=== PATIENT | female | born 1955 | race Caucasian/White ===

== ENCOUNTER 2016-09-15 21:54 | Inpatient (IN) | payer MEDICAID, OTHER ==
[~2016-09-15] VITALS: Ht 152.4 cm; Wt 61.1 kg
[~2016-09-15 21:54] MED LIST: CALTTAB2 PO; IODIXANOL 320 MG/ML 50 ML VIAL (for RAD SPEC) I-ARTERIAL ONE; OXYC30TA3 PO; PROPOFOL 200 MG/20 ML AMP IV ONE; SOMA350T PO; XANA2TAB2 PO; [UNRECOGNIZED DRUG - CODE] PO
[2016-09-15] MEDS ORDERED: VERAPAMIL HCL 5 MG/2 ML VIAL ONE ×2 (22:18→23:03)
[2016-09-15] MEDS ORDERED: MIDAZOLAM HCL 2 MG/2 ML VIAL ONE (22:19)
[2016-09-16] VITALS (10 sets, daily range): BP systolic 120–144; BP diastolic 61–72; PULSE 58–74; RESP 13–24; TEMP 98–99.2; O2SAT 94–100
--- NOTE | 2016-09-16 00:20 | PD.RAD ---
Post Procedure Progress Note Pre Procedure Diagnosis: (1) Acute embolic stroke Post Procedure Diagnosis: (1) Acute embolic stroke Procedure Date: Sep 16, 2016 Supervising Radiologist: Td Munson JR Proceduralist/Assist: Nohemy Richter, RT(R)(), Jinny Gonzalez RT(R)() Anesthesia: General Plan of Activity Patient to Unit: Critical Care Patient Condition: Fair See PACS Report for procedural detail/treatment Vascular-Arterial Procedure Procedure 1 Procedure Site: Cerebral Procedure(s): Angiogram, Embolectomy Access Access Site(s): Right Femoral Artery Closure Site(s): Right vascular closure device Findings: Completer occlusion of M1 segment of right MCA. Last seen normal approx 5.5 hrs ago. Cerebral angio and attempted embolectomy performed. Removed some thrombus but complete occlusion remained despite multiple attempts. Angioseal closure device utilized at groin. TICI score: 0 Plan To ICU Jr. Arpit,Td Castillo MD Sep 16, 2016 00:19
--- NOTE | 2016-09-16 00:38 | HHI.HP ---
HPI Service Critical Care Medicine Primary Care Physician Sarah Hong M.D. Admission Diagnosis Diagnosis: (1) Acute ischemic stroke Diagnosis: Principal (2) COPD (chronic obstructive pulmonary disease) Diagnosis: Secondary (3) Thoracic outlet syndrome Diagnosis: Secondary (4) Osteoporosis Diagnosis: Secondary (5) Anxiety Diagnosis: Secondary (6) Tobacco abuse Diagnosis: Secondary (7) GERD (gastroesophageal reflux disease) Diagnosis: Secondary (8) Cataract Diagnosis: Secondary (9) Endometriosis Diagnosis: Secondary (10) Dyslipidemia Diagnosis: Secondary (11) Chronic back pain Diagnosis: Secondary (12) Trigeminal neuralgia of left side of face Diagnosis: Secondary (13) Tissue plasminogen activator (t-PA) administered at other facility within 24 hours prior to current admission Diagnosis: Principal Travel History International Travel<30 Days: No Contact w/Intl Traveler <30 Da: No Traveled to Known Affected Are: No History of Present Illness 61-year-old [id number] female with past medical history of COPD, tobacco abuse, chronic back pain, osteoporosis, endometriosis, hyperlipidemia (not on therapy) who states she has a prior history of TIA 2 years ago who was transferred to [facility] from [facility] as a stroke alert. She was triaged at outside hospital at 18:40 on 09/15 where she presented with left upper extremity weakness and left facial droop with reported time of onset of 16:30, last seen normal 16:00. She complained of 3 day history of headache. She reportedly had a prior history of TIA about 2 years ago but was not on antiplatelet or anticoagulant therapy. CT brain at outside hospital reportedly shows hyperdensity of right MCA with no loss of traore white matter differentiation to suggest acute infarct. No acute hemorrhage. Patient was evaluated by tele-neurologist and patient was administered TPA at outside hospital and then transferred for IR and thrombectomy. Patient was unable to transfer to [facility] due to weather. Transferred by ground transport to [facility] after acceptance by Dr. Durán with neurology. Patient went directly to IR per Dr. Td Munson. Angiography showed complete occlusion of M1 segment of right MCA. Embolectomy was attempted and there was removal of some thrombus but complete occlusion remained despite multiple attempts. Transfer center contacted critical care medicine while patient was in IR, requesting admission to [facility]. TPA completed at 21:00 on 09/15 per discussion with IR. BP outside hospital was 117/79, hemoglobin 14.7, platelets 398, coags normal, LFTs normal, creatinine 0.83. Past Family Social History Allergies: Coded Allergies: Nubain (Verified Allergy, Severe, HIVES,HIVES, 04/29/11) Nonsteroidal Anti-Inflammatory Agts (Unverified Adverse Reaction, Severe, N/V, 04/29/11) Past Medical History COPD Chronic back pain Osteoporosis GERD Trigeminal neuralgia Anxiety Thoracic outlet syndrome Hyperlipidemia Endometriosis TIA 2 years ago Past Surgical History Hysterectomy due to endometriosis Appendectomy Bilateral breast mass resection (benign cyst) Coccyx resection 2006 Left eye cataract surgery 08/20/09 Left corneal transplant Dental extraction about 3 months ago Tobacco abuse Reported Medications Obtained medication list from outside hospital. Patient was unable to verify dosage with me. Hydrocodone 5/325 Oxycodone 10/325 Amoxicillin 500 mg (patient states she was on this for 3-4 months following a dental extraction) Suboxone 8/2 mg Carbamazepine 200 mg by mouth twice a day (patient states she is on it for trigeminal neuralgia, no history of seizures) Klonopin 0.5 mg Gabapentin 800 mg by mouth 3 times a day Omeprazole 40 mg daily Prednisone 20 mg daily tizanidine 4 mg by mouth every 8 hours Albuterol 2 puffs inhaled every 4 hours Prednisolone ophthalmic 1 drop left eye twice a day Acetaminophen codeine Klonopin 1 mg by mouth twice a day Diclofenac 50 g by mouth twice a day Family History Her mother had a stroke in her 50s. She of "Alzheimer's" Father at age 70 from lung cancer Social History She smokes a half a pack of cigarettes per day for 30 years Denies use of alcohol or illicit drugs She was incarcerated for 2 years and was released in 1999 She is not . She has a boyfriend/fianc who is in the waiting room. She has adult children who she states have not been informed of her stroke but that it is okay for hospital staff to update them if they call asking about her. Physical Exam Physical Exam GENERAL: Well-nourished, well-developed patient who is laying flat in ISC bed. SKIN: Warm and dry. Feet are cool to touch bilaterally. She has well-healed linear scars on volar aspect of left forearm that appear consistent with self cutting. HEAD: Atraumatic. Normocephalic. EYES: s/p L corneal transplant. Bilateral pupils are 4-5 mm, round and reactive to 2 mm bilaterally. No scleral icterus. No injection or drainage. ENT: No nasal bleeding or discharge. Mucous membranes pink and moist. NECK: Trachea midline. No JVD. No carotid bruit. CARDIOVASCULAR: Regular rate and rhythm, sinus rhythm on monitor with rate in the 60s. No murmurs rubs or gallops. RESPIRATORY: No accessory muscle use. Clear to auscultation. Breath sounds equal bilaterally. GASTROINTESTINAL: Abdomen soft, non-tender, nondistended. Bowel sounds present. MUSCULOSKELETAL/VASC: Extremities without clubbing, cyanosis, or edema. No obvious deformities. Feet are cool to touch bilaterally. There is a dressing in place R groin that is clean and dry. Right femoral and bilateral popliteal pulses are palpable. She complains of right groin tenderness but there is no significant hematoma appreciated. Right DP pulse is dopplerable. No dopplerable pulse noted left DP or posterior tibial artery which was reportedly consistent with preprocedure exam per RN report. NEUROLOGICAL: Awake and alert, oriented x4. Pupils reactive. There is some left ptosis which patient states is chronic. Extraocular movements appear full however it does appear there is a right exophoria. No obvious cranial nerve deficits. Normal facial sensation. Normal tongue protrusion. Speech is slurred. Normal naming. Strength is 5 out of 5 on right side. She reports equal and symmetrical sensation to soft touch Left upper extremity is flaccid. Left hip flexor is 4 out of 5, 4-/5 L hamstring, 4/5 L ankle plantar flexion, 4/5 L ankle dorsiflexion. Babinski upgoing bilaterally. Patellar 2+ bilaterally. Assessment and Plan Assessment and Plan NEURO: Acute ischemic stroke, right M1 occlusion History of trigeminal neuralgia Anxiety Chronic back pain Status post left corneal implant History of TIA s/p TPA completed 09/15 21:00 (discussed with Eugenio EDMONDS in invasive radiology) s/p thrombectomy per Dr. Td Munson with persistent occlusion of R M1 Admit to [facility] for monitoring Hold anticoagulation and antiplatelets for 24 hours following TPA Obtain carotid ultrasound, 2-D echo, lipid panel Follow-up CT brain at 24 hours. Labetalol/nicardipine if needed to maintain systolic blood pressure less than 185/diastolic less than 110 following TPA. Telemetry monitoring Ofirmev if needed for temp greater than 100.4 Fentanyl 25-50 g IV as needed for pain Resume carbamazepine 200 by mouth twice a day, gabapentin 800 by mouth 3 times a day, Klonopin 1 mg by mouth twice a day if able to tolerate by mouth (for h/o anxiety and Trigeminal neuralgia, no h/o sz. If does not pass swallow eval, NGT for meds 24 hours post tpa. Neurology consult RESP: COPD Tobacco abuse Nasal cannula wean as tolerated. Incentive spirometry every hour. DuoNeb every 6 hours. Albuterol every 2 hours as needed. CV: Hyperlipidemia Patient reports a history of hyperlipidemia but has not recently been on medication. Fasting lipid profile is pending. Patient is in sinus rhythm. Continue to monitor on telemetry. Obtain 2-D echo GI: GERD Protonix 40 mg IV daily FEN/RENAL: Patient is voiding. No Moon ID: Leukocytosis, likely reactive (high blood cell count 11.4 at outside hospital) Monitor for signs and symptoms of infection. HEME: No acute hematologic issues. Status post TPA. ENDO: Euglycemic outside hospital. Initiate low-dose insulin sliding scale if needed. Follow-up hemoglobin A1c. MSK: Osteoporosis Fosamax on hold. Unclear if she was actively taking it recently. PROPH: SCDs for DVT prophylaxis. Hold pharmacologic DVT prophylaxis for 24 hours status post TPA. Protonix 40 mg IV daily for stress ulcer prophylaxis and history of GERD ACCESS: Peripheral IV providing adequate access at this time. Angioseal device R groin. Patient appears capacitated for medical decision-making. She indicates that she is full code for pulseless arrest and she would be agreeable to intubation if needed for airway compromise following stroke. FULL CODE Level III H&P Problem Qualifiers (1) Chronic back pain: Bronwyn Camejo MD Sep 16, 2016 00:38
[2016-09-16] MEDS ORDERED: MISCELLANEOUS NURSING INFORMATION XX SCH (01:15)
[2016-09-16] MEDS ORDERED: RESP: ALBUTEROL 2.5 MG/3 ML NEB (PRN) INH (01:15)
[2016-09-16] MEDS ORDERED: CHLORHEXIDINE GLUCONATE 2 % 1 PACK (2 CLOTHS) TOP PRN (01:15)
[2016-09-16] MEDS ORDERED: MAGNESIUM HYDROXIDE SUSP 30 ML CUP PO PRN (01:15)
[2016-09-16] MEDS ORDERED: LABETALOL HCL 100 MG/20 ML VIAL IV PUSH PRN (01:15)
[2016-09-16] MEDS ORDERED: SENNOSIDES 8.6 MG TAB PO PRN (01:15)
[2016-09-16] MEDS ORDERED: SODIUM CHLORIDE 0.9% FLUSH 10 ML FLUSH IV FLUSH PRN (01:15)
[2016-09-16] MEDS ORDERED: BISACODYL 10 MG SUPP RECTAL PRN (01:15)
[2016-09-16] MEDS: CHLORHEXIDINE GLUCONATE 2 % 1 PACK (2 CLOTHS) TOP SCH (01:23)
[2016-09-16] MEDS ORDERED: ACETAMINOPHEN 1000 MG/100 ML VIAL IV PRN ×2 (01:30→14:00)
[2016-09-16] MEDS ORDERED: niCARdipine INJ 25 MG in SODIUM CHLOR 0.9% 250 ML INJ 250 ML IV SCH (01:30)
[2016-09-16] MEDS: SODIUM CHLOR 0.9% 1000 ML INJ 1,000 ML IV SCH ×2 (01:30→11:43)
[2016-09-16] MEDS ORDERED: RESP: ALBUTEROL 2.5 MG/IPRATROPIUM 0.5 MG NEB (SCH) INH (04:00)
--- NOTE | 2016-09-16 06:01 | HHI.CCPN ---
Subjective Remarks/Hospital Course 61-year-old kmicu-llwg-[id number] female with past medical history of COPD, tobacco abuse, chronic back pain, osteoporosis, endometriosis, hyperlipidemia (not on therapy) who states she has a prior history of TIA 2 years ago who was transferred to [facility] from [facility] as a stroke alert. She was triaged at outside hospital at 18:40 on 09/15 where she presented with left upper extremity weakness and left facial droop with reported time of onset of 16:30, last seen normal 16:00. She complained of 3 day history of headache. She reportedly had a prior history of TIA about 2 years ago but was not on antiplatelet or anticoagulant therapy. CT brain at outside hospital reportedly shows hyperdensity of right MCA with no loss of traore white matter differentiation to suggest acute infarct. No acute hemorrhage. Patient was evaluated by tele-neurologist and patient was administered TPA at outside hospital and then transferred for IR and thrombectomy. Patient was unable to transfer to [facility] facility due to weather. Transferred by ground transport to [facility] after acceptance by Dr. Durán with neurology. Patient went directly to IR per Dr. Td Munson. Angiography showed complete occlusion of M1 segment of right MCA. Embolectomy was attempted and there was removal of some thrombus but complete occlusion remained despite multiple attempts. Transfer center contacted critical care medicine while patient was in IR, requesting admission to [facility]. TPA completed at 21:00 on 09/15 per discussion with IR. BP outside hospital was 117/79, hemoglobin 14.7, platelets 398, coags normal, LFTs normal, creatinine 0.83. Subjective 09/16: Seen and examined. Patient now with movement involving her left upper extremity. Noted cool left lower extremity with non-dopplerable dorsalis pedis pulse. ABIs will be ordered later this afternoon after TPA half-life has past. Vascular checks in the interim. Mentating fine. Protecting airway. Objective Vital Signs Date Time Temp Pulse Resp B/P Pulse Ox O2 Delivery O2 Flow Rate FiO2 09/16/16 04:00 98.4 63 13 126/71 100 09/16/16 03:22 Nasal Cannula 2.00 Objective Remarks GENERAL: 89-year-old female, resting in bed in no acute distress SKIN: Warm and dry. Feet are cool to touch bilaterally. She has well-healed linear scars on volar aspect of left forearm that appear consistent with self cutting. HEAD: Atraumatic. Normocephalic. EYES: s/p L corneal transplant. Bilateral pupils are 4 mm, round and reactive to 2 mm bilaterally in dark room. No scleral icterus. No injection or drainage. ENT: No nasal bleeding or discharge. Mucous membranes pink and moist. Oropharynx without erythema or exudates NECK: Trachea midline. No JVD. No carotid bruit. CARDIOVASCULAR: RRR. S1, S2. No S4. Without murmur, clicks, gallops or rubs RESPIRATORY: Clear to auscultation bilaterally without wheezes rales or rhonchi GASTROINTESTINAL: Abdomen soft, non-tender, nondistended. Hypoactive bowel sounds appreciated MUSCULOSKELETAL: Left upper extremity is everted and no significant peripheral edema. Noted non-dopplerable left dorsalis pedis. No cyanosis noted. Cool to touch NEUROLOGICAL: Awake and alert, oriented to person place and time. Pupils reactive as above. No obvious cranial nerve deficits specifically no facial droop. Normal tongue protrusion. Speech is normalizing. Strength is 5 out of 5 on right upper extremity and lower extremity. Left upper extremity strength is 3 out of 5. Normal sensation bilateral upper and lower extremity. Babinski upgoing bilaterally. No clonus. Urinary Catheter: Yes Assessment to: Remove Moon insert reason: Prolonged Immobilization Vascular Central Line Catheter: No Assessment to: Continue A/P Assessment and Plan NEURO/PSYCH: Acute ischemic stroke, right M1 occlusion History of trigeminal neuralgia Anxiety Chronic back pain Status post left corneal implant History of TIA with left-sided symptomatology History of drug-seeking behavior - prior Suboxone use History of TOS Neurology consult pending s/p TPA completed 09/15 21:00 initial bolus 5.8 mg followed by 52.4 mg at [facility] s/p attempted thrombectomy with interventional radiology with persistent occlusion of R M1 Follow-up CT brain at 2100 09/16. MRI brain to be ordered today Home medications Tegretol 200 by mouth twice a day, Neurontin 800 by mouth 3 times a day, Klonopin 1 mg by mouth twice a day can be resumed for anxiety and trigeminal neurologist Holding diclofenac 50 mg by mouth twice a day/home medication On Ofirmev 1 g every 8 hours when necessary fever Patient states she is not currently on Suboxone Resume prednisolone acetate 0.5% left eye 1 drop twice a day left corneal transplant PT/OT/ST evaluate RESP: COPD Tobacco abuse Nasal cannula to maintain oxygen saturations greater than equal to 92% Incentive spirometry every hour while awake Continue home medications albuterol nebulizers every 4 hours nebs/home medication with Albuterol every 2 hours as needed. Nicotine patch will be provided during this hospitalization with education pamphlet CV: Hyperlipidemia Goal systolic blood pressure less than 185/diastolic less than 110 following administration of TPA for 24 hours. Patient reports a history of hyperlipidemia but has not recently been on medication. Previously on atorvastatin 40 mg by mouth at bedtime Fasting lipid profile is pending. 2-D echo ordered per CVA protocol GI: GERD History of esophageal dilatation Hepatitis C Hiatal hernia IBD Protonix 40 mg IV daily while nothing by mouth On Prilosec 40 mg daily at home. Bowel regimen to be initiated with Ita-Colace twice a day/Senokot lactulose when necessary Follow-up on liver function tests /RENAL: Moon was placed. Now will keep in place 24 hours post tPA infusion will be discontinued at 2100 Monitor urine output Accurate I's and O's ID: Monitor for signs and symptoms of infection. HEME: Leukocytosis Likely leukemoid type reaction. Follow-up CBC to be done this hospitalization differential Status post TPA. 58.2 mg at outside facility ENDO: Euglycemic outside hospital. Initiate low-dose insulin sliding scale if needed. Follow-up hemoglobin A1c. MSK: Osteoporosis/osteoarthritis Fosamax on hold. Unclear if she was actively taking it recently. FEN: Replace electrolytes as clinically indicated. Currently normal saline at 84 cc an hour Nutrition pending swallow evaluation Access - Single peripheral IV Prophylaxis GI- Protonix DVT- SCD/holding pharmacologic prophylaxis 24 hours post alteplase infusion . 30 minutes additional care time area and will sign off to hospitalist in a.m. 09/[address] head negative Enoc Chaparro MD Sep 16, 2016 06:01
[2016-09-16] MEDS ORDERED: hydrALAZINE HCL 20 MG/ML VIAL IV PUSH PRN (07:30)
[2016-09-16] MEDS: RESP: ALBUTEROL 2.5 MG/3 ML NEB (SCH) NEB ×5 (08:14→23:47)
--- NOTE | 2016-09-16 08:27 | PD.CONS ---
History of Present Illness Service Neurology Consult Requested By [facility], [facility] Reason for Consult stroke Primary Care Physician Unknown History of Present Illness 61-year-old f transferred from [facility] for possible neurointerventional tx for acute stroke. pt had onset of stroke symptoms at approx 1600 with left sided weakness, went to recieved iv tpa but had persistent weakness. She had a cta brain that showed a rt mca occlusion. She was tx'd to [facility] for further care. Upon arrival she was immediately taken to interventional suite. Rt mca embolectomy attempted but occlusion persisted. At baseline she suffers from chronic pain and is on disability for osteoporosis , and "fractures". she does not take any blood thinners. Smokes 1/2 ppd x decades. hx of "tia" in the past but could not elaborate. she c/o of generalized pain. no hx of dvt/clot/afib. Past Family Social History Allergies: Coded Allergies: Nubain (Verified Allergy, Severe, HIVES,HIVES, 04/29/11) Nonsteroidal Anti-Inflammatory Agts (Unverified Adverse Reaction, Severe, N/V, 04/29/11) Past Medical History COPD Chronic back pain Osteoporosis GERD Trigeminal neuralgia Anxiety Thoracic outlet syndrome Hyperlipidemia Endometriosis TIA 2 years ago Past Surgical History Hysterectomy due to endometriosis Appendectomy Left eye cataract surgery 08/20/09 Left corneal transplant Reported Medications Obtained medication list from outside hospital. Patient was unable to verify dosage with me. Hydrocodone 5/325 Oxycodone 10/325 Amoxicillin 500 mg (patient states she was on this for 3-4 months following a dental extraction) Suboxone 8/2 mg Carbamazepine 200 mg by mouth twice a day (patient states she is on it for trigeminal neuralgia, no history of seizures) Klonopin 0.5 mg Gabapentin 800 mg by mouth 3 times a day Omeprazole 40 mg daily Prednisone 20 mg daily tizanidine 4 mg by mouth every 8 hours Albuterol 2 puffs inhaled every 4 hours Prednisolone ophthalmic 1 drop left eye twice a day Acetaminophen codeine Klonopin 1 mg by mouth twice a day Diclofenac 50 g by mouth twice a day Family History Her mother had a stroke in her 50s. hx of Alzheimers Father at age 70 from lung cancer Social History She smokes a half a pack of cigarettes per day for 30 years Denies use of alcohol or illicit drugs Review of Systems All other ROS: ROS reviewed as documented in chart Past Family Social History Allergies: Coded Allergies: Nubain (Verified Allergy, Severe, HIVES,HIVES, 04/29/11) Nonsteroidal Anti-Inflammatory Agts (Unverified Adverse Reaction, Severe, N/V, 04/29/11) Active Ordered Medications Current Medications Medications (Trade) Dose Ordered Sig/Cassia Route Start Time Stop Time Status Last Admin (NS 1000 ml Inj) 1,000 ml @ 84 mls/hr [id number] IV 09/16/16 01:07 09/16/16 01:30 (NS Flush) 2 ml UNSCH PRN IV FLUSH 09/16/16 01:15 (NS Flush) 2 ml BID IV FLUSH 09/16/16 09:00 (Protonix Inj) 40 mg DAILY IV 09/16/16 09:00 (Zofran Inj) 4 mg Q6H PRN IV 09/16/16 01:15 Miscellaneous Information 1 [id number] XX 09/16/16 01:15 09/16/16 01:15 (Chlorhexidine 2% Cloth) 3 pack Taper DAILY@04 TOP 09/16/16 04:00 09/12/17 03:59 09/16/16 01:23 (Chlorhexidine 2% Cloth) 3 pack UNSCH PRN TOP 09/16/16 01:15 (Ita-Colace) 1 tab BID PO 09/16/16 09:00 (Milk Of Magnesia Liq) 30 ml Q12H PRN PO 09/16/16 01:15 (Senokot) 17.2 mg Q12H PRN PO 09/16/16 01:15 (Dulcolax Supp) 10 mg DAILY PRN RECTAL 09/16/16 01:15 (Lactulose Liq) 30 ml DAILY PRN PO 09/16/16 01:15 Labetalol HCl 10 mg 10 mg Q4H PRN IV PUSH 09/16/16 01:15 (Cardene Inj/NS 250 ml Inj) 260 ml @ 0 mls/hr TITRATE IV 09/16/16 01:30 (fentaNYL INJ) 25 mcg Q1H PRN IV PUSH 09/16/16 01:30 (fentaNYL INJ) 50 mcg Q1H PRN IV PUSH 09/16/16 01:30 09/16/16 06:03 (KlonoPIN) 1 mg Q12HR PO 09/17/16 09:00 (TEGretol) 200 mg Q12HR PO 09/17/16 09:00 (Neurontin) 800 mg TID PO 09/17/16 09:00 (Pred Forte 1% Opth Susp) 1 drop DAILY LEFT EYE 09/16/16 09:00 (Habitrol 14 Mg Patch.24 Hr) 1 patch DAILY@2100 T-DERMAL 09/16/16 21:00 Miscellaneous Information 1 DAILY@2100 T-DERMAL 09/16/16 21:00 (Apresoline Inj) 10 mg Q1H PRN IV PUSH 09/16/16 07:30 (Ofirmev Inj) 1,000 mg Q8H PRN IV 09/16/16 14:00 Exam I&O / VS 09/15/16 09/15/16 09/16/16 15:00 23:00 07:00 Intake Total 325 ml Output Total 225 ml Balance 100 ml Intake IV Total 325 ml Output Urine Total 225 ml # Bowel Movements 0 Vital Signs Date Time Temp Pulse Resp B/P Pulse Ox O2 Delivery O2 Flow Rate FiO2 09/16/16 07:00 96 Nasal Cannula 2.00 09/16/16 04:00 98.4 63 13 126/71 100 09/16/16 03:22 99 Nasal Cannula 2.00 09/16/16 00:00 98.1 64 16 131/72 100 General: Alert and Oriented, No acute distress Respiratory: Non-labored respirations Exam Comments awake, left gaze preference, no significant neglect, ou 3-2mm, left lower facial droop, left arm 1/5, left leg 2-3/5 with left sided dystaxia and mild left hemisensory Review/Management Diagnosis/Plan: (1) Acute ischemic right MCA stroke Plan: +tob use hx rt mca occlusion r/o rt carotid dz/embolic process recs tele bp <180/100 post-tpa mri/mra brain echo, carotid lipids scd's start aspirin tomorrow if no ich on repeat ct brain later today (2) Tissue plasminogen activator (t-PA) administered at other facility within 24 hours prior to current admission Plan: given 09/15/2016 at 1945 (3) Trigeminal neuralgia of left side of face Plan: on cbz (4) Chronic back pain (5) Tobacco abuse Plan: cessation d/w pt Problem Qualifiers (1) Chronic back pain: Won Durán MD Sep 16, 2016 08:27
[2016-09-16] MEDS: PANTOPRAZOLE SODIUM 40 MG VIAL IV SCH (08:50)
[2016-09-16] MEDS: DOCUSATE SODIUM 50 MG/SENNA 8.6 MG TAB PO SCH ×3 (08:50→22:21)
[2016-09-16] MEDS: SODIUM CHLORIDE 0.9% FLUSH 10 ML FLUSH IV FLUSH SCH ×2 (08:50→21:00)
[2016-09-16] MEDS: prednisoLONE ACETATE 1% OPHT SUSP 5 ML BTL LEFT EYE SCH (09:00)
--- NOTE | 2016-09-16 09:50 | RADRPT ---
EXAM DATE/TIME: 09/16/2016 08:18 [place] COMPARISON: No previous studies available for comparison. INDICATIONS : Cerebrovascular accident. MEDICAL HISTORY : Hypercholesterolemia. Chronic obstructive pulmonary disease. Gastroesophageal reflux disease. Cerebro vascular accident. Thoracic outlet syndrome. Hiatal hernia. Kidney stones. Hepatitis C. SURGICAL HISTORY : Appendectomy. Hysterectomy. Left cornea transplant. Coccyx removed. Bilateral tumor removal of bila teral breast. ENCOUNTER: Initial ACUITY: 1 day PAIN SCORE: 10/10 LOCATION: Bilateral neck PEAK SYSTOLIC VELOCITIES (cm/sec): ICA/CCA RATIO: Right: 0.9 Left: 1.0 ICA: Right: 75 Left: 109 CCA: Right: 84 Left: 105 ECA: Right: 84 Left: 61 VERTEBRAL: Right: 34 antegrade Left: 57 antegrade Elevated flow velocities and ICA/CCA ratios have been found to correlate with increased degrees of vessel stenosis, calculated as percentage of diameter relative to a normal segment of distal ICA/CCA FINDINGS: RIGHT CAROTID: There is no evidence for a hemodynamically significant carotid stenosis. Minimal int imal hyperplasia is present with scattered calcific plaque. LEFT CAROTID: There is no evidence for a hemodynamically significant carotid stenosis. Minimal inti mal hyperplasia is present with scattered calcific plaque. VERTEBRAL ARTERIES: Flow is antegrade in both vertebral arteries. MISCELLANEOUS: There are no ancillary masses or adenopathy. CONCLUSION: Negative examination for a hemodynamically significant carotid stenosis. Benoit Smith MD FACR on September 16, 2016 at 9:48 Board Certified Radiologist. This report was verified electronically.
[2016-09-16] MEDS: clonazePAM 1 MG TAB PO SCH ×2 (10:38→22:20)
[2016-09-16] MEDS: ACETAMINOPHEN/HYDROcodone 325 MG/5 MG TAB PO PRN ×3 (10:38→22:21)
--- NOTE | 2016-09-16 12:13 | RADRPT ---
EXAM DATE/TIME: 09/15/2016 23:08 [facility] COMPARISON: No previous studies available for comparison. INDICATIONS : Acute right MCA occlusion with left hemiparesis. Patient last seen normal approximately 5.5 hours ago . Patient received t-PA at [facility]. Patient transferred here for intervention. Patient is i n need of a cerebral angiogram with thrombectomy due to CVA. MEDICAL HISTORY : History of hepatitis C, COPD, TIA, arterial thoracic outlet syndrome, IVDU, hiatal hernia, inflammato ry bowel disease, osteoarthritis, osteoporosis. SURGICAL HISTORY : History of colonoscopy, appendectomy, dilation of esophagus, hysterectomy. ENCOUNTER: Initial ACUITY: 1 day PAIN SCORE: 0/10 FLUORO TIME: 25.5 minutes IMAGE SERIES: 16 ACCESS SITE: Right Femoral artery CONTRAST: 63 cc Visipaque (iodixanol) MEDICATION(S): 1.) 5 mg Verapamil IART 2.) 1 g cefazolin (Ancef) IV Vancomycin within 2 hours of procedure, Ancef (or alternative) within 1 hour of procedure. DEVICE(S): 1.) Right middle cerebral artery mechanical thrombectomy Deepak 68 2.) Right midddle cerebral artery mechanical thrombectomy Solitaire 6-30 3.) Right common femoral artery 6Fr Angio-Seal TIMELINE: Interventional team called: 9:06 pm Interventional team arrived: 9:24 pm Interventional team ready: 9:30 pm Patient arrival: 10:01 pm Groin puncture: 10:30 Recanalization: 0 Anesthesia and pain control was provided by the Anesthesia department. PROCEDURE : 1. Ultrasound-guided puncture of the right common femoral artery access site. 2. Angiography of the access site prior to closure device. 3. Anesthesia and monitoring supplied by the anesthesiology department. 4. Percutaneous closure of the access site. 5. Angiography of the right internal carotid artery 6. Angiography of the right middle cerebral artery 7. mechanical thrombectomy of the right middle cerebral artery 8. Intra-arterial spasmolytic therapy I reviewed a CTA that accompanied the patient from [facility]. The risks, benefits and alternat willard to the procedure were explained and consent was obtained. No family available for consent. The s ite was prepped in sterile fashion. Full sterile technique was used, including cap, mask, sterile gl oves and gown and a large sterile sheet. Hand hygiene and 2% chlorhexidine and/or betadine/alcohol p rep was utilized per protocol for cutaneous antisepsis. The skin and subcutaneous tissues were infil trated with local anesthetic solution. With ultrasound and fluoroscopic guidance the right common femoral artery was punctured and a vascula r sheath was placed. Angiography of the common femoral artery was performed for evaluation prior to percutaneous closure device placement. A [employer] catheter was utilized to select the right internal carotid artery and selective angiogra phy performed. These images reveal acute occlusion of the M1 segment. The anterior cerebral artery is patent. There is some collateralization with opacification in the late arterial phase of the distal right middle through artery territory. Mechanical thrombectomy felt most prudent in this case. An 8 F rench neuron sheath was positioned in the cephalad portion of the right ICA. An 068 Penumbra aspirati on catheter, [employer] microcatheter, and agility microwire were utilized to gain access across the oc cluded segment. Injection of contrast peripheral to this shows traversal of the entire thrombus load. The Penumbra aspiration catheter was positioned in the proximal end of the clot. Aspiration of the c atheter was performed for 2 minutes and it was gently retracted with aspiration. Small piece of throm bus were noted but followup angiogram shows persistent occlusion. Significant vasospasm involving the ICA at the level of the skull base was noted. Intra-arterial verapamil was instilled. A total 5 mg u tilized. Followup angiogram shows resolution of much of the vasospasm. A second attempt was performed with similar results. The solitaire device was deployed within the thrombus through the penumbra cat heter. This was allowed to expand for 5 minutes. Suction was applied the catheter and the entire unit removed. Some chronic-appearing clot was noted within the solitaire device. Followup angiogram shows persistent occlusion. This device was utilized two more times with similar results. At this point th e procedure was terminated. Angio-Seal closure device was utilized at the groin access site. Conscious sedation was performed with the prescribed dosages and duration as above in the presence of an independent trained radiology nurse to assist in the monitoring of the patient. EKG and oximetry remained stable throughout the procedure. CONCLUSION: 1. Complete occlusion of the right M1 segment with attempted mechanical thrombectomy. Multiple attemp ts were made which cleared some chronic appearing thrombus but was unable to regain patency. This is TICI score of zero. Td Munson Jr., MD on September 16, 2016 at 11:50 Board Certified Radiologist. This report was verified electronically.
--- NOTE | 2016-09-16 13:30 | RADRPT ---
EXAM DATE/TIME: 09/16/2016 13:01 [facility] COMPARISON: No previous studies available for comparison. INDICATIONS : Left sided weakness. Post TPA. MEDICAL HISTORY : None. SURGICAL HISTORY : Appendectomy. benign breast cysts removed. ENCOUNTER: Subsequent ACUITY: 1 day PAIN SCORE: 0/10 LOCATION: cranial Please note a normal MRA of the brain does not entirely exclude the possibility of a small aneurysm, nor the possibility of distal intracranial vessel disease. TECHNIQUE: 3D time of flight MRA was performed. Source images, multiplanar STS MIP, and 3D volume MIP reconstru ctions were reviewed. FINDINGS: Both distal internal carotid arteries are widely patent. The left vertebral is patent. The basilar is patent. The right vertebral spot identified. Examination of the intracranial circulation demonstrates abrupt truncation of the right middle cerebr al at the M1 segment. There is some degree of limited distal reconstitution. The middle cerebral circ ulation on the left is widely patent. The anterior circulation is patent. The posterior circulation i s patent. CONCLUSION: 1. Abrupt occlusion of the right middle cerebral circulation at the level of the distal right M1. Kirt Smith MD on September 16, 2016 at 13:27 Board Certified Radiologist. This report was verified electronically.
--- NOTE | 2016-09-16 13:39 | RADRPT ---
EXAM DATE/TIME: 09/16/2016 13:01 [facility] COMPARISON: No previous studies available for comparison. INDICATIONS : Left sided weakness. Post TPA. MEDICAL HISTORY : None. SURGICAL HISTORY : Appendectomy. benign breast cysts removed. ENCOUNTER: Subsequent ACUITY: 1 day PAIN SCORE: 0/10 LOCATION: cranial TECHNIQUE: Multiplanar, multisequence MRI of the brain was performed without contrast. FINDINGS: There is an area involving the right MCA territory of high flair signal with associated restricted di ffusion. This involves the periventricular white matter as well as the cortex and immediate subcortic al white matter of the right parietal lobe. A few small foci of restricted diffusion seen involving t he cortex of the right frontal lobe and right parietal lobe more cephalad in nature. The remaining br ain shows normal signal. Ventricles are normal in size. No hemorrhage seen. CONCLUSION: Acute nonhemorrhagic infarction involving the right MCA territory as detailed above. Td Munson Jr., MD on September 16, 2016 at 13:28 Board Certified Radiologist. This report was verified electronically.
--- NOTE | 2016-09-16 15:45 | RADRPT ---
EXAM DATE/TIME: 09/16/2016 00:00 [facility] COMPARISON: No previous studies available for comparison. INDICATIONS : STROKE TECHNIQUE: Four-cuff ankle and brachial pressures were obtained. Pulse cuff waveform tracings of the ankles were recorded, and ankle-brachial indices were calculated. PRESSURES (mmHg): Brachial (arm): Right IV SITE Left 139 Ankle: Right 165 Left 91 ANNETTE: Right 1.19 Left 0.65 TBI: Right 0.00 Left 0.00 CONCLUSION: ANNETTE on the right is 1.19. ANNETTE on the left is 0.6. Findings would be consistent with left aortoiliac disease. Benoit Smith MD FACR on September 16, 2016 at 15:40 Board Certified Radiologist. This report was verified electronically.
--- NOTE | 2016-09-16 15:51 | EKG ---
Date Performed: 09/16/2016 Time Performed: 07:47:56 PTAGE: 61 years EKG: Sinus rhythm NORMAL ECG PREVIOUS TRACING : 06/13/2009 19.29 Compared to prior tracing no significant change DOCTOR: Billy Meehan Interpretating Date/Time 09/16/2016 15:50:06
--- NOTE | 2016-09-16 16:58 | ECHRPT ---
Indication: CVA/TIA CONCLUSIONS The left ventricular systolic function is normal with an estimated ejection fraction in the range of 60-65%. Wall thickness is normal. No regional wall motion abnormalities are present. The right ventricular size is normal. The right ventricular systoilc function is normal. The right ventricular wall thickness is normal. There is trace tricuspid valve regurgitation. BP: 126 / 71 HR: 63 Rhythm: Sinus MEASUREMENTS (Male / Female) Normal Values Technical Quality:Good 2D ECHO LVOT Diameter 2.0 cm LV Ejection Fraction MOD 4C 68.9 % LV Cardiac Index MOD 4C 2123.2 cm/minm LV Ejection Fraction 4C AL 69.9 % LV Cardiac Index 4C AL 2220.6 cm/minm M-MODE LV Diastolic Diameter MM 5.6 cm 4.2 - 5.9 / 3.9 - 5.3 cm LV Systolic Diameter MM 3.6 cm LV Ejection Fraction MM Teich 64.7 % LV Cardiac Index MM Teich 4071.6 cm/minm IVS Diastolic Thickness MM 0.9 cm 0.6 - 1.0 / 0.6 - 0.9 cm LVPW Diastolic Thickness MM 0.9 cm 0.6 - 1.0 / 0.6 - 0.9 cm LV Relative Wall Thickness MM 0.3 0.24 - 0.42 / 0.22 - 0.42 LV Mass Index MM 124.5 g/m 49 - 115 / 43 - 95 g/m Aortic Root Diameter MM 3.0 cm AV Cusp Separation MM 2.0 cm DOPPLER AV Peak Velocity 149.0 cm/s AV Peak Gradient 8.9 mmHg LVOT Peak Velocity 114.0 cm/s LVOT Peak Gradient 5.2 mmHg AV Area Cont Eq pk 2.4 cm MV Area PHT 3.2 cm Mitral E Point Velocity 86.4 cm/s Mitral A Point Velocity 104.0 cm/s Mitral E to A Ratio 0.8 LV E' Lateral Velocity 7.9 cm/s Mitral E to LV E' Lateral Ratio 10.9 LV E' Septal Velocity 8.2 cm/s Mitral E to LV E' Septal Ratio 10.5 TV Peak Velocity 235.0 cm/s PV Peak Velocity 96.4 cm/s PV Peak Gradient 3.7 mmHg FINDINGS Left Ventricle The left ventricular systolic function is normal with an estimated ejection fraction in the range of 60-65%. Wall thickness is normal. No regional wall motion abnormalities are present. Right Ventricle The right ventricular size is normal. The right ventricular systoilc function is normal. The right ventricular wall thickness is normal. Left Atrium The left atrial size is normal. Right Atrium The right atrial size is normal. Atrial Septum Normal atrial septal thickness without atrial level shunting by limited color doppler interrogation. Aorta The aortic root and proximal ascending aorta are normal in size on limited imaging. Mitral Valve Structurally normal mitral valve. No mitral valve stenosis or regurgitation. Aortic Valve Trileaflet aortic valve. No aortic valve stenosis or regurgitation. Tricuspid Valve There is trace tricuspid valve regurgitation. Vessels The inferior vena cava is normal in size. Pericardium No pericardial effusion. Jed Becerra MD, FACC Edited by: [employer] Specialist (Electronically Signed) Final Date:16 September 2016 16:57 Amended: 17 September 2016 13:25 MTDD
[2016-09-16] MEDS: REMOVE OLD PATCH T-DERMAL SCH (21:00)
--- NOTE | 2016-09-16 21:50 | RADRPT ---
EXAM DATE/TIME: 09/16/2016 21:18 [facility] COMPARISON: MRI BRAIN W/O CONTRAST, September 16, 2016, 13:01. INDICATIONS : Patient with acute nonhemorrhagic infarct in the right middle cerebral artery territory with left janay ed weakness. Evaluate post TPA. RADIATION DOSE: 56.35 CTDIvol (mGy) MEDICAL HISTORY : None SURGICAL HISTORY : Appendectomy. ENCOUNTER: Initial ACUITY: 2 days PAIN SCALE: 0/10 LOCATION: cranial TECHNIQUE: Multiple contiguous axial images were obtained of the head. Using automated exposure control and adj ustment of the mA and/or kV according to patient size, radiation dose was kept as low as reasonably a chievable to obtain optimal diagnostic quality images. FINDINGS: There are areas of decreased attenuation involving the right basal ganglia and right parietal co rtex corresponding to the areas of infarction seen on the MRI study. There is no evidence of acute he morrhage. There is mild mass effect on the right lateral ventricle which is slightly flattened. There is no midline shift. No extra-axial fluid collections are identified. The posterior fossa and brains tem remain unremarkable. CONCLUSION: 1. No acute hemorrhage. 2. Low attenuation areas corresponding to the areas of acute infarction seen on the MRI. Emmanuel Gracia MD on September 16, 2016 at 21:45 Board Certified Radiologist. This report was verified electronically.
[2016-09-16] MEDS: NICOTINE 14 MG/24 HR PATCH T-DERMAL SCH (22:22)
[2016-09-17] VITALS (12 sets, daily range): BP systolic 95–146; BP diastolic 52–78; PULSE 73–88; RESP 15–24; TEMP 97.6–98.8; O2SAT 93–97
[2016-09-17] MEDS: SODIUM CHLOR 0.9% 1000 ML INJ 1,000 ML IV SCH ×2 (00:57→12:52)
[2016-09-17] MEDS: RESP: ALBUTEROL 2.5 MG/3 ML NEB (SCH) NEB ×5 (03:31→20:00)
[2016-09-17] MEDS: CHLORHEXIDINE GLUCONATE 2 % 1 PACK (2 CLOTHS) TOP SCH (03:52)
[2016-09-17] MEDS: ACETAMINOPHEN/HYDROcodone 325 MG/5 MG TAB PO PRN ×2 (03:53→11:35)
[2016-09-17] MEDS: MORPHINE SULFATE 4 MG/ML INJ IV PRN ×3 (03:53→20:00)
[2016-09-17 04:13] LABS: HEMATOCRIT 34.6 % (35.0-46.0); MEAN CELL VOLUME 84.9 FL (80.0-100.0); MEAN CORPUSCULAR HEMOGLOBIN 28.8 PG (27.0-34.0); MEAN CORPUSCULAR HGB CONC 33.9 % (32.0-36.0); PLATELET COUNT 262 TH/MM3 (150-450); RED BLOOD COUNT 4.08 MIL/MM3 (4.00-5.30); RED CELL DISTRIBUTION WIDTH 15.6 % (11.6-17.2); REVIEW FLAG FINAL; WHITE BLOOD COUNT 7.3 TH/MM3 (4.0-11.0)
[2016-09-17 04:51] LABS: ANION GAP 11 MEQ/L (5-15); AST (GOT) 21 U/L (15-37); BLOOD UREA NITROGEN 10 MG/DL (7-18); CHLORIDE 106 MEQ/L (98-107); GLOMERULAR FILTRATION RATE 126 ML/MIN (>89); MAGNESIUM 1.8 MG/DL (1.5-2.5); POTASSIUM 3.1 MEQ/L (3.5-5.1); SODIUM (NA) 140 MEQ/L (136-145)
[2016-09-17 04:54] LABS: ALKALINE PHOSPHATASE 85 U/L (45-117); ALT (GPT) 19 U/L (10-53); HDL CHOLESTEROL 29.9 MG/DL (40.0-60.0); LDL CHOLESTEROL 81 MG/DL (0-99); TOTAL BILIRUBIN ADULT 0.2 MG/DL (0.2-1.0)
[2016-09-17 05:01] LABS: CREATINE KINASE 67 U/L (26-192)
[2016-09-17] MEDS: SODIUM CHLORIDE 0.9% FLUSH 10 ML FLUSH IV FLUSH SCH ×2 (09:00→20:00)
[2016-09-17] MEDS ORDERED: clonazePAM 1 MG TAB PO SCH (09:00)
[2016-09-17] MEDS: prednisoLONE ACETATE 1% OPHT SUSP 5 ML BTL LEFT EYE SCH (09:00)
[2016-09-17] MEDS: PANTOPRAZOLE SODIUM 40 MG VIAL IV SCH (09:02)
[2016-09-17] MEDS: carBAMazepine 200 MG TAB PO SCH ×2 (09:02→20:00)
[2016-09-17] MEDS: GABAPENTIN 400 MG CAP PO SCH ×3 (09:03→18:00)
[2016-09-17] MEDS: DOCUSATE SODIUM 50 MG/SENNA 8.6 MG TAB PO SCH ×2 (09:03→19:59)
[2016-09-17] MEDS: clonazePAM 1 MG TAB PO SCH ×2 (09:03→20:00)
--- NOTE | 2016-09-17 09:06 | HHI.PR ---
Review/Management Diagnosis/Plan: (1) Acute ischemic right MCA stroke Plan: +tob use hx rt mca occlusion carotid u/s- nml recs start aspirin, hep sub q cardio eval for shamar/afib r/o lipids scd's ok for 5th floor with tele rehab planning (2) Tissue plasminogen activator (t-PA) administered at other facility within 24 hours prior to current admission Plan: given 09/15/2016 at 1945 (3) Trigeminal neuralgia of left side of face Plan: on cbz (4) Chronic back pain (5) Tobacco abuse Plan: cessation d/w pt Subjective Subjective Comments No acute events reported No headache No chest pain No dyspnea Active Medications Current Medications Medications (Trade) Dose Ordered Sig/Cassia Route Start Time Stop Time Status Last Admin (NS 1000 ml Inj) 1,000 ml @ 84 mls/hr [id number] IV 09/16/16 01:07 09/17/16 00:57 (NS Flush) 2 ml UNSCH PRN IV FLUSH 09/16/16 01:15 (NS Flush) 2 ml BID IV FLUSH 09/16/16 09:00 09/17/16 09:00 (Protonix Inj) 40 mg DAILY IV 09/16/16 09:00 09/17/16 09:02 (Zofran Inj) 4 mg Q6H PRN IV 09/16/16 01:15 Miscellaneous Information 1 [id number] XX 09/16/16 01:15 09/16/16 01:15 (Chlorhexidine 2% Cloth) 3 pack Taper DAILY@04 TOP 09/16/16 04:00 09/12/17 03:59 09/16/16 01:23 (Chlorhexidine 2% Cloth) 3 pack UNSCH PRN TOP 09/16/16 01:15 (Ita-Colace) 1 tab BID PO 09/16/16 09:00 09/17/16 09:03 (Milk Of Magnesia Liq) 30 ml Q12H PRN PO 09/16/16 01:15 (Senokot) 17.2 mg Q12H PRN PO 09/16/16 01:15 (Dulcolax Supp) 10 mg DAILY PRN RECTAL 09/16/16 01:15 (Lactulose Liq) 30 ml DAILY PRN PO 09/16/16 01:15 Labetalol HCl 10 mg 10 mg Q4H PRN IV PUSH 09/16/16 01:15 (Cardene Inj/NS 250 ml Inj) 260 ml @ 0 mls/hr TITRATE IV 09/16/16 01:30 (TEGretol) 200 mg Q12HR PO 09/17/16 09:00 09/17/16 09:02 (Neurontin) 800 mg TID PO 09/17/16 09:00 09/17/16 09:03 (Pred Forte 1% Opth Susp) 1 drop DAILY LEFT EYE 09/16/16 09:00 09/17/16 09:00 (Habitrol 14 Mg Patch.24 Hr) 1 patch DAILY@2100 T-DERMAL 09/16/16 21:00 09/16/16 22:22 Miscellaneous Information 1 DAILY@2100 T-DERMAL 09/16/16 21:00 (Apresoline Inj) 10 mg Q1H PRN IV PUSH 09/16/16 07:30 (Ofirmev Inj) 1,000 mg Q8H PRN IV 09/16/16 14:00 (KlonoPIN) 1 mg Q12HR PO 09/16/16 09:30 09/17/16 09:03 ([place] 5-325 Mg) 1 tab Q4H PRN PO 09/16/16 09:30 09/17/16 03:53 (Morphine Inj) 2 mg Q2H PRN IV 09/16/16 09:30 09/17/16 03:53 Allergies Allergies Coded Allergies Nubain (Verified Allergy, Severe, HIVES,HIVES, 04/29/11) Nonsteroidal Anti-Inflammatory Agts (Unverified Adverse Reaction, Severe, N/V , 04/29/11) Review of Systems All other ROS: ROS reviewed as documented in chart Exam I&O / VS 09/16/16 09/16/16 09/17/16 15:00 23:00 07:00 Intake Total 900 ml 1208 ml 733 ml Output Total 400 ml 200 ml 275 ml Balance 500 ml 1008 ml 458 ml Intake Oral 100 ml 450 ml 200 ml IV Total 800 ml 758 ml 533 ml Output Urine Total 400 ml 200 ml 275 ml # Bowel Movements 0 Vital Signs Date Time Temp Pulse Resp B/P Pulse Ox O2 Delivery O2 Flow Rate FiO2 09/17/16 07:30 96 21 09/17/16 04:00 98.4 78 24 137/78 96 09/17/16 02:00 73 09/17/16 00:00 98.8 80 21 113/58 93 09/17/16 00:00 80 09/16/16 20:00 98.1 74 24 120/67 95 09/16/16 20:00 72 09/16/16 19:31 94 21 09/16/16 19:00 93 Nasal Cannula 2.00 09/16/16 16:00 98.0 74 20 144/67 09/16/16 12:00 99.2 58 20 120/61 98 09/16/16 09:20 95 21 General: Alert and Oriented, No acute distress Respiratory: Non-labored respirations Exam Comments awake, left gaze preference, no significant neglect, ou 3-2mm, left lower facial droop, left arm 1-2/5, left leg 2-3/5 with left sided dystaxia and mild left hemisensory Objective Micro and Labs Laboratory Tests Test 09/17/16 03:38 White Blood Count 7.3 Red Blood Count 4.08 Hemoglobin 11.7 Hematocrit 34.6 Mean Corpuscular Volume 84.9 Mean Corpuscular Hemoglobin 28.8 Mean Corpuscular Hemoglobin 33.9 Concent Red Cell Distribution Width 15.6 Platelet Count 262 Mean Platelet Volume 8.9 Sodium Level 140 Potassium Level 3.1 Chloride Level 106 Carbon Dioxide Level 23.0 Anion Gap 11 Blood Urea Nitrogen 10 Creatinine 0.50 Estimat Glomerular Filtration 126 Rate Random Glucose 84 Calcium Level 7.8 Phosphorus Level 3.6 Magnesium Level 1.8 Total Bilirubin 0.2 Aspartate Amino Transf 21 (AST/SGOT) Alanine Aminotransferase 19 (ALT/SGPT) Alkaline Phosphatase 85 Total Creatine Kinase 67 Troponin I 0.52 Total Protein 6.1 Albumin 2.9 Triglycerides Level 189 Cholesterol Level 149 LDL Cholesterol 81 HDL Cholesterol 29.9 Cholesterol/HDL Ratio 4.98 Problem Qualifiers (1) Chronic back pain: Won Durán MD Sep 17, 2016 09:06
[2016-09-17] MEDS: HEPARIN SODIUM - SQ 10,000 UNITS/ML VIAL SQ SCH ×2 (09:15→20:00)
[2016-09-17] MEDS: ASPIRIN 325 MG TAB PO SCH (09:15)
[2016-09-17 10:39] LABS: HEMOGLOBIN A1a 1.4 %; HEMOGLOBIN A1b 1.8 %; HEMOGLOBIN Ao 84.5 %
--- NOTE | 2016-09-17 11:12 | PD.PN.STU ---
Subjective Remarks Patient is a 61 year old white female smoker with a PMH of TIA 2 years ago, COPD and hyperlipidemia, presented with acute nonhemorrhagic infarct of the R MCA with left sided weakness. She was given IV tPa 09/15 at 21:00 and sent to IR for embolectomy which was unsuccessful after multiple attempts. She has residual left sided weakness and slurred speech. Today she is complaining of right groin pain where IR achieved access. She also has a severe headache and would like pain medicine. She says her weakness is improving. She is now able to move her left leg and lift it without any help. Her left arm is still immobile. She also reports left sided facial numbness and weakness. Objective Vitals Vital Signs Date Time Temp Pulse Resp B/P Pulse Ox O2 Delivery O2 Flow Rate FiO2 09/17/16 07:30 96 21 09/17/16 07:00 81 09/17/16 04:00 98.4 78 24 137/78 96 09/17/16 02:00 73 09/17/16 00:00 98.8 80 21 113/58 93 09/17/16 00:00 80 09/16/16 20:00 98.1 74 24 120/67 95 09/16/16 20:00 72 09/16/16 19:31 94 21 09/16/16 19:00 93 Nasal Cannula 2.00 09/16/16 16:00 98.0 74 20 144/67 09/16/16 12:00 99.2 58 20 120/61 98 I/O 09/16/16 09/16/16 09/16/16 09/17/16 09/17/16 09/17/16 07:00 15:00 23:00 07:00 15:00 23:00 Intake Total 325 ml 900 ml 1208 ml 733 ml Output Total 225 ml 400 ml 200 ml 275 ml Balance 100 ml 500 ml 1008 ml 458 ml Intake Oral 100 ml 450 ml 200 ml IV Total 325 ml 800 ml 758 ml 533 ml Output Urine Total 225 ml 400 ml 200 ml 275 ml # Bowel Movements 0 0 Result Diagram: 09/17/1633709/17/16337 Objective Remarks GENERAL: Well-nourished, well-developed patient who is laying flat in ISC bed. SKIN: Warm and dry. Feet are cool to touch bilaterally. She has well-healed linear scars on volar aspect of left forearm that appear consistent with self cutting. HEAD: Atraumatic. Normocephalic. EYES: s/p L corneal transplant. Bilateral pupils are 4-5 mm, round and reactive to 2 mm bilaterally. No scleral icterus. No injection or drainage. CARDIOVASCULAR: Regular rate and rhythm, sinus rhythm on monitor with rate in the 60s. No murmurs rubs or gallops. RESPIRATORY: No accessory muscle use. Clear to auscultation. Breath sounds equal bilaterally. GASTROINTESTINAL: Abdomen soft, non-tender, nondistended. Bowel sounds present. MUSCULOSKELETAL/VASC: Extremities without clubbing, cyanosis, or edema. No obvious deformities. Left lower limb is cool to touch compared to the right lower limb. There is a dressing in place R groin that is clean and dry. Right femoral and bilateral popliteal pulses are palpable. NEUROLOGICAL: Awake and alert, oriented x4. Pupils reactive. There is some left ptosis which patient states is chronic. Left lower facial weakness. Extraocular movements appear full. No obvious cranial nerve deficits. Normal facial sensation. Normal tongue protrusion. Speech is slurred. Strength is 5 out of 5 on right side. Sensation to light touch is intact bilaterally. Left upper extremity is immobile. Left hip flexor is 4 out of 5, 4-/5 L hamstring, 4/ 5 L ankle plantar flexion, 4/5 L ankle dorsiflexion. A/P Assessment and Plan 1. Acute Ischemic stroke: - s/p tpa 09/15 21:00, embolectomy attempt - Continue Aspirin 325mg therapy - OT/PT evaluation recommends discharge to rehab facility when appropriate. - Brain MRI confirmed ischemic stroke. Carotid US was negative 2. COPD, tobacco use - Continue Duoneb q 6 hrs - Albuterol as needed 3. Hypertriglyceridemia: - lab results show triglycerides:189 NelsonDanna M3 Sep 17, 2016 11:11
--- NOTE | 2016-09-17 14:10 | MB ---
cc: KIYAANUJ COLLIERSUSAN DATE OF CONSULTATION: 09/17/2016 HISTORY OF PRESENT ILLNESS Ms. Munson is a 61-year-old white female who presented with acute stroke with left-sided weakness. She was found to have right MCA occlusion. An embolectomy was attempted but was unsuccessful. The patient was given TPA prior to the intervention. She denies angina or heart failure symptoms. She is a smoker. PAST MEDICAL HISTORY 1. COPD. 2. Chronic back pain. 3. Osteoporosis. 4. Gastroesophageal reflux disease. 5. Trigeminal neuralgia. 6. Anxiety. 7. Thoracic outlet syndrome. 8. Dyslipidemia. 9. Endometriosis. 10.TIA two years ago. PAST SURGICAL HISTORY 1. Hysterectomy. 2. Appendectomy. 3. Cataract surgery. 4. Corneal transplant. MEDICATIONS 1. Diclofenac. 2. Klonopin. 3. Acetaminophen. 4. Codeine. 5. Prednisone. 6. Ophthalmic drops. 7. Albuterol. 8. Tizanidine. 9. Prednisone. 10.Omeprazole. 11.Gabapentin. 12.Carbamazepine. 13.Suboxone. 14.Amoxicillin. 15.Oxycodone. 16.Hydrocodone. ALLERGIES 1. NUBAIN. 2. NONSTEROIDAL ANTI-INFLAMMATORY DRUGS. SOCIAL HISTORY The patient is a smoker. She does not drink alcohol. FAMILY HISTORY Positive for heart disease. REVIEW OF SYSTEMS Otherwise negative. PHYSICAL EXAMINATION VITAL SIGNS: Blood pressure 137/78, pulse 81 and regular. HEENT: Negative. 2+ carotid upstrokes. No bruits. LUNGS: Clear. HEART: Regular with no murmur or gallop. ABDOMEN: Soft. No bruit. EXTREMITIES: Without edema. 2+ distal pulses. NEUROLOGIC: Left-sided weakness. EKG EKG was reviewed and showed normal sinus rhythm with normal axis intervals. LABORATORY Hemoglobin 11.7. Potassium 3.1. Creatinine 0.5. AST and ALT normal. LDL 81, HDL 30. DIAGNOSIS 1. Acute CVA. 2. Trigeminal neuralgia. 3. Anxiety. 4. Chronic back pain. 5. Smoking. 6. Dyslipidemia. 7. COPD. DISPOSITION Ms. Munson will continue her current medical program post stroke. We will proceed with transesophageal echocardiogram to evaluate for cardiac source of emboli. We will also place a loop monitor to evaluate for atrial fibrillation as a reason for her stroke. The patient understands the risks and benefits and wishes to proceed. Both these procedures will be scheduled tomorrow. MD KARISHMA Benoit /1:47 PM /1:57 PM [facility]
--- NOTE | 2016-09-17 18:54 | HHI.PR ---
Subjective Remarks Patient feel today while trying to get up to the restroom patient denies hitting her head patient c/o severe headache vital signs stable RN relates to me at the time I got to the floor (7 pm) that the patient has had a left cold extremity without pulse ( by palpation and by doppler US) Patient denies pain in left lower extremity and states is able to move it Objective Vitals Vital Signs Date Time Temp Pulse Resp B/P Pulse Ox O2 Delivery O2 Flow Rate FiO2 09/17/16 16:00 98.4 81 18 95/52 93 09/17/16 15:00 83 09/17/16 14:40 16 09/17/16 13:03 18 09/17/16 12:00 98.1 76 15 127/69 96 09/17/16 08:00 98.4 80 16 146/70 96 09/17/16 07:30 96 21 09/17/16 07:00 81 09/17/16 04:00 98.4 78 24 137/78 96 09/17/16 02:00 73 09/17/16 00:00 98.8 80 21 113/58 93 09/17/16 00:00 80 09/16/16 20:00 98.1 74 24 120/67 95 09/16/16 20:00 72 09/16/16 19:31 94 21 09/16/16 19:00 93 Nasal Cannula 2.00 I/O 09/16/16 09/16/16 09/16/16 09/17/16 09/17/16 09/17/16 07:00 15:00 23:00 07:00 15:00 23:00 Intake Total 325 ml 900 ml 1208 ml 733 ml 1249 ml Output Total 225 ml 400 ml 200 ml 275 ml Balance 100 ml 500 ml 1008 ml 458 ml 1249 ml Intake Oral 100 ml 450 ml 200 ml 480 ml IV Total 325 ml 800 ml 758 ml 533 ml 769 ml Output Urine Total 225 ml 400 ml 200 ml 275 ml # Voids 2 # Bowel Movements 0 0 Result Diagram: 09/17/16 0338 09/17/16 0338 Imaging Last Impressions Head CT 09/16/16 2100 Signed Impressions: Service Date/Time: Friday, September 16, 2016 21:18 - CONCLUSION: 1. No acute hemorrhage. 2. Low attenuation areas corresponding to the areas of acute infarction seen on the MRI. Emmanuel Gracia MD Head Magnetic Resonance Angiography 09/16/16 Signed Impressions: Service Date/Time: Friday, September 16, 2016 13:01 - CONCLUSION: 1. Abrupt occlusion of the right middle cerebral circulation at the level of the distal right M1. Kirt Smith MD Carotid Artery Ultrasound 09/16/16 Signed Impressions: Service Date/Time: Friday, September 16, 2016 08:18 - CONCLUSION: Negative examination for a hemodynamically significant carotid stenosis. Benoit Smith MD Brain MRI 09/16/16 Signed Impressions: Service Date/Time: Friday, September 16, 2016 13:01 - CONCLUSION: Acute nonhemorrhagic infarction involving the right MCA territory as detailed above. Td Munson Jr., MD Cerebral Arteriogram 09/15/16 Signed Impressions: Service Date/Time: Thursday, September 15, 2016 23:08 - CONCLUSION: 1. Complete occlusion of the right M1 segment with attempted mechanical thrombectomy. Multiple attempts were made which cleared some chronic appearing thrombus but was unable to regain patency. This is TICI score of zero. Td Munson Jr., MD Objective Remarks GENERAL: NAD SKIN: Warm and dry. HEAD: Atraumatic. Normocephalic. EYES: Pupils equal and round. No scleral icterus. No injection or drainage. ENT: No nasal bleeding or discharge. Mucous membranes pink and moist. NECK: Trachea midline. No JVD. CARDIOVASCULAR: Regular rate and rhythm. RESPIRATORY: No accessory muscle use. Clear to auscultation. Breath sounds equal bilaterally. GASTROINTESTINAL: Abdomen soft, non-tender, nondistended. Hepatic and splenic margins not palpable. MUSCULOSKELETAL: Extremities without clubbing, cyanosis, or edema. No obvious deformities. Left lower extremity is cold to touch and dorsalis pedis and posterior tibial pulses are absent by palpation and Doppler. Patient is able to move the toes on the left lower extremity. NEUROLOGICAL: Awake and alert. No facial droop with left hemiparesthesia. Motor strength is 0/5 in left upper extremity and 4/5 in left lower extremity. Five out of 5 muscle strength in the arms and legs. Normal speech. PSYCHIATRIC: Appropriate mood and affect; insight and judgment normal. Medications and IVs Last Impressions Head CT 6/7/17 2100 Signed Impressions: Service Date/Time: Friday, September 16, 2016 21:18 - CONCLUSION: 1. No acute hemorrhage. 2. Low attenuation areas corresponding to the areas of acute infarction seen on the MRI. Emmanuel Gracia MD Head Magnetic Resonance Angiography 09/16/16 0000 Signed Impressions: Service Date/Time: Friday, September 16, 2016 13:01 - CONCLUSION: 1. Abrupt occlusion of the right middle cerebral circulation at the level of the distal right M1. Kirt Smith MD Carotid Artery Ultrasound 09/16/16 0000 Signed Impressions: Service Date/Time: Friday, September 16, 2016 08:18 - CONCLUSION: Negative examination for a hemodynamically significant carotid stenosis. Benoit Smith MD Brain MRI 09/16/16 0000 Signed Impressions: Service Date/Time: Friday, September 16, 2016 13:01 - CONCLUSION: Acute nonhemorrhagic infarction involving the right MCA territory as detailed above. Td Munson Jr., MD Cerebral Arteriogram 09/15/16 0000 Signed Impressions: Service Date/Time: Thursday, September 15, 2016 23:08 - CONCLUSION: 1. Complete occlusion of the right M1 segment with attempted mechanical thrombectomy. Multiple attempts were made which cleared some chronic appearing thrombus but was unable to regain patency. This is TICI score of zero. Td Munson Jr., MD A/P Problem List: (1) Acute ischemic stroke ICD Code: I63.9 Status: Acute Plan: Neurology was consulted. The patient is status post PDA completed on 09/15 at [facility]. Status post attempted thrombectomy with interventional radiology with persistent occlusion of R M1. Brain MRI showed right MCA ischemic stroke Follow-up CT of the brain showed no acute hemorrhage. Follow-up dimension areas corresponding to the areas of acute infarction seen on the MRI. Patient has residual left hemiparesis with left facial droop. Patient was placed on aspirin 325 mg for secondary prevention of ischemic stroke. (2) Anxiety ICD Code: F41.9 Status: Chronic Plan: Continue Klonopin 1 mg by mouth every 12 hours which the patient has been taking at home as well. (3) COPD (chronic obstructive pulmonary disease) ICD Code: J44.9 Status: Chronic Plan: Seems to be stable. Continue supplemental oxygen to keep oxygen saturation is greater than or equal to 92%. Continues incentive spirometry every hour while awake. Continue Advair nebulizers every 4 hours with albuterol every 2 hours as needed. Patient placed on nicotine patchcontinue. (4) Tobacco abuse ICD Code: Z72.0 Status: Acute Plan: Continue nicotine patch. (5) GERD (gastroesophageal reflux disease) ICD Code: K21.9 Status: Chronic Plan: Continue PPI. Patient denies any symptoms consistent with active reflux. (6) Dyslipidemia ICD Code: E78.5 Status: Chronic Plan: Patient reports history of hyperlipidemia but has not recently been on medication. Previously on atorvastatin 40 mg by mouth at bedtime. Possible lipid profile shows triglycerides of 189 with total cholesterol 149, LDL cholesterol 81, HDL cholesterol of 29.9. (7) Chronic back pain ICD Code: M54.9 Status: Acute Plan: She denies back pain. Continue pain control with oral Percocet. (8) Trigeminal neuralgia of left side of face ICD Code: G50.0 Status: Chronic Plan: Seems to be stable. Patient on carbamazepine 200 mg by mouth every 12 hours. Continue. (9) Tissue plasminogen activator (t-PA) administered at other facility within 24 hours prior to current admission ICD Code: Z92.82 Status: Acute Plan: As above. (10) Anxiety ICD Code: F41.9 Status: Acute Plan: Continue clonazepam. The patient is requesting to have the clonazepam even more frequently, however this could interfere with future neurological assessment if the patient becomes too lethargic. (11) Headache ICD Code: R51 Status: Acute Plan: Patient is complaining of severe headache I will place the patient IV morphine and oral Percocet for pain control. (12) Cold left foot ICD Code: R20.9 Status: Acute Plan: I was not notified of this event until I walked in to see the patient around 6:30 to 6:45 PM. The nurse indicated that the patient has had cold left lower extremity in which she could not find a pulse urine with the help of a Doppler device. I called and discussed the case with Dr. Yin from vascular surgery. Since the patient is able to move the left lower extremity he recommended ordering a CTA with runoff of the lower extremities and he will see the patient. (13) Fall ICD Code: W19.XXXA Status: Acute Plan: Patient sustained a fall earlier today after she tried to get up to the bathroom. As per RN and family were at bedside she did not hit her head or lost consciousness. Instructed the patient to remain in bed. Problem Qualifiers (1) COPD (chronic obstructive pulmonary disease): Qualified Code: J44.9 - Chronic obstructive pulmonary disease, unspecified COPD type (2) Chronic back pain: Song Wright MD Sep 17, 2016 18:54 On Prilosec 40 mg daily at home. Bowel regimen to be initiated with Ita-Colace twice a day/Senokot lactulose when necessary Follow-up on liver function tests /RENAL: Moon was placed. Now will keep in place 24 hours post tPA infusion will be discontinued at 2100 Monitor urine output Accurate I's and O's ID: Monitor for signs and symptoms of infection. HEME: Leukocytosis Likely leukemoid type reaction. Follow-up CBC to be done this hospitalization differential Status post TPA. 58.2 mg at outside facility ENDO: Euglycemic outside hospital. Initiate low-dose insulin sliding scale if needed. Follow-up hemoglobin A1c. MSK: Osteoporosis/osteoarthritis Fosamax on hold. Unclear if she was actively taking it recently. FEN: Replace electrolytes as clinically indicated. Currently normal saline at 84 cc an hour Nutrition pending swallow evaluation Vascular Pulseless Cold Left lower extremity - Called Dr. Yin from vascular surgery. Discussed the case. The patient is able to move the left lower extremity. Recommended ordering a CTA with runoff of the lower extremities and he will see the patient. Access - Single peripheral IV Prophylaxis GI- Protonix DVT- SCD/holding pharmacologic prophylaxis 24 hours post alteplase infusion . Problem Qualifiers (1) Chronic back pain: Song Wright MD Sep 17, 2016 18:54
[2016-09-17] MEDS: REMOVE OLD PATCH T-DERMAL SCH (20:00)
[2016-09-17] MEDS: NICOTINE 14 MG/24 HR PATCH T-DERMAL SCH (20:01)
[2016-09-17] MEDS ORDERED: MORPHINE SULFATE 4 MG/ML INJ IV PUSH ONE (21:00)
--- NOTE | 2016-09-17 21:25 | PD.VS.CON ---
History of Present Illness Chief Complaint: Cold LEFT leg Consult Requested by: Dr. Song Harden History of Present Illness 61 yo female admitted for R parietal and basal ganglia stroke s/p TPA and attempted neuro-endo intervention. She was noticed this evening to have a cool LEFT leg but motor intact. The patient has obvious facial droop and speech impairment but appears to have preserved cognition so history reliably obtained from her. She notes that she had her neuro-IR interventions via [employer] access. Before this acute CVA, no antecedent claudication. Does have atherosclerotic risk factors of hypercholesterolemia, family history and smoking. Past/Family/Social History Past Medical History COPD back pain Osteoporosis GERD XOL CVOD Past Surgical History DEANGELO appy eye surgery benign breast surgery Social History smokes Home Medications Reported Medications Carisoprodol (Soma)350 Mg Qwo001 Mg PO TID 12/09/09 Alprazolam (Xanax 2 mg)2 Mg Tab2 Mg PO TIDPRN 12/09/09 Alendronate Sodium (Fosamax) Sol70 Po Weekly 12/09/09 Oxycodone (Roxicodone)30 Mg Tab30 Mg PO TIDPRN 12/09/09 Calcium Carbonate-Cholecalcife (Caltrate 600/Vitamin D 400)1 Tab Tab1 Tab PO DAILY #180 Ref 3 12/09/09 Coded Allergies: Nubain (Verified Allergy, Severe, HIVES,HIVES, 04/29/11) Nonsteroidal Anti-Inflammatory Agts (Unverified Adverse Reaction, Severe, N/V, 04/29/11) Review of Systems Constitutional: DENIES: Fever, Chills, Change in appetite Eyes: DENIES: Blurred vision, Eye pain Neurologic: COMPLAINS OF: Abnormal gait, Speech Problems, Poor Balance Physical Exam Vitals/I&O Date Time Temp Pulse Resp B/P Pulse Ox O2 Delivery O2 Flow Rate FiO2 09/17/16 20:01 97 21 09/17/16 16:00 98.4 81 18 95/52 93 09/17/16 15:00 83 09/17/16 14:40 16 09/17/16 13:03 18 09/17/16 12:00 98.1 76 15 127/69 96 09/17/16 08:00 98.4 80 16 146/70 96 09/17/16 07:30 96 21 09/17/16 07:00 81 09/17/16 04:00 98.4 78 24 137/78 96 09/17/16 02:00 73 09/17/16 00:00 98.8 80 21 113/58 93 09/17/16 00:00 80 09/17/16 09/17/16 09/17/16 07:00 15:00 23:00 Intake Total 733 ml 1249 ml Output Total 275 ml Balance 458 ml 1249 ml Neuro: conversant with slurred speech, facial asymmetry Moves all extremities, including LEFT LEG HEENT: NC Neck: no JVD Heart: reg rate Lungs: nonlabored breathing Abdomen: nontender Vascular: palpable femoral and LEFT popliteal pulse Strong PT Doppler signal LEFT Extremities: motor intact and foot cool but viable and no wounds Laboratory Tests Test 09/17/16 03:38 White Blood Count 7.3 Red Blood Count 4.08 Hemoglobin 11.7 Hematocrit 34.6 Mean Corpuscular Volume 84.9 Mean Corpuscular Hemoglobin 28.8 Mean Corpuscular Hemoglobin 33.9 Concent Red Cell Distribution Width 15.6 Platelet Count 262 Mean Platelet Volume 8.9 Sodium Level 140 Potassium Level 3.1 Chloride Level 106 Carbon Dioxide Level 23.0 Anion Gap 11 Blood Urea Nitrogen 10 Creatinine 0.50 Estimat Glomerular Filtration 126 Rate Random Glucose 84 Hemoglobin A1c 5.7 Calcium Level 7.8 Phosphorus Level 3.6 Magnesium Level 1.8 Total Bilirubin 0.2 Aspartate Amino Transf 21 (AST/SGOT) Alanine Aminotransferase 19 (ALT/SGPT) Alkaline Phosphatase 85 Total Creatine Kinase 67 Troponin I 0.52 Total Protein 6.1 Albumin 2.9 Triglycerides Level 189 Cholesterol Level 149 LDL Cholesterol 81 HDL Cholesterol 29.9 Cholesterol/HDL Ratio 4.98 Last [address] 09/16/16 2100 Signed Impressions: Service Date/Time: Friday, September 16, 2016 21:18 - CONCLUSION: 1. No acute hemorrhage. 2. Low attenuation areas corresponding to the areas of acute infarction seen on the MRI. Emmanuel Gracia MD Head Magnetic Resonance Angiography 09/16/16 0000 Signed Impressions: Service Date/Time: Friday, September 16, 2016 13:01 - CONCLUSION: 1. Abrupt occlusion of the right middle cerebral circulation at the level of the distal right M1. Kirt Smith MD Carotid Artery Ultrasound 09/16/16 0000 Signed Impressions: Service Date/Time: Friday, September 16, 2016 08:18 - CONCLUSION: Negative examination for a hemodynamically significant carotid stenosis. Benoit Smith MD Brain MRI 09/16/16 0000 Signed Impressions: Service Date/Time: Friday, September 16, 2016 13:01 - CONCLUSION: Acute nonhemorrhagic infarction involving the right MCA territory as detailed above. Td Munson Jr., MD Assessment and Plan Plan Infrapopliteal occlusive disease vs embolic. She had ABIs yesterday that showed ANNETTE RIGHT 1.2 and LEFT 0.6 with bilateral diminished toe pressures. Because of retained motor function, she is not in immediate limb threat. I think the best course of action is a CTA runoff and only when ok from neuro standpoint, systemic heparinization as well as obvious cardiovascular risk factor modification (ASA, statin, beta kaylen, smoking cessation) Continue pulse checks. If motor exam changes, will need urgent intervention. Discussed with patient who understands. Will follow closely. Tod Yin MD FACS [facility] home [facility] - Heart and Vascular Surgery at [facility] [phone] Tod Yin MD Sep 17, 2016 21:25
--- NOTE | 2016-09-17 22:15 | HHI.PR ---
Blank section for building Received call from RN that the nurses have tried multiple times and are unable to place IV for CTA runoff Patient LLE remains pulseless with motor intact. I then spoke with the breaker machine tender Dr. Camejo who will place a line in order for patient to have CTA runoff Discussed with RN, Dr. Camejo and Johana Verma Sep 17, 2016 22:15
[2016-09-17] MEDS: oxyCODONE/ACETAMINOPHEN 5 MG/325 MG TAB PO PRN (22:55)
[2016-09-18] VITALS: BP 114/76; PULSE 95; RESP 23; TEMP 98.3; O2SAT 96
[2016-09-18] MEDS ORDERED: POTASSIUM CHLORIDE 10 MEQ CONTROLLED RELEASE TAB PO ONE (01:15)
[2016-09-18] MEDS: MORPHINE SULFATE 4 MG/ML INJ IV PUSH PRN ×4 (01:16→14:47)
--- NOTE | 2016-09-18 02:12 | PD.PROCEDR ---
Procedure Note Procedure DATE: 09/18/16 PERIPHERAL IV PLACEMENT: Multiple attempts by nursing staff for PIV placement required for CT angiography. Tourniquet applied. Skin prepped with alcohol swab. Ultrasound R basilic vein and 20 gauge angiocath advanced on first attempt with good venous return. Flushed easily. Dressing applied. Patient tolerated procedure well without apparent competition. Bronwyn Camejo MD Sep 18, 2016 02:12
[2016-09-18] MEDS: clonazePAM 1 MG TAB PO SCH ×2 (03:02→10:04)
[2016-09-18] MEDS: oxyCODONE/ACETAMINOPHEN 5 MG/325 MG TAB PO PRN ×2 (03:02→17:35)
--- NOTE | 2016-09-18 03:41 | PD.PROCEDR ---
Procedure Note Procedure DATE: 09/18/16 CENTRAL LINE PLACEMENT: Right internal jugular vein. INDICATION: Central venous access CONSENT Informed consent for procedure was obtained from patient after discussion of risks, benefits, alternatives. DESCRIPTION OF THE PROCEDURE The patient was placed in supine position, Trendelenburg. The skin was cleansed with Chloraprep. Additional barrier precautions included large sterile drape, sterile gloves, sterile gown, face mask, and hat. 1 % lidocaine was used for local anesthesia. Under direct ultrasound guidance and on single attempt, the vein was accessed with an introducer needle. The guide wire was advanced and the tract was dilated. Using Seldinger technique a 7 Sinhala 20 cm antimicrobial coated triple-lumen catheter was advanced to a depth of 18 centimeters. The guide wire was removed. All ports had good return of dark venous blood and flushed easily with saline. The central line was secured with 2.0 silk. A sterile dressing with antibiotic disc was applied. ESTIMATED BLOOD LOSS: Minimal COMPLICATIONS: No apparent complications. STAT chest x-ray is pending Bronwyn Camejo MD Sep 18, 2016 03:41
[2016-09-18 04:00] VITALS: BP 105/66; PULSE 68; RESP 14; TEMP 97.7; O2SAT 94
[2016-09-18] MEDS: CHLORHEXIDINE GLUCONATE 2 % 1 PACK (2 CLOTHS) TOP SCH ×2 (04:00→19:45)
[2016-09-18] MEDS: RESP: ALBUTEROL 2.5 MG/3 ML NEB (SCH) NEB ×6 (04:00→20:00)
--- NOTE | 2016-09-18 04:46 | RADRPT ---
EXAM DATE/TIME: 09/18/2016 03:41 [facility] COMPARISON: No previous studies available for comparison. INDICATIONS : Evaluate Central Line MEDICAL HISTORY : None. SURGICAL HISTORY : Appendectomy. ENCOUNTER: Subsequent ACUITY: 2 days PAIN SCORE: Non-responsive. LOCATION: Bilateral chest FINDINGS: A single view of the chest demonstrates the lungs to be symmetrically aerated without evidence of mas s, infiltrate or effusion. The cardiomediastinal contours are unremarkable. Osseous structures are intact. There is a right IJ central venous catheter with tip in the right atrium. CONCLUSION: Right internal jugular central venous catheter has its tip in the right atrium. No pneumothorax or ot her acute cardiopulmonary disease. Sina Silverman MD on September 18, 2016 at 4:44 Board Certified Radiologist. This report was verified electronically.
--- NOTE | 2016-09-18 07:01 | PD.VS.PN ---
Subjective Subjective/Hospital Course Pt resting this morning. No c/o leg pain Moving B LE Objective Vitals/I&O Date Time Temp Pulse Resp B/P Pulse Ox O2 Delivery O2 Flow Rate FiO2 09/18/16 04:00 97.7 68 14 105/66 94 09/18/16 00:00 98.3 95 23 114/76 96 09/17/16 23:00 86 09/17/16 20:01 97 21 09/17/16 20:00 97.6 88 17 108/64 96 09/17/16 19:00 98 Room Air 09/17/16 16:00 98.4 81 18 95/52 93 09/17/16 15:00 83 09/17/16 14:40 16 09/17/16 13:03 18 09/17/16 12:00 98.1 76 15 127/69 96 09/17/16 08:00 98.4 80 16 146/70 96 09/17/16 07:30 96 21 09/18/16 09/18/16 09/18/16 07:00 15:00 23:00 Intake Total 84 ml Balance 84 ml Physical Exam L foot perfused + PT signal Motor intact Imaging Last 48 hours Impressions Chest X-Ray 09/18/16 0000 Signed Impressions: Service Date/Time: Sunday, September 18, 2016 03:41 - CONCLUSION: Right internal jugular central venous catheter has its tip in the right atrium. No pneumothorax or other acute cardiopulmonary disease. Sina Silverman MD Head CT 09/16/16 2100 Signed Impressions: Service Date/Time: Friday, September 16, 2016 21:18 - CONCLUSION: 1. No acute hemorrhage. 2. Low attenuation areas corresponding to the areas of acute infarction seen on the MRI. Emmanuel Gracia MD Assessment and Plan Plan Infrapopliteal occlusive disease vs embolic with ANNETTE 09/16 0.6 on LEFT Recommend CTA runoff Recommend anticoagulation when safe from neuro standpoint Will follow Tod Yin MD FACS volumetric weigher [facility] - Heart and Vascular Surgery at [facility] [phone] Tod Yin MD Sep 18, 2016 07:01
[2016-09-18] MEDS: SODIUM CHLOR 0.9% 1000 ML INJ 1,000 ML IV SCH ×2 (07:04→09:57)
--- NOTE | 2016-09-18 07:28 | HHI.PR ---
Review/Management Diagnosis/Plan: (1) Acute ischemic right MCA stroke Plan: +tob use hx rt mca occlusion carotid u/s- nml recs high risk for ICH transformation if placed on hep gtt. risks vs benefits can increase hep subq to tid +pulse fletcher distal le per rn this am appreciate ccm appreciate cardio ok for 5th floor with tele d/c planning to rehab from neuro pending above (2) Tissue plasminogen activator (t-PA) administered at other facility within 24 hours prior to current admission Plan: given 09/15/2016 at 1945 (3) Trigeminal neuralgia of left side of face Plan: on cbz (4) Chronic back pain (5) Tobacco abuse Plan: cessation d/w pt Subjective Subjective Comments No acute events reported No headache No chest pain No dyspnea Active Medications Current Medications Medications (Trade) Dose Ordered Sig/Cassia Route Start Time Stop Time Status Last Admin (NS 1000 ml Inj) 1,000 ml @ 84 mls/hr [id number] IV 09/16/16 01:07 09/18/16 07:04 (NS Flush) 2 ml UNSCH PRN IV FLUSH 09/16/16 01:15 (NS Flush) 2 ml BID IV FLUSH 09/16/16 09:00 09/17/16 20:00 (Zofran Inj) 4 mg Q6H PRN IV 09/16/16 01:15 Miscellaneous Information 1 [id number] XX 09/16/16 01:15 09/16/16 01:15 (Chlorhexidine 2% Cloth) 3 pack Taper DAILY@04 TOP 09/16/16 04:00 09/12/17 03:59 09/18/16 04:00 (Chlorhexidine 2% Cloth) 3 pack UNSCH PRN TOP 09/16/16 01:15 (Ita-Colace) 1 tab BID PO 09/16/16 09:00 09/17/16 19:59 (Milk Of Magnesia Liq) 30 ml Q12H PRN PO 09/16/16 01:15 (Senokot) 17.2 mg Q12H PRN PO 09/16/16 01:15 (Dulcolax Supp) 10 mg DAILY PRN RECTAL 09/16/16 01:15 (Lactulose Liq) 30 ml DAILY PRN PO 09/16/16 01:15 Labetalol HCl 10 mg 10 mg Q4H PRN IV PUSH 09/16/16 01:15 (Cardene Inj/NS 250 ml Inj) 260 ml @ 0 mls/hr TITRATE IV 09/16/16 01:30 (TEGretol) 200 mg Q12HR PO 09/17/16 09:00 09/17/16 20:00 (Neurontin) 800 mg TID PO 09/17/16 09:00 09/17/16 18:00 (Pred Forte 1% Opth Susp) 1 drop DAILY LEFT EYE 09/16/16 09:00 09/17/16 09:00 (Habitrol 14 Mg Patch.24 Hr) 1 patch DAILY@2100 T-DERMAL 09/16/16 21:00 09/17/16 20:01 Miscellaneous Information 1 DAILY@2100 T-DERMAL 09/16/16 21:00 09/17/16 20:00 (Apresoline Inj) 10 mg Q1H PRN IV PUSH 09/16/16 07:30 (KlonoPIN) 1 mg Q12HR PO 09/16/16 09:30 09/18/16 03:02 (Aspirin) 325 mg DAILY PO 09/17/16 09:15 09/17/16 09:15 (Heparin Inj) 5,000 units BID SQ 09/17/16 09:15 09/17/16 20:00 (Protonix) 40 mg DAILY PO 09/18/16 09:00 (Percocet 5-325 Mg) 1 tab Q4H PRN PO 09/17/16 21:00 (Percocet 5-325 Mg) 2 tab Q4H PRN PO 09/17/16 21:00 09/18/16 03:02 (Morphine Inj) 2 mg Q3H PRN IV PUSH 09/17/16 21:00 09/18/16 07:12 Allergies Allergies Coded Allergies Nubain (Verified Allergy, Severe, HIVES,HIVES, 04/29/11) Nonsteroidal Anti-Inflammatory Agts (Unverified Adverse Reaction, Severe, N/V , 04/29/11) Review of Systems All other ROS: ROS reviewed as documented in chart Exam I&O / VS 09/17/16 09/17/16 09/18/16 15:00 23:00 07:00 Intake Total 1249 ml 1007 ml 84 ml Balance 1249 ml 1007 ml 84 ml Intake Oral 480 ml 575 ml IV Total 769 ml 432 ml 84 ml # Voids 2 2 1 # Bowel Movements 0 Vital Signs Date Time Temp Pulse Resp B/P Pulse Ox O2 Delivery O2 Flow Rate FiO2 09/18/16 04:00 97.7 68 14 105/66 94 09/18/16 00:00 98.3 95 23 114/76 96 09/17/16 23:00 86 09/17/16 20:01 97 21 09/17/16 20:00 97.6 88 17 108/64 96 09/17/16 19:00 98 Room Air 09/17/16 16:00 98.4 81 18 95/52 93 09/17/16 15:00 83 09/17/16 14:40 16 09/17/16 13:03 18 09/17/16 12:00 98.1 76 15 127/69 96 09/17/16 08:00 98.4 80 16 146/70 96 09/17/16 07:30 96 21 General: Alert and Oriented, No acute distress Respiratory: Non-labored respirations Exam Comments awake, ox 2-3, rt gaze preference, no significant neglect, ou 3-2mm, left lower facial droop, left arm 0-1/5, left leg 3-/5 with left sided dystaxia and mild left hemisensory Problem Qualifiers (1) Chronic back pain: Won Durán MD Sep 18, 2016 07:28
[2016-09-18] MEDS ORDERED: IOHEXOL 350 MG/ML 10 ML VIAL (for RAD DIAG) IV ONE (07:45)
[2016-09-18 08:00] VITALS: BP 121/59; PULSE 81; RESP 18; TEMP 97.5; O2SAT 97; O2SAT 99
[2016-09-18] MEDS ORDERED: PROPOFOL 200 MG/20 ML AMP IV ONE (08:40)
--- NOTE | 2016-09-18 09:44 | RADRPT ---
EXAM DATE/TIME: 09/18/2016 07:31 Caution: Report not yet finalized and possibly incomplete! [facility] COMPARISON: THROMBECTOMY INTRACRANIAL, RIGHT, September 15, 2016, 23:08. INDICATIONS : <<Left lower extremity cold and without pulse. Evaluate for occlusion.>> IV CONTRAST: <<100>> cc Omnipaque 350 (iohexol) IV RADIATION DOSE: <<9.73>> CTDIvol (mGy) MEDICAL HISTORY : Cerebrovascular disease. Renal calculi. Hepatitis C. Thoracic outlet syndrome. SURGICAL HISTORY : Hysterectomy. Appendectomy. ENCOUNTER: Initial ACUITY: 1 day PAIN SCALE: 0/10 LOCATION: Left lower extremity. TECHNIQUE: Volumetric scanning was performed using a multi-row detector CT scanner. The data was post processed with a variety of visualization algorithms including full volume maximum intensity projection, multi -planar sliding thin slab reformation, curved planar reformation, and surface rendering techniques. Using automated exposure control and adjustment of the mA and/or kV according to patient size, radiat ion dose was kept as low as reasonably achievable to obtain optimal diagnostic quality images. FINDINGS: ABDOMINAL AORTA: Scattered atherosclerotic calcification but the abdominal aorta is normal in caliber throughout its l ength. There are single bilateral renal arteries which are patent. There is 50% ostial stenosis of the celiac but the SMA and the FLOR both appear to be patent. PELVIS: Atherosclerotic calcification of the iliac's but the iliac's are patent bilaterally. RIGHT LOWER EXTREMITY: There is some stranding and a small hematoma in the right groin area characteristic of the recent act s of. No pseudo aneurysm. Profunda and SFA are patent with some minimal irregularity of the SFA brian r its origin. Popliteal is patent down to the trifurcation with three vessel runoff. LEFT LOWER EXTREMITY: Profunda and SFA are patent with some calcification and soft plaque near the origin of the SFA which does not appear to be flow limiting. The above knee popliteal is patent however, there is an abrupt occlusion of the popliteal at the knee joint characteristic of an embolic event. There is collateral reconstitution of the proximal trifurcation vessel. Dominant runoff is near the anterior tibial and posterior tibial with occlusion of the peroneal above the ankle. MISCELLANEOUS: Also noted is a 1 cm nodule associated with the left adrenal gland, likely an adenoma. There is a be nign cyst in the posterior mid pole cortex in the left kidney. Diverticular disease involves the javier cending colon without diverticulitis. There is a benign-appearing 2.7 cm lipoma in one of the adduct or muscles of the right thigh. CONCLUSION: 1.... Patient's symptoms appear to be due to an emboli occlusion of the left popliteal at the knee j oint. There is collateral reconstitution of the proximal trifurcation vessels with a dominant runoff via the anterior tibial and posterior tibial. 2. In the right lower extremity, there is some mild irregularity at the origin of the SFA. Otherwis e, the in-flow and out-flow are patent with three vessel runoff. 3. Stranding and a small hematoma in the right groin likely associated with the recent abscess. The re is no pseudo aneurysm. 4. Mild diverticular disease of the descending colon without diverticulitis. 5. Benign-appearing 2.7 cm intramuscular lipoma in one of the adductor muscle bellies in the right t high. Rolando Romero MD on September 18, 2016 at 8:55
[2016-09-18] MEDS: SODIUM CHLORIDE 0.9% FLUSH 10 ML FLUSH IV FLUSH SCH ×2 (09:57→21:21)
[2016-09-18] MEDS: prednisoLONE ACETATE 1% OPHT SUSP 5 ML BTL LEFT EYE SCH (09:58)
[2016-09-18] MEDS: PANTOPRAZOLE SOD 40 MG DELAYED RELEASE TAB PO SCH (10:04)
[2016-09-18] MEDS: DOCUSATE SODIUM 50 MG/SENNA 8.6 MG TAB PO SCH ×2 (10:04→21:20)
[2016-09-18] MEDS: GABAPENTIN 400 MG CAP PO SCH ×3 (10:04→17:34)
[2016-09-18] MEDS: ASPIRIN 325 MG TAB PO SCH (10:04)
[2016-09-18] MEDS: carBAMazepine 200 MG TAB PO SCH ×2 (10:04→21:20)
[2016-09-18] MEDS ORDERED: ceFAZolin INJ 1,000 MG VIAL ONE (11:36)
[2016-09-18 12:00] VITALS: BP 115/65; PULSE 72; RESP 20; TEMP 98.2; O2SAT 97
--- NOTE | 2016-09-18 13:28 | PD.CARD.PN ---
Subjective Subjective Remarks No CP or SOB Objective Medications Current Medications Medications (Trade) Dose Ordered Sig/Cassia Route Start Time Stop Time Status Last Admin (NS 1000 ml Inj) 1,000 ml @ 84 mls/hr [id number] IV 09/16/16 01:07 09/18/16 09:57 (NS Flush) 2 ml UNSCH PRN IV FLUSH 09/16/16 01:15 (NS Flush) 2 ml BID IV FLUSH 09/16/16 09:00 09/18/16 09:57 (Zofran Inj) 4 mg Q6H PRN IV 09/16/16 01:15 Miscellaneous Information 1 Q361D XX 09/16/16 01:15 09/16/16 01:15 (Chlorhexidine 2% Cloth) 3 pack Taper DAILY@04 TOP 09/16/16 04:00 09/12/17 03:59 09/18/16 04:00 (Chlorhexidine 2% Cloth) 3 pack UNSCH PRN TOP 09/16/16 01:15 (Ita-Colace) 1 tab BID PO 09/16/16 09:00 09/18/16 10:04 (Milk Of Magnesia Liq) 30 ml Q12H PRN PO 09/16/16 01:15 (Senokot) 17.2 mg Q12H PRN PO 09/16/16 01:15 (Dulcolax Supp) 10 mg DAILY PRN RECTAL 09/16/16 01:15 (Lactulose Liq) 30 ml DAILY PRN PO 09/16/16 01:15 Labetalol HCl 10 mg 10 mg Q4H PRN IV PUSH 09/16/16 01:15 (Cardene Inj/NS 250 ml Inj) 260 ml @ 0 mls/hr TITRATE IV 09/16/16 01:30 (TEGretol) 200 mg Q12HR PO 09/17/16 09:00 09/18/16 10:04 (Neurontin) 800 mg TID PO 09/17/16 09:00 09/18/16 10:04 (Pred Forte 1% Opth Susp) 1 drop DAILY LEFT EYE 09/16/16 09:00 09/18/16 09:58 (Habitrol 14 Mg Patch.24 Hr) 1 patch DAILY@2100 T-DERMAL 09/16/16 21:00 09/17/16 20:01 Miscellaneous Information 1 DAILY@2100 T-DERMAL 09/16/16 21:00 09/17/16 20:00 (Apresoline Inj) 10 mg Q1H PRN IV PUSH 09/16/16 07:30 (KlonoPIN) 1 mg Q12HR PO 09/16/16 09:30 09/18/16 10:04 (Aspirin) 325 mg DAILY PO 09/17/16 09:15 09/18/16 10:04 (Protonix) 40 mg DAILY PO 09/18/16 09:00 09/18/16 10:04 (Percocet 5-325 Mg) 1 tab Q4H PRN PO 09/17/16 21:00 (Percocet 5-325 Mg) 2 tab Q4H PRN PO 09/17/16 21:00 09/18/16 03:02 (Morphine Inj) 2 mg Q3H PRN IV PUSH 09/17/16 21:00 09/18/16 11:31 (Heparin Inj) 5,000 units Q8HR SQ 09/18/16 14:00 Vital Signs / I&O Vital Signs Date Time Temp Pulse Resp B/P Pulse Ox O2 Delivery O2 Flow Rate FiO2 09/18/16 12:00 98.2 72 20 115/65 97 09/18/16 08:00 97 09/18/16 08:00 81 09/18/16 08:00 97.5 81 18 121/59 99 09/18/16 08:00 Room Air 09/18/16 08:00 16 09/18/16 04:00 97.7 68 14 105/66 94 09/18/16 00:00 98.3 95 23 114/76 96 09/17/16 23:00 86 09/17/16 20:01 97 21 09/17/16 20:00 97.6 88 17 108/64 96 09/17/16 19:00 98 Room Air 09/17/16 16:00 98.4 81 18 95/52 93 09/17/16 15:00 83 09/17/16 14:40 16 I/O 09/17/16 09/17/16 09/17/16 09/18/16 09/18/16 09/18/16 07:00 15:00 23:00 07:00 15:00 23:00 Intake Total 733 ml 1249 ml 1007 ml 84 ml Output Total 275 ml Balance 458 ml 1249 ml 1007 ml 84 ml Intake Oral 200 ml 480 ml 575 ml IV Total 533 ml 769 ml 432 ml 84 ml Output Urine Total 275 ml # Voids 2 2 1 # Bowel Movements 0 0 Physical Exam GENERAL: In NAD SKIN: Warm and dry. HEAD: Normocephalic. EYES: No scleral icterus. No injection or drainage. NECK: Supple, trachea midline. No JVD or lymphadenopathy. CARDIOVASCULAR: Regular rate and rhythm without murmurs, gallops, or rubs. RESPIRATORY: Breath sounds equal bilaterally. No accessory muscle use. GASTROINTESTINAL: Abdomen soft, non-tender, nondistended. MUSCULOSKELETAL: No cyanosis, or edema. Laboratory Laboratory Tests Test 09/16/16 09/17/16 01:10 03:38 Nasal Screen MRSA (PCR) MRSA NOT DETECTED White Blood Count 7.3 TH/MM3 Red Blood Count 4.08 MIL/MM3 Hemoglobin 11.7 GM/DL Hematocrit 34.6 % Mean Corpuscular Volume 84.9 FL Mean Corpuscular Hemoglobin 28.8 PG Mean Corpuscular Hemoglobin 33.9 % Concent Red Cell Distribution Width 15.6 % Platelet Count 262 TH/MM3 Mean Platelet Volume 8.9 FL Sodium Level 140 MEQ/L Potassium Level 3.1 MEQ/L Chloride Level 106 MEQ/L Carbon Dioxide Level 23.0 MEQ/L Anion Gap 11 MEQ/L Blood Urea Nitrogen 10 MG/DL Creatinine 0.50 MG/DL Estimat Glomerular Filtration 126 ML/MIN Rate Random Glucose 84 MG/DL Hemoglobin A1c 5.7 % Calcium Level 7.8 MG/DL Phosphorus Level 3.6 MG/DL Magnesium Level 1.8 MG/DL Total Bilirubin 0.2 MG/DL Aspartate Amino Transf 21 U/L (AST/SGOT) Alanine Aminotransferase 19 U/L (ALT/SGPT) Alkaline Phosphatase 85 U/L Total Creatine Kinase 67 U/L Troponin I 0.52 NG/ML Total Protein 6.1 GM/DL Albumin 2.9 GM/DL Triglycerides Level 189 MG/DL Cholesterol Level 149 MG/DL LDL Cholesterol 81 MG/DL HDL Cholesterol 29.9 MG/DL Cholesterol/HDL Ratio 4.98 RATIO Imaging Last Impressions Chest X-Ray 09/18/16 0000 Signed Impressions: Service Date/Time: Sunday, September 18, 2016 03:41 - CONCLUSION: Right internal jugular central venous catheter has its tip in the right atrium. No pneumothorax or other acute cardiopulmonary disease. Sina Silverman MD Head CT 09/16/16 2100 Signed Impressions: Service Date/Time: Friday, September 16, 2016 21:18 - CONCLUSION: 1. No acute hemorrhage. 2. Low attenuation areas corresponding to the areas of acute infarction seen on the MRI. Emmanuel Gracia MD Head Magnetic Resonance Angiography 09/16/16 0000 Signed Impressions: Service Date/Time: Friday, September 16, 2016 13:01 - CONCLUSION: 1. Abrupt occlusion of the right middle cerebral circulation at the level of the distal right M1. Kirt Smith MD Carotid Artery Ultrasound 09/16/16 0000 Signed Impressions: Service Date/Time: Friday, September 16, 2016 08:18 - CONCLUSION: Negative examination for a hemodynamically significant carotid stenosis. Benoit Smith MD Brain MRI 09/16/16 0000 Signed Impressions: Service Date/Time: Friday, September 16, 2016 13:01 - CONCLUSION: Acute nonhemorrhagic infarction involving the right MCA territory as detailed above. Td Munson Jr., MD Cerebral Arteriogram 09/15/16 0000 Signed Impressions: Service Date/Time: Thursday, September 15, 2016 23:08 - CONCLUSION: 1. Complete occlusion of the right M1 segment with attempted mechanical thrombectomy. Multiple attempts were made which cleared some chronic appearing thrombus but was unable to regain patency. This is TICI score of zero. Td Munson Jr., MD Assessment and Plan Problem List: (1) Acute CVA (cerebrovascular accident) (2) Anxiety (3) COPD (chronic obstructive pulmonary disease) (4) Dyslipidemia (5) GERD (gastroesophageal reflux disease) Assessment and Plan Continue current program. Increase activity. Proceed with WALDEMAR today. Jed Becerra MD Sep 18, 2016 13:28
[2016-09-18] MEDS: HEPARIN SODIUM - SQ 10,000 UNITS/ML VIAL SQ SCH ×2 (14:01→21:22)
[2016-09-18 16:00] VITALS: BP 126/76; PULSE 70; RESP 14; TEMP 97.5; O2SAT 99
--- NOTE | 2016-09-18 16:24 | HHI.PR ---
Subjective Remarks Deferred entry, patient seen at 1615 hrs. Patient complains of headache. States she was able to move her left upper extremity earlier. Denies chest pain or shortness of breath Denies dizziness/double vision Denies nausea or vomiting Denies fevers or chills Stable vital signs Objective Vitals Vital Signs Date Time Temp Pulse Resp B/P Pulse Ox O2 Delivery O2 Flow Rate FiO2 09/18/16 12:00 98.2 72 20 115/65 97 09/18/16 08:00 97 09/18/16 08:00 81 09/18/16 08:00 97.5 81 18 121/59 99 09/18/16 08:00 Room Air 09/18/16 08:00 16 09/18/16 04:00 97.7 68 14 105/66 94 09/18/16 00:00 98.3 95 23 114/76 96 09/17/16 23:00 86 09/17/16 20:01 97 21 09/17/16 20:00 97.6 88 17 108/64 96 09/17/16 19:00 98 Room Air I/O 09/17/16 09/17/16 09/17/16 09/18/16 09/18/16 09/18/16 07:00 15:00 23:00 07:00 15:00 23:00 Intake Total 733 ml 1249 ml 1007 ml 84 ml Output Total 275 ml Balance 458 ml 1249 ml 1007 ml 84 ml Intake Oral 200 ml 480 ml 575 ml IV Total 533 ml 769 ml 432 ml 84 ml Output Urine Total 275 ml # Voids 2 2 1 # Bowel Movements 0 0 Result Diagram: 09/17/16 0338 09/17/16 0338 Imaging Last Impressions Chest X-Ray 09/18/16 0000 Signed Impressions: Service Date/Time: Sunday, September 18, 2016 03:41 - CONCLUSION: Right internal jugular central venous catheter has its tip in the right atrium. No pneumothorax or other acute cardiopulmonary disease. Sina Silverman MD Head CT 09/16/16 2100 Signed Impressions: Service Date/Time: Friday, September 16, 2016 21:18 - CONCLUSION: 1. No acute hemorrhage. 2. Low attenuation areas corresponding to the areas of acute infarction seen on the MRI. Emmanuel Gracia MD Head Magnetic Resonance Angiography 09/16/16 0000 Signed Impressions: Service Date/Time: Friday, September 16, 2016 13:01 - CONCLUSION: 1. Abrupt occlusion of the right middle cerebral circulation at the level of the distal right M1. Kirt Smith MD Carotid Artery Ultrasound 09/16/16 0000 Signed Impressions: Service Date/Time: Friday, September 16, 2016 08:18 - CONCLUSION: Negative examination for a hemodynamically significant carotid stenosis. Benoit Smith MD Brain MRI 09/16/16 0000 Signed Impressions: Service Date/Time: Friday, September 16, 2016 13:01 - CONCLUSION: Acute nonhemorrhagic infarction involving the right MCA territory as detailed above. Td Munson Jr., MD Cerebral Arteriogram 09/15/16 Signed Impressions: Service Date/Time: Thursday, September 15, 2016 23:08 - CONCLUSION: 1. Complete occlusion of the right M1 segment with attempted mechanical thrombectomy. Multiple attempts were made which cleared some chronic appearing thrombus but was unable to regain patency. This is TICI score of zero. Td Munson Jr., MD Objective Remarks GENERAL: NAD SKIN: Warm and dry. HEAD: Atraumatic. Normocephalic. EYES: Pupils equal and round. No scleral icterus. No injection or drainage. ENT: No nasal bleeding or discharge. Mucous membranes pink and moist. NECK: Trachea midline. No JVD. CARDIOVASCULAR: Regular rate and rhythm. RESPIRATORY: No accessory muscle use. Clear to auscultation. Breath sounds equal bilaterally. GASTROINTESTINAL: Abdomen soft, non-tender, nondistended. Hepatic and splenic margins not palpable. MUSCULOSKELETAL: Extremities without clubbing, cyanosis, or edema. No obvious deformities. Left lower extremity is cold to touch and dorsalis pedis and posterior tibial pulses are absent by palpation and Doppler. Patient is able to move the toes on the left lower extremity. NEUROLOGICAL: Awake and alert. No facial droop with left hemiparesthesia. Motor strength is 0/5 in left upper extremity and 4/5 in left lower extremity. Five out of 5 muscle strength in the arms and legs. Normal speech. PSYCHIATRIC: Appropriate mood and affect; insight and judgment normal. Procedures Status post TPA Status post attempted thrombectomy. Medications and IVs Current Medications Medications (Trade) Dose Ordered Sig/Cassia Route Start Time Stop Time Status Last Admin (NS Flush) 2 ml UNSCH PRN IV FLUSH 09/16/16 01:15 (NS Flush) 2 ml BID IV FLUSH 09/16/16 09:00 09/18/16 09:57 (Zofran Inj) 4 mg Q6H PRN IV 09/16/16 01:15 Miscellaneous Information 1 Q361D XX 09/16/16 01:15 09/16/16 01:15 (Chlorhexidine 2% Cloth) 3 pack Taper DAILY@04 TOP 09/16/16 04:00 09/12/17 03:59 09/18/16 04:00 (Ita-Colace) 1 tab BID PO 09/16/16 09:00 09/18/16 10:04 (Milk Of Magnesia Liq) 30 ml Q12H PRN PO 09/16/16 01:15 (Senokot) 17.2 mg Q12H PRN PO 09/16/16 01:15 (Dulcolax Supp) 10 mg DAILY PRN RECTAL 09/16/16 01:15 (Lactulose Liq) 30 ml DAILY PRN PO 09/16/16 01:15 (TEGretol) 200 mg Q12HR PO 09/17/16 09:00 09/18/16 10:04 (Neurontin) 800 mg TID PO 09/17/16 09:00 09/18/16 17:34 (Pred Forte 1% Opth Susp) 1 drop DAILY LEFT EYE 09/16/16 09:00 09/18/16 09:58 (Habitrol 14 Mg Patch.24 Hr) 1 patch DAILY@2100 T-DERMAL 09/16/16 21:00 09/17/16 20:01 Miscellaneous Information 1 DAILY@2100 T-DERMAL 09/16/16 21:00 09/17/16 20:00 (Apresoline Inj) 10 mg Q1H PRN IV PUSH 09/16/16 07:30 (KlonoPIN) 1 mg Q12HR PO 09/16/16 09:30 09/18/16 10:04 (Aspirin) 325 mg DAILY PO 09/17/16 09:15 09/18/16 10:04 (Protonix) 40 mg DAILY PO 09/18/16 09:00 09/18/16 10:04 (Percocet 5-325 Mg) 1 tab Q4H PRN PO 09/17/16 21:00 (Percocet 5-325 Mg) 2 tab Q4H PRN PO 09/17/16 21:00 09/18/16 17:35 (Heparin Inj) 5,000 units Q8HR SQ 09/18/16 14:00 09/18/16 14:01 Urinary Catheter: No Vascular Central Line Catheter: No A/P Problem List: (1) Acute ischemic stroke ICD Code: I63.9 Status: Acute (2) COPD (chronic obstructive pulmonary disease) ICD Code: J44.9 Status: Chronic (3) Osteoporosis ICD Code: M81.0 Status: Acute (4) Anxiety ICD Code: F41.9 Status: Chronic (5) Tobacco abuse ICD Code: Z72.0 Status: Acute (6) GERD (gastroesophageal reflux disease) ICD Code: K21.9 Status: Chronic (7) Cataract ICD Code: H26.9 Status: Acute (8) Dyslipidemia ICD Code: E78.5 Status: Chronic (9) Chronic back pain ICD Code: M54.9 Status: Acute (10) Trigeminal neuralgia of left side of face ICD Code: G50.0 Status: Chronic (11) Tissue plasminogen activator (t-PA) administered at other facility within 24 hours prior to current admission ICD Code: Z92.82 Status: Resolved Assessment and Plan (1) Acute ischemic stroke Plan: Neurology was consulted. The patient is status post PDA completed on 09/15 at [facility]. Status post attempted thrombectomy with interventional radiology with persistent occlusion of R M1. Brain MRI showed right MCA ischemic stroke Follow-up CT of the brain showed no acute hemorrhage. Follow-up dimension areas corresponding to the areas of acute infarction seen on the MRI. Patient has residual left hemiparesis with left facial droop. Patient was placed on aspirin 325 mg for secondary prevention of ischemic stroke. I will start the patient on a pured diet with thin liquids. Follow swallow evaluation and advance diet as recommended. Patient is status post TPA. The goal blood pressure should be with a systolic blood pressure less than 140 following 24 hours after administration of TPA. Will request physical therapy evaluation. (2) Anxiety Plan: Continue Klonopin 1 mg by mouth every 12 hours which the patient has been taking at home as well. (3) COPD (chronic obstructive pulmonary disease) Plan: Seems to be stable. Continue supplemental oxygen to keep oxygen saturation is greater than or equal to 92%. Continues incentive spirometry every hour while awake. Continue Advair nebulizers every 4 hours with albuterol every 2 hours as needed. Patient placed on nicotine patchcontinue. (4) Tobacco abuse Plan: Continue nicotine patch. (5) GERD (gastroesophageal reflux disease) Plan: Continue PPI. Patient denies any symptoms consistent with active reflux. (6) Dyslipidemia Plan: Patient reports history of hyperlipidemia but has not recently been on medication. Previously on atorvastatin 40 mg by mouth at bedtime. Possible lipid profile shows triglycerides of 189 with total cholesterol 149, LDL cholesterol 81, HDL cholesterol of 29.9. I will start the patient on statin if okay with neurology. (7) Chronic back pain Plan: She denies back pain. Continue pain control with oral Percocet. (8) Trigeminal neuralgia of left side of face Plan: Seems to be stable. Patient on carbamazepine 200 mg by mouth every 12 hours. Continue. (9) Tissue plasminogen activator (t-PA) administered at other facility within 24 hours prior to current admission Plan: As above. (10) Anxiety Plan: Continue clonazepam. The patient is requesting to have the clonazepam even more frequently, however this could interfere with future neurological assessment if the patient becomes too lethargic. (11) Headache Plan: Patient is complaining of severe headache. As per RN patient has been requesting IV morphine every 3 hours. I will discontinue IV morphine and only continue pain control with oral Percocet to avoid overdose and respiratory depression. (12) Cold left foot Plan: I was not notified of this event until I walked in to see the patient around 6:30 to 6:45 PM. The nurse indicated that the patient has had cold left lower extremity in which she could not find a pulse urine with the help of a Doppler device. I called and discussed the case with Dr. Yin from vascular surgery. Since the patient is able to move the left lower extremity he recommended ordering a CTA with runoff of the lower extremities and he will see the patient. 09/18 CTA with runoff report an embolic occlusion of the left popliteal at the knee joint. Vascular surgery recommends anticoagulation when safe to do so by neurology, however neurology states the patient high risk for ICH transformation if placed on hep gtt. Heparin subcutaneous has been increased to 3 times a day. (13) Fall Plan: Patient fell on 09/17 trying to get up to the bathroom. There is no reported head trauma or loss of consciousness as per family and RN taking care of the patient's. The patient was treated to remain in bed. Discharge Planning Okay to transfer to medical floor with telemetry. Problem Qualifiers (1) COPD (chronic obstructive pulmonary disease): Qualified Code: J44.9 - Chronic obstructive pulmonary disease, unspecified COPD type (2) Chronic back pain: Song Wright MD Sep 18, 2016 16:24
[2016-09-18 18:39] VITALS: BP 127/79; PULSE 68; RESP 18; TEMP 97; O2SAT 96
[2016-09-18] MEDS ORDERED: MORPHINE SULFATE 4 MG/ML INJ IV PUSH PRN (20:45)
[2016-09-18] MEDS ORDERED: clonazePAM 1 MG TAB PO ONE (20:45)
[2016-09-18] MEDS: REMOVE OLD PATCH T-DERMAL SCH (21:00)
[2016-09-18] MEDS: LACTULOSE SYRUP 20 GM/30 ML CUP PO PRN (21:18)
[2016-09-18] MEDS: NICOTINE 14 MG/24 HR PATCH T-DERMAL SCH (21:20)
--- NOTE | 2016-09-18 22:40 | MR ---
cc: DAVY WILLIS DATE 09/18/16 INDICATION CVA. Evaluation for atrial fibrillation. PROCEDURE PERFORMED Placement of Medtronic Reveal LINQ MRI compatible loop monitor. ACCESS SITE Left subclavicular area. SEDATION Provided by anesthesia EQUIPMENT USED Medtronic Reveal LINQ, model LNQ11 MRI compatible loop monitor, serial number [id number]. PROCEDURE After the patient was sedated by anesthesia, Medtronic Reveal Linq monitor was placed without difficulties. R-wave was 1.1 mV. DIAGNOSIS Successful placement of Medtronic Reveal Linq MRI compatible loop monitor. DISPOSITION Ms. Munson will be monitored on telemetry after his procedure. We will initiate long-term monitoring of her device. MD BECKY Benoit/JAMIL /1:45 PM /10:21 PM [facility]
[2016-09-19] VITALS (7 sets, daily range): BP systolic 103–135; BP diastolic 53–71; PULSE 77–105; RESP 18–20; TEMP 96.1–97.8; O2SAT 91–100
[2016-09-19] MEDS: oxyCODONE/ACETAMINOPHEN 5 MG/325 MG TAB PO PRN ×5 (01:31→20:29)
[2016-09-19] MEDS: RESP: ALBUTEROL 2.5 MG/3 ML NEB (SCH) NEB ×6 (04:00→19:11)
[2016-09-19] MEDS: HEPARIN SODIUM - SQ 10,000 UNITS/ML VIAL SQ SCH ×3 (05:51→20:29)
[2016-09-19] MEDS: PANTOPRAZOLE SOD 40 MG DELAYED RELEASE TAB PO SCH (08:59)
[2016-09-19] MEDS: GABAPENTIN 400 MG CAP PO SCH ×3 (08:59→18:05)
[2016-09-19] MEDS: carBAMazepine 200 MG TAB PO SCH ×2 (08:59→20:29)
[2016-09-19] MEDS: ASPIRIN 325 MG TAB PO SCH (08:59)
[2016-09-19] MEDS: clonazePAM 1 MG TAB PO SCH ×2 (08:59→20:29)
[2016-09-19] MEDS: SODIUM CHLORIDE 0.9% FLUSH 10 ML FLUSH IV FLUSH SCH ×2 (09:00→20:03)
[2016-09-19] MEDS: DOCUSATE SODIUM 50 MG/SENNA 8.6 MG TAB PO SCH ×2 (09:00→20:29)
[2016-09-19] MEDS: prednisoLONE ACETATE 1% OPHT SUSP 5 ML BTL LEFT EYE SCH (09:00)
--- NOTE | 2016-09-19 09:14 | PD.PN.STU ---
Subjective Remarks Patient is complaining of a headache and would like morphine to control her pain. 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 She complains of difficulty eating and swallowing. The left side of her face is still numb. She cannot move her left arm fully. She is able to shrug her shoulders and reported that she can move her left fingers. I did not see her move her fingers. Objective Vitals Vital Signs Date Time Temp Pulse Resp B/P Pulse Ox O2 Delivery O2 Flow Rate FiO2 09/19/16 08:47 79 09/19/16 08:00 96.4 77 18 116/71 96 09/19/16 04:00 97.6 77 18 103/56 91 09/19/16 00:00 97.5 105 20 135/62 98 09/18/16 18:39 97.0 68 18 127/79 96 09/18/16 16:00 70 09/18/16 16:00 97.5 70 14 126/76 99 09/18/16 12:00 98.2 72 20 115/65 97 I/O 09/18/16 09/18/16 09/18/16 09/19/16 09/19/16 09/19/16 07:00 15:00 23:00 07:00 15:00 23:00 Intake Total 84 ml 824 ml 120 ml 120 ml Output Total 700 ml 700 ml Balance 84 ml 124 ml 120 ml -580 ml Intake Oral 120 ml 120 ml 120 ml IV Total 84 ml 704 ml Output Urine Total 700 ml 700 ml # Voids 1 1 # Bowel Movements 0 0 Result Diagram: 09/17/16 0338 09/17/16 0338 Objective Remarks GENERAL: Well-nourished, well-developed patient who is laying flat in ISC bed. SKIN: Warm and dry. She has well-healed linear scars on volar aspect of left forearm that appear consistent with self cutting. EYES: s/p L corneal transplant. Bilateral pupils are 4-5 mm, round and reactive to 2 mm bilaterally. No scleral icterus. No injection or drainage. CARDIOVASCULAR: Regular rate and rhythm. No murmurs rubs or gallops. No carotid bruits. RESPIRATORY: No accessory muscle use. Clear to auscultation. Breath sounds equal bilaterally. GASTROINTESTINAL: Abdomen soft, non-tender, nondistended. Bowel sounds present. MUSCULOSKELETAL/VASC: Extremities without clubbing, cyanosis, or edema. No obvious deformities. Bilateral lower extremities warm to the touch. NEUROLOGICAL: Awake and alert, oriented x4. Pupils reactive. There is some left ptosis which patient states is chronic. Left lower facial weakness. Extraocular movements appear full. No obvious cranial nerve deficits. Normal facial sensation. Normal tongue protrusion. Speech is slurred. Strength is 5 out of 5 on right side. Sensation to light touch is intact bilaterally. Left upper extremity is immobile. Left hip flexor is 4 out of 5, 4-/5 L hamstring, 4/ 5 L ankle plantar flexion, 4/5 L ankle dorsiflexion. A/P Assessment and Plan 1) Acute ischemic stroke Status post TPA and attempted thrombectomy with interventional radiology with persistent occlusion of R M1. Brain MRI showed right MCA ischemic stroke Follow-up CT of the brain showed no acute hemorrhage. Patient has residual left hemiparesis with left facial droop. Patient was placed on aspirin 325 mg for secondary prevention of ischemic stroke. She is currently on a pured diet with thin liquids. She is having difficulty swallowing. 2. COPD: Seems to be stable. Continue supplemental oxygen to keep oxygen saturation is greater than or equal to 92%. Continues incentive spirometry every hour while awake. Continue Advair nebulizers every 4 hours with albuterol every 2 hours as needed. 3. Dyslipidemia: - Patient reports history of hyperlipidemia but has not recently been on medication. - Previously on atorvastatin 40 mg by mouth at bedtime. - Triglycerides of 189 with total cholesterol 149, LDL cholesterol 81, HDL cholesterol of 29.9. - Start statin therapy if ok by neurology 4. Headache - Patient is complaining of severe headache - She is requesting IV morphine every 3 hours. - Continue pain control with oral Percocet to avoid overdose and respiratory depression 5. Cold left foot: 09/18 CTA with runoff report an embolic occlusion of the left popliteal at the knee joint. Vascular surgery recommends anticoagulation when safe to do so by neurology, however neurology states the patient high risk for ICH transformation if placed on hep gtt. Heparin subcutaneous has been increased to 3 times a day. - The left lower extremity is warmer and less pale. She has full function of the leg and is not complaining of pain. - DP still not palpable 6. Fall - Patient fell on 09/17 trying to get up to the bathroom. - There is no reported head trauma or loss of consciousness as per family and RN taking care of the patient's. - The patient was told to remain in bed and has assistance using the bathroom. Danna Nelson M3 Sep 19, 2016 09:14
[2016-09-19 10:12] LABS: BASOPHIL # 0.2 TH/MM3 (0-0.2); BASOPHIL % 3.5 % (0.0-2.0); EOSINOPHIL # 0.5 TH/MM3 (0-0.4); EOSINOPHIL % 9.1 % (0.0-4.0); HEMATOCRIT 32.4 % (35.0-46.0); HEMO FLAGS DIFF FINAL; LYMPHOCYTE # 1.8 TH/MM3 (1.0-4.8); MEAN CELL VOLUME 86.2 FL (80.0-100.0); MEAN CORPUSCULAR HEMOGLOBIN 28.1 PG (27.0-34.0); MEAN CORPUSCULAR HGB CONC 32.6 % (32.0-36.0); MONO % 6.4 % (0.0-8.0); PLATELET COUNT 259 TH/MM3 (150-450); RED BLOOD COUNT 3.76 MIL/MM3 (4.00-5.30); RED CELL DISTRIBUTION WIDTH 15.6 % (11.6-17.2); WHITE BLOOD COUNT 5.9 TH/MM3 (4.0-11.0)
[2016-09-19 10:31] LABS: ANION GAP 10 MEQ/L (5-15); AST (GOT) 16 U/L (15-37); BLOOD UREA NITROGEN 11 MG/DL (7-18); CHLORIDE 113 MEQ/L (98-107); GLOMERULAR FILTRATION RATE 116 ML/MIN (>89); MAGNESIUM 1.9 MG/DL (1.5-2.5); POTASSIUM 3.7 MEQ/L (3.5-5.1); SODIUM (NA) 146 MEQ/L (136-145)
[2016-09-19 10:35] LABS: ALKALINE PHOSPHATASE 72 U/L (45-117); ALT (GPT) 13 U/L (10-53); TOTAL BILIRUBIN ADULT 0.2 MG/DL (0.2-1.0)
--- NOTE | 2016-09-19 12:42 | HHI.PR ---
Subjective Remarks Patient c/o severe headache however was sleeping prior to me entering the room states cannot varnish remover her left upper extremity becomes slightly anxious and asks me if anything is going to be done about the clot in her head. denies cp/sob sodium note to be elevated vital signs stable. Objective Vitals Vital Signs Date Time Temp Pulse Resp B/P Pulse Ox O2 Delivery O2 Flow Rate FiO2 09/19/16 08:47 79 09/19/16 08:00 96.4 77 18 116/71 96 09/19/16 06:50 18 09/19/16 04:00 97.6 77 18 103/56 91 09/19/16 00:00 97.5 105 20 135/62 98 09/18/16 18:39 97.0 68 18 127/79 96 09/18/16 16:00 70 09/18/16 16:00 97.5 70 14 126/76 99 I/O 09/18/16 09/18/16 09/18/16 09/19/16 09/19/16 09/19/16 07:00 15:00 23:00 07:00 15:00 23:00 Intake Total 84 ml 824 ml 120 ml 120 ml Output Total 700 ml 700 ml Balance 84 ml 124 ml 120 ml -580 ml Intake Oral 120 ml 120 ml 120 ml IV Total 84 ml 704 ml Output Urine Total 700 ml 700 ml # Voids 1 1 # Bowel Movements 0 0 Result Diagram: 09/19/16 0940 09/19/16 0940 Imaging Last Impressions Chest X-Ray 09/18/16 0000 Signed Impressions: Service Date/Time: Sunday, September 18, 2016 03:41 - CONCLUSION: Right internal jugular central venous catheter has its tip in the right atrium. No pneumothorax or other acute cardiopulmonary disease. Sina Silverman MD Head CT 09/16/16 2100 Signed Impressions: Service Date/Time: Friday, September 16, 2016 21:18 - CONCLUSION: 1. No acute hemorrhage. 2. Low attenuation areas corresponding to the areas of acute infarction seen on the MRI. Emmanuel Gracia MD Head Magnetic Resonance Angiography 09/16/16 0000 Signed Impressions: Service Date/Time: Friday, September 16, 2016 13:01 - CONCLUSION: 1. Abrupt occlusion of the right middle cerebral circulation at the level of the distal right M1. Kirt Smith MD Carotid Artery Ultrasound 09/16/16 0000 Signed Impressions: Service Date/Time: Friday, September 16, 2016 08:18 - CONCLUSION: Negative examination for a hemodynamically significant carotid stenosis. Benoit Smith MD Brain MRI 09/16/16 0000 Signed Impressions: Service Date/Time: Friday, September 16, 2016 13:01 - CONCLUSION: Acute nonhemorrhagic infarction involving the right MCA territory as detailed above. Td Munson Jr., MD Cerebral Arteriogram 09/15/16 0000 Signed Impressions: Service Date/Time: Thursday, September 15, 2016 23:08 - CONCLUSION: 1. Complete occlusion of the right M1 segment with attempted mechanical thrombectomy. Multiple attempts were made which cleared some chronic appearing thrombus but was unable to regain patency. This is TICI score of zero. Td Munson Jr., MD Objective Remarks GENERAL: NAD SKIN: Warm and dry. HEAD: Atraumatic. Normocephalic. EYES: Pupils equal and round. No scleral icterus. No injection or drainage. ENT: No nasal bleeding or discharge. Mucous membranes pink and moist. NECK: Trachea midline. No JVD. CARDIOVASCULAR: Regular rate and rhythm. RESPIRATORY: No accessory muscle use. Clear to auscultation. Breath sounds equal bilaterally. GASTROINTESTINAL: Abdomen soft, non-tender, nondistended. Hepatic and splenic margins not palpable. MUSCULOSKELETAL: Extremities without clubbing, cyanosis, or edema. No obvious deformities. Left lower extremity is cold to touch and dorsalis pedis and posterior tibial pulses are absent by palpation and Doppler. Patient is able to move the toes on the left lower extremity. NEUROLOGICAL: Awake and alert. No facial droop with left hemiparesthesia. Motor strength is 0/5 in left upper extremity and 4/5 in left lower extremity. Five out of 5 muscle strength in the arms and legs. Normal speech. PSYCHIATRIC: Appropriate mood and affect; insight and judgment normal. Procedures Status post TPA Status post attempted thrombectomy. Medications and IVs Current Medications Medications (Trade) Dose Ordered Sig/Cassia Route Start Time Stop Time Status Last Admin (NS Flush) 2 ml UNSCH PRN IV FLUSH 09/16/16 01:15 (NS Flush) 2 ml BID IV FLUSH 09/16/16 09:00 09/19/16 09:00 (Zofran Inj) 4 mg Q6H PRN IV 09/16/16 01:15 Miscellaneous Information 1 Q361D XX 09/16/16 01:15 09/16/16 01:15 (Chlorhexidine 2% Cloth) 3 pack Taper DAILY@04 TOP 09/16/16 04:00 09/12/17 03:59 09/18/16 04:00 (Ita-Colace) 1 tab BID PO 09/16/16 09:00 09/19/16 20:29 (Milk Of Magnesia Liq) 30 ml Q12H PRN PO 09/16/16 01:15 (Senokot) 17.2 mg Q12H PRN PO 09/16/16 01:15 (Dulcolax Supp) 10 mg DAILY PRN RECTAL 09/16/16 01:15 (Lactulose Liq) 30 ml DAILY PRN PO 09/16/16 01:15 09/18/16 21:18 (TEGretol) 200 mg Q12HR PO 09/17/16 09:00 09/19/16 20:29 (Neurontin) 800 mg TID PO 09/17/16 09:00 09/19/16 18:05 (Pred Forte 1% Opth Susp) 1 drop DAILY LEFT EYE 09/16/16 09:00 09/19/16 09:00 (Habitrol 14 Mg Patch.24 Hr) 1 patch DAILY@2100 T-DERMAL 09/16/16 21:00 09/19/16 20:35 Miscellaneous Information 1 DAILY@2100 T-DERMAL 09/16/16 21:00 09/19/16 20:30 (Apresoline Inj) 10 mg Q1H PRN IV PUSH 09/16/16 07:30 (KlonoPIN) 1 mg Q12HR PO 09/16/16 09:30 09/19/16 20:29 (Aspirin) 325 mg DAILY PO 09/17/16 09:15 09/19/16 08:59 (Protonix) 40 mg DAILY PO 09/18/16 09:00 09/19/16 08:59 (Percocet 5-325 Mg) 1 tab Q4H PRN PO 09/17/16 21:00 (Percocet 5-325 Mg) 2 tab Q4H PRN PO 09/17/16 21:00 09/19/16 20:29 Heparin Sodium (Porcine) 5000 units 5,000 units Q8HR SQ 09/18/16 14:00 09/19/16 20:29 (KCl Inj/Sodium Chloride 23.4% Inj/Sterile Water For Inj) 1,019.625 ml @ 42 mls/hr Q24H IV 09/19/16 14:00 09/19/16 14:31 Urinary Catheter: No Vascular Central Line Catheter: No A/P Problem List: (1) Acute ischemic stroke ICD Code: I63.9 Status: Acute (2) COPD (chronic obstructive pulmonary disease) ICD Code: J44.9 Status: Chronic (3) Osteoporosis ICD Code: M81.0 Status: Acute (4) Anxiety ICD Code: F41.9 Status: Chronic (5) Tobacco abuse ICD Code: Z72.0 Status: Acute (6) GERD (gastroesophageal reflux disease) ICD Code: K21.9 Status: Chronic (7) Cataract ICD Code: H26.9 Status: Acute (8) Dyslipidemia ICD Code: E78.5 Status: Chronic (9) Chronic back pain ICD Code: M54.9 Status: Acute (10) Trigeminal neuralgia of left side of face ICD Code: G50.0 Status: Chronic (11) Tissue plasminogen activator (t-PA) administered at other facility within 24 hours prior to current admission ICD Code: Z92.82 Status: Resolved Assessment and Plan (1) Acute ischemic stroke Plan: Neurology was consulted. The patient is status post PDA completed on 09/15 at [facility]. Status post attempted thrombectomy with interventional radiology with persistent occlusion of R M1. Brain MRI showed right MCA ischemic stroke Follow-up CT of the brain showed no acute hemorrhage. Follow-up dimension areas corresponding to the areas of acute infarction seen on the MRI. Patient has residual left hemiparesis with left facial droop. Patient was placed on aspirin 325 mg for secondary prevention of ischemic stroke. I will start the patient on a pured diet with thin liquids. Follow swallow evaluation and advance diet as recommended. Patient is status post TPA. The goal blood pressure should be with a systolic blood pressure less than 140 following 24 hours after administration of TPA. Will request physical therapy evaluation. 09/19 Cardiology consulted. Patient is sp loop recorder implantation. WALDEMAR without embolic source. Bp stable. (2) Anxiety Plan: Continue Klonopin 1 mg by mouth every 12 hours which the patient has been taking at home as well. (3) COPD (chronic obstructive pulmonary disease) Plan: Seems to be stable. Continue supplemental oxygen to keep oxygen saturation is greater than or equal to 92%. Continues incentive spirometry every hour while awake. Continue Advair nebulizers every 4 hours with albuterol every 2 hours as needed. Patient placed on nicotine patchcontinue. (4) Tobacco abuse Plan: Continue nicotine patch. (5) GERD (gastroesophageal reflux disease) Plan: Continue PPI. Patient denies any symptoms consistent with active reflux. (6) Dyslipidemia Plan: Patient reports history of hyperlipidemia but has not recently been on medication. Previously on atorvastatin 40 mg by mouth at bedtime. Possible lipid profile shows triglycerides of 189 with total cholesterol 149, LDL cholesterol 81, HDL cholesterol of 29.9. I will start the patient on statin if okay with neurology. (7) Chronic back pain Plan: She denies back pain. Continue pain control with oral Percocet. (8) Trigeminal neuralgia of left side of face Plan: Seems to be stable. Patient on carbamazepine 200 mg by mouth every 12 hours. Continue. (9) Tissue plasminogen activator (t-PA) administered at other facility within 24 hours prior to current admission Plan: As above. (10) Anxiety Plan: Continue clonazepam. The patient is requesting to have the clonazepam even more frequently, however this could interfere with future neurological assessment if the patient becomes too lethargic. (11) Headache Plan: Patient is complaining of severe headache. As per RN patient has been requesting IV morphine every 3 hours. I will discontinue IV morphine and only continue pain control with oral Percocet to avoid overdose and respiratory depression. 09/19 As per RN patient has h/o of suboxone use due to opioid addiction. Will DV IV opioids. (12) Cold left foot Plan: I was not notified of this event until I walked in to see the patient around 6:30 to 6:45 PM. The nurse indicated that the patient has had cold left lower extremity in which she could not find a pulse urine with the help of a Doppler device. I called and discussed the case with Dr. Yin from vascular surgery. Since the patient is able to move the left lower extremity he recommended ordering a CTA with runoff of the lower extremities and he will see the patient. 09/18 CTA with runoff report an embolic occlusion of the left popliteal at the knee joint. Vascular surgery recommends anticoagulation when safe to do so by neurology, however neurology states the patient high risk for ICH transformation if placed on hep gtt. Heparin subcutaneous has been increased to 3 times a day. (13) Fall Plan: Patient fell on 09/17 trying to get up to the bathroom. There is no reported head trauma or loss of consciousness as per family and RN taking care of the patient's. The patient was treated to remain in bed. Discharge Planning Dc planning for am to rehab. Problem Qualifiers (1) COPD (chronic obstructive pulmonary disease): Qualified Code: J44.9 - Chronic obstructive pulmonary disease, unspecified COPD type (2) Chronic back pain: Song Wright MD Sep 19, 2016 12:42
[2016-09-19] MEDS: POTASSIUM CHLORIDE INJ 20 MEQ, SODIUM CHLORIDE 23.4% INJ 38.5 MEQ in WATER STERILE FOR ... IV SCH (14:31)
--- NOTE | 2016-09-19 15:40 | PD.CARD.PN ---
Subjective Subjective Remarks No SOB, c/o generalized pain Objective Medications Current Medications Medications (Trade) Dose Ordered Sig/Cassia Route Start Time Stop Time Status Last Admin (NS Flush) 2 ml UNSCH PRN IV FLUSH 09/16/16 01:15 (NS Flush) 2 ml BID IV FLUSH 09/16/16 09:00 09/19/16 09:00 (Zofran Inj) 4 mg Q6H PRN IV 09/16/16 01:15 Miscellaneous Information 1 Q361D XX 09/16/16 01:15 09/16/16 01:15 (Chlorhexidine 2% Cloth) 3 pack Taper DAILY@04 TOP 09/16/16 04:00 09/12/17 03:59 09/18/16 04:00 (Ita-Colace) 1 tab BID PO 09/16/16 09:00 09/19/16 09:00 (Milk Of Magnesia Liq) 30 ml Q12H PRN PO 09/16/16 01:15 (Senokot) 17.2 mg Q12H PRN PO 09/16/16 01:15 (Dulcolax Supp) 10 mg DAILY PRN RECTAL 09/16/16 01:15 (Lactulose Liq) 30 ml DAILY PRN PO 09/16/16 01:15 09/18/16 21:18 (TEGretol) 200 mg Q12HR PO 09/17/16 09:00 09/19/16 08:59 (Neurontin) 800 mg TID PO 09/17/16 09:00 09/19/16 14:31 (Pred Forte 1% Opth Susp) 1 drop DAILY LEFT EYE 09/16/16 09:00 09/19/16 09:00 (Habitrol 14 Mg Patch.24 Hr) 1 patch DAILY@2100 T-DERMAL 09/16/16 21:00 09/18/16 21:20 Miscellaneous Information 1 DAILY@2100 T-DERMAL 09/16/16 21:00 09/17/16 20:00 (Apresoline Inj) 10 mg Q1H PRN IV PUSH 09/16/16 07:30 (KlonoPIN) 1 mg Q12HR PO 09/16/16 09:30 09/19/16 08:59 (Aspirin) 325 mg DAILY PO 09/17/16 09:15 09/19/16 08:59 (Protonix) 40 mg DAILY PO 09/18/16 09:00 09/19/16 08:59 (Percocet 5-325 Mg) 1 tab Q4H PRN PO 09/17/16 21:00 (Percocet 5-325 Mg) 2 tab Q4H PRN PO 09/17/16 21:00 09/19/16 11:42 (Heparin Inj) 5,000 units Q8HR SQ 09/18/16 14:00 09/19/16 14:00 Morphine Sulfate 2 mg 2 mg Q4HR PRN IV PUSH 09/18/16 20:45 09/18/16 21:18 (KCl Inj/Sodium Chloride 23.4% Inj/Sterile Water For Inj) 1,019.625 ml @ 42 mls/hr Q24H IV 09/19/16 14:00 09/19/16 14:31 Vital Signs / I&O Vital Signs Date Time Temp Pulse Resp B/P Pulse Ox O2 Delivery O2 Flow Rate FiO2 09/19/16 12:00 97.5 77 20 114/68 98 09/19/16 08:47 79 09/19/16 08:00 96.4 77 18 116/71 96 09/19/16 06:50 18 09/19/16 04:00 97.6 77 18 103/56 91 09/19/16 00:00 97.5 105 20 135/62 98 09/18/16 18:39 97.0 68 18 127/79 96 09/18/16 16:00 70 09/18/16 16:00 97.5 70 14 126/76 99 I/O 09/18/16 09/18/16 09/18/16 09/19/16 09/19/16 09/19/16 07:00 15:00 23:00 07:00 15:00 23:00 Intake Total 84 ml 824 ml 120 ml 120 ml Output Total 700 ml 700 ml Balance 84 ml 124 ml 120 ml -580 ml Intake Oral 120 ml 120 ml 120 ml IV Total 84 ml 704 ml Output Urine Total 700 ml 700 ml # Voids 1 1 # Bowel Movements 0 0 Physical Exam GENERAL: In NAD SKIN: Warm and dry. HEAD: Normocephalic. EYES: No scleral icterus. No injection or drainage. NECK: Supple, trachea midline. No JVD or lymphadenopathy. CARDIOVASCULAR: Regular rate and rhythm without murmurs, gallops, or rubs. RESPIRATORY: Breath sounds equal bilaterally. No accessory muscle use. GASTROINTESTINAL: Abdomen soft, non-tender, nondistended. MUSCULOSKELETAL: No cyanosis, or edema. Chest wound stable Laboratory Laboratory Tests Test 09/19/16 09:40 White Blood Count 5.9 TH/MM3 Red Blood Count 3.76 MIL/MM3 Hemoglobin 10.6 GM/DL Hematocrit 32.4 % Mean Corpuscular Volume 86.2 FL Mean Corpuscular Hemoglobin 28.1 PG Mean Corpuscular Hemoglobin 32.6 % Concent Red Cell Distribution Width 15.6 % Platelet Count 259 TH/MM3 Mean Platelet Volume 8.9 FL Neutrophils (%) (Auto) 51.0 % Lymphocytes (%) (Auto) 30.0 % Monocytes (%) (Auto) 6.4 % Eosinophils (%) (Auto) 9.1 % Basophils (%) (Auto) 3.5 % Neutrophils # (Auto) 3.0 TH/MM3 Lymphocytes # (Auto) 1.8 TH/MM3 Monocytes # (Auto) 0.4 TH/MM3 Eosinophils # (Auto) 0.5 TH/MM3 Basophils # (Auto) 0.2 TH/MM3 CBC Comment DIFF FINAL Differential Comment Sodium Level 146 MEQ/L Potassium Level 3.7 MEQ/L Chloride Level 113 MEQ/L Carbon Dioxide Level 23.0 MEQ/L Anion Gap 10 MEQ/L Blood Urea Nitrogen 11 MG/DL Creatinine 0.54 MG/DL Estimat Glomerular Filtration 116 ML/MIN Rate Random Glucose 86 MG/DL Calcium Level 8.0 MG/DL Phosphorus Level 4.1 MG/DL Magnesium Level 1.9 MG/DL Total Bilirubin 0.2 MG/DL Aspartate Amino Transf 16 U/L (AST/SGOT) Alanine Aminotransferase 13 U/L (ALT/SGPT) Alkaline Phosphatase 72 U/L Total Protein 5.3 GM/DL Albumin 2.4 GM/DL Imaging Last Impressions Chest X-Ray 09/18/16 0000 Signed Impressions: Service Date/Time: Sunday, September 18, 2016 03:41 - CONCLUSION: Right internal jugular central venous catheter has its tip in the right atrium. No pneumothorax or other acute cardiopulmonary disease. Sina Silverman MD Head CT 09/16/16 2100 Signed Impressions: Service Date/Time: Friday, September 16, 2016 21:18 - CONCLUSION: 1. No acute hemorrhage. 2. Low attenuation areas corresponding to the areas of acute infarction seen on the MRI. Emmanuel Gracia MD Head Magnetic Resonance Angiography 09/16/16 Signed Impressions: Service Date/Time: Friday, September 16, 2016 13:01 - CONCLUSION: 1. Abrupt occlusion of the right middle cerebral circulation at the level of the distal right M1. Kirt Smith MD Carotid Artery Ultrasound 09/16/16 Signed Impressions: Service Date/Time: Friday, September 16, 2016 08:18 - CONCLUSION: Negative examination for a hemodynamically significant carotid stenosis. Benoit Smith MD Brain MRI 09/16/16 Signed Impressions: Service Date/Time: Friday, September 16, 2016 13:01 - CONCLUSION: Acute nonhemorrhagic infarction involving the right MCA territory as detailed above. Td Munson Jr., MD Cerebral Arteriogram 09/15/16 Signed Impressions: Service Date/Time: Thursday, September 15, 2016 23:08 - CONCLUSION: 1. Complete occlusion of the right M1 segment with attempted mechanical thrombectomy. Multiple attempts were made which cleared some chronic appearing thrombus but was unable to regain patency. This is TICI score of zero. Td Munson Jr., MD Assessment and Plan Problem List: (1) Acute CVA (cerebrovascular accident) (2) Anxiety (3) COPD (chronic obstructive pulmonary disease) (4) Dyslipidemia (5) GERD (gastroesophageal reflux disease) Assessment and Plan Tele w NSR. WALDEMAR w no source of emboli. Successful LINQ monitor placement. Continue current program. Increase activity. Will follow LINQ monitor as outpatient. Problem Qualifiers (1) COPD (chronic obstructive pulmonary disease): Qualified Code: J44.9 - Chronic obstructive pulmonary disease, unspecified COPD type Jed Becerra MD Sep 19, 2016 15:40
[2016-09-19] MEDS: REMOVE OLD PATCH T-DERMAL SCH (20:30)
[2016-09-19] MEDS: NICOTINE 14 MG/24 HR PATCH T-DERMAL SCH (20:35)
[2016-09-20] VITALS: BP 100/64; PULSE 79; RESP 20; TEMP 96.5; O2SAT 95
[2016-09-20] MEDS: RESP: ALBUTEROL 2.5 MG/3 ML NEB (SCH) NEB ×2 (03:32)
[2016-09-20 04:00] VITALS: BP 117/61; PULSE 65; RESP 20; TEMP 97; O2SAT 96
[2016-09-20] MEDS: CHLORHEXIDINE GLUCONATE 2 % 1 PACK (2 CLOTHS) TOP SCH (04:00)
[2016-09-20] MEDS: HEPARIN SODIUM - SQ 10,000 UNITS/ML VIAL SQ SCH ×3 (05:19→21:36)
[2016-09-20] MEDS: oxyCODONE/ACETAMINOPHEN 5 MG/325 MG TAB PO PRN ×4 (05:20→20:11)
[2016-09-20] MEDS: ASPIRIN 325 MG TAB PO SCH (08:05)
[2016-09-20] MEDS: GABAPENTIN 400 MG CAP PO SCH ×3 (08:05→18:01)
[2016-09-20] MEDS: DOCUSATE SODIUM 50 MG/SENNA 8.6 MG TAB PO SCH ×2 (08:05→20:10)
[2016-09-20] MEDS: clonazePAM 1 MG TAB PO SCH ×2 (08:05→20:10)
[2016-09-20] MEDS: carBAMazepine 200 MG TAB PO SCH ×2 (08:05→20:10)
[2016-09-20] MEDS: PANTOPRAZOLE SOD 40 MG DELAYED RELEASE TAB PO SCH (08:05)
[2016-09-20 08:06] LABS: ANION GAP 9 MEQ/L (5-15); AUTOMATED NEUTROPHIL # 4.2 TH/MM3 (1.8-7.7); BASOPHIL # 0.1 TH/MM3 (0-0.2); BASOPHIL % 0.9 % (0.0-2.0); BICARBONATE 23.8 MEQ/L (21.0-32.0); BLOOD UREA NITROGEN 11 MG/DL (7-18); CHLORIDE 108 MEQ/L (98-107); EOSINOPHIL # 0.6 TH/MM3 (0-0.4); EOSINOPHIL % 8.1 % (0.0-4.0); GLOMERULAR FILTRATION RATE 80 ML/MIN (>89); HEMATOCRIT 31.9 % (35.0-46.0); HEMO FLAGS DIFF FINAL; LYMPH % 29.5 % (9.0-44.0); LYMPHOCYTE # 2.2 TH/MM3 (1.0-4.8); MAGNESIUM 1.7 MG/DL (1.5-2.5); MEAN CELL VOLUME 85.9 FL (80.0-100.0); MEAN CORPUSCULAR HEMOGLOBIN 28.2 PG (27.0-34.0); MEAN CORPUSCULAR HGB CONC 32.8 % (32.0-36.0); NEUT % 56.5 % (16.0-70.0); PLATELET COUNT 261 TH/MM3 (150-450); POTASSIUM 4.1 MEQ/L (3.5-5.1); RED BLOOD COUNT 3.71 MIL/MM3 (4.00-5.30); RED CELL DISTRIBUTION WIDTH 15.4 % (11.6-17.2); SODIUM (NA) 141 MEQ/L (136-145); WHITE BLOOD COUNT 7.4 TH/MM3 (4.0-11.0)
[2016-09-20] MEDS: prednisoLONE ACETATE 1% OPHT SUSP 5 ML BTL LEFT EYE SCH (08:06)
[2016-09-20 08:07] LABS: ALT (GPT) 11 U/L (10-53)
[2016-09-20 08:12] VITALS: BP 109/69; PULSE 76; RESP 20; TEMP 96.7; O2SAT 100
[2016-09-20 08:12] LABS: ALKALINE PHOSPHATASE 77 U/L (45-117); AST (GOT) 14 U/L (15-37); TOTAL BILIRUBIN ADULT 0.2 MG/DL (0.2-1.0)
[2016-09-20] MEDS: SODIUM CHLORIDE 0.9% FLUSH 10 ML FLUSH IV FLUSH SCH ×2 (09:00→20:11)
[2016-09-20 12:04] VITALS: BP 123/72; PULSE 82; RESP 20; TEMP 98.5; O2SAT 95
--- NOTE | 2016-09-20 12:06 | PD.VS.PN ---
Subjective Subjective/Hospital Course Pt w/ L LE thrombosis BK popliteal artery vs embolus Remains motor intact Objective Vitals/I&O Date Time Temp Pulse Resp B/P Pulse Ox O2 Delivery O2 Flow Rate FiO2 09/20/16 08:12 96.7 76 20 109/69 100 09/20/16 04:00 97.0 65 20 117/61 96 09/20/16 00:00 96.5 79 20 100/64 95 09/19/16 20:00 96.2 77 20 105/53 95 09/19/16 17:40 16 09/19/16 16:00 96.1 82 20 121/68 99 Laboratory Laboratory Tests Test 09/20/16 07:15 White Blood Count 7.4 Red Blood Count 3.71 Hemoglobin 10.5 Hematocrit 31.9 Mean Corpuscular Volume 85.9 Mean Corpuscular Hemoglobin 28.2 Mean Corpuscular Hemoglobin 32.8 Concent Red Cell Distribution Width 15.4 Platelet Count 261 Mean Platelet Volume 9.2 Neutrophils (%) (Auto) 56.5 Lymphocytes (%) (Auto) 29.5 Monocytes (%) (Auto) 5.0 Eosinophils (%) (Auto) 8.1 Basophils (%) (Auto) 0.9 Neutrophils # (Auto) 4.2 Lymphocytes # (Auto) 2.2 Monocytes # (Auto) 0.4 Eosinophils # (Auto) 0.6 Basophils # (Auto) 0.1 CBC Comment DIFF FINAL Differential Comment Sodium Level 141 Potassium Level 4.1 Chloride Level 108 Carbon Dioxide Level 23.8 Anion Gap 9 Blood Urea Nitrogen 11 Creatinine 0.74 Estimat Glomerular Filtration 80 Rate Random Glucose 128 Calcium Level 7.7 Phosphorus Level 4.0 Magnesium Level 1.7 Total Bilirubin 0.2 Aspartate Amino Transf 14 (AST/SGOT) Alanine Aminotransferase 11 (ALT/SGPT) Alkaline Phosphatase 77 Total Protein 5.4 Albumin 2.4 Assessment and Plan Plan No operative indication at present - and only would if limb threatened, especially given that operative tibial repair/bypass would require systemic heparinization Ok to work towards rehab- I will f/u in my clinic next 10/02. Tod Yin MD FACS bow maker [facility] - Heart and Vascular Surgery at [facility] [phone] Tod Yin MD Sep 20, 2016 12:06
[2016-09-20] MEDS: POTASSIUM CHLORIDE INJ 20 MEQ, SODIUM CHLORIDE 23.4% INJ 38.5 MEQ in WATER STERILE FOR ... IV SCH (15:47)
[2016-09-20 16:13] VITALS: BP 120/59; PULSE 86; RESP 20; TEMP 98.4; O2SAT 94
[2016-09-20] MEDS ORDERED: MORPHINE SULFATE 4 MG/ML INJ IV PUSH ONE (16:15)
--- NOTE | 2016-09-20 18:46 | HHI.PR ---
Subjective Remarks Patient still c/o severe headache denies nausea or vomiting denies any new neuro deficits. Patient threatening to leave AMA if she is not given IV Morphien or Dilaudid also c/o pain in her tailbone and multiple other parts of her body. Objective Vitals Vital Signs Date Time Temp Pulse Resp B/P Pulse Ox O2 Delivery O2 Flow Rate FiO2 09/20/16 16:13 98.4 86 20 120/59 94 09/20/16 12:04 98.5 82 20 123/72 95 09/20/16 10:42 18 09/20/16 08:12 96.7 76 20 109/69 100 09/20/16 04:00 97.0 65 20 117/61 96 09/20/16 00:00 96.5 79 20 100/64 95 09/19/16 20:00 96.2 77 20 105/53 95 I/O 09/19/16 09/19/16 09/19/16 09/20/16 09/20/16 09/20/16 07:00 15:00 23:00 07:00 15:00 23:00 Intake Total 120 ml 240 ml 960 ml Output Total 700 ml 125 ml 660 ml 6 ml Balance -580 ml -125 ml -420 ml 954 ml Intake Oral 120 ml 240 ml 960 ml Output Urine Total 700 ml 125 ml 660 ml 6 ml # Voids 1 1 1 # Bowel Movements 0 Result Diagram: 09/20/16 0715 09/20/16 0715 Imaging Last Impressions Chest X-Ray 09/18/16 0000 Signed Impressions: Service Date/Time: Sunday, September 18, 2016 03:41 - CONCLUSION: Right internal jugular central venous catheter has its tip in the right atrium. No pneumothorax or other acute cardiopulmonary disease. Sina Silverman MD Head CT 09/16/16 2100 Signed Impressions: Service Date/Time: Friday, September 16, 2016 21:18 - CONCLUSION: 1. No acute hemorrhage. 2. Low attenuation areas corresponding to the areas of acute infarction seen on the MRI. Emmanuel Gracia MD Head Magnetic Resonance Angiography 09/16/16 0000 Signed Impressions: Service Date/Time: Friday, September 16, 2016 13:01 - CONCLUSION: 1. Abrupt occlusion of the right middle cerebral circulation at the level of the distal right M1. Kirt Smith MD Carotid Artery Ultrasound 09/16/16 0000 Signed Impressions: Service Date/Time: Friday, September 16, 2016 08:18 - CONCLUSION: Negative examination for a hemodynamically significant carotid stenosis. Benoit Smith MD Brain MRI 09/16/16 0000 Signed Impressions: Service Date/Time: Friday, September 16, 2016 13:01 - CONCLUSION: Acute nonhemorrhagic infarction involving the right MCA territory as detailed above. Td Munson Jr., MD Cerebral Arteriogram 09/15/16 0000 Signed Impressions: Service Date/Time: Thursday, September 15, 2016 23:08 - CONCLUSION: 1. Complete occlusion of the right M1 segment with attempted mechanical thrombectomy. Multiple attempts were made which cleared some chronic appearing thrombus but was unable to regain patency. This is TICI score of zero. Td Munson Jr., MD Objective Remarks GENERAL: NAD SKIN: Warm and dry. HEAD: Atraumatic. Normocephalic. EYES: Pupils equal and round. No scleral icterus. No injection or drainage. ENT: No nasal bleeding or discharge. Mucous membranes pink and moist. NECK: Trachea midline. No JVD. CARDIOVASCULAR: Regular rate and rhythm. RESPIRATORY: No accessory muscle use. Clear to auscultation. Breath sounds equal bilaterally. GASTROINTESTINAL: Abdomen soft, non-tender, nondistended. Hepatic and splenic margins not palpable. MUSCULOSKELETAL: Extremities without clubbing, cyanosis, or edema. No obvious deformities. Left lower extremity is cold to touch and dorsalis pedis and posterior tibial pulses are absent by palpation and Doppler. Patient is able to move the toes on the left lower extremity. NEUROLOGICAL: Awake and alert. No facial droop with left hemiparesthesia. Motor strength is 0/5 in left upper extremity and 4/5 in left lower extremity. Five out of 5 muscle strength in the arms and legs. Normal speech. PSYCHIATRIC: Appropriate mood and affect; insight and judgment normal. Procedures Status post TPA Status post attempted thrombectomy. Medications and IVs Current Medications Medications (Trade) Dose Ordered Sig/Cassia Route Start Time Stop Time Status Last Admin (NS Flush) 2 ml UNSCH PRN IV FLUSH 09/16/16 01:15 (NS Flush) 2 ml BID IV FLUSH 09/16/16 09:00 09/20/16 09:00 (Zofran Inj) 4 mg Q6H PRN IV 09/16/16 01:15 Miscellaneous Information 1 Q361D XX 09/16/16 01:15 09/16/16 01:15 (Chlorhexidine 2% Cloth) 3 pack Taper DAILY@04 TOP 09/16/16 04:00 09/12/17 03:59 09/18/16 04:00 (Ita-Colace) 1 tab BID PO 09/16/16 09:00 09/20/16 08:05 (Milk Of Magnesia Liq) 30 ml Q12H PRN PO 09/16/16 01:15 (Senokot) 17.2 mg Q12H PRN PO 09/16/16 01:15 (Dulcolax Supp) 10 mg DAILY PRN RECTAL 09/16/16 01:15 (Lactulose Liq) 30 ml DAILY PRN PO 09/16/16 01:15 09/18/16 21:18 (TEGretol) 200 mg Q12HR PO 09/17/16 09:00 09/20/16 08:05 (Neurontin) 800 mg TID PO 09/17/16 09:00 09/20/16 18:01 (Pred Forte 1% Opth Susp) 1 drop DAILY LEFT EYE 09/16/16 09:00 09/20/16 08:06 (Habitrol 14 Mg Patch.24 Hr) 1 patch DAILY@2100 T-DERMAL 09/16/16 21:00 09/19/16 20:35 Miscellaneous Information 1 DAILY@2100 T-DERMAL 09/16/16 21:00 09/19/16 20:30 (Apresoline Inj) 10 mg Q1H PRN IV PUSH 09/16/16 07:30 (KlonoPIN) 1 mg Q12HR PO 09/16/16 09:30 09/20/16 08:05 (Aspirin) 325 mg DAILY PO 09/17/16 09:15 09/20/16 08:05 (Protonix) 40 mg DAILY PO 09/18/16 09:00 09/20/16 08:05 (Percocet 5-325 Mg) 1 tab Q4H PRN PO 09/17/16 21:00 (Percocet 5-325 Mg) 2 tab Q4H PRN PO 09/17/16 21:00 09/20/16 13:24 Heparin Sodium (Porcine) 5000 units 5,000 units Q8HR SQ 09/18/16 14:00 09/20/16 13:25 (KCl Inj/Sodium Chloride 23.4% Inj/Sterile Water For Inj) 1,019.625 ml @ 42 mls/hr Q24H IV 09/19/16 14:00 09/20/16 15:47 Urinary Catheter: No Vascular Central Line Catheter: No A/P Problem List: (1) Acute ischemic stroke ICD Code: I63.9 Status: Acute (2) COPD (chronic obstructive pulmonary disease) ICD Code: J44.9 Status: Chronic (3) Osteoporosis ICD Code: M81.0 Status: Acute (4) Anxiety ICD Code: F41.9 Status: Chronic (5) Tobacco abuse ICD Code: Z72.0 Status: Acute (6) GERD (gastroesophageal reflux disease) ICD Code: K21.9 Status: Chronic (7) Cataract ICD Code: H26.9 Status: Acute (8) Dyslipidemia ICD Code: E78.5 Status: Chronic (9) Chronic back pain ICD Code: M54.9 Status: Acute (10) Trigeminal neuralgia of left side of face ICD Code: G50.0 Status: Chronic (11) Tissue plasminogen activator (t-PA) administered at other facility within 24 hours prior to current admission ICD Code: Z92.82 Status: Resolved Assessment and Plan (1) Acute ischemic stroke Plan: Neurology was consulted. The patient is status post PDA completed on 09/15 at [facility]. Status post attempted thrombectomy with interventional radiology with persistent occlusion of R M1. Brain MRI showed right MCA ischemic stroke Follow-up CT of the brain showed no acute hemorrhage. Follow-up dimension areas corresponding to the areas of acute infarction seen on the MRI. Patient has residual left hemiparesis with left facial droop. Patient was placed on aspirin 325 mg for secondary prevention of ischemic stroke. I will start the patient on a pured diet with thin liquids. Follow swallow evaluation and advance diet as recommended. Patient is status post TPA. The goal blood pressure should be with a systolic blood pressure less than 140 following 24 hours after administration of TPA. Will request physical therapy evaluation. 09/19 Cardiology consulted. Patient is sp loop recorder implantation. WALDEMAR without embolic source. Bp stable. 09/[address] head given persistent severe headache. (2) Anxiety Plan: Continue Klonopin 1 mg by mouth every 12 hours which the patient has been taking at home as well. (3) COPD (chronic obstructive pulmonary disease) Plan: Seems to be stable. Continue supplemental oxygen to keep oxygen saturation is greater than or equal to 92%. Continues incentive spirometry every hour while awake. Continue Advair nebulizers every 4 hours with albuterol every 2 hours as needed. Patient placed on nicotine patchcontinue. (4) Tobacco abuse Plan: Continue nicotine patch. (5) GERD (gastroesophageal reflux disease) Plan: Continue PPI. Patient denies any symptoms consistent with active reflux. (6) Dyslipidemia Plan: Patient reports history of hyperlipidemia but has not recently been on medication. Previously on atorvastatin 40 mg by mouth at bedtime. Possible lipid profile shows triglycerides of 189 with total cholesterol 149, LDL cholesterol 81, HDL cholesterol of 29.9. I will start the patient on statin if okay with neurology. (7) Chronic back pain Plan: She denies back pain. Continue pain control with oral Percocet. (8) Trigeminal neuralgia of left side of face Plan: Seems to be stable. Patient on carbamazepine 200 mg by mouth every 12 hours. Continue. (9) Tissue plasminogen activator (t-PA) administered at other facility within 24 hours prior to current admission Plan: As above. (10) Anxiety Plan: Continue clonazepam. The patient is requesting to have the clonazepam even more frequently, however this could interfere with future neurological assessment if the patient becomes too lethargic. 09/20 patient still with anxiety. I will increase clonazepam to 3 times a day. (11) Headache Plan: Patient is complaining of severe headache. As per RN patient has been requesting IV morphine every 3 hours. I will discontinue IV morphine and only continue pain control with oral Percocet to avoid overdose and respiratory depression. 09/19 As per RN patient has h/o of suboxone use due to opioid addiction. Will DV IV opioids. 09/20 as per patient oral oxycodone not relieving headache. We'll start the patient on extended release morphine orally. (12) Cold left foot Plan: I was not notified of this event until I walked in to see the patient around 6:30 to 6:45 PM. The nurse indicated that the patient has had cold left lower extremity in which she could not find a pulse urine with the help of a Doppler device. I called and discussed the case with Dr. Yin from vascular surgery. Since the patient is able to move the left lower extremity he recommended ordering a CTA with runoff of the lower extremities and he will see the patient. 09/18 CTA with runoff report an embolic occlusion of the left popliteal at the knee joint. Vascular surgery recommends anticoagulation when safe to do so by neurology, however neurology states the patient high risk for ICH transformation if placed on hep gtt. Heparin subcutaneous has been increased to 3 times a day. 09/[address] Yin from vascular surgery who states that there is no indication at present - and only would if limb threatened, especially given that operative tibial repair/bypass would require systemic heparinization. Patient cleared to be discharged to follow-up as an outpatient with vascular surgery. (13) Fall Plan: Patient fell on 09/17 trying to get up to the bathroom. There is no reported head trauma or loss of consciousness as per family and RN taking care of the patient's. The patient was treated to remain in bed. Discharge Planning Pending repeat CT scan. Problem Qualifiers (1) COPD (chronic obstructive pulmonary disease): Qualified Code: J44.9 - Chronic obstructive pulmonary disease, unspecified COPD type (2) Chronic back pain: Song Wright MD Sep 20, 2016 18:46
--- NOTE | 2016-09-20 19:36 | RADRPT ---
EXAM DATE/TIME: 09/20/2016 19:19 [facility] COMPARISON: MRI BRAIN W/O CONTRAST, September 16, 2016, 13:01. CT BRAIN W/O CONTRAST, September 16, 2016, 21:18. INDICATIONS : Cephalgia. RADIATION DOSE: 49.03 CTDIvol (mGy) MEDICAL HISTORY : Stroke. SURGICAL HISTORY : None. ENCOUNTER: Subsequent ACUITY: 1 day PAIN SCALE: 7/10 LOCATION: cranial TECHNIQUE: Multiple contiguous axial images were obtained of the head. Using automated exposure control and adj ustment of the mA and/or kV according to patient size, radiation dose was kept as low as reasonably a chievable to obtain optimal diagnostic quality images. FINDINGS: CEREBRUM: Stable size and configuration to the hypodensity in the right basal ganglia and right parietal cortex at site of acute nonhemorrhagic infarction. The configuration of the frontal horn of the right vent ricle is stable from prior, mildly effaced. No evidence of midline shift. No new hypodensities seen . No evidence of acute blood products. No extra-axial fluid. POSTERIOR FOSSA: The cerebellum and brainstem are intact. The 4th ventricle is midline. The cerebellopontine angle i s unremarkable. EXTRACRANIAL: The visualized portion of the orbits is intact. SKULL: The calvaria is intact. No evidence of skull fracture. CONCLUSION: Stable appearance of the acute nonhemorrhagic right MCA infarction. Td Valenzuela MD on September 20, 2016 at 19:29 Board Certified Radiologist. This report was verified electronically.
[2016-09-20 20:00] VITALS: BP 112/61; PULSE 61; RESP 20; TEMP 96.7; O2SAT 92
[2016-09-20] MEDS: NICOTINE 14 MG/24 HR PATCH T-DERMAL SCH (20:10)
[2016-09-20] MEDS: REMOVE OLD PATCH T-DERMAL SCH (20:11)
[2016-09-21] VITALS: BP 139/64; PULSE 86; RESP 20; TEMP 96.9; O2SAT 94
[2016-09-21] MEDS: oxyCODONE/ACETAMINOPHEN 5 MG/325 MG TAB PO PRN ×4 (00:04→18:48)
[2016-09-21] MEDS: CHLORHEXIDINE GLUCONATE 2 % 1 PACK (2 CLOTHS) TOP SCH (03:04)
[2016-09-21 04:00] VITALS: BP 119/71; PULSE 78; RESP 20; TEMP 96.9; O2SAT 94
[2016-09-21] MEDS: HEPARIN SODIUM - SQ 10,000 UNITS/ML VIAL SQ SCH ×3 (05:08→22:14)
[2016-09-21 08:00] VITALS: BP 128/68; PULSE 80; RESP 16; TEMP 95.4; O2SAT 97
[2016-09-21] MEDS: GABAPENTIN 400 MG CAP PO SCH ×3 (08:15→18:48)
[2016-09-21] MEDS: ASPIRIN 325 MG TAB PO SCH (08:15)
[2016-09-21] MEDS: clonazePAM 1 MG TAB PO SCH ×2 (08:16→22:09)
[2016-09-21] MEDS: PANTOPRAZOLE SOD 40 MG DELAYED RELEASE TAB PO SCH (08:16)
[2016-09-21] MEDS: carBAMazepine 200 MG TAB PO SCH ×2 (08:16→22:08)
[2016-09-21] MEDS: prednisoLONE ACETATE 1% OPHT SUSP 5 ML BTL LEFT EYE SCH (08:17)
[2016-09-21] MEDS: SODIUM CHLORIDE 0.9% FLUSH 10 ML FLUSH IV FLUSH SCH ×2 (08:22→21:00)
[2016-09-21] MEDS: DOCUSATE SODIUM 50 MG/SENNA 8.6 MG TAB PO SCH ×2 (09:00→22:08)
--- NOTE | 2016-09-21 11:24 | PD.VS.PN ---
Subjective Subjective/Hospital Course Pt in bed with at side Pt alert in nad Left LE with motor intact Objective Vitals/I&O Date Time Temp Pulse Resp B/P Pulse Ox O2 Delivery O2 Flow Rate FiO2 09/21/16 08:00 95.4 80 16 128/68 97 09/21/16 04:00 96.9 78 20 119/71 94 09/21/16 01:04 18 09/21/16 00:00 96.9 86 20 139/64 94 09/20/16 20:00 96.7 61 20 112/61 92 09/20/16 16:25 15 09/20/16 16:13 98.4 86 20 120/59 94 09/20/16 12:04 98.5 82 20 123/72 95 09/21/16 09/21/16 09/21/16 07:00 15:00 23:00 Intake Total 60 ml Balance 60 ml Physical Exam GENERAL: Alert 59/F/NAD SKIN: Warm and dry Bilat PT with triphasic signals L DP with faint biphasic signals Motor intact to LE Imaging Last [address] 09/20/16 0000 Signed Impressions: Service Date/Time: Tuesday, September 20, 2016 19:19 - CONCLUSION: Stable appearance of the acute nonhemorrhagic right MCA infarction. Td Valenzuela MD Assessment and Plan Plan No operative indication at present - and only would if limb threatened, especially given that operative tibial repair/bypass would require systemic heparinization Plan Pt to Rehab today Will f/u w/ patient in our [facility] Appointment time and date given to patient/spouse Louise MELENDREZ [facility] [phone] Discharge Planning Pt to rehab Louise Barraza Sep 21, 2016 11:24
[2016-09-21 12:00] VITALS: BP 141/81; PULSE 77; RESP 16; TEMP 97.6; O2SAT 97
[2016-09-21] MEDS ORDERED: LORazepam 2 MG/ML VIAL IV PUSH ONE (15:15)
[2016-09-21] MEDS ORDERED: PANT40TA3 PO (15:21)
[2016-09-21] MEDS ORDERED: NICO14DI23 T-DERMAL (15:21)
[2016-09-21] MEDS ORDERED: ASPI325T PO (15:21)
[2016-09-21] MEDS ORDERED: CLON1 PO (15:21)
[2016-09-21] MEDS ORDERED: SENN1TAB PO (15:21)
[2016-09-21] MEDS ORDERED: CARB200T PO (15:21)
--- NOTE | 2016-09-21 15:24 | HHI.DCPOC ---
Discharge Care Plan Diagnosis: (1) Tissue plasminogen activator (t-PA) administered at other facility within 24 hours prior to current admission (2) Trigeminal neuralgia of left side of face (3) Dyslipidemia (4) Fall (5) GERD (gastroesophageal reflux disease) (6) Headache (7) Anxiety (8) COPD (chronic obstructive pulmonary disease) (9) Acute CVA (cerebrovascular accident) (10) Acute ischemic right MCA stroke (11) Chronic back pain Goals to Promote Your Health * To prevent worsening of your condition and complications * To maintain your health at the optimal level Directions to Meet Your Goals Take your medications as prescribed Follow your dietary instruction Follow activity as directed Keep your appointments as scheduled Take your immunizations and boosters as scheduled If your symptoms worsen call your PCP, if no PCP go to Urgent Care Center or Emergency Room Smoking is Dangerous to Your Health. Avoid second hand smoke Call the 24-hour hour crisis hotline for domestic abuse at Song Wright MD Sep 21, 2016 15:24
--- NOTE | 2016-09-21 15:30 | HHI.DS ---
Discharge Summary Admission Date Sep 16, 2016 at 00:25 Discharge Date: Sep 22, 2016 Admitting Diagnosis (1) Acute ischemic stroke ICD Code: I63.9 Diagnosis: Principal (2) COPD (chronic obstructive pulmonary disease) ICD Code: J44.9 Diagnosis: Principal (3) Osteoporosis ICD Code: M81.0 Diagnosis: Principal (4) Anxiety ICD Code: F41.9 Diagnosis: Principal (5) Tobacco abuse ICD Code: Z72.0 Diagnosis: Principal (6) GERD (gastroesophageal reflux disease) ICD Code: K21.9 Diagnosis: Principal (7) Cataract ICD Code: H26.9 Diagnosis: Secondary (8) Dyslipidemia ICD Code: E78.5 Diagnosis: Secondary (9) Chronic back pain ICD Code: M54.9 Diagnosis: Secondary (10) Trigeminal neuralgia of left side of face ICD Code: G50.0 Diagnosis: Secondary (11) Tissue plasminogen activator (t-PA) administered at other facility within 24 hours prior to current admission ICD Code: Z92.82 Diagnosis: Principal Procedures Status post TPA Status post attempted thrombectomy. Brief History - From Admission 61-year-old [id number] female with past medical history of COPD, tobacco abuse, chronic back pain, osteoporosis, endometriosis, hyperlipidemia (not on therapy) who states she has a prior history of TIA 2 years ago who was transferred to [facility] from [facility] as a stroke alert. She was triaged at outside hospital at 18:40 on 09/15 where she presented with left upper extremity weakness and left facial droop with reported time of onset of 16:30, last seen normal 16:00. She complained of 3 day history of headache. She reportedly had a prior history of TIA about 2 years ago but was not on antiplatelet or anticoagulant therapy. CT brain at outside hospital reportedly shows hyperdensity of right MCA with no loss of traore white matter differentiation to suggest acute infarct. No acute hemorrhage. Patient was evaluated by tele-neurologist and patient was administered TPA at outside hospital and then transferred for IR and thrombectomy. Patient was unable to transfer to [facility] due to weather. Transferred by ground transport to [facility] after acceptance by Dr. Durán with neurology. Patient went directly to IR per Dr. Td Munson. Angiography showed complete occlusion of M1 segment of right MCA. Embolectomy was attempted and there was removal of some thrombus but complete occlusion remained despite multiple attempts. Transfer center contacted critical care medicine while patient was in IR, requesting admission to [facility]. TPA completed at 21:00 on 09/15 per discussion with IR. BP outside hospital was 117/79, hemoglobin 14.7, platelets 398, coags normal, LFTs normal, creatinine 0.83. CBC/BMP: 09/20/16 0715 09/20/16 0715 Significant Findings Laboratory Tests Test 09/19/16 09/20/16 09:40 07:15 Red Blood Count 3.76 MIL/MM3 3.71 MIL/MM3 (4.00-5.30) (4.00-5.30) Hemoglobin 10.6 GM/DL 10.5 GM/DL (11.6-15.3) (11.6-15.3) Hematocrit 32.4 % 31.9 % (35.0-46.0) (35.0-46.0) Eosinophils (%) (Auto) 9.1 % (0.0-4.0) 8.1 % (0.0-4.0) Basophils (%) (Auto) 3.5 % (0.0-2.0) Eosinophils # (Auto) 0.5 TH/MM3 0.6 TH/MM3 (0-0.4) (0-0.4) Sodium Level 146 MEQ/L (136-145) Chloride Level 113 MEQ/L 108 MEQ/L (98-107) (98-107) Calcium Level 8.0 MG/DL 7.7 MG/DL (8.5-10.1) (8.5-10.1) Total Protein 5.3 GM/DL 5.4 GM/DL (6.4-8.2) (6.4-8.2) Albumin 2.4 GM/DL 2.4 GM/DL (3.4-5.0) (3.4-5.0) Estimat Glomerular Filtration 80 ML/MIN (>89) Rate Random Glucose 128 MG/DL (74-106) Aspartate Amino Transf 14 U/L (15-37) (AST/SGOT) Imaging Last Impressions Head CT 09/20/16 Signed Impressions: Service Date/Time: Tuesday, September 20, 2016 19:19 - CONCLUSION: Stable appearance of the acute nonhemorrhagic right MCA infarction. Td Valenzuela MD Chest X-Ray 09/18/16 Signed Impressions: Service Date/Time: Sunday, September 18, 2016 03:41 - CONCLUSION: Right internal jugular central venous catheter has its tip in the right atrium. No pneumothorax or other acute cardiopulmonary disease. Sina Silverman MD Head Magnetic Resonance Angiography 09/16/16 Signed Impressions: Service Date/Time: Friday, September 16, 2016 13:01 - CONCLUSION: 1. Abrupt occlusion of the right middle cerebral circulation at the level of the distal right M1. Kirt Smith MD Carotid Artery Ultrasound 09/16/16 Signed Impressions: Service Date/Time: Friday, September 16, 2016 08:18 - CONCLUSION: Negative examination for a hemodynamically significant carotid stenosis. Benoit Smith MD Brain MRI 09/16/16 Signed Impressions: Service Date/Time: Friday, September 16, 2016 13:01 - CONCLUSION: Acute nonhemorrhagic infarction involving the right MCA territory as detailed above. Td Munson Jr., MD Cerebral Arteriogram 09/15/16 Signed Impressions: Service Date/Time: Thursday, September 15, 2016 23:08 - CONCLUSION: 1. Complete occlusion of the right M1 segment with attempted mechanical thrombectomy. Multiple attempts were made which cleared some chronic appearing thrombus but was unable to regain patency. This is TICI score of zero. Td Munson Jr., MD PE at Discharge GENERAL: NAD SKIN: Warm and dry. HEAD: Atraumatic. Normocephalic. EYES: Pupils equal and round. No scleral icterus. No injection or drainage. ENT: No nasal bleeding or discharge. Mucous membranes pink and moist. NECK: Trachea midline. No JVD. CARDIOVASCULAR: Regular rate and rhythm. RESPIRATORY: No accessory muscle use. Clear to auscultation. Breath sounds equal bilaterally. GASTROINTESTINAL: Abdomen soft, non-tender, nondistended. Hepatic and splenic margins not palpable. MUSCULOSKELETAL: Extremities without clubbing, cyanosis, or edema. No obvious deformities. Left lower extremity is cold to touch and dorsalis pedis and posterior tibial pulses are absent by palpation and Doppler. Patient is able to move the toes on the left lower extremity. NEUROLOGICAL: Awake and alert. No facial droop with left hemiparesthesia. Motor strength is 0/5 in left upper extremity and 4/5 in left lower extremity. Five out of 5 muscle strength in the arms and legs. Normal speech. PSYCHIATRIC: Appropriate mood and affect; insight and judgment normal. Pt update on day of discharge Patient is very anxious and upset, crying because she cannot in touch with her friend. Hospital Course (1) Acute ischemic stroke Neurology was consulted. The patient is status post PDA completed on 09/15 at [facility]. Status post attempted thrombectomy with interventional radiology with persistent occlusion of R M1. Brain MRI showed right MCA ischemic stroke Follow-up CT of the brain showed no acute hemorrhage. Follow-up dimension areas corresponding to the areas of acute infarction seen on the MRI. Patient has residual left hemiparesis with left facial droop. Patient was placed on aspirin 325 mg for secondary prevention of ischemic stroke. I will start the patient on a pured diet with thin liquids. Follow swallow evaluation and advance diet as recommended. Patient is status post TPA. The goal blood pressure should be with a systolic blood pressure less than 140 following 24 hours after administration of TPA. Will request physical therapy evaluation. 09/19 Cardiology consulted. Patient is sp loop recorder implantation. WALDEMAR without embolic source. Bp stable. 09/[address] stable on 09/20 stable. If loop recorder negative then outpatient workup for hypercoagulability should be started. (2) Anxiety Continue Klonopin 1 mg by mouth every 12 hours which the patient has been taking at home as well. 09/21 Patient very anxious will give 1 mg of IV Ativan. Continue Klonopin. (3) COPD (chronic obstructive pulmonary disease) Seems to be stable. Continue supplemental oxygen to keep oxygen saturation is greater than or equal to 92%. Continues incentive spirometry every hour while awake. Continue Advair nebulizers every 4 hours with albuterol every 2 hours as needed. Patient placed on nicotine patchcontinue. (4) Tobacco abuse Continue nicotine patch. (5) GERD (gastroesophageal reflux disease) Continue PPI. Patient denies any symptoms consistent with active reflux. (6) Dyslipidemia Patient reports history of hyperlipidemia but has not recently been on medication. Previously on atorvastatin 40 mg by mouth at bedtime. Possible lipid profile shows triglycerides of 189 with total cholesterol 149, LDL cholesterol 81, HDL cholesterol of 29.9. I will start the patient on statin if okay with neurology. (7) Chronic back pain She denies back pain. Continue pain control with oral Percocet. (8) Trigeminal neuralgia of left side of face Seems to be stable. Patient on carbamazepine 200 mg by mouth every 12 hours. Continue. (9) Tissue plasminogen activator (t-PA) administered at other facility within 24 hours prior to current admission As above. (10) Headache Patient is complaining of severe headache. As per RN patient has been requesting IV morphine every 3 hours. I will discontinue IV morphine and only continue pain control with oral Percocet to avoid overdose and respiratory depression. 09/19 As per RN patient has h/o of suboxone use due to opioid addiction. Will DV IV opioids. 09/20 as per patient oral oxycodone not relieving headache. We'll start the patient on extended release morphine orally. 09/22 Headache better. Patient started on fioricet by neurology. (11) Cold left foot I was not notified by nursing staff of this event until I walked in to see the patient around 6:30 to 6:45 PM. The nurse indicated that the patient has had cold left lower extremity in which she could not find a pulse urine with the help of a Doppler device. I called and discussed the case with Dr. Yni from vascular surgery. Since the patient is able to move the left lower extremity he recommended ordering a CTA with runoff of the lower extremities and he will see the patient. 09/18 CTA with runoff report an embolic occlusion of the left popliteal at the knee joint. Vascular surgery recommends anticoagulation when safe to do so by neurology, however neurology states the patient high risk for ICH transformation if placed on hep gtt. Heparin subcutaneous has been increased to 3 times a day. 09/[address] Yin from vascular surgery who states that there is no indication at present - and only would if limb threatened, especially given that operative tibial repair/bypass would require systemic heparinization. Patient cleared to be discharged to follow-up as an outpatient with vascular surgery. (12) Fall Patient fell on 09/17 trying to get up to the bathroom. There is no reported head trauma or loss of consciousness as per family and RN taking care of the patient's. The patient was treated to remain in bed. Pt Condition on Discharge: Stable Discharge Disposition: Rehab Inpatient Discharge Time: > 30 minutes Discharge Instructions DIET: Follow Instructions for: As Tolerated, No Restrictions Activities you can perform: See Additionl Instruction Other Activity Instructions: as per PT, oob with assistance only Follow up Referrals: Neurology - 2 Weeks with Won Durán MD PCP Follow-up - 2 Weeks Psychiatry Adult - 2-3 Days Vascular Surgery with Tod Yin MD New Medications: Aspirin (Aspirin) 325 Mg Tab 325 MG PO DAILY Blood Clot Prevention #31 TAB Carbamazepine (Carbamazepine) 200 Mg Tab 200 MG PO Q12HR trigeminal neuralgia #62 TAB Clonazepam (Klonopin) 1 Mg Tab 1 MG PO Q12HR Anxiety #30 TAB Morphine ER (Morphine ER) 15 Mg Tab 15 MG PO Q12HR chronic pain #10 TAB Nicotine (Eq Nicotine) 14 Mg/24 Hr Dis 1 PATCH T-DERMAL DAILY@2100 smoking cessation #31 PATCH Oxycodone-Acetaminophen (Oxycodone-Acetaminophen) 5-325 mg Tab 1 TAB PO Q4H PRN PAIN SCALE 1 TO 4 #10 TAB Oxycodone-Acetaminophen (Oxycodone-Acetaminophen) 5-325 mg Tab 2 TAB PO Q4H PRN PAIN SCALE 5 TO 10 #10 TAB Pantoprazole (Pantoprazole) 40 Mg Tab 40 MG PO DAILY gi prevention #31 TAB Sennosides-Docusate Sodium (Senna Plus 8.6-50 mg) 1 Tab Tab 1 TAB PO BID Constipation #62 TAB Continued Medications: Alendronate Sodium (Fosamax) Isamar 70 PO WEEKLY Calcium Carbonate-Cholecalcife (Caltrate 600/Vitamin D 400) 1 Tab Tab 1 TAB PO DAILY #180 Ref 3 Discontinued Medications: Alprazolam (Xanax 2 mg) 2 Mg Tab 2 MG PO TIDPRN Carisoprodol (Soma) 350 Mg Tab 350 MG PO TID Oxycodone (Roxicodone) 30 Mg Tab 30 MG PO TIDPRN Song Wright MD Sep 21, 2016 15:30
[2016-09-21] MEDS: MORPHINE SULFATE 15 MG CONTROLLED RELEASE TAB PO SCH ×2 (15:42→22:08)
[2016-09-21 16:00] VITALS: BP 119/69; PULSE 94; RESP 16; TEMP 97.1; O2SAT 95
--- NOTE | 2016-09-21 18:40 | HHI.PR ---
Subjective Remarks Patient complains of persistent headache Denies chest pain or short of breath Patient became very anxious stating that she cannot reach her friend Objective Vitals Vital Signs Date Time Temp Pulse Resp B/P Pulse Ox O2 Delivery O2 Flow Rate FiO2 09/21/16 16:00 97.1 94 16 119/69 95 09/21/16 12:00 97.6 77 16 141/81 97 09/21/16 08:00 95.4 80 16 128/68 97 09/21/16 04:00 96.9 78 20 119/71 94 09/21/16 01:04 18 09/21/16 00:00 96.9 86 20 139/64 94 09/20/16 20:00 96.7 61 20 112/61 92 I/O 09/20/16 09/20/16 09/20/16 09/21/16 09/21/16 09/21/16 07:00 15:00 23:00 07:00 15:00 23:00 Intake Total 1200 ml 60 ml 480 ml Output Total 6 ml Balance 1194 ml 60 ml 480 ml Intake Oral 1200 ml 60 ml 480 ml Output Urine Total 6 ml # Voids 2 3 4 # Bowel Movements 0 0 0 Result Diagram: 09/20/16 0715 09/20/16 0715 Imaging Last Impressions Head CT 09/20/16 0000 Signed Impressions: Service Date/Time: Tuesday, September 20, 2016 19:19 - CONCLUSION: Stable appearance of the acute nonhemorrhagic right MCA infarction. Td Valenzuela MD Chest X-Ray 09/18/16 0000 Signed Impressions: Service Date/Time: Sunday, September 18, 2016 03:41 - CONCLUSION: Right internal jugular central venous catheter has its tip in the right atrium. No pneumothorax or other acute cardiopulmonary disease. Sina Silverman MD Head Magnetic Resonance Angiography 09/16/16 0000 Signed Impressions: Service Date/Time: Friday, September 16, 2016 13:01 - CONCLUSION: 1. Abrupt occlusion of the right middle cerebral circulation at the level of the distal right M1. Kirt Smith MD Carotid Artery Ultrasound 09/16/16 0000 Signed Impressions: Service Date/Time: Friday, September 16, 2016 08:18 - CONCLUSION: Negative examination for a hemodynamically significant carotid stenosis. Benoit Smith MD Brain MRI 09/16/16 0000 Signed Impressions: Service Date/Time: Friday, September 16, 2016 13:01 - CONCLUSION: Acute nonhemorrhagic infarction involving the right MCA territory as detailed above. Td Munson Jr., MD Cerebral Arteriogram 09/15/16 0000 Signed Impressions: Service Date/Time: Thursday, September 15, 2016 23:08 - CONCLUSION: 1. Complete occlusion of the right M1 segment with attempted mechanical thrombectomy. Multiple attempts were made which cleared some chronic appearing thrombus but was unable to regain patency. This is TICI score of zero. Td Munson Jr., MD Objective Remarks GENERAL: very anxious SKIN: Warm and dry. HEAD: Atraumatic. Normocephalic. EYES: Pupils equal and round. No scleral icterus. No injection or drainage. ENT: No nasal bleeding or discharge. Mucous membranes pink and moist. NECK: Trachea midline. No JVD. CARDIOVASCULAR: Regular rate and rhythm. RESPIRATORY: No accessory muscle use. Clear to auscultation. Breath sounds equal bilaterally. GASTROINTESTINAL: Abdomen soft, non-tender, nondistended. Hepatic and splenic margins not palpable. MUSCULOSKELETAL: Extremities without clubbing, cyanosis, or edema. No obvious deformities. Left lower extremity is cold to touch and dorsalis pedis and posterior tibial pulses are absent by palpation and Doppler. Patient is able to move the toes on the left lower extremity. NEUROLOGICAL: Awake and alert. No facial droop with left hemiparesthesia. Motor strength is 0/5 in left upper extremity and 4/5 in left lower extremity. Five out of 5 muscle strength in the arms and legs. Normal speech. PSYCHIATRIC: Appropriate mood and affect; insight and judgment normal. Procedures Status post TPA Status post attempted thrombectomy. Medications and IVs Current Medications Medications (Trade) Dose Ordered Sig/Cassia Route Start Time Stop Time Status Last Admin (NS Flush) 2 ml UNSCH PRN IV FLUSH 09/16/16 01:15 (NS Flush) 2 ml BID IV FLUSH 09/16/16 09:00 09/21/16 08:22 (Zofran Inj) 4 mg Q6H PRN IV 09/16/16 01:15 Miscellaneous Information 1 Q361D XX 09/16/16 01:15 09/16/16 01:15 (Chlorhexidine 2% Cloth) Taper DAILY@04 TOP 09/16/16 04:00 09/12/17 03:59 09/18/16 04:00 (Ita-Colace) 1 tab BID PO 09/16/16 09:00 09/20/16 20:10 (Milk Of Magnesia Liq) 30 ml Q12H PRN PO 09/16/16 01:15 (Senokot) 17.2 mg Q12H PRN PO 09/16/16 01:15 (Dulcolax Supp) 10 mg DAILY PRN RECTAL 09/16/16 01:15 (Lactulose Liq) 30 ml DAILY PRN PO 09/16/16 01:15 09/18/16 21:18 (TEGretol) 200 mg Q12HR PO 09/17/16 09:00 09/21/16 08:16 (Neurontin) 800 mg TID PO 09/17/16 09:00 09/21/16 14:57 (Pred Forte 1% Opth Susp) 1 drop DAILY LEFT EYE 09/16/16 09:00 09/21/16 08:17 (Habitrol 14 Mg Patch.24 Hr) 1 patch DAILY@2100 T-DERMAL 09/16/16 21:00 09/20/16 20:10 Miscellaneous Information 1 DAILY@2100 T-DERMAL 09/16/16 21:00 09/20/16 20:11 (Apresoline Inj) 10 mg Q1H PRN IV PUSH 09/16/16 07:30 (KlonoPIN) 1 mg Q12HR PO 09/16/16 09:30 09/21/16 08:16 (Aspirin) 325 mg DAILY PO 09/17/16 09:15 09/21/16 08:15 (Protonix) 40 mg DAILY PO 09/18/16 09:00 09/21/16 08:16 (Percocet 5-325 Mg) 1 tab Q4H PRN PO 09/17/16 21:00 (Percocet 5-325 Mg) 2 tab Q4H PRN PO 09/17/16 21:00 09/21/16 11:05 Heparin Sodium (Porcine) 5000 units 5,000 units Q8HR SQ 09/18/16 14:00 09/21/16 14:59 (KCl Inj/Sodium Chloride 23.4% Inj/Sterile Water For Inj) 1,019.625 ml @ 42 mls/hr Q24H IV 09/19/16 14:00 09/20/16 15:47 (Oramorph Sr) 15 mg Q12HR PO 09/21/16 15:00 09/21/16 15:42 Urinary Catheter: No Vascular Central Line Catheter: No A/P Problem List: (1) Acute ischemic stroke ICD Code: I63.9 Status: Acute (2) COPD (chronic obstructive pulmonary disease) ICD Code: J44.9 Status: Chronic (3) Osteoporosis ICD Code: M81.0 Status: Acute (4) Anxiety ICD Code: F41.9 Status: Chronic (5) Tobacco abuse ICD Code: Z72.0 Status: Acute (6) GERD (gastroesophageal reflux disease) ICD Code: K21.9 Status: Chronic (7) Cataract ICD Code: H26.9 Status: Acute (8) Dyslipidemia ICD Code: E78.5 Status: Chronic (9) Chronic back pain ICD Code: M54.9 Status: Acute (10) Trigeminal neuralgia of left side of face ICD Code: G50.0 Status: Chronic (11) Tissue plasminogen activator (t-PA) administered at other facility within 24 hours prior to current admission ICD Code: Z92.82 Status: Resolved Assessment and Plan (1) Acute ischemic stroke Plan: Neurology was consulted. The patient is status post PDA completed on 09/15 at [facility]. Status post attempted thrombectomy with interventional radiology with persistent occlusion of R M1. Brain MRI showed right MCA ischemic stroke Follow-up CT of the brain showed no acute hemorrhage. Follow-up dimension areas corresponding to the areas of acute infarction seen on the MRI. Patient has residual left hemiparesis with left facial droop. Patient was placed on aspirin 325 mg for secondary prevention of ischemic stroke. I will start the patient on a pured diet with thin liquids. Follow swallow evaluation and advance diet as recommended. Patient is status post TPA. The goal blood pressure should be with a systolic blood pressure less than 140 following 24 hours after administration of TPA. Will request physical therapy evaluation. 09/19 Cardiology consulted. Patient is sp loop recorder implantation. WALDEMAR without embolic source. Bp stable. 09/[address] head given persistent severe headache. 09/[address] stable. (2) Anxiety Plan: Continue Klonopin 1 mg by mouth every 12 hours which the patient has been taking at home as well. 09/21 Patient very anxious will give 1 mg of IV Ativan. Continue Klonopin. (3) COPD (chronic obstructive pulmonary disease) Plan: Seems to be stable. Continue supplemental oxygen to keep oxygen saturation is greater than or equal to 92%. Continues incentive spirometry every hour while awake. Continue Advair nebulizers every 4 hours with albuterol every 2 hours as needed. Patient placed on nicotine patchcontinue. (4) Tobacco abuse Plan: Continue nicotine patch. (5) GERD (gastroesophageal reflux disease) Plan: Continue PPI. Patient denies any symptoms consistent with active reflux. (6) Dyslipidemia Plan: Patient reports history of hyperlipidemia but has not recently been on medication. Previously on atorvastatin 40 mg by mouth at bedtime. Possible lipid profile shows triglycerides of 189 with total cholesterol 149, LDL cholesterol 81, HDL cholesterol of 29.9. I will start the patient on statin if okay with neurology. (7) Chronic back pain Plan: She denies back pain. Continue pain control with oral Percocet. (8) Trigeminal neuralgia of left side of face Plan: Seems to be stable. Patient on carbamazepine 200 mg by mouth every 12 hours. Continue. (9) Tissue plasminogen activator (t-PA) administered at other facility within 24 hours prior to current admission Plan: As above. (10) Headache Plan: Patient is complaining of severe headache. As per RN patient has been requesting IV morphine every 3 hours. I will discontinue IV morphine and only continue pain control with oral Percocet to avoid overdose and respiratory depression. 09/19 As per RN patient has h/o of suboxone use due to opioid addiction. Will DV IV opioids. 09/20 as per patient oral oxycodone not relieving headache. We'll start the patient on extended release morphine orally. (11) Cold left foot Plan: I was not notified of this event until I walked in to see the patient around 6:30 to 6:45 PM. The nurse indicated that the patient has had cold left lower extremity in which she could not find a pulse urine with the help of a Doppler device. I called and discussed the case with Dr. Yni from vascular surgery. Since the patient is able to move the left lower extremity he recommended ordering a CTA with runoff of the lower extremities and he will see the patient. 09/18 CTA with runoff report an embolic occlusion of the left popliteal at the knee joint. Vascular surgery recommends anticoagulation when safe to do so by neurology, however neurology states the patient high risk for ICH transformation if placed on hep gtt. Heparin subcutaneous has been increased to 3 times a day. 09/[address] Yin from vascular surgery who states that there is no indication at present - and only would if limb threatened, especially given that operative tibial repair/bypass would require systemic heparinization. Patient cleared to be discharged to follow-up as an outpatient with vascular surgery. (12) Fall Plan: Patient fell on 09/17 trying to get up to the bathroom. There is no reported head trauma or loss of consciousness as per family and RN taking care of the patient's. The patient was treated to remain in bed. Discharge Planning will Dc to acute rehab. Problem Qualifiers (1) COPD (chronic obstructive pulmonary disease): Qualified Code: J44.9 - Chronic obstructive pulmonary disease, unspecified COPD type (2) Chronic back pain: Song Wright MD Sep 21, 2016 18:40
[2016-09-21 20:00] VITALS: BP 106/67; PULSE 82; RESP 16; TEMP 96.4; O2SAT 91
[2016-09-21] MEDS: REMOVE OLD PATCH T-DERMAL SCH (21:00)
[2016-09-21] MEDS: NICOTINE 14 MG/24 HR PATCH T-DERMAL SCH (22:13)
[2016-09-22] VITALS (9 sets, daily range): BP systolic 89–104; BP diastolic 45–65; PULSE 73–97; RESP 14–19; TEMP 96.3–98.1; O2SAT 91–98
[2016-09-22] MEDS: CHLORHEXIDINE GLUCONATE 2 % 1 PACK (2 CLOTHS) TOP SCH (03:20)
[2016-09-22] MEDS: oxyCODONE/ACETAMINOPHEN 5 MG/325 MG TAB PO PRN ×3 (04:43→16:57)
[2016-09-22] MEDS: HEPARIN SODIUM - SQ 10,000 UNITS/ML VIAL SQ SCH ×3 (05:46→20:40)
--- NOTE | 2016-09-22 08:40 | HHI.PR ---
Review/Management Diagnosis/Plan: (1) Acute ischemic right MCA stroke Plan: +tob use hx rt mca occlusion carotid u/s- nml recs shamar- negative linq monitor placed she could get a hypercoag w/u with heme outpatient if above negative tobacco cessation fioricet prn- told pt she shouldn't be taking this everyday (as she does at home ) d/c planning to rehab from neuro pending above (2) Tissue plasminogen activator (t-PA) administered at other facility within 24 hours prior to current admission Plan: given 09/15/2016 at 1945 (3) Trigeminal neuralgia of left side of face Plan: on cbz (4) Chronic back pain (5) Tobacco abuse Plan: cessation d/w pt Subjective Subjective Comments No acute events reported +chronic kemp; takes fioricet 2-3x/day at home No chest pain No dyspnea Active Medications Current Medications Medications (Trade) Dose Ordered Sig/Cassia Route Start Time Stop Time Status Last Admin (NS Flush) 2 ml UNSCH PRN IV FLUSH 09/16/16 01:15 (NS Flush) 2 ml BID IV FLUSH 09/16/16 09:00 09/21/16 08:22 (Zofran Inj) 4 mg Q6H PRN IV 09/16/16 01:15 Miscellaneous Information 1 Q361D XX 09/16/16 01:15 09/16/16 01:15 (Chlorhexidine 2% Cloth) Taper DAILY@04 TOP 09/16/16 04:00 09/12/17 03:59 09/18/16 04:00 (Ita-Colace) 1 tab BID PO 09/16/16 09:00 09/21/16 22:08 (Milk Of Magnesia Liq) 30 ml Q12H PRN PO 09/16/16 01:15 (Senokot) 17.2 mg Q12H PRN PO 09/16/16 01:15 (Dulcolax Supp) 10 mg DAILY PRN RECTAL 09/16/16 01:15 (Lactulose Liq) 30 ml DAILY PRN PO 09/16/16 01:15 09/18/16 21:18 (TEGretol) 200 mg Q12HR PO 09/17/16 09:00 09/21/16 22:08 (Neurontin) 800 mg TID PO 09/17/16 09:00 09/21/16 18:48 (Pred Forte 1% Opth Susp) 1 drop DAILY LEFT EYE 09/16/16 09:00 09/21/16 08:17 (Habitrol 14 Mg Patch.24 Hr) 1 patch DAILY@2100 T-DERMAL 09/16/16 21:00 09/21/16 22:13 Miscellaneous Information 1 DAILY@2100 T-DERMAL 09/16/16 21:00 09/21/16 21:00 (Apresoline Inj) 10 mg Q1H PRN IV PUSH 09/16/16 07:30 (KlonoPIN) 1 mg Q12HR PO 09/16/16 09:30 09/21/16 22:09 (Aspirin) 325 mg DAILY PO 09/17/16 09:15 09/21/16 08:15 (Protonix) 40 mg DAILY PO 09/18/16 09:00 09/21/16 08:16 (Percocet 5-325 Mg) 1 tab Q4H PRN PO 09/17/16 21:00 (Percocet 5-325 Mg) 2 tab Q4H PRN PO 09/17/16 21:00 09/22/16 04:43 Heparin Sodium (Porcine) 5000 units 5,000 units Q8HR SQ 09/18/16 14:00 09/22/16 05:46 (KCl Inj/Sodium Chloride 23.4% Inj/Sterile Water For Inj) 1,019.625 ml @ 42 mls/hr Q24H IV 09/19/16 14:00 09/20/16 15:47 (Oramorph Sr) 15 mg Q12HR PO 09/21/16 15:00 09/21/16 22:08 Allergies Allergies Coded Allergies Nubain (Verified Allergy, Severe, HIVES,HIVES, 04/29/11) Nonsteroidal Anti-Inflammatory Agts (Unverified Adverse Reaction, Severe, N/V , 04/29/11) Review of Systems All other ROS: ROS reviewed as documented in chart Exam I&O / VS 09/21/16 09/21/16 09/22/16 15:00 23:00 07:00 Intake Total 480 ml 480 ml Balance 480 ml 480 ml Intake Oral 480 ml 480 ml # Voids 4 2 2 # Bowel Movements 0 Vital Signs Date Time Temp Pulse Resp B/P Pulse Ox O2 Delivery O2 Flow Rate FiO2 6/13/17 08:00 97.1 80 19 89/59 93 09/22/16 05:48 18 09/22/16 04:00 96.3 76 16 104/65 92 09/22/16 00:00 97.2 94 18 98/58 98 09/21/16 23:29 20 09/21/16 20:00 96.4 82 16 106/67 91 09/21/16 20:00 82 09/21/16 16:00 97.1 94 16 119/69 95 09/21/16 12:00 97.6 77 16 141/81 97 General: Alert and Oriented, No acute distress Respiratory: Non-labored respirations Exam Comments awake, ox 3, follows, ou 3-2mm, left ptosis- chronic since eye surgery, left lower facial droop, left arm 0-1/5, left leg 4-/5 with left sided dystaxia and mild left hemisensory Problem Qualifiers (1) Chronic back pain: Won Durán MD Sep 22, 2016 08:40
[2016-09-22] MEDS ORDERED: ACETAMIN 325 MG/BUTALBITAL 50 MG/CAFFEINE 40 MG TAB PO PRN (08:45)
[2016-09-22] MEDS: SODIUM CHLORIDE 0.9% FLUSH 10 ML FLUSH IV FLUSH SCH ×2 (09:00→20:41)
[2016-09-22] MEDS: PANTOPRAZOLE SOD 40 MG DELAYED RELEASE TAB PO SCH (09:15)
[2016-09-22] MEDS: GABAPENTIN 400 MG CAP PO SCH ×3 (09:16→16:56)
[2016-09-22] MEDS: clonazePAM 1 MG TAB PO SCH ×2 (09:16→20:40)
[2016-09-22] MEDS: ASPIRIN 325 MG TAB PO SCH (09:16)
[2016-09-22] MEDS: DOCUSATE SODIUM 50 MG/SENNA 8.6 MG TAB PO SCH ×2 (09:16→20:41)
[2016-09-22] MEDS: MORPHINE SULFATE 15 MG CONTROLLED RELEASE TAB PO SCH ×2 (09:16→20:41)
[2016-09-22] MEDS: carBAMazepine 200 MG TAB PO SCH ×2 (09:16→21:00)
[2016-09-22] MEDS: prednisoLONE ACETATE 1% OPHT SUSP 5 ML BTL LEFT EYE SCH (09:17)
[2016-09-22] MEDS: POTASSIUM CHLORIDE INJ 20 MEQ, SODIUM CHLORIDE 23.4% INJ 38.5 MEQ in WATER STERILE FOR ... IV SCH (09:17)
[2016-09-22] MEDS: NICOTINE 14 MG/24 HR PATCH T-DERMAL SCH (20:40)
[2016-09-22] MEDS: REMOVE OLD PATCH T-DERMAL SCH (21:00)
--- NOTE | 2016-09-22 22:18 | HHI.PR ---
Subjective Remarks Patient states feel better has been ambulating well denies fevers/chills Bp borderline low Objective Vitals Vital Signs Date Time Temp Pulse Resp B/P Pulse Ox O2 Delivery O2 Flow Rate FiO2 09/22/16 16:10 97.1 88 19 95/50 91 09/22/16 12:00 98.1 80 19 103/51 91 09/22/16 10:26 80 09/22/16 08:00 97.1 80 19 89/59 93 09/22/16 05:48 18 09/22/16 04:00 96.3 76 16 104/65 92 09/22/16 00:00 97.2 94 18 98/58 98 09/21/16 23:29 20 I/O 09/21/16 09/21/16 09/21/16 09/22/16 09/22/16 09/22/16 07:00 15:00 23:00 07:00 15:00 23:00 Intake Total 60 ml 480 ml 480 ml 360 ml Balance 60 ml 480 ml 480 ml 360 ml Intake Oral 60 ml 480 ml 480 ml 360 ml # Voids 3 4 2 2 4 # Bowel Movements 0 0 0 Result Diagram: 09/20/1615 09/20/1615 Objective Remarks GENERAL: very anxious SKIN: Warm and dry. HEAD: Atraumatic. Normocephalic. EYES: Pupils equal and round. No scleral icterus. No injection or drainage. ENT: No nasal bleeding or discharge. Mucous membranes pink and moist. NECK: Trachea midline. No JVD. CARDIOVASCULAR: Regular rate and rhythm. RESPIRATORY: No accessory muscle use. Clear to auscultation. Breath sounds equal bilaterally. GASTROINTESTINAL: Abdomen soft, non-tender, nondistended. Hepatic and splenic margins not palpable. MUSCULOSKELETAL: Extremities without clubbing, cyanosis, or edema. No obvious deformities. Left lower extremity is cold to touch and dorsalis pedis and posterior tibial pulses are absent by palpation and Doppler. Patient is able to move the toes on the left lower extremity. NEUROLOGICAL: Awake and alert. No facial droop with left hemiparesthesia. Motor strength is 0/5 in left upper extremity and 4/5 in left lower extremity. Five out of 5 muscle strength in the arms and legs. Normal speech. PSYCHIATRIC: Appropriate mood and affect; insight and judgment normal. Procedures Status post TPA Status post attempted thrombectomy. Medications and IVs Current Medications Medications (Trade) Dose Ordered Sig/Cassia Route Start Time Stop Time Status Last Admin (NS Flush) 2 ml UNSCH PRN IV FLUSH 09/16/16 01:15 (NS Flush) 2 ml BID IV FLUSH 09/16/16 09:00 09/22/16 20:41 (Zofran Inj) 4 mg Q6H PRN IV 09/16/16 01:15 Miscellaneous Information 1 Q361D XX 09/16/16 01:15 09/16/16 01:15 (Chlorhexidine 2% Cloth) Taper DAILY@04 TOP 09/16/16 04:00 09/12/17 03:59 09/18/16 04:00 (Ita-Colace) 1 tab BID PO 09/16/16 09:00 09/22/16 20:41 (Milk Of Magnesia Liq) 30 ml Q12H PRN PO 09/16/16 01:15 09/22/16 09:18 (Senokot) 17.2 mg Q12H PRN PO 09/16/16 01:15 (Dulcolax Supp) 10 mg DAILY PRN RECTAL 09/16/16 01:15 (Lactulose Liq) 30 ml DAILY PRN PO 09/16/16 01:15 09/18/16 21:18 (TEGretol) 200 mg Q12HR PO 09/17/16 09:00 09/22/16 09:16 (Neurontin) 800 mg TID PO 09/17/16 09:00 09/22/16 16:56 (Pred Forte 1% Opth Susp) 1 drop DAILY LEFT EYE 09/16/16 09:00 09/22/16 09:17 (Habitrol 14 Mg Patch.24 Hr) 1 patch DAILY@2100 T-DERMAL 09/16/16 21:00 09/22/16 20:40 Miscellaneous Information 1 DAILY@2100 T-DERMAL 09/16/16 21:00 09/21/16 21:00 (Apresoline Inj) 10 mg Q1H PRN IV PUSH 09/16/16 07:30 (KlonoPIN) 1 mg Q12HR PO 09/16/16 09:30 09/22/16 20:40 (Aspirin) 325 mg DAILY PO 09/17/16 09:15 09/22/16 09:16 (Protonix) 40 mg DAILY PO 09/18/16 09:00 09/22/16 09:15 (Percocet 5-325 Mg) 1 tab Q4H PRN PO 09/17/16 21:00 (Percocet 5-325 Mg) 2 tab Q4H PRN PO 09/17/16 21:00 09/22/16 16:57 Heparin Sodium (Porcine) 5000 units 5,000 units Q8HR SQ 09/18/16 14:00 09/22/16 20:40 (KCl Inj/Sodium Chloride 23.4% Inj/Sterile Water For Inj) 1,019.625 ml @ 42 mls/hr Q24H IV 09/19/16 14:00 09/20/16 15:47 (Oramorph Sr) 15 mg Q12HR PO 09/21/16 15:00 09/22/16 20:41 (Fioricet 325-50-40) 1 tab BID PRN PO 09/22/16 08:45 Urinary Catheter: No Vascular Central Line Catheter: No A/P Problem List: (1) Acute ischemic stroke ICD Code: I63.9 Status: Acute (2) COPD (chronic obstructive pulmonary disease) ICD Code: J44.9 Status: Chronic (3) Osteoporosis ICD Code: M81.0 Status: Acute (4) Anxiety ICD Code: F41.9 Status: Chronic (5) Tobacco abuse ICD Code: Z72.0 Status: Acute (6) GERD (gastroesophageal reflux disease) ICD Code: K21.9 Status: Chronic (7) Cataract ICD Code: H26.9 Status: Acute (8) Dyslipidemia ICD Code: E78.5 Status: Chronic (9) Chronic back pain ICD Code: M54.9 Status: Acute (10) Trigeminal neuralgia of left side of face ICD Code: G50.0 Status: Chronic (11) Tissue plasminogen activator (t-PA) administered at other facility within 24 hours prior to current admission ICD Code: Z92.82 Status: Resolved (12) Hypotension ICD Code: I95.9 Status: Acute Plan: Will Give 250 ml IV bolus. Monitor BP. Assessment and Plan (1) Acute ischemic stroke Plan: Neurology was consulted. The patient is status post PDA completed on 09/15 at [facility]. Status post attempted thrombectomy with interventional radiology with persistent occlusion of R M1. Brain MRI showed right MCA ischemic stroke Follow-up CT of the brain showed no acute hemorrhage. Follow-up dimension areas corresponding to the areas of acute infarction seen on the MRI. Patient has residual left hemiparesis with left facial droop. Patient was placed on aspirin 325 mg for secondary prevention of ischemic stroke. I will start the patient on a pured diet with thin liquids. Follow swallow evaluation and advance diet as recommended. Patient is status post TPA. The goal blood pressure should be with a systolic blood pressure less than 140 following 24 hours after administration of TPA. Will request physical therapy evaluation. 09/19 Cardiology consulted. Patient is sp loop recorder implantation. WALDEMAR without embolic source. Bp stable. 09/[address] stable on 09/20 stable. If loop recorder negative then outpatient workup for hypercoagulability should be started. (2) Anxiety Plan: Continue Klonopin 1 mg by mouth every 12 hours which the patient has been taking at home as well. 09/21 Patient very anxious will give 1 mg of IV Ativan. Continue Klonopin. (3) COPD (chronic obstructive pulmonary disease) Plan: Seems to be stable. Continue supplemental oxygen to keep oxygen saturation is greater than or equal to 92%. Continues incentive spirometry every hour while awake. Continue Advair nebulizers every 4 hours with albuterol every 2 hours as needed. Patient placed on nicotine patchcontinue. (4) Tobacco abuse Plan: Continue nicotine patch. (5) GERD (gastroesophageal reflux disease) Plan: Continue PPI. Patient denies any symptoms consistent with active reflux. (6) Dyslipidemia Plan: Patient reports history of hyperlipidemia but has not recently been on medication. Previously on atorvastatin 40 mg by mouth at bedtime. Possible lipid profile shows triglycerides of 189 with total cholesterol 149, LDL cholesterol 81, HDL cholesterol of 29.9. I will start the patient on statin if okay with neurology. (7) Chronic back pain Plan: She denies back pain. Continue pain control with oral Percocet. (8) Trigeminal neuralgia of left side of face Plan: Seems to be stable. Patient on carbamazepine 200 mg by mouth every 12 hours. Continue. (9) Tissue plasminogen activator (t-PA) administered at other facility within 24 hours prior to current admission Plan: As above. (10) Headache Plan: Patient is complaining of severe headache. As per RN patient has been requesting IV morphine every 3 hours. I will discontinue IV morphine and only continue pain control with oral Percocet to avoid overdose and respiratory depression. 09/19 As per RN patient has h/o of suboxone use due to opioid addiction. Will DV IV opioids. 09/20 as per patient oral oxycodone not relieving headache. We'll start the patient on extended release morphine orally. 09/22 Headache better. Patient started on fioricet by neurology. (11) Cold left foot Plan: I was not notified of this event until I walked in to see the patient around 6:30 to 6:45 PM. The nurse indicated that the patient has had cold left lower extremity in which she could not find a pulse urine with the help of a Doppler device. I called and discussed the case with Dr. Yin from vascular surgery. Since the patient is able to move the left lower extremity he recommended ordering a CTA with runoff of the lower extremities and he will see the patient. 09/18 CTA with runoff report an embolic occlusion of the left popliteal at the knee joint. Vascular surgery recommends anticoagulation when safe to do so by neurology, however neurology states the patient high risk for ICH transformation if placed on hep gtt. Heparin subcutaneous has been increased to 3 times a day. 09/[address] Yin from vascular surgery who states that there is no indication at present - and only would if limb threatened, especially given that operative tibial repair/bypass would require systemic heparinization. Patient cleared to be discharged to follow-up as an outpatient with vascular surgery. (12) Fall Plan: Patient fell on 09/17 trying to get up to the bathroom. There is no reported head trauma or loss of consciousness as per family and RN taking care of the patient's. The patient was treated to remain in bed. Discharge Planning will Dc to acute rehab. Problem Qualifiers (1) COPD (chronic obstructive pulmonary disease): Qualified Code: J44.9 - Chronic obstructive pulmonary disease, unspecified COPD type (2) Chronic back pain: Song Wright MD Sep 22, 2016 22:18
[2016-09-22] MEDS ORDERED: SODIUM CHLOR 0.9% 250 ML INJ 250 ML IV ONE (22:30)
[2016-09-23] VITALS (9 sets, daily range): BP systolic 93–101; BP diastolic 52–64; PULSE 73–94; RESP 17–20; TEMP 96–97.8; O2SAT 91–95
[2016-09-23] MEDS: oxyCODONE/ACETAMINOPHEN 5 MG/325 MG TAB PO PRN ×5 (00:45→16:59)
--- NOTE | 2016-09-23 01:41 | RADRPT ---
EXAM DATE/TIME: 09/23/2016 01:34 [facility] COMPARISON: No previous studies available for comparison. INDICATIONS : Fall, pain in right hip. MEDICAL HISTORY : None. SURGICAL HISTORY : None. ENCOUNTER: Initial ACUITY: 1 day PAIN SCORE: 10/10 LOCATION: Right hip FINDINGS: No definite fractures, or dislocations are identified. No definite lytic or sclerotic lesion is seen . The joint space is well maintained. CONCLUSION: Unremarkable study. Hannah Pradhan MD on September 23, 2016 at 1:39 Board Certified Radiologist. This report was verified electronically.
[2016-09-23] MEDS: ONDANSETRON HCL 4 MG/2 ML VIAL IV PRN ×2 (02:07→14:16)
[2016-09-23] MEDS: CHLORHEXIDINE GLUCONATE 2 % 1 PACK (2 CLOTHS) TOP SCH (04:00)
[2016-09-23] MEDS: HEPARIN SODIUM - SQ 10,000 UNITS/ML VIAL SQ SCH ×3 (05:35→21:20)
[2016-09-23] MEDS: clonazePAM 1 MG TAB PO SCH (08:20)
[2016-09-23] MEDS: SODIUM CHLORIDE 0.9% FLUSH 10 ML FLUSH IV FLUSH SCH ×2 (08:20→20:09)
[2016-09-23] MEDS: DOCUSATE SODIUM 50 MG/SENNA 8.6 MG TAB PO SCH ×2 (08:21→21:14)
[2016-09-23] MEDS: MORPHINE SULFATE 15 MG CONTROLLED RELEASE TAB PO SCH ×2 (08:21→21:14)
[2016-09-23] MEDS: GABAPENTIN 400 MG CAP PO SCH ×3 (08:21→16:58)
[2016-09-23] MEDS: carBAMazepine 200 MG TAB PO SCH ×2 (08:21→21:14)
[2016-09-23] MEDS: PANTOPRAZOLE SOD 40 MG DELAYED RELEASE TAB PO SCH (08:21)
[2016-09-23] MEDS: ASPIRIN 325 MG TAB PO SCH (08:22)
[2016-09-23] MEDS: prednisoLONE ACETATE 1% OPHT SUSP 5 ML BTL LEFT EYE SCH (08:23)
[2016-09-23] MEDS: LACTULOSE SYRUP 20 GM/30 ML CUP PO PRN (08:23)
[2016-09-23 08:48] LABS: AUTOMATED NEUTROPHIL # 7.1 TH/MM3 (1.8-7.7); BASOPHIL # 0.1 TH/MM3 (0-0.2); EOSINOPHIL # 0.6 TH/MM3 (0-0.4); EOSINOPHIL % 5.9 % (0.0-4.0); HEMATOCRIT 35.7 % (35.0-46.0); HEMO FLAGS DIFF FINAL; LYMPH % 21.6 % (9.0-44.0); LYMPHOCYTE # 2.4 TH/MM3 (1.0-4.8); MEAN CORPUSCULAR HEMOGLOBIN 27.5 PG (27.0-34.0); MEAN CORPUSCULAR HGB CONC 31.6 % (32.0-36.0); MONO % 6.9 % (0.0-8.0); NEUT % 64.6 % (16.0-70.0); PLATELET COUNT 394 TH/MM3 (150-450); RED CELL DISTRIBUTION WIDTH 16.3 % (11.6-17.2); WHITE BLOOD COUNT 10.9 TH/MM3 (4.0-11.0)
[2016-09-23 09:21] LABS: ALKALINE PHOSPHATASE 84 U/L (45-117); ALT (GPT) 34 U/L (10-53); ANION GAP 9 MEQ/L (5-15); AST (GOT) 37 U/L (15-37); BICARBONATE 24.5 MEQ/L (21.0-32.0); BLOOD UREA NITROGEN 17 MG/DL (7-18); CHLORIDE 103 MEQ/L (98-107); GLOMERULAR FILTRATION RATE 93 ML/MIN (>89); POTASSIUM 4.7 MEQ/L (3.5-5.1); SODIUM (NA) 136 MEQ/L (136-145); TOTAL BILIRUBIN ADULT 0.2 MG/DL (0.2-1.0)
[2016-09-23] MEDS: POTASSIUM CHLORIDE INJ 20 MEQ, SODIUM CHLORIDE 23.4% INJ 38.5 MEQ in WATER STERILE FOR ... IV SCH (12:45)
[2016-09-23] MEDS ORDERED: OXYC1TAB63 PO (16:55)
[2016-09-23] MEDS ORDERED: MORP1TAB24 PO (16:55)
--- NOTE | 2016-09-23 17:18 | RADRPT ---
EXAM DATE/TIME: 09/23/2016 16:41 [facility] COMPARISON: No previous studies available for comparison. INDICATIONS : Constipation MEDICAL HISTORY : Gastroesophageal reflux disease. Hiatal hernia. Kidney stones. SURGICAL HISTORY : Appendectomy. Hysterectomy ENCOUNTER: Initial ACUITY: 1 day PAIN SCORE: 5/10 LOCATION: Bilateral abdomen FINDINGS: There is a normal bowel gas pattern without evidence of obstruction or ileus. No radiopaque densitie s resembling urinary calculi are noted. There are scattered phleboliths within the pelvis. CONCLUSION: No evidence of bowel obstruction or ileus. Tod Valencia MD on September 23, 2016 at 17:12 Board Certified Radiologist. This report was verified electronically.
[2016-09-23] MEDS ORDERED: CLON1TAB PO (17:46)
[2016-09-23] MEDS ORDERED: CYMB60CA PO (17:49)
[2016-09-23] MEDS ORDERED: clonazePAM 1 MG TAB PO SCH (18:00)
[2016-09-23] MEDS ORDERED: DULoxetine HCl DR 60 MG CAP PO SCH (18:00)
[2016-09-23] MEDS: REMOVE OLD PATCH T-DERMAL SCH (21:00)
[2016-09-23] MEDS: NICOTINE 14 MG/24 HR PATCH T-DERMAL SCH (21:19)
--- NOTE | 2016-09-29 14:28 | CF ---
cc: DAVY WILLIS INDICATIONS FOR PROCEDURE: CVA, evaluation for cardiac source of embolism and PFO. PROCEDURE PREFORMED: Transesophageal echocardiogram. PROCEDURE: After the patient was sedated by anesthesia a transesophageal probe was placed without difficulty. Tomographic images were obtained. Left ventricular function was preserved. Estimated ejection fraction of 60% with no segmental wall motion abnormalities. Aortic valve was structurally normal; there was no evidence of aortic stenosis or regurgitation. Mitral valve was structurally normal. There was no evidence of mitral stenosis. There was evidence of trace mitral regurgitation. There was evidence of trace tricuspid regurgitation. The left atrial appendage was well visualized; there was no evidence of left atrial thrombus. Bubble study was performed and there was no evidence of right to left shunt. The descending thoracic aorta had mild plaque. DIAGNOSIS: 1. No evidence of left atrial thrombus. 2. No evidence of patent foramen ovale. 3. Preserved left ventricular systolic function. 4. Trace mitral regurgitation. 5. Trace tricuspid regurgitation. IMPRESSION: No evidence of cardiac source of emboli. MD BECKY Benoit/anat /1:34 PM /2:24 PM [facility]
== END 2016-09-23 21:31 | DRG 24 ==
LOC: N03A 09-16 00:25 → N05A 09-18 18:19
PROVIDERS: ADMIT Hospitalist; ATTEND Hospitalist
PROC: 03CG3ZZ Extirpation of Matter from Intracranial Artery, Percutaneous Approach (ICD-10-PCS; 2016-09-16)
PROC: B3161ZZ Fluoroscopy of Right Internal Carotid Artery using Low Osmolar Contrast (ICD-10-PCS; 2016-09-16)
PROC: 02HV33Z Insertion of Infusion Device into Superior Vena Cava, Percutaneous Approach (ICD-10-PCS; principal; 2016-09-18)
PROC: 0JH632Z Insertion of Monitoring Device into Chest Subcutaneous Tissue and Fascia, Percutaneous Approach (ICD-10-PCS; 2016-09-18)
PROC: B548ZZA Ultrasonography of Superior Vena Cava, Guidance (ICD-10-PCS; 2016-09-18)
PROC: 05HM33Z Insertion of Infusion Device into Right Internal Jugular Vein, Percutaneous Approach (ICD-10-PCS; 2016-09-18)
PROC: B543ZZA Ultrasonography of Right Jugular Veins, Guidance (ICD-10-PCS; 2016-09-18)
DX: I63.411 Cerebral infarction due to embolism of right middle cerebral artery (principal); G81.94 Hemiplegia, unspecified affecting left nondominant side; G54.0 Brachial plexus disorders; J44.9 Chronic obstructive pulmonary disease, unspecified; M81.0 Age-related osteoporosis without current pathological fracture; F41.9 Anxiety disorder, unspecified; F17.200 Nicotine dependence, unspecified, uncomplicated; K21.9 Gastro-esophageal reflux disease without esophagitis; H26.9 Unspecified cataract; N80.9 Endometriosis, unspecified; E78.5 Hyperlipidemia, unspecified; G89.29 Other chronic pain; M54.9 Dorsalgia, unspecified; G50.0 Trigeminal neuralgia; B19.20 Unspecified viral hepatitis C without hepatic coma; R29.810 Facial weakness; K44.9 Diaphragmatic hernia without obstruction or gangrene; M19.90 Unspecified osteoarthritis, unspecified site; R13.10 Dysphagia, unspecified; R63.3 Feeding difficulties; Z79.82 Long term (current) use of aspirin; Z79.899 Other long term (current) drug therapy; Z86.73 Personal history of transient ischemic attack (TIA), and cerebral infarction without residual deficits; W19.XXXA Unspecified fall, initial encounter; Y92.230 Patient room in hospital as the place of occurrence of the external cause
CPT/HCPCS: 33282; 36224; 36228; 36556; 61645; 61650; 70450; 70544; 70551; 71010; 73502; 74000; 75635; 76937; 80053; 80061; 82550; 83036; 83735; 84100; 84484; 85025; 85027; 87641; 93005; 93306; 93312; 93320; 93325; 93880; 93922; 94150; 94640; 94664; C1760; C1764; C1769; C1887; C1894; C9113; J0690; J1644; J2060; J2250; J2270; J2405; J3010; J3480; J7030; J7050; J7613; Q9967

== ENCOUNTER 2016-09-29 22:50 | Inpatient (IN) | payer MEDICAID ==
[~2016-09-29] VITALS: Ht 152.4 cm; Wt 64.1 kg
[~2016-09-29 22:50] MED LIST changes: +ASPI325T PO; +CARB200T PO; +CLON1TAB PO; +CYMB60CA PO; -IODIXANOL 320 MG/ML 50 ML VIAL (for RAD SPEC) I-ARTERIAL ONE; +MORP1TAB24 PO; +NICO14DI23 T-DERMAL; +OXYC1TAB63 PO; -OXYC30TA3 PO; +PANT40TA3 PO; -PROPOFOL 200 MG/20 ML AMP IV ONE; +SENN1TAB PO; -SOMA350T PO; -XANA2TAB2 PO
[2016-09-29 22:58] VITALS: BP 110/59; PULSE 71; RESP 16
[2016-09-29 23:05] VITALS: O2SAT 97
[2016-09-29 23:33] LABS: AUTOMATED NEUTROPHIL # 5.8 TH/MM3 (1.8-7.7); BASOPHIL # 0.1 TH/MM3 (0-0.2); BASOPHIL % 1.3 % (0.0-2.0); EOSINOPHIL # 0.3 TH/MM3 (0-0.4); EOSINOPHIL % 2.8 % (0.0-4.0); HEMATOCRIT 33.1 % (35.0-46.0); HEMO FLAGS DIFF FINAL; LYMPH % 28.1 % (9.0-44.0); LYMPHOCYTE # 2.8 TH/MM3 (1.0-4.8); MEAN CELL VOLUME 85.4 FL (80.0-100.0); MEAN CORPUSCULAR HEMOGLOBIN 28.3 PG (27.0-34.0); MEAN CORPUSCULAR HGB CONC 33.1 % (32.0-36.0); MONO % 8.6 % (0.0-8.0); NEUT % 59.2 % (16.0-70.0); PLATELET COUNT 556 TH/MM3 (150-450); RED BLOOD COUNT 3.87 MIL/MM3 (4.00-5.30); RED CELL DISTRIBUTION WIDTH 15.3 % (11.6-17.2); WHITE BLOOD COUNT 9.8 TH/MM3 (4.0-11.0)
[2016-09-29 23:44] LABS: APTT (PATIENT) 25.8 SEC (24.3-30.1); PROTHROMBIN TIME - PATIENT 10.7 SEC (9.8-11.6)
[2016-09-29 23:46] LABS: ANION GAP 7 MEQ/L (5-15); AST (GOT) 16 U/L (15-37); BICARBONATE 28.1 MEQ/L (21.0-32.0); BLOOD UREA NITROGEN 20 MG/DL (7-18); CHLORIDE 108 MEQ/L (98-107); GLOMERULAR FILTRATION RATE 60 ML/MIN (>89); POTASSIUM 3.9 MEQ/L (3.5-5.1); SODIUM (NA) 143 MEQ/L (136-145)
[2016-09-29 23:50] LABS: ALKALINE PHOSPHATASE 77 U/L (45-117); ALT (GPT) 19 U/L (10-53); TOTAL BILIRUBIN ADULT 0.2 MG/DL (0.2-1.0)
--- NOTE | 2016-09-29 23:53 | RADRPT ---
EXAM DATE/TIME: 09/29/2016 23:36 [facility] COMPARISON: CT BRAIN W/O CONTRAST, September 20, 2016, 19:19. MRI BRAIN W/O CONTRAST, September 16, 2016, 13:01. INDICATIONS : Headaches. RADIATION DOSE: 32.96 CTDIvol (mGy) MEDICAL HISTORY : Cerebrovascular disease. Cardiovascular disease Hypertension.COPD Hep C Renal stones GERD SURGICAL HISTORY : Appendectomy. Hysterectomy. ENCOUNTER: Initial ACUITY: 1 day PAIN SCALE: 8/10 LOCATION: cranial TECHNIQUE: Multiple contiguous axial images were obtained of the head. Using automated exposure control and adj ustment of the mA and/or kV according to patient size, radiation dose was kept as low as reasonably a chievable to obtain optimal diagnostic quality images. FINDINGS: Subacute infarct of the right basal ganglia continues to evolve. There is surrounding cerebral edema and about 2 mm of associated leftward midline shift. No evidence of an acute ischemic event. No hemor rhage or mass demonstrated. CONCLUSION: Evolving subacute infarct of the right basal ganglia with mild vertebral edema and about 2 mm of left lo midline shift. No bleed or evidence of new/acute infarct seen. Sina Silverman MD on September 29, 2016 at 23:50 Board Certified Radiologist. This report was verified electronically.
--- NOTE | 2016-09-29 23:54 | PD ---
HPI Chief Complaint: Fall Time Seen by Provider: 23:51 Travel History International Travel<30 days: No Contact w/Intl Traveler<30days: No Traveled to known affect area: No History of Present Illness HPI 61-year-old female with history of recent stroke with left-sided weakness currently at a rehabilitation facility, presents to the ER today because she states that she has been trying to get out of bed on her own and has been falling, hit her head several times in her back, complaining of back pain, and currently having 9 out of 10 headaches. She denies any nausea, vomiting, or other issues. She states that she forgets that she is not supposed to get out of bed. She has fallen out of wheelchairs as well. Modifying Factors: None Associated Signs & Symptoms: Frequent falls, headache, back pain Risk Factors: Recent stroke with left-sided weakness PFSH Past Medical History Arthritis: Yes Anxiety: Yes Depression: Yes Heart Rhythm Problems: No Cancer: No Cardiovascular Problems: Yes (THORACIC OUTLET SYNDROME) High Cholesterol: Yes Chest Pain: No Congestive Heart Failure: No COPD: Yes Cerebrovascular Accident: Yes (R STROKE 09/16/16) Diminished Hearing: No Endocrine: No GERD: Yes Glaucoma: No Genitourinary: Yes Hepatitis: Yes (HEP C) Hiatal Hernia: Yes Hypertension: No Immune Disorder: No Kidney Stones: Yes Musculoskeletal: Yes Neurologic: Yes Psychiatric: Yes Reproductive: No Respiratory: Yes (PNEUMONIA) Migraines: No Renal Failure: No Seizures: No Sleep Apnea: No Thyroid Disease: No Ulcer: No Tetanus Vaccination: > 5 Years Influenza Vaccination: Yes ?: Not Past Surgical History Abdominal Surgery: No Appendectomy: Yes Cardiac Surgery: No Ear Surgery: No Endocrine Surgery: No Eye Surgery: Yes (L CORNEA TRANSPLANT) Genitourinary Surgery: No Gynecologic Surgery: Yes (HYSTERECTOMY) Hysterectomy: Yes Neurologic Surgery: Yes (COCCYX REMOVED) Oral Surgery: Yes (TEETH ROMOVED 07/16/16) Pacemaker: No Thoracic Surgery: No Other Surgery: Yes (BENIGN TUMOR BILATERAL BREASTS) Social History Alcohol Use: No Tobacco Use: Yes Substance Use: No Allergies-Medications (Allergen,Severity, Reaction): Coded Allergies: Nubain (Verified Allergy, Severe, HIVES,HIVES, 04/29/11) Nonsteroidal Anti-Inflammatory Agts (Unverified Adverse Reaction, Severe, N/V, 04/29/11) Reported Meds & Prescriptions Reported Meds & Active Scripts Active Cymbalta DR (Duloxetine HCl) 60 Mg Capdr 60 Mg PO DAILY Clonazepam 1 Mg Tab 1 Mg PO TID Oxycodone-Acetaminophen 5-325 mg Tab 2 Tab PO Q4H PRN Oxycodone-Acetaminophen 5-325 mg Tab 1 Tab PO Q4H PRN Morphine ER (Morphine Sulfate) 15 Mg Tab 15 Mg PO Q12HR Senna Plus 8.6-50 mg (Sennosides-Docusate Sodium) 1 Tab Tab 1 Tab PO BID Pantoprazole (Pantoprazole Sodium) 40 Mg Tab 40 Mg PO DAILY Eq Nicotine (Nicotine) 14 Mg/24 Hr Dis 1 Patch T-DERMAL DAILY@2100 Carbamazepine 200 Mg Tab 200 Mg PO Q12HR Aspirin 325 Mg Tab 325 Mg PO DAILY Reported Fosamax (Alendronate Sodium) Isamar 70 PO WEEKLY Caltrate 600/Vitamin D 400 (Calcium/Vitamin D) 1 Tab Tab 1 Tab PO DAILY Review of Systems Except as stated in HPI: all other systems reviewed are Neg Physical Exam Narrative GENERAL: Well-developed middle age white female patient currently in moderate distress. Awake, alert, oriented 3. SKIN: Focused skin assessment warm/dry. HEAD: Atraumatic. Normocephalic. EYES: Pupils equal and round. No scleral icterus. No injection or drainage. ENT: No nasal bleeding or discharge. Mucous membranes pink and moist. NECK: Trachea midline. No JVD. CARDIOVASCULAR: Regular rate and rhythm. No murmur appreciated. RESPIRATORY: No accessory muscle use. Clear to auscultation. Breath sounds equal bilaterally. GASTROINTESTINAL: Abdomen soft, non-tender, nondistended. Hepatic and splenic margins not palpable. MUSCULOSKELETAL: No obvious deformities. No clubbing. No cyanosis. No edema. Pelvis: stable and nontender to palpation. BACK: No CVA tenderness. No rash. No point tenderness on palpation of the spine. There is a notable ecchymotic linear area on the left posterior chest wall in the lower rib area which is nontender to palpation. NEUROLOGICAL: Awake and alert. Left-sided facial droop. And left-sided arm and leg weakness. Normal speech. PSYCHIATRIC: Appropriate mood and affect; insight and judgment normal. Data Data Last Documented VS Vital Signs Date Time Temp Pulse Resp B/P Pulse Ox O2 Delivery O2 Flow Rate FiO2 09/29/16 23:05 97 Room Air 09/29/16 22:58 71 16 110/[address] Brain W/O Iv Contrast(Rout) (09/29/16 23:00) Complete Blood Count With Diff (09/29/16 23:00) Comprehensive Metabolic Panel (09/29/16 23:00) Prothrombin Time / Inr (Pt) (09/29/16 23:00) Act Partial Throm Time (Ptt) (09/29/16 23:00) Ecg Monitoring (09/29/16 23:00) Iv Access Insert/Monitor (09/29/16 23:00) Oximetry (09/29/16 23:00) Sodium Chloride 0.9% Flush (Ns Flush) (09/29/16 23:00) Urinalysis - C+S If Indicated (09/29/16 23:00) Morphine Inj (Morphine Inj) (09/30/16 00:00) Ondansetron Inj (Zofran Inj) (09/30/16 00:00) Admit Order (Ed Use Only) (09/30/16 01:32) Consult Neurology (09/30/16 ) Labs Laboratory Tests Test 09/29/16 23:25 White Blood Count 9.8 TH/MM3 Red Blood Count 3.87 MIL/MM3 Hemoglobin 10.9 GM/DL Hematocrit 33.1 % Mean Corpuscular Volume 85.4 FL Mean Corpuscular Hemoglobin 28.3 PG Mean Corpuscular Hemoglobin 33.1 % Concent Red Cell Distribution Width 15.3 % Platelet Count 556 TH/MM3 Mean Platelet Volume 7.7 FL Neutrophils (%) (Auto) 59.2 % Lymphocytes (%) (Auto) 28.1 % Monocytes (%) (Auto) 8.6 % Eosinophils (%) (Auto) 2.8 % Basophils (%) (Auto) 1.3 % Neutrophils # (Auto) 5.8 TH/MM3 Lymphocytes # (Auto) 2.8 TH/MM3 Monocytes # (Auto) 0.8 TH/MM3 Eosinophils # (Auto) 0.3 TH/MM3 Basophils # (Auto) 0.1 TH/MM3 CBC Comment DIFF FINAL Differential Comment Prothrombin Time 10.7 SEC Prothromb Time International 1.0 RATIO Ratio Activated Partial 25.8 SEC Thromboplast Time Sodium Level 143 MEQ/L Potassium Level 3.9 MEQ/L Chloride Level 108 MEQ/L Carbon Dioxide Level 28.1 MEQ/L Anion Gap 7 MEQ/L Blood Urea Nitrogen 20 MG/DL Creatinine 0.95 MG/DL Estimat Glomerular Filtration 60 ML/MIN Rate Random Glucose 83 MG/DL Calcium Level 8.5 MG/DL Total Bilirubin 0.2 MG/DL Aspartate Amino Transf 16 U/L (AST/SGOT) Alanine Aminotransferase 19 U/L (ALT/SGPT) Alkaline Phosphatase 77 U/L Total Protein 6.6 GM/DL Albumin 3.1 GM/DL MDM Medical Decision Making Medical Screen Exam Complete: Yes Emergency Medical Condition: Yes Medical Record Reviewed: Yes Interpretation(s) Laboratory Tests Test 09/29/16 23:25 Red Blood Count 3.87 MIL/MM3 (4.00-5.30) Hemoglobin 10.9 GM/DL (11.6-15.3) Hematocrit 33.1 % (35.0-46.0) Platelet Count 556 TH/MM3 (150-450) Monocytes (%) (Auto) 8.6 % (0.0-8.0) Chloride Level 108 MEQ/L (98-107) Blood Urea Nitrogen 20 MG/DL (7-18) Estimat Glomerular Filtration 60 ML/MIN (>89) Rate Albumin 3.1 GM/DL (3.4-5.0) Last [address] 09/29/16 2300 Signed Impressions: Service Date/Time: Thursday, September 29, 2016 23:36 - CONCLUSION: Evolving subacute infarct of the right basal ganglia with mild vertebral edema and about 2 mm of leftward midline shift. No bleed or evidence of new/acute infarct seen. Sina Silverman MD Differential Diagnosis Frequent falls, headaches, chest wall contusionrule out intracranial injuries Narrative Course CT of the brain did not reveal any signs of acute bleeds. However, patient has what appears to be a subacute evolving stroke on the right basal ganglia with a 2 mm leftward shift. Case was initially discussed with Dr. Del Cid who would like the patient to be admitted to the hospital for observation and further evaluation. Case was then discussed with Dr. Vera who states that he would recommend further MRI for evaluation but does not see a immediate surgical issue at this point. Case was then discussed with Dr. Hall who had recommended ICU admission due to possibility of worsening neurological deficits. Case was discussed with Dr. Tinajero who accepts patient for admission to intensive care unit. I have discussed the findings with patient who agrees to admission. Aggregate critical care time was 30 minutes. Time to perform other separately billable procedures was not included in the critical care time. My time did not include minutes spent treating any other patients simultaneously or on activities that did not directly contribute to the patient's treatment. The services I provided to this patient were to treat and/or prevent clinically significant deterioration that could result in: Worsening neurological deficits , ICH, I provided critical care services requiring my management, as noted below: Chart data review, documentation time, medication orders and management, vital sign assessments/reviewing monitor data, ordering and reviewing lab tests, ordering and interpreting/reviewing x-rays and diagnostic studies, care of the patient and discussion of the patient with the admitting physicians. Diagnosis Primary Impression: Midline shift of brain due to cerebrovascular accident Admitting Information Admitting Physician Requests: Admit Bertram Pereira MD Sep 29, 2016 23:54
[2016-09-30] VITALS (10 sets, daily range): BP systolic 97–111; BP diastolic 37–64; PULSE 58–65; RESP 14–22; TEMP 96.9–98.1; O2SAT 93–99
[2016-09-30] MEDS ORDERED: ONDANSETRON HCL 4 MG/2 ML VIAL IV PUSH ONE
[2016-09-30] MEDS ORDERED: MORPHINE SULFATE 4 MG/ML INJ IV PUSH ONE
--- NOTE | 2016-09-30 01:46 | HHI.HP ---
HPI Service Critical Care Medicine Primary Care Physician No Primary Care Physician Admission Diagnosis evolving right basal ganglia stroke/left-sided shift Diagnosis: Chief Complaint: Headache Travel History International Travel<30 Days: No Contact w/Intl Traveler <30 Da: No Traveled to Known Affected Are: No History of Present Illness 61-year-old [id number] female with past medical history of COPD, tobacco abuse, chronic back pain, osteoporosis, endometriosis, hyperlipidemia (not on therapy) presents to ED tonight with recurrent falls after recent discharge 7 days ago following ischemic CVA 14 days ago, treated with tPA at [facility], and attempted emergency thrombectomy of M1 segment of right MCA at [place]. CT Head tonight reveals evolving right basal ganglia infarction with edema producing 2 mm right to left shift. According to the patient, she has been falling out of her wheelchair and falling while trying to get out of bed. It appears that her neurological symptoms have worsened since discharge, She requires admission, MRI evaluation, and probable treatment for cerebral edema. She had her coccyx removed and has persistent lower back pain but states she does not take duromorph regularly. Review of Systems Constitutional: DENIES: Diaphoretic episodes, Fatigue, Fever, Weight gain, Weight loss, Chills, Dizziness, Change in appetite, Night Sweats Endocrine: DENIES: Abnorml menstrual pattern, Heat/cold intolerance, Polydipsia , Polyuria, Polyphagia Ears, nose, mouth, throat: DENIES: Tinnitus, Hearing loss, Vertigo, Nasal discharge, Oral lesions, Throat pain, Hoarseness, Ear Pain, Running Nose, Epistaxis, Sinus Pain, Toothache, Odynophagia Respiratory: DENIES: Apneas, Cough, Snoring, Wheezing, Hemoptysis, Sputum production, Shortness of breath Cardiovascular: DENIES: Chest pain, Palpitations, Syncope, Dyspnea on Exertion , PND, Lower Extremity Edema, Orthopnea, Claudication Gastrointestinal: DENIES: Abdominal pain, Black stools, Bloody stools, Constipation, Diarrhea, Nausea, Vomiting, Difficulty Swallowing, Anorexia Genitourinary: DENIES: Abnormal vaginal bleeding, Dysmenorrhea, Dyspareunia, Sexual dysfunction, Urinary frequency, Urinary incontinence, Urgency, Hematuria , Dysuria, Nocturia, Vaginal discharge Neurologic: COMPLAINS OF: Abnormal gait, Headache, Localized weakness, Poor Balance Psychiatric: COMPLAINS OF: Anxiety Past Family Social History Allergies: Coded Allergies: Nubain (Verified Allergy, Severe, HIVES,HIVES, 04/29/11) Nonsteroidal Anti-Inflammatory Agts (Unverified Adverse Reaction, Severe, N/V, 04/29/11) Past Medical History ROS - General Review of Systems [facility] Past Family Social History Allergies: Coded Allergies: Nubain (Verified Allergy, Severe, HIVES,HIVES, 04/29/11) Nonsteroidal Anti-Inflammatory Agts (Unverified Adverse Reaction, Severe, N/V, 04/29/11) Past Medical History COPD Chronic back pain Osteoporosis GERD Trigeminal neuralgia Anxiety Thoracic outlet syndrome Hyperlipidemia Endometriosis TIA 2 years ago Past Surgical History Hysterectomy due to endometriosis Appendectomy Bilateral breast mass resection (benign cyst) Coccyx resection 2006 Left eye cataract surgery 08/20/09 Left corneal transplant Dental extraction about 3 months ago Tobacco abuse Reported Medications Obtained medication list from outside hospital. Patient was unable to verify dosage with me. Hydrocodone 5/325 Oxycodone 10/325 Amoxicillin 500 mg (patient states she was on this for 3-4 months following a dental extraction) Suboxone 8/2 mg Carbamazepine 200 mg by mouth twice a day (patient states she is on it for trigeminal neuralgia, no history of seizures) Klonopin 0.5 mg Gabapentin 800 mg by mouth 3 times a day Omeprazole 40 mg daily Prednisone 20 mg daily tizanidine 4 mg by mouth every 8 hours Albuterol 2 puffs inhaled every 4 hours Prednisolone ophthalmic 1 drop left eye twice a day Acetaminophen codeine Klonopin 1 mg by mouth twice a day Diclofenac 50 g by mouth twice a day Family History Her mother had a stroke in her 50s. She of "Alzheimer's" Father at age 70 from lung cancer Social History She smokes a half a pack of cigarettes per day for 30 years Denies use of alcohol or illicit drugs She was incarcerated for 2 years and was released in 1999 Physical Exam Vital Signs Vital Signs Date Time Temp Pulse Resp B/P Pulse Ox O2 Delivery O2 Flow Rate FiO2 09/29/16 23:05 97 Room Air 09/29/16 22:58 71 16 110/59 Physical Exam P 71, BP 110/59, R 13, Sats 96% Head: Atraumatic. Chronic left lid lag. Neck: Supple. Airway patent. No obstruction. Lungs: Clear, no wheezes or crackles. Comfortable pattern. Heart: NL S1S2, RRR, no JVD. Abdomen: Soft, NT, ND. BS active. Extremities: Warm, well perfused. Neuro: Right handed. Flaccid LUE. Left leg 4/5. Right arm and leg 5/5. Speech clear. O X 3, cooperative and follows commands. Laboratory Laboratory Tests Test 09/29/16 23:25 White Blood Count 9.8 Red Blood Count 3.87 Hemoglobin 10.9 Hematocrit 33.1 Mean Corpuscular Volume 85.4 Mean Corpuscular Hemoglobin 28.3 Mean Corpuscular Hemoglobin 33.1 Concent Red Cell Distribution Width 15.3 Platelet Count 556 Mean Platelet Volume 7.7 Neutrophils (%) (Auto) 59.2 Lymphocytes (%) (Auto) 28.1 Monocytes (%) (Auto) 8.6 Eosinophils (%) (Auto) 2.8 Basophils (%) (Auto) 1.3 Neutrophils # (Auto) 5.8 Lymphocytes # (Auto) 2.8 Monocytes # (Auto) 0.8 Eosinophils # (Auto) 0.3 Basophils # (Auto) 0.1 CBC Comment DIFF FINAL Differential Comment Prothrombin Time 10.7 Prothromb Time International 1.0 Ratio Activated Partial 25.8 Thromboplast Time Sodium Level 143 Potassium Level 3.9 Chloride Level 108 Carbon Dioxide Level 28.1 Anion Gap 7 Blood Urea Nitrogen 20 Creatinine 0.95 Estimat Glomerular Filtration 60 Rate Random Glucose 83 Calcium Level 8.5 Total Bilirubin 0.2 Aspartate Amino Transf 16 (AST/SGOT) Alanine Aminotransferase 19 (ALT/SGPT) Alkaline Phosphatase 77 Total Protein 6.6 Albumin 3.1 Result Diagram: 09/29/160 09/29/162324 Assessment and Plan Assessment and Plan NEURO: Acute ischemic stroke, right M1 occlusion 09/16/16 History of trigeminal neuralgia Anxiety Chronic back pain Status post left corneal implant History of TIA s/p TPA completed 09/15 s/p thrombectomy per Dr. Td Munson with persistent occlusion of R M1 Resume carbamazepine 200 by mouth twice a day, gabapentin 800 by mouth 3 times a day, Klonopin 1 mg by mouth twice a day if able to tolerate by mouth (for h/o anxiety and Trigeminal neuralgia, no h/o sz. Neurology consult -> called 09/30 MRI today. RESP: COPD Tobacco abuse Nasal cannula wean as tolerated. DuoNeb every 6 hours prn. CV: Hyperlipidemia Patient reports a history of hyperlipidemia but has not recently been on medication. Patient is in sinus rhythm. Continue to monitor on telemetry. GI: GERD Protonix 40 mg IV daily FEN/RENAL: Patient is voiding. No Moon ID: Monitor for signs and symptoms of infection. HEME: No acute hematologic issues. ENDO: Euglycemic outside hospital. Initiate low-dose insulin sliding scale if needed. MSK: Osteoporosis Fosamax on hold. Unclear if she was actively taking it recently. Overall impression: Evolving right basal ganglia CVA with severe headache and persistent LUE paresis, frequent falls. Garcia Tinajero MD Sep 30, 2016 01:46
[2016-09-30] MEDS ORDERED: CHLORHEXIDINE GLUCONATE 2 % 1 PACK (2 CLOTHS) TOP PRN (02:00)
[2016-09-30] MEDS ORDERED: SODIUM CHLOR 0.9% 1000 ML INJ 1,000 ML IV SCH (02:00)
[2016-09-30] MEDS ORDERED: oxyCODONE/ACETAMINOPHEN 5 MG/325 MG TAB PO PRN (02:00)
[2016-09-30] MEDS ORDERED: SENNOSIDES 8.6 MG TAB PO PRN (02:00)
[2016-09-30] MEDS ORDERED: BISACODYL 10 MG SUPP RECTAL PRN (02:00)
[2016-09-30] MEDS ORDERED: MAGNESIUM HYDROXIDE SUSP 30 ML CUP PO PRN (02:00)
[2016-09-30] MEDS ORDERED: MISCELLANEOUS NURSING INFORMATION XX SCH (02:00)
[2016-09-30] MEDS ORDERED: RESP: ALBUTEROL 2.5 MG/IPRATROPIUM 0.5 MG NEB (PRN) INH (02:00)
[2016-09-30] MEDS ORDERED: LACTULOSE SYRUP 20 GM/30 ML CUP PO PRN (02:00)
[2016-09-30] MEDS: CHLORHEXIDINE GLUCONATE 2 % 1 PACK (2 CLOTHS) TOP SCH (03:39)
[2016-09-30] MEDS: PANTOPRAZOLE SOD 40 MG DELAYED RELEASE TAB PO SCH (05:21)
[2016-09-30] MEDS: ASPIRIN 325 MG TAB PO SCH (07:45)
[2016-09-30] MEDS: clonazePAM 1 MG TAB PO SCH ×3 (07:45→17:30)
[2016-09-30] MEDS: DOCUSATE SODIUM 50 MG/SENNA 8.6 MG TAB PO SCH ×2 (07:45→21:00)
[2016-09-30] MEDS: carBAMazepine 200 MG TAB PO SCH ×2 (07:45→21:49)
[2016-09-30] MEDS: SODIUM CHLOR 0.9% 1000 ML INJ 1,000 ML IV SCH ×2 (07:56→22:00)
[2016-09-30] MEDS: oxyCODONE/ACETAMINOPHEN 5 MG/325 MG TAB PO PRN ×2 (08:19→17:30)
--- NOTE | 2016-09-30 08:30 | MB ---
cc: CLARE MONTEJO DATE OF CONSULTATION 09/30/2016 REASON FOR CONSULTATION This is a 61-year-old woman with a history of hypercholesterolemia, an episode of a TIA or stroke a few years ago at [facility] where she had some ataxia. She has chronic migraines across her bifrontal head region for which she takes Fioricet. Nevertheless, she was not on an aspirin and was admitted September 16 with a right MCA occlusion. It could not be extracted with intervention and had a right MCA infarct, went over to rehab and was falling over there. She continues to have a right headache behind her right eye and was brought back over here. She was trying to get out of the bed on her own, was falling, hit her head a few times, but gets she is not supposed to get out of bed on her own. PAST MEDICAL HISTORY 1. Thoracic outlet syndrome 2. Some arthritis 3. Anxiety 4. Depression 5. Hepatitis C 6. kidney stones 7. Pneumonia 8. Trigeminal neuralgia that is why she is on Tegretol. ALLERGIES NUBAIN, NONSTEROIDALS MEDICATIONS 1. Cymbalta 60 a day 2. Klonopin 1 mg t.i.d. 3. Oxycodone 4. Morphine ER 15 q12 5. Senna 6. Protonix 7. Nicotine patch 8. Tegretol 200 q12 9. Aspirin 325 a day 10. Fosamax 11. Caltrate 12. It is unclear if she was getting some subcu heparin. She said she was getting some injections. FAMILY HISTORY Mother had a stroke in her 50s and had Alzheimer's disease. Father had lung cancer. SOCIAL HISTORY He is a smoker. No drugs or drinking. History of being in residential. Lives with her fiance and his parents. REVIEW OF SYSTEMS She denies any hypertension, diabetes, RI, CABG, stent, angioplasty, A fib, Coumadin, renal, hepatic or pulmonary disease, thyroid disease, lupus, ulcer, cancer, seizure. No history of blood clots or miscarriages. MEDICATIONS Current meds here, she continues on her: 1. Aspirin 2. Tegretol 3. Klonopin 4. Cymbalta 5. Is getting oral morphine 6. Percocet 7. Fentanyl, she got some Fentanyl last night 02:00 a.m. which I am stopping on her PHYSICAL EXAM She was in sinus rhythm, afebrile, 106/63, 58. NECK: There were no carotid bruits. HEART: Regular rhythm, I did not detect a murmur. NEUROLOGIC: She has had surgery on the left eye evidently a corneal transplant. The right eye, pupil is round. Visual mack appear to be full. There is no visual neglect. She has had a slight left facial droop. She had near normal strength in the left lower and normal strength on the right upper and lower extremities. Left upper extremity, she is near normal strength in the triceps. She keeps her hand fisted, but she can open it up actually and there is some apparent motor neglect on the left arm. She cannot lift the arm off the bed proximally, cannot or won't and cannot hold it up or will not. DTRs are trace. The toes are equivocal on the left, downgoing on the right. Double simultaneous stimuli to sensory was intact in her legs. LABORATORY DATA CBC shows a hematocrit of 31, otherwise normal. Platelet count is 556. UA was negative in 2009. Basic metabolic profile is normal. Albumin is 3.1. LFTs were normal. Troponin was elevated on the last admission to 0.52. LDL was normal at that time. Triglycerides 189, magnesium was normal. Calcium is normal. Hemoglobin A1c was normal. Coags were normal. MRI of the brain showed the right MCA infarct. Carotid ultrasound was negative. MRA ute Pérez showed a right MCA occlusion. CT scan at this time shows there is some slight evolution and minimal mass effect. I was not impressed that it was extremely larger than the prior infarct. There is a small amount hemorrhage in the infarct on the right on the lateral lentiform nucleus. IMPRESSION Right MCA infarct. I would check a hyper-coag screen on her and I want to try to limit her narcotics especially the Fentanyl. I note she had a WALDEMAR that was negative the last time as was an echocardiogram. I will have physical therapy work her. We will recheck an MRI on her. We will check some additional blood work on her. I note her troponin was quite elevated last time. I would defer to the med team on that and can recheck that. Continue on her aspirin. She probably has some left-sided neglect which is contributing to her falls. If she was not on morphine before she ever came in the hospital, I would recommend stopping that also. She might have had a loop recorder placed prior and that can be monitored. Dr. Becerra had seen her prior. MD BENNIE Youssef/JUAN DIEGO /7:47 AM /8:10 AM
--- NOTE | 2016-09-30 08:41 | HHI.PR ---
Subjective Remarks F/u fall. Complaining of improving right occipital headache. She has left upper extremity weakness and left facial droop from her recent stroke. Discussed with RN to update medication reconciliation form Objective Vitals Vital Signs Date Time Temp Pulse Resp B/P Pulse Ox O2 Delivery O2 Flow Rate FiO2 09/30/16 06:00 61 09/30/16 05:00 97 Nasal Cannula 2.00 09/30/16 04:00 58 09/30/16 04:00 98.0 58 17 106/63 93 09/29/16 23:05 97 Room Air 09/29/16 22:58 71 16 110/59 I/O 09/29/16 09/29/16 09/29/16 09/30/16 09/30/16 09/30/16 07:00 15:00 23:00 07:00 15:00 23:00 Intake Total 25 ml Balance 25 ml Intake Oral 25 ml Result Diagram: 09/29/167 09/29/16 2325 Imaging Last Impressions Head CT 09/29/16 2300 Signed Impressions: Service Date/Time: Thursday, September 29, 2016 23:36 - CONCLUSION: Evolving subacute infarct of the right basal ganglia with mild vertebral edema and about 2 mm of leftward midline shift. No bleed or evidence of new/acute infarct seen. Sina Silverman MD Objective Remarks GENERAL: Well-developed, well-nourished in no distress SKIN: Warm and dry. HEAD: Atraumatic. Normocephalic. EYES: Pupils equal and round. No scleral icterus. No injection or drainage. ENT: No nasal bleeding or discharge. Mucous membranes pink and moist. NECK: Trachea midline. No JVD. CARDIOVASCULAR: Regular rate and rhythm. RESPIRATORY: No accessory muscle use. Clear to auscultation. Breath sounds equal bilaterally. GASTROINTESTINAL: Abdomen soft, non-tender, nondistended. Hepatic and splenic margins not palpable. MUSCULOSKELETAL: Extremities without clubbing, cyanosis, or edema. No obvious deformities. NEUROLOGICAL: Awake and alert. Left facial droop. Left upper extremity weakness. Normal speech. PSYCHIATRIC: Appropriate mood and affect; insight and judgment normal. Procedures none A/P Problem List: (1) Acute ischemic right MCA stroke ICD Code: I63.511 Status: Acute (2) Fall ICD Code: W19.XXXA Status: Acute Assessment and Plan NEURO: Acute ischemic stroke, right M1 occlusion 09/16/16 History of trigeminal neuralgia Anxiety Chronic back pain Status post left corneal implant History of TIA s/p TPA completed 09/15 s/p thrombectomy per Dr. Td Munson with persistent occlusion of R M1 Resume carbamazepine 200 by mouth twice a day, gabapentin 800 by mouth 3 times a day, Klonopin 1 mg by mouth twice a day if able to tolerate by mouth (for h/o anxiety and Trigeminal neuralgia, no h/o sz. Neurology consulted follow-up pending MRI. Holter monitor also ordered patient already has loop recorder. Hypercoagulable panel also requested. Continue aspirin Physical therapy. Fall precautions RESP: COPD Tobacco abuse Nasal cannula wean as tolerated. DuoNeb every 6 hours prn. CV: Hyperlipidemia Patient reports a history of hyperlipidemia and has been on Lipitor per patient. Will start 20 mg at bedtime Patient is in sinus rhythm. Continue to monitor on telemetry. GI: GERD Protonix 40 mg daily FEN/RENAL: Patient is voiding. No Moon ID: Monitor for signs and symptoms of infection. HEME: No acute hematologic issues. ENDO: Euglycemic outside hospital. Initiate low-dose insulin sliding scale if needed. Discharge Planning Stable to floor Mike Acevedo MD Sep 30, 2016 08:40 Overall impression: Evolving right basal ganglia CVA with severe headache and persistent LUE paresis, frequent falls. Mike Acevedo MD Sep 30, 2016 08:40 Blood Urea Nitrogen 20 Creatinine 0.95 Estimat Glomerular Filtration 60 Rate Random Glucose 83 Calcium Level 8.5 Total Bilirubin 0.2 Aspartate Amino Transf 16 (AST/SGOT) Alanine Aminotransferase 19 (ALT/SGPT) Alkaline Phosphatase 77 Total Protein 6.6 Albumin 3.1 Result Diagram: 09/29/16232409/29/162324 Septic Shock Reassessment Septic Shock Reassessment Assessment and Plan Assessment and Plan Assessment and Plan NEURO: Acute ischemic stroke, right M1 occlusion 09/16/16 History of trigeminal neuralgia Anxiety Chronic back pain Status post left corneal implant History of TIA s/p TPA completed 09/15 s/p thrombectomy per Dr. Td Munson with persistent occlusion of R M1 Resume carbamazepine 200 by mouth twice a day, gabapentin 800 by mouth 3 times a day, Klonopin 1 mg by mouth twice a day if able to tolerate by mouth (for h/o anxiety and Trigeminal neuralgia, no h/o sz. Neurology consult -> called 09/30 MRI today. RESP: COPD Tobacco abuse Nasal cannula wean as tolerated. DuoNeb every 6 hours prn. CV: Hyperlipidemia Patient reports a history of hyperlipidemia but has not recently been on medication. Patient is in sinus rhythm. Continue to monitor on telemetry. GI: GERD Protonix 40 mg IV daily FEN/RENAL: Patient is voiding. No Moon ID: Monitor for signs and symptoms of infection. HEME: No acute hematologic issues. ENDO: Euglycemic outside hospital. Initiate low-dose insulin sliding scale if needed. MSK: Osteoporosis Fosamax on hold. Unclear if she was actively taking it recently. Overall impression: Evolving right basal ganglia CVA with severe headache and persistent LUE paresis, frequent falls. Garcia Tinajero MD Sep 30, 2016 01:46 Mike Acevedo MD Sep 30, 2016 08:40
[2016-09-30] MEDS ORDERED: DOCUSATE SODIUM 50 MG/SENNA 8.6 MG TAB PO SCH (09:00)
[2016-09-30] MEDS: DULoxetine HCl DR 60 MG CAP PO SCH (09:00)
[2016-09-30] MEDS ORDERED: MORPHINE SULFATE 15 MG CONTROLLED RELEASE TAB PO SCH (09:00)
[2016-09-30] MEDS ORDERED: SODIUM CHLORIDE 0.9% INJ 100 ML IV SCH (11:45)
[2016-09-30] MEDS ORDERED: LORazepam 2 MG/ML VIAL IV PUSH ONE (11:45)
[2016-09-30 12:16] LABS: FREE T4 0.83 NG/DL (0.76-1.46); TOTAL PROTEIN SPE 6.2 GM/DL (6.0-7.6)
--- NOTE | 2016-09-30 13:58 | RADRPT ---
EXAM DATE/TIME: 09/30/2016 12:13 [facility] COMPARISON: CT BRAIN W/O CONTRAST, September 20, 2016, 19:19. CT BRAIN W/O CONTRAST, September 29, 2016, 23:36. MRI BRAIN W/O CONTRAST, September 16, 2016, 13:01. INDICATIONS : Left sided weakness. MEDICAL HISTORY : Hepatitis C. Cerebrovascular disease. SURGICAL HISTORY : Hysterectomy. Loop recorder. ENCOUNTER: Subsequent ACUITY: 2 weeks PAIN SCORE: 0/10 LOCATION: Head. TECHNIQUE: Multiplanar, multisequence MRI of the brain was performed without contrast. FINDINGS: There is a prominent area of infarction centered at the right basal ganglia. This area measures appr oximately 5 cm in AP dimension, 3.1 cm in transverse dimension and 3.9 cm in height. There is some s maller areas of infarction seen in the more peripheral aspects of this main infarct in the lateral ri ght frontal lobe. On the SWI images there is a small focal area of decreased signal seen at the post erior right frontal lobe in one of these areas which may be related to a small area of petechial hemo rrhage. No hemorrhage was seen on the recent CT examination. This area only measures 5 mm on the SW I images. There is mass effect on the right lateral ventricle. Significant midline shift is not see n. No new areas of infarction are seen. The pituitary gland appears normal. The third and fourth v entricles and left lateral ventricle are normal. The basal cisterns are open. CONCLUSION: Evolving Stroke centered at the right basal ganglia. This involves the right caudate and has some sm all areas as periphery in the posterior lateral right frontal lobe including what appears to be a sma ll focal area of hemorrhage only measuring 5 mm likely related to petechial hemorrhage given lack of findings on the recent CT examination. When compared to the prior exam the main portion of the infar ct appears somewhat larger but the more peripheral areas appear less prominent suggesting some areas were reperfused. Sina William MD on September 30, 2016 at 13:15 Board Certified Radiologist. This report was verified electronically.
[2016-09-30 18:08] LABS: BLOOD, URINE NEG (NEG); COMMENT (UR) CULT NOT INDICATED; CULTURE IF INDICATED CULT NOT INDICATED; GLUCOSE,URINE NEG (NEG); KETONE, URINE NEG (NEG); MUCUS URINE FEW /lpf (OCC); NITRITE,URINE NEG (NEG); PH, URINE 6.5 (5.0-8.5); SQUAMOUS EPITHELIAL CELL URINE 2 /hpf (0-5); URINE COLOR YELLOW (YELLW/STRAW)
[2016-09-30] MEDS: ATORVASTATIN 20 MG TAB PO SCH (21:54)
[2016-09-30] MEDS: NICOTINE 14 MG/24 HR PATCH T-DERMAL SCH (21:55)
[2016-09-30] MEDS: MORPHINE SULFATE 15 MG CONTROLLED RELEASE TAB PO PRN (21:56)
[2016-10-01] VITALS (8 sets, daily range): BP systolic 105–112; BP diastolic 53–69; PULSE 60–74; RESP 17–20; TEMP 95.4–97.6; O2SAT 96–98
[2016-10-01] MEDS: CHLORHEXIDINE GLUCONATE 2 % 1 PACK (2 CLOTHS) TOP SCH (04:00)
[2016-10-01] MEDS: oxyCODONE/ACETAMINOPHEN 5 MG/325 MG TAB PO PRN ×4 (04:01→16:24)
[2016-10-01] MEDS: PANTOPRAZOLE SOD 40 MG DELAYED RELEASE TAB PO SCH (06:00)
--- NOTE | 2016-10-01 07:32 | HHI.PR ---
Subjective Remarks sr Objective Vital Signs Date Time Temp Pulse Resp B/P Pulse Ox O2 Delivery O2 Flow Rate FiO2 10/01/16 04:00 95.9 65 20 108/61 96 10/01/16 00:00 96.9 63 20 106/58 97 09/30/16 20:00 96.9 63 20 97/55 98 09/30/16 20:00 98 Nasal Cannula 2.00 09/30/16 18:23 98 Nasal Cannula 2.00 09/30/16 18:17 64 09/30/16 18:00 62 09/30/16 16:47 97.0 64 20 106/64 95 09/30/16 12:00 98.1 65 14 103/56 99 09/30/16 10:38 98 Nasal Cannula 2.00 09/30/16 08:00 98.1 62 22 111/37 97 I/O 09/30/16 09/30/16 09/30/16 10/01/16 10/01/16 10/01/16 07:00 15:00 23:00 07:00 15:00 23:00 Intake Total 25 ml 800 ml 240 ml Balance 25 ml 800 ml 240 ml Intake Oral 25 ml 250 ml 240 ml IV Total 550 ml # Voids 2 1 1 # Bowel Movements 0 Result Diagram: 09/29/16 2325 09/29/16 2325 Objective Remarks awake no change left weak Assessment and Plan Assessment and Plan imp mri looks ok stay on asa loop in fu that with cards fu hypercoag screen fu dr hilliard in 3 weeks outpt ok to dc small tiny blood ok on mri the cva has evolved but nothing new here old r mca occlusion cbz level ok limit narcotics i dw her i will sign off fall risk due to neglect Neftali Smith MD Oct 01, 2016 07:32
[2016-10-01] MEDS: DULoxetine HCl DR 60 MG CAP PO SCH (08:14)
[2016-10-01] MEDS: DOCUSATE SODIUM 50 MG/SENNA 8.6 MG TAB PO SCH ×2 (08:14→20:49)
[2016-10-01] MEDS: ASPIRIN 325 MG TAB PO SCH (08:14)
[2016-10-01] MEDS: clonazePAM 1 MG TAB PO SCH ×3 (08:14→17:37)
[2016-10-01] MEDS: SODIUM CHLORIDE 0.9% FLUSH 10 ML FLUSH IVF PRN (08:15)
[2016-10-01] MEDS: carBAMazepine 200 MG TAB PO SCH ×2 (08:15→20:49)
--- NOTE | 2016-10-01 08:30 | HHI.PR ---
Subjective Remarks Follow-up fall and CVA. Complaining of right occipital headache for the past 3 weeks states Fibelen helps. Discussed with RN and neurology has cleared patient for discharge with stable MRI. Aspirin to be continued Objective Vitals Vital Signs Date Time Temp Pulse Resp B/P Pulse Ox O2 Delivery O2 Flow Rate FiO2 10/01/16 04:00 95.9 65 20 108/61 96 10/01/16 02:20 Nasal Cannula 2.00 10/01/16 00:00 96.9 63 20 106/58 97 09/30/16 20:00 96.9 63 20 97/55 98 09/30/16 20:00 98 Nasal Cannula 2.00 09/30/16 18:23 98 Nasal Cannula 2.00 09/30/16 18:17 64 09/30/16 18:00 62 09/30/16 16:47 97.0 64 20 106/64 95 09/30/16 12:00 98.1 65 14 103/56 99 09/30/16 10:38 98 Nasal Cannula 2.00 I/O 09/30/16 09/30/16 09/30/16 10/01/16 10/01/16 10/01/16 07:00 15:00 23:00 07:00 15:00 23:00 Intake Total 25 ml 800 ml 240 ml 800 ml Output Total 150 ml Balance 25 ml 800 ml 240 ml 800 ml -150 ml Intake Oral 25 ml 250 ml 240 ml IV Total 550 ml 800 ml Output Urine Total 150 ml # Voids 2 1 1 # Bowel Movements 0 Result Diagram: 09/29/16 2325 09/29/16 2325 Imaging Last Impressions Head CT 09/29/16 2300 Signed Impressions: Service Date/Time: Thursday, September 29, 2016 23:36 - CONCLUSION: Evolving subacute infarct of the right basal ganglia with mild vertebral edema and about 2 mm of leftward midline shift. No bleed or evidence of new/acute infarct seen. Sina Silverman MD Objective Remarks GENERAL: Well-developed, well-nourished in no distress SKIN: Warm and dry. HEAD: Atraumatic. Normocephalic. EYES: Pupils equal and round. No scleral icterus. No injection or drainage. ENT: No nasal bleeding or discharge. Mucous membranes pink and moist. NECK: Trachea midline. No JVD. CARDIOVASCULAR: Regular rate and rhythm. RESPIRATORY: No accessory muscle use. Clear to auscultation. Breath sounds equal bilaterally. GASTROINTESTINAL: Abdomen soft, non-tender, nondistended. Hepatic and splenic margins not palpable. MUSCULOSKELETAL: Extremities without clubbing, cyanosis, or edema. No obvious deformities. NEUROLOGICAL: Awake and alert. Subtle left facial droop. Stable left upper extremity weakness. Normal speech. PSYCHIATRIC: Appropriate mood and affect; insight and judgment normal. Procedures none A/P Problem List: (1) Acute ischemic right MCA stroke ICD Code: I63.511 Status: Acute (2) Fall ICD Code: W19.XXXA Status: Acute Assessment and Plan NEURO: Acute ischemic stroke, right M1 occlusion 09/16/16 History of trigeminal neuralgia Anxiety Chronic back pain Status post left corneal implant History of TIA s/p TPA completed 09/15 s/p thrombectomy per Dr. Td Munson with persistent occlusion of R M1 Resume carbamazepine 200 by mouth twice a day, gabapentin 800 by mouth 3 times a day, Klonopin 1 mg by mouth twice a day if able to tolerate by mouth (for h/o anxiety and Trigeminal neuralgia, no h/o sz. MRI stable with petechial hemorrhage, aspirin to be continued per neurology. Holter monitor also ordered patient already has loop recorder. Hypercoagulable panel also requested. Physical therapy. Fall precautions Headache secondary to CVA. Restart Fioricet RESP: COPD Tobacco abuse Nasal cannula wean as tolerated. DuoNeb every 6 hours prn. CV: Hyperlipidemia Normal troponin. Previously had elevated troponin likely secondary to CVA status post cardiology evaluation Patient reports a history of hyperlipidemia and has been on Lipitor per patient. Continue 20 mg at bedtime Patient is in sinus rhythm. Continue to monitor on telemetry. GI: GERD Protonix 40 mg daily FEN/RENAL: Patient is voiding. No Moon ID: Monitor for signs and symptoms of infection. HEME: No acute hematologic issues. ENDO: Euglycemic outside hospital. Initiate low-dose insulin sliding scale if needed. Discharge Planning Discharge patient to SNF. Patient improved significantly earlier than expected Condition on discharge: Improved Regular Diet as tolerated Ad Jennifer activity no driving Rx written: Lipitor and Fioricet Follow-up with primary care physician in one week Mike Acevedo MD Oct 01, 2016 08:30
[2016-10-01] MEDS ORDERED: CLON1TAB PO (08:36)
[2016-10-01] MEDS ORDERED: OXYC1TAB63 PO (08:36)
[2016-10-01] MEDS ORDERED: ATOR20TA15 PO (08:36)
--- NOTE | 2016-10-01 08:37 | HHI.DCPOC ---
Discharge Care Plan Diagnosis: (1) Fall (2) Acute ischemic right MCA stroke Your Health Problems Are: Difficulty with ADL Exercise Tolerance Goals to Promote Your Health * To prevent worsening of your condition and complications * To maintain your health at the optimal level Directions to Meet Your Goals Take your medications as prescribed Follow your dietary instruction Follow activity as directed Keep your appointments as scheduled Take your immunizations and boosters as scheduled If your symptoms worsen call your PCP, if no PCP go to Urgent Care Center or Emergency Room Smoking is Dangerous to Your Health. Avoid second hand smoke Call the 24-hour hour crisis hotline for domestic abuse at Mike Acevedo MD Oct 01, 2016 08:37
[2016-10-01 10:22] LABS: RAPID PLASMA REAGIN SCREEN NON-REACTIVE (NON-REACTVE)
[2016-10-01] MEDS ORDERED: BUTATAB6 PO (11:15)
[2016-10-01] MEDS: ACETAMIN 325 MG/BUTALBITAL 50 MG/CAFFEINE 40 MG TAB PO PRN ×2 (11:50→17:37)
[2016-10-01] MEDS: SODIUM CHLOR 0.9% 1000 ML INJ 1,000 ML IV SCH (11:58)
--- NOTE | 2016-10-01 16:32 | HM ---
Date Performed: 09/30/2016 Time Performed: 15:33:00 HOOKUP DATE: 09/30/16 03:33:00 PM Wed ANALYSIS START TIME: 09/30/2016 3:38:00 PM ANALYSIS END TIME: 10/01/2016 9:32:50 AM PATIENT AGE: 61 PATIENT HEIGHT PATIENT WEIGHT DRUG LIST PATIENT DIAGNOSIS: STROKE TEST NARRATIVE: The patient's average heart rate was 65 BPM. No episodes of tachycardia wer e noted. No episodes of bradycardia were noted. No pauses exceeding 2.0 seconds were noted. 265 ventricular ectopics, which represented < 1% of the total beat count, were noted. The highest ve ntricular ectopic frequency occurred from 04:00 PM to 05:00 PM Wed. During this time 39 VE(s) occurr ed. Ventricular ectopics were observed as 261 isolated beat(s) and as 2 couplet(s). No runs were no cristy. 6 supraventricular ectopics, which represented < 1% of the total beat count, were noted. Th e highest supraventricular ectopic frequency occurred from 02:00 AM to 03:00 AM Angela. During this pasquale e 4 SVE(s) occurred. No episodes of ST depression (defined as -1.0 mm or more) were noted in lutz yaima 1. No episodes of ST depression (defined as -1.0 mm or more) were noted in channel 2. No episod es of ST depression (defined as -1.0 mm or more) were noted in channel 3. TEST INTERPRETATION: Patient undergoes a holter monitor to see if there is any rhythm disturbanc e associated with her stroke. Only the expanded tracings are subject to interpretation. The holter mo kt shows Sinus rhythm with a HR varying from 54 to 92 bpm. She has rare PACs and PVCs. One ventricular couplet is noted. T here is one 4 beat run of supraventricular tachycardia. No diary is provided. Conclusions: Essential ly unremarkable holter monitor for the patient's age showing persistent sinus rhythm. One short episo de of nonsustained supraventricular tachycardia. Rare PVCs and couplets but no complex ventricular ec topy. No other significant tachy or lorraine arrhythmias. No diary is provided so it is unknown as to wh ether the patient is symptomatic. Signed by : Verito Elizalde
[2016-10-01] MEDS: MORPHINE SULFATE 15 MG CONTROLLED RELEASE TAB PO PRN (20:50)
[2016-10-01] MEDS: NICOTINE 14 MG/24 HR PATCH T-DERMAL SCH (20:50)
[2016-10-01] MEDS: ATORVASTATIN 20 MG TAB PO SCH (20:55)
[2016-10-01 22:19] LABS: ALBUMIN SPE 3.68 GM/DL (3.50-5.00); ALPHA 1 GLOBULIN 0.24 GM/DL (0.11-0.29); BETA GLOBULINS (SPE) 0.77 GM/DL (0.53-1.03)
[2016-10-02] VITALS (9 sets, daily range): BP systolic 92–111; BP diastolic 50–59; PULSE 55–70; RESP 18–20; TEMP 96–97.9; O2SAT 96–100
[2016-10-02] MEDS: oxyCODONE/ACETAMINOPHEN 5 MG/325 MG TAB PO PRN ×5 (01:27→18:33)
[2016-10-02] MEDS: CHLORHEXIDINE GLUCONATE 2 % 1 PACK (2 CLOTHS) TOP SCH (03:02)
[2016-10-02 03:52] LABS: THROMBIN TIME FOR LA ND sec (13-19)
[2016-10-02] MEDS: PANTOPRAZOLE SOD 40 MG DELAYED RELEASE TAB PO SCH (06:26)
[2016-10-02] MEDS: SODIUM CHLOR 0.9% 1000 ML INJ 1,000 ML IV SCH (08:38)
[2016-10-02] MEDS: DOCUSATE SODIUM 50 MG/SENNA 8.6 MG TAB PO SCH ×2 (08:38→21:42)
[2016-10-02] MEDS: DULoxetine HCl DR 60 MG CAP PO SCH (08:38)
[2016-10-02] MEDS: clonazePAM 1 MG TAB PO SCH ×3 (08:38→16:38)
[2016-10-02] MEDS: ASPIRIN 325 MG TAB PO SCH (08:39)
[2016-10-02] MEDS: carBAMazepine 200 MG TAB PO SCH ×2 (08:39→21:44)
[2016-10-02] MEDS: REMOVE OLD PATCH T-DERMAL SCH (08:39)
[2016-10-02] MEDS: MORPHINE SULFATE 15 MG CONTROLLED RELEASE TAB PO PRN ×2 (09:07→21:49)
--- NOTE | 2016-10-02 09:20 | HHI.PR ---
Subjective Remarks Follow-up CVA headache. Required 2 doses of Fioricet, morphine sulfate and 4 doses of Percocet. Early this morning she lost her balance and hit her chest against a bed rail. Complains of constant left-sided chest pain worse with inspiration and movement. Denies shortness of breath. Improving headache scale of 6 out of 10 specially with Fioricet. Discussed with RN, fall precautions Objective Vitals Vital Signs Date Time Temp Pulse Resp B/P Pulse Ox O2 Delivery O2 Flow Rate FiO2 10/02/16 08:37 18 10/02/16 08:00 96.5 58 18 109/54 97 10/02/16 04:00 96.0 62 20 98/52 97 10/02/16 00:00 96.4 58 20 110/56 96 10/01/16 21:50 18 10/01/16 21:30 96 21 10/01/16 20:00 96.8 60 20 110/53 98 10/01/16 16:41 97.6 62 17 112/69 96 10/01/16 11:45 95.6 74 17 106/58 97 I/O 10/01/16 10/01/16 10/01/16 10/02/16 10/02/16 10/02/16 07:00 15:00 23:00 07:00 15:00 23:00 Intake Total 800 ml 900 ml Output Total 150 ml Balance 800 ml -150 ml 900 ml Intake Oral 300 ml IV Total 800 ml 600 ml Output Urine Total 150 ml # Voids 1 2 5 3 # Bowel Movements 0 0 0 Result Diagram: 09/29/165 09/29/162324 Imaging Last Impressions Head CT 09/29/16 2300 Signed Impressions: Service Date/Time: Thursday, September 29, 2016 23:36 - CONCLUSION: Evolving subacute infarct of the right basal ganglia with mild vertebral edema and about 2 mm of leftward midline shift. No bleed or evidence of new/acute infarct seen. Sina Silverman MD Objective Remarks GENERAL: Well-developed, well-nourished in no distress SKIN: Warm and dry. HEAD: Atraumatic. Normocephalic. EYES: Pupils equal and round. No scleral icterus. No injection or drainage. ENT: No nasal bleeding or discharge. Mucous membranes pink and moist. NECK: Trachea midline. No JVD. CARDIOVASCULAR: Regular rate and rhythm. RESPIRATORY: No accessory muscle use. Clear to auscultation. Breath sounds equal bilaterally. Left chest wall tenderness GASTROINTESTINAL: Abdomen soft, non-tender, nondistended. Hepatic and splenic margins not palpable. MUSCULOSKELETAL: Extremities without clubbing, cyanosis, or edema. No obvious deformities. NEUROLOGICAL: Awake and alert. Subtle left facial droop. Stable left upper extremity weakness. Normal speech. PSYCHIATRIC: Appropriate mood and affect; insight and judgment normal. Procedures none A/P Problem List: (1) Acute ischemic right MCA stroke ICD Code: I63.511 Status: Acute (2) Fall ICD Code: W19.XXXA Status: Acute Assessment and Plan NEURO: Acute ischemic stroke, right M1 occlusion 09/16/16 History of trigeminal neuralgia Anxiety Chronic back pain Status post left corneal implant History of TIA s/p TPA completed 09/15 s/p thrombectomy per Dr. Td Munson with persistent occlusion of R M1 Resume carbamazepine 200 by mouth twice a day, gabapentin 800 by mouth 3 times a day, Klonopin 1 mg by mouth twice a day if able to tolerate by mouth (for h/o anxiety and Trigeminal neuralgia, no h/o sz. MRI stable with petechial hemorrhage, aspirin to be continued per neurology. Holter monitor also ordered patient already has loop recorder. Hypercoagulable panel pending. Physical therapy. Fall precautions. Patient counseled Headache secondary to CVA. Requiring multiple doses of Fioricet, Percocet and morphine. Counseled regarding narcotic use RESP: COPD Tobacco abuse Chest wall trauma status post fall Nasal cannula wean as tolerated. DuoNeb every 6 hours prn. Obtain chest x-ray to evaluate for pneumothorax and rib fractures. Incentive spirometry. Pain management CV: Hyperlipidemia Normal troponin. Previously had elevated troponin likely secondary to CVA status post cardiology evaluation Patient reports a history of hyperlipidemia and has been on Lipitor per patient. Continue 20 mg at bedtime Patient is in sinus rhythm. Continue to monitor on telemetry. GI: GERD Protonix 40 mg daily FEN/RENAL: Patient is voiding. No Moon ID: Monitor for signs and symptoms of infection. HEME: No acute hematologic issues. ENDO: Euglycemic outside hospital. Initiate low-dose insulin sliding scale if needed. Discharge Planning Discharge patient to SNF pending acceptance previous SNF refused to take her back. Patient improved significantly earlier than expected Condition on discharge: Improved Regular Diet as tolerated Ad Jennifer activity no driving Rx written: Lipitor and Fioricet Follow-up with primary care physician in one week Mike Acevedo MD Oct 02, 2016 09:20
[2016-10-02] MEDS: ACETAMIN 325 MG/BUTALBITAL 50 MG/CAFFEINE 40 MG TAB PO PRN ×2 (11:59→21:43)
--- NOTE | 2016-10-02 13:12 | RADRPT ---
EXAM DATE/TIME: 10/02/2016 12:26 [facility] COMPARISON: CHEST SINGLE AP, September 18, 2016, 3:41. INDICATIONS : Chest Pain left lateral side. Pt fell hitting her left side ribs on the side rail of her bed. MEDICAL HISTORY : Stroke. SURGICAL HISTORY : None. ENCOUNTER: Subsequent ACUITY: 2 weeks PAIN SCORE: 0/10 LOCATION: Bilateral chest FINDINGS: A single view of the chest demonstrates the lungs to be symmetrically aerated without evidence of mas s, infiltrate or effusion. The cardiomediastinal contours are unremarkable. Osseous structures are intact. No obvious displaced rib fractures CONCLUSION: 1. No acute cardiopulmonary disease. 2. No significant displaced left-sided rib fractures. Georges Moise MD on October 02, 2016 at 13:08 Board Certified Radiologist. This report was verified electronically.
[2016-10-02 15:45] LABS: ANA SCREEN NEG (NEG)
--- NOTE | 2016-10-02 16:07 | HHI.DS ---
Discharge Summary Admission Date Sep 30, 2016 at 01:34 Discharge Date: Oct 02, 2016 Admitting Diagnosis evolving right basal ganglia stroke/left-sided shift (1) Acute ischemic right MCA stroke ICD Code: I63.511 Diagnosis: Principal (2) Fall ICD Code: W19.XXXA Diagnosis: Principal Procedures none Brief History - From Admission 61-year-old [id number] female with past medical history of COPD, tobacco abuse, chronic back pain, osteoporosis, endometriosis, hyperlipidemia (not on therapy) presents to ED tonight with recurrent falls after recent discharge 7 days ago following ischemic CVA 14 days ago, treated with tPA at OSH, and attempted emergency thrombectomy of M1 segment of right MCA at [facility]. CT Head tonight reveals evolving right basal ganglia infarction with edema producing 2 mm right to left shift. According to the patient, she has been falling out of her wheelchair and falling while trying to get out of bed. It appears that her neurological symptoms have worsened since discharge, She requires admission, MRI evaluation, and probable treatment for cerebral edema. She had her coccyx removed and has persistent lower back pain but states she does not take duromorph regularly. CBC/BMP: 09/29/16 2325 09/29/16 2325 Significant Findings Laboratory Tests Test 09/29/16 09/29/16 09/30/16 09/30/16 17:10 23:25 10:39 10:59 Urine Mucus FEW /lpf (OCC) Red Blood Count 3.87 MIL/MM3 (4.00-5.30) Hemoglobin 10.9 GM/DL (11.6-15.3) Hematocrit 33.1 % (35.0-46.0) Platelet Count 556 TH/MM3 (150-450) Monocytes (%) (Auto) 8.6 % (0.0-8.0) Chloride Level 108 MEQ/L (98-107) Blood Urea Nitrogen 20 MG/DL (7-18) Estimat Glomerular Filtration 60 ML/MIN (>89) Rate Albumin 3.1 GM/DL (3.4-5.0) Troponin I LESS THAN 0.02 NG/ML (0.02-0.05) C-Reactive Protein 0.49 MG/DL (0.00-0.30) Erythrocyte Sedimentation Rate 35 mm/hr (0-30) Imaging Last Impressions Chest X-Ray 10/02/16 0000 Signed Impressions: Service Date/Time: Sunday, October 02, 2016 12:26 - CONCLUSION: 1. No acute cardiopulmonary disease. 2. No significant displaced left-sided rib fractures. Georges Moise MD Head CT 09/29/16 2300 Signed Impressions: Service Date/Time: Thursday, September 29, 2016 23:36 - CONCLUSION: Evolving subacute infarct of the right basal ganglia with mild vertebral edema and about 2 mm of leftward midline shift. No bleed or evidence of new/acute infarct seen. Sina Silverman MD PE at Discharge GENERAL: Well-developed, well-nourished in no distress SKIN: Warm and dry. HEAD: Atraumatic. Normocephalic. EYES: Pupils equal and round. No scleral icterus. No injection or drainage. ENT: No nasal bleeding or discharge. Mucous membranes pink and moist. NECK: Trachea midline. No JVD. CARDIOVASCULAR: Regular rate and rhythm. RESPIRATORY: No accessory muscle use. Clear to auscultation. Breath sounds equal bilaterally. Left chest wall tenderness GASTROINTESTINAL: Abdomen soft, non-tender, nondistended. Hepatic and splenic margins not palpable. MUSCULOSKELETAL: Extremities without clubbing, cyanosis, or edema. No obvious deformities. NEUROLOGICAL: Awake and alert. Subtle left facial droop. Stable left upper extremity weakness. Normal speech. PSYCHIATRIC: Appropriate mood and affect; insight and judgment normal. Hospital Course Acute ischemic stroke, right M1 occlusion 09/16/16 History of trigeminal neuralgia Anxiety Chronic back pain Status post left corneal implant History of TIA s/p TPA completed 09/15 s/p thrombectomy per Dr. Td Munson with persistent occlusion of R M1 Resume carbamazepine 200 by mouth twice a day, gabapentin 800 by mouth 3 times a day, Klonopin 1 mg by mouth twice a day if able to tolerate by mouth (for h/o anxiety and Trigeminal neuralgia, no h/o sz. MRI stable with petechial hemorrhage, aspirin to be continued per neurology. Holter monitor also ordered patient already has loop recorder. Hypercoagulable panel pending. Physical therapy. Fall precautions. Patient counseled Headache secondary to CVA. Requiring multiple doses of Fioricet, Percocet and morphine. Counseled regarding narcotic use RESP: COPD Tobacco abuse Chest wall trauma status post fall Nasal cannula wean as tolerated. DuoNeb every 6 hours prn. Obtain chest x-ray to evaluate for pneumothorax and rib fractures. Incentive spirometry. Pain management CV: Hyperlipidemia Normal troponin. Previously had elevated troponin likely secondary to CVA status post cardiology evaluation Patient reports a history of hyperlipidemia and has been on Lipitor per patient. Continue 20 mg at bedtime Patient is in sinus rhythm. Continue to monitor on telemetry. GI: GERD Protonix 40 mg daily FEN/RENAL: Patient is voiding. No Moon ID: Monitor for signs and symptoms of infection. HEME: No acute hematologic issues. ENDO: Euglycemic outside hospital. Initiate low-dose insulin sliding scale if needed. Pt Condition on Discharge: Stable Discharge Disposition: Discharge to SNF Discharge Instructions DIET: Follow Instructions for: Heart Healthy Diet Activities you can perform: Regular-No Restrictions Activities to Avoid: Driving Mike Acevedo MD Oct 02, 2016 16:07
[2016-10-02] MEDS: NICOTINE 14 MG/24 HR PATCH T-DERMAL SCH (21:00)
[2016-10-02] MEDS: SODIUM CHLORIDE 0.9% FLUSH 10 ML FLUSH IVF PRN (21:44)
[2016-10-02] MEDS: ATORVASTATIN 20 MG TAB PO SCH (21:44)
[2016-10-03] VITALS (9 sets, daily range): BP systolic 92–127; BP diastolic 52–59; PULSE 59–92; RESP 18; TEMP 96.2–98.3; O2SAT 96–100
[2016-10-03] MEDS: SODIUM CHLOR 0.9% 1000 ML INJ 1,000 ML IV SCH ×2 (01:57→01:59)
[2016-10-03] MEDS: CHLORHEXIDINE GLUCONATE 2 % 1 PACK (2 CLOTHS) TOP SCH (03:33)
[2016-10-03] MEDS: PANTOPRAZOLE SOD 40 MG DELAYED RELEASE TAB PO SCH (05:48)
[2016-10-03] MEDS: oxyCODONE/ACETAMINOPHEN 5 MG/325 MG TAB PO PRN ×5 (05:48→23:56)
[2016-10-03] MEDS: ACETAMIN 325 MG/BUTALBITAL 50 MG/CAFFEINE 40 MG TAB PO PRN ×3 (05:49→20:23)
[2016-10-03] MEDS: DULoxetine HCl DR 60 MG CAP PO SCH (08:28)
[2016-10-03] MEDS: clonazePAM 1 MG TAB PO SCH ×3 (08:28→17:02)
[2016-10-03] MEDS: ASPIRIN 325 MG TAB PO SCH (08:28)
[2016-10-03] MEDS: carBAMazepine 200 MG TAB PO SCH ×2 (08:28→20:23)
[2016-10-03] MEDS: DOCUSATE SODIUM 50 MG/SENNA 8.6 MG TAB PO SCH ×2 (08:29→20:24)
--- NOTE | 2016-10-03 15:04 | HHI.PR ---
Subjective Remarks Patient resting in bed, her boyfriend at the bedside She requested to wash her hair Objective Vitals Vital Signs Date Time Temp Pulse Resp B/P Pulse Ox O2 Delivery O2 Flow Rate FiO2 10/03/16 12:20 97.5 92 18 93/59 97 10/03/16 11:53 99 Room Air 10/03/16 11:51 76 10/03/16 09:39 98 21 10/03/16 08:45 76 10/03/16 07:48 97.8 61 18 127/57 97 10/03/16 06:53 18 10/03/16 06:53 18 10/03/16 05:44 98.1 80 18 104/53 100 10/03/16 01:51 96.2 59 18 92/52 96 10/03/16 00:50 59 10/02/16 23:03 18 10/02/16 21:47 63 18 95/50 100 10/02/16 21:05 58 10/02/16 21:05 99 Room Air 10/02/16 20:08 97.2 55 18 92/54 100 10/02/16 20:06 21 10/02/16 16:05 97.9 62 18 111/51 100 I/O 10/02/16 10/02/16 10/02/16 10/03/16 10/03/16 10/03/16 07:00 15:00 23:00 07:00 15:00 23:00 Intake Total 360 ml 103 ml 480 ml Output Total 1 ml Balance 359 ml 103 ml 480 ml Intake Oral 360 ml 480 ml IV Total 103 ml Stool Total 1 ml # Voids 3 3 4 2 # Bowel Movements 0 0 Result Diagram: 09/29/16 2325 09/29/16 2325 Objective Remarks GENERAL: This is a well-nourished, well-developed patient, in no apparent distress. SKIN: No rashes, warm and dry HEAD: Atraumatic. Normocephalic. EYES: Pupils equal round and reactive. Extraocular motions intact. No scleral icterus. ENT: Nose without bleeding, or drainage, Airway patent. NECK: Trachea midline. Supple CARDIOVASCULAR: Regular rate and rhythm without murmurs, gallops, or rubs. RESPIRATORY: Fair air entry bilaterally. No wheezes, rales, or rhonchi. GASTROINTESTINAL: Abdomen soft, non-tender, nondistended. Positive bowel sounds MUSCULOSKELETAL: Extremities without clubbing, cyanosis, or edema. Pedal pulses appreciated NEUROLOGICAL: Awake and alert. Moves all extremity. Normal speech.no focal neurological deficit Procedures none A/P Problem List: (1) Acute ischemic right MCA stroke ICD Code: I63.511 Status: Acute (2) Fall ICD Code: W19.XXXA Status: Acute Assessment and Plan 10/03: Patient requested to wash her hair, awaiting DC to rehabilitation ([facility]) A/P: Acute ischemic stroke, right M1 occlusion 09/16/16 History of trigeminal neuralgia Anxiety Chronic back pain Status post left corneal implant History of TIA s/p TPA completed 09/15 s/p thrombectomy per Dr. Td Munson with persistent occlusion of R M1 Resume carbamazepine 200 by mouth twice a day, gabapentin 800 by mouth 3 times a day, Klonopin 1 mg by mouth twice a day if able to tolerate by mouth (for h/o anxiety and Trigeminal neuralgia, no h/o sz. MRI stable with petechial hemorrhage, aspirin to be continued per neurology. Holter monitor also ordered patient already has loop recorder. Hypercoagulable panel pending. Physical therapy. Fall precautions. Patient counseled Headache secondary to CVA. Requiring multiple doses of Fioricet, Percocet and morphine. Counseled regarding narcotic use COPD Tobacco abuse Chest wall trauma status post fall Nasal cannula wean as tolerated. DuoNeb every 6 hours prn. Obtain chest x-ray to evaluate for pneumothorax and rib fractures. Incentive spirometry. Pain management Hyperlipidemia Normal troponin. Previously had elevated troponin likely secondary to CVA status post cardiology evaluation Patient reports a history of hyperlipidemia and has been on Lipitor per patient. Continue 20 mg at bedtime Patient is in sinus rhythm. Continue to monitor on telemetry. GERD Protonix 40 mg daily Rishi Aguilar MD Oct 03, 2016 15:04
[2016-10-03] MEDS: ATORVASTATIN 20 MG TAB PO SCH (20:23)
[2016-10-03] MEDS: NICOTINE 14 MG/24 HR PATCH T-DERMAL SCH (20:27)
[2016-10-03] MEDS: REMOVE OLD PATCH T-DERMAL SCH (21:00)
[2016-10-04 01:03] VITALS: BP 106/51; PULSE 68; RESP 20; TEMP 98.5; O2SAT 98
[2016-10-04] MEDS: CHLORHEXIDINE GLUCONATE 2 % 1 PACK (2 CLOTHS) TOP SCH (04:00)
[2016-10-04 04:30] VITALS: BP 108/54; PULSE 69; RESP 18; TEMP 98.6; O2SAT 97
[2016-10-04] MEDS: SODIUM CHLOR 0.9% 1000 ML INJ 1,000 ML IV SCH ×2 (05:12→16:56)
[2016-10-04] MEDS: ACETAMIN 325 MG/BUTALBITAL 50 MG/CAFFEINE 40 MG TAB PO PRN ×2 (05:13→21:12)
[2016-10-04] MEDS: oxyCODONE/ACETAMINOPHEN 5 MG/325 MG TAB PO PRN ×4 (05:14→21:12)
[2016-10-04] MEDS: PANTOPRAZOLE SOD 40 MG DELAYED RELEASE TAB PO SCH (05:14)
[2016-10-04] MEDS: carBAMazepine 200 MG TAB PO SCH ×2 (07:52→21:12)
[2016-10-04] MEDS: ASPIRIN 325 MG TAB PO SCH (07:52)
[2016-10-04] MEDS: clonazePAM 1 MG TAB PO SCH ×3 (07:52→16:56)
[2016-10-04] MEDS: DULoxetine HCl DR 60 MG CAP PO SCH (07:52)
[2016-10-04] MEDS: DOCUSATE SODIUM 50 MG/SENNA 8.6 MG TAB PO SCH ×2 (07:52→21:00)
[2016-10-04 08:00] VITALS: BP 111/58; PULSE 63; PULSE 69; RESP 18; TEMP 97.8; O2SAT 97
[2016-10-04 12:01] VITALS: BP 108/88; PULSE 77; RESP 18; TEMP 98.9; O2SAT 96
[2016-10-04] MEDS: MORPHINE SULFATE 15 MG CONTROLLED RELEASE TAB PO PRN (14:46)
--- NOTE | 2016-10-04 15:01 | HHI.PR ---
Subjective Remarks Patient sleeping, woke up to verbal stimuli, but she went right back to sleep she didn't seem she wanted to talk Objective Vitals Vital Signs Date Time Temp Pulse Resp B/P Pulse Ox O2 Delivery O2 Flow Rate FiO2 10/04/16 12:01 98.9 77 18 108/88 96 10/04/16 08:00 69 10/04/16 08:00 69 10/04/16 08:00 97.8 63 18 111/58 97 10/04/16 07:50 18 10/04/16 07:00 Room Air 10/04/16 04:30 98.6 69 18 108/54 97 10/04/16 01:03 98.5 68 20 106/51 98 10/03/16 20:50 98.3 74 18 93/54 98 I/O 10/03/16 10/03/16 10/03/16 10/04/16 10/04/16 10/04/16 07:00 15:00 23:00 07:00 15:00 23:00 Intake Total 103 ml 480 ml 140 ml 800 ml Output Total 300 ml Balance 103 ml 480 ml -160 ml 800 ml Intake Oral 480 ml IV Total 103 ml 140 ml 800 ml Output Urine Total 300 ml # Voids 4 2 4 # Bowel Movements 0 Objective Remarks --GENERAL: This is a well-nourished, well-developed patient, in no apparent distress. SKIN: No rashes, warm and dry HEAD: Atraumatic. Normocephalic. EYES: Pupils equal round and reactive. Extraocular motions intact. No scleral icterus. ENT: Nose without bleeding, or drainage, Airway patent. NECK: Trachea midline. Supple CARDIOVASCULAR: Regular rate and rhythm without murmurs, gallops, or rubs. RESPIRATORY: Fair air entry bilaterally. No wheezes, rales, or rhonchi. GASTROINTESTINAL: Abdomen soft, non-tender, nondistended. Positive bowel sounds MUSCULOSKELETAL: Extremities without clubbing, cyanosis, or edema. Pedal pulses appreciated NEUROLOGICAL: Somnolent , Moves all extremity. Normal speech.no focal neurological deficit Procedures none A/P Problem List: (1) Acute ischemic right MCA stroke ICD Code: I63.511 Status: Acute (2) Fall ICD Code: W19.XXXA Status: Acute Assessment and Plan 10/04: No acute issue, awaiting placement A/P: Acute ischemic stroke, right M1 occlusion 09/16/16 History of trigeminal neuralgia Anxiety Chronic back pain Status post left corneal implant History of TIA s/p TPA completed 09/15 s/p thrombectomy per Dr. Td Munson with persistent occlusion of R M1 Resume carbamazepine 200 by mouth twice a day, gabapentin 800 by mouth 3 times a day, Klonopin 1 mg by mouth twice a day if able to tolerate by mouth (for h/o anxiety and Trigeminal neuralgia, no h/o sz. MRI stable with petechial hemorrhage, aspirin to be continued per neurology. Holter monitor also ordered patient already has loop recorder. Hypercoagulable panel pending. Physical therapy. Fall precautions. Patient counseled Headache secondary to CVA. Requiring multiple doses of Fioricet, Percocet and morphine. Counseled regarding narcotic use COPD Tobacco abuse Chest wall trauma status post fall Nasal cannula wean as tolerated. DuoNeb every 6 hours prn. Obtain chest x-ray to evaluate for pneumothorax and rib fractures. Incentive spirometry. Pain management Hyperlipidemia Normal troponin. Previously had elevated troponin likely secondary to CVA status post cardiology evaluation Patient reports a history of hyperlipidemia and has been on Lipitor per patient. Continue 20 mg at bedtime Patient is in sinus rhythm. Continue to monitor on telemetry. GERD Protonix 40 mg daily Rishi Aguilar MD Oct 04, 2016 15:01
[2016-10-04 16:00] VITALS: BP 108/58; PULSE 62; RESP 18; TEMP 98.4; O2SAT 97
[2016-10-04 20:15] VITALS: BP 104/54; PULSE 70; RESP 20; TEMP 96.4; O2SAT 96
[2016-10-04] MEDS: REMOVE OLD PATCH T-DERMAL SCH (21:00)
[2016-10-04] MEDS: ATORVASTATIN 20 MG TAB PO SCH (21:13)
[2016-10-04] MEDS: NICOTINE 14 MG/24 HR PATCH T-DERMAL SCH (21:14)
[2016-10-05] VITALS (8 sets, daily range): BP systolic 96–130; BP diastolic 51–68; PULSE 58–90; RESP 16–20; TEMP 96.6–98.4; O2SAT 94–95
[2016-10-05] MEDS: oxyCODONE/ACETAMINOPHEN 5 MG/325 MG TAB PO PRN ×5 (02:18→18:52)
[2016-10-05] MEDS: CHLORHEXIDINE GLUCONATE 2 % 1 PACK (2 CLOTHS) TOP SCH ×2 (04:00→23:20)
[2016-10-05] MEDS: ACETAMIN 325 MG/BUTALBITAL 50 MG/CAFFEINE 40 MG TAB PO PRN ×3 (05:58→21:06)
[2016-10-05] MEDS: PANTOPRAZOLE SOD 40 MG DELAYED RELEASE TAB PO SCH (05:58)
[2016-10-05] MEDS: DULoxetine HCl DR 60 MG CAP PO SCH (07:55)
[2016-10-05] MEDS: DOCUSATE SODIUM 50 MG/SENNA 8.6 MG TAB PO SCH ×2 (07:55→21:07)
[2016-10-05] MEDS: carBAMazepine 200 MG TAB PO SCH ×2 (07:55→21:06)
[2016-10-05] MEDS: ASPIRIN 325 MG TAB PO SCH (07:55)
[2016-10-05] MEDS: clonazePAM 1 MG TAB PO SCH ×3 (07:56→18:51)
--- NOTE | 2016-10-05 12:44 | HHI.PR ---
Subjective Remarks Follow-up left lower chest pain. Complains of increased pain worse with movement and inspiration. States she cannot take a deep breath. Vital signs are stable. She is not hypoxic. Denies voiding and stooling issues. Patient was able to roll onto her left side without difficulty. Discussed with RN Objective Vitals Vital Signs Date Time Temp Pulse Resp B/P Pulse Ox O2 Delivery O2 Flow Rate FiO2 10/05/16 12:17 96.6 65 16 118/66 95 10/05/16 12:11 59 10/05/16 08:06 96.6 65 16 111/56 94 10/05/16 08:02 Room Air 10/05/16 04:04 96.7 61 19 112/53 95 10/05/16 01:00 Room Air 10/05/16 00:28 98.4 66 20 96/51 94 10/04/16 20:15 96.4 70 20 104/54 96 10/04/16 16:00 98.4 62 18 108/58 97 I/O 10/04/16 10/04/16 10/04/16 10/05/16 10/05/16 10/05/16 07:00 15:00 23:00 07:00 15:00 23:00 Intake Total 800 ml 360 ml 850 ml Balance 800 ml 360 ml 850 ml Intake Oral 360 ml IV Total 800 ml 850 ml # Voids 4 6 3 # Bowel Movements 1 0 Imaging Last Impressions Chest X-Ray 10/02/16 0000 Signed Impressions: Service Date/Time: Sunday, October 02, 2016 12:26 - CONCLUSION: 1. No acute cardiopulmonary disease. 2. No significant displaced left-sided rib fractures. Georges Moise MD Brain MRI 09/30/16 0800 Signed Impressions: Service Date/Time: Friday, September 30, 2016 12:13 - CONCLUSION: Evolving Stroke centered at the right basal ganglia. This involves the right caudate and has some small areas as periphery in the posterior lateral right frontal lobe including what appears to be a small focal area of hemorrhage only measuring 5 mm likely related to petechial hemorrhage given lack of findings on the recent CT examination. When compared to the prior exam the main portion of the infarct appears somewhat larger but the more peripheral areas appear less prominent suggesting some areas were reperfused. Sina William MD Head CT 09/29/16 2300 Signed Impressions: Service Date/Time: Thursday, September 29, 2016 23:36 - CONCLUSION: Evolving subacute infarct of the right basal ganglia with mild vertebral edema and about 2 mm of leftward midline shift. No bleed or evidence of new/acute infarct seen. Sina Silverman MD Objective Remarks GENERAL: Well-developed, well-nourished in mild distress due to pain SKIN: Warm and dry. HEAD: Atraumatic. Normocephalic. EYES: Pupils equal and round. No scleral icterus. No injection or drainage. ENT: No nasal bleeding or discharge. Mucous membranes pink and moist. NECK: Trachea midline. No JVD. CARDIOVASCULAR: Regular rate and rhythm. RESPIRATORY: No accessory muscle use. Clear to auscultation. Breath sounds equal bilaterally. Left lower chest wall and left upper quadrant tenderness GASTROINTESTINAL: Abdomen soft, left upper quadrant tenderness, nondistended. MUSCULOSKELETAL: Extremities without clubbing, cyanosis, or edema. No obvious deformities. NEUROLOGICAL: Awake and alert. Subtle left facial droop. Stable left upper extremity weakness. Normal speech. PSYCHIATRIC: Appropriate mood and affect; insight and judgment normal. Procedures none A/P Problem List: (1) Acute ischemic right MCA stroke ICD Code: I63.511 Status: Acute (2) Fall ICD Code: W19.XXXA Status: Acute Assessment and Plan NEURO: Acute ischemic stroke, right M1 occlusion 09/16/16 History of trigeminal neuralgia Anxiety Chronic back pain Status post left corneal implant History of TIA s/p TPA completed 09/15 s/p thrombectomy per Dr. Td Munson with persistent occlusion of R M1 Resume carbamazepine 200 by mouth twice a day, gabapentin 800 by mouth 3 times a day, Klonopin 1 mg by mouth twice a day if able to tolerate by mouth (for h/o anxiety and Trigeminal neuralgia, no h/o sz. MRI stable with petechial hemorrhage, aspirin to be continued per neurology. Holter monitor also ordered patient already has loop recorder. Hypercoagulable panel negative. Physical therapy. Fall precautions. Patient counseled Headache secondary to CVA. Requiring multiple doses of Fioricet, Percocet and morphine. Counseled regarding narcotic use RESP: COPD Tobacco abuse Chest wall trauma status post fall. Increasing pain. Patient hypoxic without be Repeat CBC, BMP, ESR and chest x-ray to evaluate for pneumonia and atelectasis. Nasal cannula wean as tolerated. DuoNeb every 6 hours prn. Incentive spirometry. Pain management as above. IV morphine 1. CV: Hyperlipidemia Normal troponin. Previously had elevated troponin likely secondary to CVA status post cardiology evaluation Patient reports a history of hyperlipidemia and has been on Lipitor per patient. Continue 20 mg at bedtime Patient is in sinus rhythm. Continue to monitor on telemetry. GI: GERD Protonix 40 mg daily FEN/RENAL: Patient is voiding. No Moon ID: Monitor for signs and symptoms of infection. HEME: No acute hematologic issues. ENDO: Euglycemic outside hospital. Initiate low-dose insulin sliding scale if needed. Discharge Planning Discharge patient to SNF pending acceptance previous SNF refused to take her back pending chest pain workup Mike Acevedo MD Oct 05, 2016 12:44
[2016-10-05] MEDS ORDERED: MORPHINE SULFATE 4 MG/ML INJ IV PUSH ONE (13:00)
--- NOTE | 2016-10-05 15:32 | RADRPT ---
EXAM DATE/TIME: 10/05/2016 13:38 [facility] COMPARISON: CHEST SINGLE AP, October 02, 2016, 12:26. INDICATIONS : Left sided chest pain. MEDICAL HISTORY : Cerebrovascular disease. Cardiovascular disease Hypertension.COPD Hep C SURGICAL HISTORY : Loop recorder. ENCOUNTER: Subsequent ACUITY: 2 weeks PAIN SCORE: 10/10 LOCATION: Bilateral chest FINDINGS: PA and lateral views of the chest demonstrate the lungs to be symmetrically aerated without evidence of mass, infiltrate or effusion. The cardiomediastinal contours are unremarkable. There are moderate compression deformities of T4 and T5 and more subtle compression deformities of the T6-T8 superior e nd plates. These were reported on prior radiographs of 2009 although comparison is not available. Aga in, no definite displaced rib fractures. CONCLUSION: 1. No acute cardiopulmonary disease. 2. Likely old thoracic compression fractures, as above. Georges Moise MD on October 05, 2016 at 15:22 Board Certified Radiologist. This report was verified electronically.
[2016-10-05 20:33] LABS: AUTOMATED NEUTROPHIL # 5.5 TH/MM3 (1.8-7.7); BASOPHIL # 0.1 TH/MM3 (0-0.2); EOSINOPHIL # 0.6 TH/MM3 (0-0.4); EOSINOPHIL % 6.8 % (0.0-4.0); HEMATOCRIT 31.2 % (35.0-46.0); HEMO FLAGS DIFF FINAL; LYMPH % 27.3 % (9.0-44.0); LYMPHOCYTE # 2.6 TH/MM3 (1.0-4.8); MEAN CELL VOLUME 86.9 FL (80.0-100.0); MEAN CORPUSCULAR HEMOGLOBIN 28.8 PG (27.0-34.0); MEAN CORPUSCULAR HGB CONC 33.1 % (32.0-36.0); MONO % 6.4 % (0.0-8.0); NEUT % 58.5 % (16.0-70.0); PLATELET COUNT 371 TH/MM3 (150-450); RED BLOOD COUNT 3.59 MIL/MM3 (4.00-5.30); RED CELL DISTRIBUTION WIDTH 15.9 % (11.6-17.2); WHITE BLOOD COUNT 9.4 TH/MM3 (4.0-11.0)
[2016-10-05 21:00] LABS: WESTERGREN SEDIMENTATION RATE 17 mm/hr (0-30)
[2016-10-05] MEDS: REMOVE OLD PATCH T-DERMAL SCH (21:00)
[2016-10-05 21:03] LABS: BICARBONATE 25.1 MEQ/L (21.0-32.0); MAGNESIUM 1.9 MG/DL (1.5-2.5); POTASSIUM 3.7 MEQ/L (3.5-5.1)
[2016-10-05] MEDS: HEPARIN SODIUM - SQ 10,000 UNITS/ML VIAL SQ SCH (21:07)
[2016-10-05] MEDS: ATORVASTATIN 20 MG TAB PO SCH (21:07)
[2016-10-05] MEDS: NICOTINE 14 MG/24 HR PATCH T-DERMAL SCH (21:52)
[2016-10-06] VITALS (8 sets, daily range): BP systolic 98–118; BP diastolic 49–59; PULSE 57–79; RESP 18–20; TEMP 96.2–98; O2SAT 94–100
[2016-10-06] MEDS: oxyCODONE/ACETAMINOPHEN 5 MG/325 MG TAB PO PRN ×3 (00:41→11:19)
[2016-10-06] MEDS: PANTOPRAZOLE SOD 40 MG DELAYED RELEASE TAB PO SCH (05:39)
[2016-10-06] MEDS: ASPIRIN 325 MG TAB PO SCH (08:43)
[2016-10-06] MEDS: DULoxetine HCl DR 60 MG CAP PO SCH (08:44)
[2016-10-06] MEDS: clonazePAM 1 MG TAB PO SCH ×3 (08:44→18:40)
[2016-10-06] MEDS: HEPARIN SODIUM - SQ 10,000 UNITS/ML VIAL SQ SCH ×2 (08:44→20:31)
[2016-10-06] MEDS: carBAMazepine 200 MG TAB PO SCH ×2 (08:44→20:32)
[2016-10-06] MEDS: DOCUSATE SODIUM 50 MG/SENNA 8.6 MG TAB PO SCH ×2 (08:44→20:32)
--- NOTE | 2016-10-06 12:08 | HHI.PR ---
Subjective Remarks Follow-up left-sided chest pain. Continues to to have persistent left lower and left upper quadrant pain worse with activity and deep breathing. She is not hypoxic. She is considering having loop recorder removed. States she can tolerate IV Toradol but not ibuprofen. Discussed with RN Objective Vitals Vital Signs Date Time Temp Pulse Resp B/P Pulse Ox O2 Delivery O2 Flow Rate FiO2 10/06/16 10:00 57 10/06/16 08:16 97.0 62 20 107/56 96 10/06/16 05:08 97.7 77 20 104/53 94 10/06/16 01:26 63 103/51 10/06/16 01:23 98.0 79 20 98/49 96 10/05/16 23:11 63 10/05/16 20:00 97.5 58 18 107/56 95 10/05/16 16:00 96.7 90 18 130/68 94 10/05/16 12:17 96.6 65 16 118/66 95 10/05/16 12:11 59 I/O 10/05/16 10/05/16 10/05/16 10/06/16 10/06/16 10/06/16 07:00 15:00 23:00 07:00 15:00 23:00 Intake Total 850 ml 576 ml Balance 850 ml 576 ml Intake Oral 576 ml IV Total 850 ml # Voids 3 1 2 1 1 # Bowel Movements 0 2 1 Result Diagram: 10/05/16 1925 10/05/16 1925 Imaging Last Impressions Chest X-Ray 10/05/16 0000 Signed Impressions: Service Date/Time: Wednesday, October 05, 2016 13:38 - CONCLUSION: 1. No acute cardiopulmonary disease. 2. Likely old thoracic compression fractures, as above. Georges Moise MD Brain MRI 09/30/16 0800 Signed Impressions: Service Date/Time: Friday, September 30, 2016 12:13 - CONCLUSION: Evolving Stroke centered at the right basal ganglia. This involves the right caudate and has some small areas as periphery in the posterior lateral right frontal lobe including what appears to be a small focal area of hemorrhage only measuring 5 mm likely related to petechial hemorrhage given lack of findings on the recent CT examination. When compared to the prior exam the main portion of the infarct appears somewhat larger but the more peripheral areas appear less prominent suggesting some areas were reperfused. Sina William MD Head CT 09/29/16 2300 Signed Impressions: Service Date/Time: Thursday, September 29, 2016 23:36 - CONCLUSION: Evolving subacute infarct of the right basal ganglia with mild vertebral edema and about 2 mm of leftward midline shift. No bleed or evidence of new/acute infarct seen. Sina Silverman MD Objective Remarks GENERAL: Well-developed, well-nourished in mild distress due to pain SKIN: Warm and dry. HEAD: Atraumatic. Normocephalic. EYES: Pupils equal and round. No scleral icterus. No injection or drainage. ENT: No nasal bleeding or discharge. Mucous membranes pink and moist. NECK: Trachea midline. No JVD. CARDIOVASCULAR: Regular rate and rhythm. RESPIRATORY: No accessory muscle use. Clear to auscultation. Breath sounds equal bilaterally. Left lower chest wall and left upper quadrant tenderness GASTROINTESTINAL: Abdomen soft, left upper quadrant tenderness, nondistended. MUSCULOSKELETAL: Extremities without clubbing, cyanosis, or edema. No obvious deformities. NEUROLOGICAL: Awake and alert. Subtle left facial droop. Stable left upper extremity weakness. Normal speech. PSYCHIATRIC: Appropriate mood and affect; insight and judgment normal. Procedures none A/P Problem List: (1) Acute ischemic right MCA stroke ICD Code: I63.511 Status: Acute (2) Fall ICD Code: W19.XXXA Status: Acute Assessment and Plan NEURO: Acute ischemic stroke, right M1 occlusion 09/16/16 History of trigeminal neuralgia Anxiety Chronic back pain Status post left corneal implant History of TIA s/p TPA completed 09/15 s/p thrombectomy per Dr. Td Munson with persistent occlusion of R M1 Resume carbamazepine 200 by mouth twice a day, gabapentin 800 by mouth 3 times a day, Klonopin 1 mg by mouth twice a day if able to tolerate by mouth (for h/o anxiety and Trigeminal neuralgia, no h/o sz. MRI stable with petechial hemorrhage, aspirin to be continued per neurology. Holter monitor unremarkable. Has loop recorder. Hypercoagulable panel negative. Physical therapy. Fall precautions. Patient counseled Headache secondary to CVA. Requiring multiple doses of Fioricet, Percocet and morphine. Counseled regarding narcotic use RESP: COPD Tobacco abuse Chest wall trauma status post fall. Increasing pain. Patient not hypoxic doubt PE Repeat CBC, BMP, ESR and chest x-ray unremarkable. Nasal cannula wean as tolerated. IV ofirmev x 2 days DuoNeb every 6 hours prn. Incentive spirometry. Pain management as above. IV morphine 1. CV: Hyperlipidemia Normal troponin. Previously had elevated troponin likely secondary to CVA status post cardiology evaluation Patient reports a history of hyperlipidemia and has been on Lipitor per patient. Continue 20 mg at bedtime Patient is in sinus rhythm. Continue to monitor on telemetry. GI: GERD Protonix 40 mg daily FEN/RENAL: Patient is voiding. No Moon ID: Monitor for signs and symptoms of infection. HEME: No acute hematologic issues. ENDO: Euglycemic outside hospital. Initiate low-dose insulin sliding scale if needed. Discharge Planning Discharge patient to SNF pending acceptance previous SNF refused to take her back Mike Cole RN, MD Oct 06, 2016 12:08
[2016-10-06] MEDS: ACETAMINOPHEN 1000 MG/100 ML VIAL IV SCH ×2 (13:03→19:33)
[2016-10-06] MEDS: ONDANSETRON HCL 4 MG/2 ML VIAL IV PRN (14:18)
[2016-10-06] MEDS: oxyCODONE/ACETAMINOPHEN 7.5 MG/325 MG TAB PO PRN ×2 (16:29→20:34)
[2016-10-06] MEDS: ATORVASTATIN 20 MG TAB PO SCH (20:31)
[2016-10-06] MEDS: NICOTINE 14 MG/24 HR PATCH T-DERMAL SCH (20:32)
[2016-10-06] MEDS: REMOVE OLD PATCH T-DERMAL SCH (20:32)
[2016-10-07] VITALS (7 sets, daily range): BP systolic 91–121; BP diastolic 50–63; PULSE 50–94; RESP 18–20; TEMP 95.7–97.9; O2SAT 94–97
[2016-10-07] MEDS: ACETAMINOPHEN 1000 MG/100 ML VIAL IV SCH ×7 (01:06→21:49)
[2016-10-07] MEDS: oxyCODONE/ACETAMINOPHEN 7.5 MG/325 MG TAB PO PRN ×5 (01:06→21:42)
[2016-10-07] MEDS: CHLORHEXIDINE GLUCONATE 2 % 1 PACK (2 CLOTHS) TOP SCH ×2 (04:00→21:44)
[2016-10-07] MEDS: PANTOPRAZOLE SOD 40 MG DELAYED RELEASE TAB PO SCH (06:49)
[2016-10-07] MEDS: ASPIRIN 325 MG TAB PO SCH (09:14)
[2016-10-07] MEDS: HEPARIN SODIUM - SQ 10,000 UNITS/ML VIAL SQ SCH ×2 (09:15→21:41)
[2016-10-07] MEDS: carBAMazepine 200 MG TAB PO SCH ×2 (09:15→21:41)
[2016-10-07] MEDS: DOCUSATE SODIUM 50 MG/SENNA 8.6 MG TAB PO SCH ×2 (09:15→21:41)
[2016-10-07] MEDS: clonazePAM 1 MG TAB PO SCH ×3 (09:15→17:00)
[2016-10-07] MEDS: DULoxetine HCl DR 60 MG CAP PO SCH (09:15)
[2016-10-07] MEDS: ACETAMIN 325 MG/BUTALBITAL 50 MG/CAFFEINE 40 MG TAB PO PRN (09:51)
[2016-10-07] MEDS: ONDANSETRON HCL 4 MG/2 ML VIAL IV PRN (10:07)
--- NOTE | 2016-10-07 13:37 | HHI.PR ---
Subjective Remarks Follow-up left-sided chest pain. Continues to to have persistent left lower and left upper quadrant pain worse with activity and deep breathing. Pt also reproted ahving low back pain and weakness of both legs. Reports suboptimal pain control. Reported "walking to the left" when she ambulates. Stated she "feels falguni" to have the use of her right side and "I can walk and eat." Per RN (Rafia) no acute issues noted over night or since start of shift. Objective Vitals Vital Signs Date Time Temp Pulse Resp B/P Pulse Ox O2 Delivery O2 Flow Rate FiO2 10/07/16 12:00 95.7 50 18 107/59 97 10/07/16 11:11 55 10/07/16 08:00 97.9 94 18 109/55 94 10/07/16 04:00 97.0 54 18 121/63 97 10/07/16 01:00 97.2 55 20 106/58 97 10/06/16 20:00 97.1 57 18 106/59 100 10/06/16 16:08 97.6 68 20 107/55 95 I/O 10/06/16 10/06/16 10/06/16 10/07/16 10/07/16 10/07/16 06:59 14:59 22:59 06:59 14:59 22:59 Intake Total 240 ml Balance 240 ml Intake Oral 240 ml # Voids 1 1 1 2 # Bowel Movements 1 Result Diagram: 10/05/16 1925 10/05/16 1925 Imaging Last Impressions Chest X-Ray 10/05/16 0000 Signed Impressions: Service Date/Time: Wednesday, October 05, 2016 13:38 - CONCLUSION: 1. No acute cardiopulmonary disease. 2. Likely old thoracic compression fractures, as above. Georges Moise MD Brain MRI 09/30/16 0800 Signed Impressions: Service Date/Time: Friday, September 30, 2016 12:13 - CONCLUSION: Evolving Stroke centered at the right basal ganglia. This involves the right caudate and has some small areas as periphery in the posterior lateral right frontal lobe including what appears to be a small focal area of hemorrhage only measuring 5 mm likely related to petechial hemorrhage given lack of findings on the recent CT examination. When compared to the prior exam the main portion of the infarct appears somewhat larger but the more peripheral areas appear less prominent suggesting some areas were reperfused. Sina William MD Head CT 09/29/16 2300 Signed Impressions: Service Date/Time: Thursday, September 29, 2016 23:36 - CONCLUSION: Evolving subacute infarct of the right basal ganglia with mild vertebral edema and about 2 mm of leftward midline shift. No bleed or evidence of new/acute infarct seen. Sina Silverman MD Objective Remarks GENERAL: Pt laying a bed at start of visit, yet was observed to walk (with limited assistance) when PT came to see pt. SKIN: Warm and dry. HEAD: Normocephalic. EYES: No scleral icterus. No injection or drainage. NECK: Supple, trachea midline. No lymphadenopathy. CARDIOVASCULAR: Regular rate and rhythm without murmurs, gallops, or rubs. RESPIRATORY: Breath sounds equal bilaterally. No accessory muscle use. GASTROINTESTINAL: Abdomen soft, non-tender, nondistended. MUSCULOSKELETAL: No cyanosis, or edema. Walking with assistance (as noted above) . PSYCHIATRIC: A&Ox3, pleasant and cooperative, frustrations noted in subjective section of report. Procedures none Medications and IVs Current Medications Medications (Trade) Dose Ordered Sig/Cassia Route Start Time Stop Time Status Last Admin (NS Flush) 2 ml UNSCH PRN IVF 09/29/16 23:00 10/02/16 21:44 (Aspirin) 325 mg DAILY PO 09/30/16 09:00 10/07/16 09:14 (TEGretol) 200 mg Q12HR PO 09/30/16 09:00 10/07/16 09:15 (KlonoPIN) 1 mg TID PO 09/30/16 09:00 10/07/16 12:40 (Cymbalta Dr) 60 mg DAILY PO 09/30/16 09:00 10/07/16 09:15 (Habitrol 14 Mg Patch.24 Hr) 1 patch DAILY@2100 T-DERMAL 09/30/16 21:00 10/06/16 20:32 (Protonix) 40 mg DAILY@06 PO 09/30/16 06:00 10/07/16 06:49 (Ita-Colace) 1 tab BID PO 09/30/16 09:00 10/07/16 09:15 Miscellaneous Information 1 HS T-DERMAL 10/01/16 21:00 10/06/16 20:32 (Zofran Inj) 4 mg Q6H PRN IV 09/30/16 02:00 10/07/16 10:07 Miscellaneous Information 1 Q361D XX 09/30/16 02:00 09/30/16 02:00 (Chlorhexidine 2% Cloth) Taper DAILY@04 TOP 09/30/16 04:00 09/26/17 03:59 09/30/16 03:39 (Chlorhexidine 2% Cloth) 3 pack UNSCH PRN TOP 09/30/16 02:00 (Milk Of Magnesia Liq) 30 ml Q12H PRN PO 09/30/16 02:00 (Senokot) 17.2 mg Q12H PRN PO 09/30/16 02:00 (Dulcolax Supp) 10 mg DAILY PRN RECTAL 09/30/16 02:00 (Lactulose Liq) 30 ml DAILY PRN PO 09/30/16 02:00 Morphine Sulfate 15 mg 15 mg Q12H PRN PO 09/30/16 09:00 10/04/16 14:46 (NS Inj) 100 ml @ 0 mls/hr BOLUS IV 09/30/16 11:45 (Lipitor) 20 mg HS PO 09/30/16 21:00 10/06/16 20:31 (Fioricet 325-50-40) 1 tab Q6H PRN PO 10/01/16 11:15 10/07/16 09:51 (Heparin Inj) 5,000 units Q12HR SQ 10/05/16 21:00 10/07/16 09:15 (Percocet 7.5-325 Mg) 1 tab Q4H PRN PO 10/06/16 14:00 10/07/16 12:40 (Ofirmev Inj) 1,000 mg Q6H IV 10/06/16 13:00 10/08/16 12:59 10/07/16 06:50 Urinary Catheter: No Vascular Central Line Catheter: No A/P Problem List: (1) Acute ischemic right MCA stroke ICD Code: I63.511 Status: Acute (2) Fall ICD Code: W19.XXXA Status: Acute Assessment and Plan 61-year-old [id number] female with past medical history of COPD, tobacco abuse, chronic back pain, osteoporosis, endometriosis, hyperlipidemia (not on therapy). NEURO: Acute ischemic stroke, right M1 occlusion 09/16/16 History of trigeminal neuralgia Anxiety Chronic back pain Status post left corneal implant History of TIA s/p TPA completed 09/15 s/p thrombectomy per Dr. Td Munson with persistent occlusion of R M1 Resume carbamazepine 200 by mouth twice a day, gabapentin 800 by mouth 3 times a day, Klonopin 1 mg by mouth twice a day if able to tolerate by mouth (for h/o anxiety and Trigeminal neuralgia, no h/o sz. MRI stable with petechial hemorrhage, aspirin to be continued per neurology. Holter monitor unremarkable. Has loop recorder. Hypercoagulable panel negative. Physical therapy. Fall precautions. Patient counseled Headache secondary to CVA. Requiring multiple doses of Fioricet, Percocet and morphine. RESP: COPD Tobacco abuse Chest wall trauma status post fall. Increasing pain. Patient not hypoxic doubt PE Repeat CBC, BMP, ESR and chest x-ray unremarkable. Nasal cannula wean as tolerated. IV ofirmev x 2 days DuoNeb every 6 hours prn. Incentive spirometry. Pain management as above. IV morphine 1. CV: Hyperlipidemia Normal troponin. Previously had elevated troponin likely secondary to CVA status post cardiology evaluation Patient reports a history of hyperlipidemia and has been on Lipitor per patient. Continue 20 mg at bedtime Patient is in sinus rhythm. Continue to monitor on telemetry. GI: GERD Protonix 40 mg daily FEN/RENAL: Patient is voiding. No Moon ID: Monitor for signs and symptoms of infection. HEME: No acute hematologic issues. ENDO: Euglycemic outside hospital. Initiate low-dose insulin sliding scale if needed. GI Prophylaxis: Protonix DVT prophylaxis: Heparin Discussed with Ptolinda RN ([facility]), and Dr. Acevedo Discharge Planning Discharge patient to SNF pending acceptance previous SNF refused to take her back dw Dipesh Lundberg Jr. Oct 07, 2016 13:37
[2016-10-07] MEDS: REMOVE OLD PATCH T-DERMAL SCH (21:00)
--- NOTE | 2016-10-07 21:09 | RADRPT ---
EXAM DATE/TIME: 10/07/2016 20:33 [facility] COMPARISON: No previous studies available for comparison. INDICATIONS : Left leg pain. MEDICAL HISTORY : Chronic obstructive pulmonary disease. Gastroesophageal reflux disease. Hypercholesterolemia. Cere brovascular accident. Thoracic outlet syndrome. Hernia, hiatal. Kidney stones. Arthritis. Osteoporosi s. Hepatitis C. SURGICAL HISTORY : Appendectomy. Hysterectomy. Coccyx removal. Right carpal tunnel. ENCOUNTER: Initial ACUITY: 1 day PAIN SCORE: 4/10 LOCATION: Left leg. TECHNIQUE: Venous ultrasound of the leg was performed from the inguinal ligament to the proximal calf. Real-pasquale e, color Doppler and spectral tracing, compression and augmentation techniques were used. FINDINGS: There is normal compressibility of the deep venous system from the inguinal region to the proximal ca lf. No echogenic clot is seen in the lumen of the common femoral, femoral, popliteal, and posterior tibial veins. There is a normal response of the venous system to proximal and distal augmentation an d respiration. CONCLUSION: Negative exam with no evidence of deep venous thrombosis. Emmanuel Gracia MD on October 07, 2016 at 21:06 Board Certified Radiologist. This report was verified electronically.
[2016-10-07] MEDS: ATORVASTATIN 20 MG TAB PO SCH (21:41)
[2016-10-07] MEDS: NICOTINE 14 MG/24 HR PATCH T-DERMAL SCH (21:43)
[2016-10-08] VITALS (9 sets, daily range): BP systolic 86–114; BP diastolic 51–66; PULSE 54–81; RESP 18–20; TEMP 96.2–98; O2SAT 92–98
[2016-10-08] MEDS: oxyCODONE/ACETAMINOPHEN 7.5 MG/325 MG TAB PO PRN ×4 (03:23→19:00)
[2016-10-08] MEDS: PANTOPRAZOLE SOD 40 MG DELAYED RELEASE TAB PO SCH (03:23)
[2016-10-08] MEDS: ACETAMIN 325 MG/BUTALBITAL 50 MG/CAFFEINE 40 MG TAB PO PRN ×2 (06:54→13:30)
[2016-10-08] MEDS: ONDANSETRON HCL 4 MG/2 ML VIAL IV PRN (07:36)
[2016-10-08] MEDS: ASPIRIN 325 MG TAB PO SCH (08:02)
[2016-10-08] MEDS: DOCUSATE SODIUM 50 MG/SENNA 8.6 MG TAB PO SCH ×2 (08:02→21:00)
[2016-10-08] MEDS: DULoxetine HCl DR 60 MG CAP PO SCH (08:02)
[2016-10-08] MEDS: carBAMazepine 200 MG TAB PO SCH ×2 (08:02→21:59)
[2016-10-08] MEDS: MORPHINE SULFATE 15 MG CONTROLLED RELEASE TAB PO PRN (08:03)
[2016-10-08] MEDS: clonazePAM 1 MG TAB PO SCH ×3 (08:03→17:57)
[2016-10-08] MEDS: ACETAMINOPHEN 1000 MG/100 ML VIAL IV SCH (08:04)
[2016-10-08] MEDS: HEPARIN SODIUM - SQ 10,000 UNITS/ML VIAL SQ SCH ×2 (08:05→22:12)
[2016-10-08] MEDS: SODIUM CHLORIDE 0.9% FLUSH 10 ML FLUSH IVF PRN ×2 (08:05→22:08)
--- NOTE | 2016-10-08 18:14 | HHI.PR ---
Subjective Remarks Follow-up left-sided chest pain. Continues to to have persistent left lower and left upper quadrant pain worse with activity and deep breathing. Pt also reported having low back pain and weakness of both legs. Reports suboptimal pain control. Reported her "tourniquet" pain experienced last evening was better. Complained of headache and voiced anxiety related to having "another stroke." Pt had brother (Fritz) at beside and he noted pt is "getting better." Per RN (Tricia) no acute issues noted over night or since start of shift. Objective Vitals Vital Signs Date Time Temp Pulse Resp B/P Pulse Ox O2 Delivery O2 Flow Rate FiO2 10/08/16 16:16 97.4 71 18 93/51 94 10/08/16 11:46 98.0 71 18 102/55 93 10/08/16 08:00 96.8 62 18 104/56 94 10/08/16 07:40 62 10/08/16 04:00 97.1 81 18 114/66 98 10/08/16 00:00 97.2 54 18 106/53 92 10/07/16 20:00 70 10/07/16 20:00 97.2 56 18 102/51 95 I/O 10/07/16 10/07/16 10/07/16 10/08/16 10/08/16 10/08/16 07:00 15:00 23:00 07:00 15:00 23:00 Intake Total 580 ml Balance 580 ml Intake Oral 580 ml # Voids 2 3 1 4 5 # Bowel Movements 0 0 Result Diagram: 10/05/16192410/05/161924 Objective Remarks GENERAL: Pt laying a bed a bed, eating breakfast. SKIN: Warm and dry. HEAD: Normocephalic. EYES: No scleral icterus. No injection or drainage. NECK: Supple, trachea midline. No lymphadenopathy. CARDIOVASCULAR: Regular rate and rhythm without murmurs, gallops, or rubs. RESPIRATORY: Breath sounds equal bilaterally. No accessory muscle use. GASTROINTESTINAL: Abdomen soft, non-tender, nondistended. MUSCULOSKELETAL: No cyanosis, or edema. PSYCHIATRIC: A&Ox3, pleasant and cooperative. Speech clear and fluent. Procedures none Medications and IVs Current Medications Medications (Trade) Dose Ordered Sig/Cassia Route Start Time Stop Time Status Last Admin (NS Flush) 2 ml UNSCH PRN IVF 09/29/16 23:00 10/08/16 08:05 (Aspirin) 325 mg DAILY PO 09/30/16 09:00 10/08/16 08:02 (TEGretol) 200 mg Q12HR PO 09/30/16 09:00 10/08/16 08:02 (KlonoPIN) 1 mg TID PO 09/30/16 09:00 10/08/16 17:57 (Cymbalta Dr) 60 mg DAILY PO 09/30/16 09:00 10/08/16 08:02 (Habitrol 14 Mg Patch.24 Hr) 1 patch DAILY@2100 T-DERMAL 09/30/16 21:00 10/07/16 21:43 (Protonix) 40 mg DAILY@06 PO 09/30/16 06:00 10/08/16 03:23 (Ita-Colace) 1 tab BID PO 09/30/16 09:00 10/08/16 08:02 Miscellaneous Information 1 HS T-DERMAL 10/01/16 21:00 10/07/16 21:00 (Zofran Inj) 4 mg Q6H PRN IV 09/30/16 02:00 10/08/16 07:36 Miscellaneous Information 1 Q361D XX 09/30/16 02:00 09/30/16 02:00 (Chlorhexidine 2% Cloth) Taper DAILY@04 TOP 09/30/16 04:00 09/26/17 03:59 09/30/16 03:39 (Chlorhexidine 2% Cloth) 3 pack UNSCH PRN TOP 09/30/16 02:00 (Milk Of Magnesia Liq) 30 ml Q12H PRN PO 09/30/16 02:00 (Senokot) 17.2 mg Q12H PRN PO 09/30/16 02:00 (Dulcolax Supp) 10 mg DAILY PRN RECTAL 09/30/16 02:00 (Lactulose Liq) 30 ml DAILY PRN PO 09/30/16 02:00 Morphine Sulfate 15 mg 15 mg Q12H PRN PO 09/30/16 09:00 10/08/16 08:03 (NS Inj) 100 ml @ 0 mls/hr BOLUS IV 09/30/16 11:45 (Lipitor) 20 mg HS PO 09/30/16 21:00 10/07/16 21:41 (Fioricet 325-50-40) 1 tab Q6H PRN PO 10/01/16 11:15 10/08/16 13:30 (Heparin Inj) 5,000 units Q12HR SQ 10/05/16 21:00 10/08/16 08:05 (Percocet 7.5-325 Mg) 1 tab Q4H PRN PO 10/06/16 14:00 10/08/16 15:14 Urinary Catheter: No A/P Problem List: (1) Acute ischemic right MCA stroke ICD Code: I63.511 Status: Acute (2) Fall ICD Code: W19.XXXA Status: Acute Assessment and Plan 61-year-old [id number] female with past medical history of COPD, tobacco abuse, chronic back pain, osteoporosis, endometriosis, hyperlipidemia (not on therapy). NEURO: Acute ischemic stroke, right M1 occlusion 09/16/16 History of trigeminal neuralgia Anxiety Chronic back pain Status post left corneal implant History of TIA s/p TPA completed 09/15 s/p thrombectomy per Dr. Td Munson with persistent occlusion of R M1 Resume carbamazepine 200 by mouth twice a day, gabapentin 800 by mouth 3 times a day, Klonopin 1 mg by mouth twice a day if able to tolerate by mouth (for h/o anxiety and Trigeminal neuralgia, no h/o sz. MRI stable with petechial hemorrhage, aspirin to be continued per neurology. Holter monitor unremarkable. Has loop recorder. Hypercoagulable panel negative. Physical therapy. Fall precautions. Patient counseled Headache secondary to CVA. Requiring multiple doses of Fioricet, Percocet and morphine. Headache ongoing, Ophthalmology consulted. RESP: COPD Tobacco abuse Chest wall trauma status post fall. Increasing pain. Patient not hypoxic doubt PE Repeat CBC, BMP, ESR and chest x-ray unremarkable. Nasal cannula wean as tolerated. IV ofirmev x 2 days DuoNeb every 6 hours prn. Incentive spirometry. Pain management as above. IV morphine 1. CV: Hyperlipidemia Normal troponin. Previously had elevated troponin likely secondary to CVA status post cardiology evaluation Patient reports a history of hyperlipidemia and has been on Lipitor per patient. Continue 20 mg at bedtime Patient is in sinus rhythm. Continue to monitor on telemetry. GI: GERD Protonix 40 mg daily FEN/RENAL: Patient is voiding. No Moon ID: Monitor for signs and symptoms of infection. HEME: No acute hematologic issues. ENDO: Euglycemic outside hospital. Initiate low-dose insulin sliding scale if needed. GI Prophylaxis: Protonix DVT prophylaxis: Heparin Discussed with Pt, brother, RN (Tricia), and Dr. Acevedo Discharge Planning Discharge patient to SNF pending acceptance previous SNF refused to take her back. Dipesh Guidry Jr. Oct 08, 2016 18:14
--- NOTE | 2016-10-08 18:33 | PD.CONS ---
History of Present Illness Service Ophthalmology Consult Requested By Reason for Consult headaches, pressure Primary Care Physician No Primary Care Physician Diagnoses: History of Present Illness 61 yo WF with past medical history of COPD, tobacco abuse, chronic back pain, osteoporosis, endometriosis, hyperlipidemia presents with recurrent falls after CVA on 09/15/16. CT Head reveals evolving right basal ganglia infarction with edema producing 2 mm right to left shift. She also says she has been having headaches for 2 months and was wondering if it may be related to her eyes. Ocular history significant for corneal transplant of left eye done 2 years ago by of [facility]. She has not seen him in a year due to insurance issues. She is supposed to be using Pred Forte 1% once a day in her left eye. Cataract surgery done in her left eye. She also was scheduled for ptosis repair of her left eyelid by [facility]. Past Family Social History Allergies: Coded Allergies: Nubain (Verified Allergy, Severe, HIVES,HIVES, 04/29/11) Nonsteroidal Anti-Inflammatory Agts (Unverified Adverse Reaction, Severe, N/V, 04/29/11) Physical Exam Vital Signs Vital Signs Date Time Temp Pulse Resp B/P Pulse Ox O2 Delivery O2 Flow Rate FiO2 10/08/16 16:16 97.4 71 18 93/51 94 10/08/16 11:46 98.0 71 18 102/55 93 10/08/16 08:00 96.8 62 18 104/56 94 10/08/16 07:40 62 10/08/16 04:00 97.1 81 18 114/66 98 10/08/16 00:00 97.2 54 18 106/53 92 10/07/16 20:00 70 10/07/16 20:00 97.2 56 18 102/51 95 Physical Exam Va cc at near OD 20/70, OS 20/40 EOM full OU, no diplopia CVF full OU Pupils 2-1 no APD OU IOP 15, 20 Anterior exam OD - normal eyelid, C/S W&Q, K clear, AC deep, pupil round, lens clear OS - ptosis, C/S W&Q, K transplant, AC deep, pupil round, PCIOL Result Diagram: 10/05/16192410/05/161924 Assessment and Plan Problem List: (1) History of corneal transplant Status: Acute Plan: I do not think this is the cause of her headaches. Her vision is good in her left eye, the pressure is normal, and there is no sign of infection or rejection. She does need to follow up with a Cornea specialist on an outpatient basis and an Oculoplastic surgeon to repair her ptosis. Nilsa Norris MD Oct 08, 2016 18:33
[2016-10-08] MEDS: REMOVE OLD PATCH T-DERMAL SCH (21:00)
[2016-10-08] MEDS: ATORVASTATIN 20 MG TAB PO SCH (21:59)
[2016-10-08] MEDS: NICOTINE 14 MG/24 HR PATCH T-DERMAL SCH (22:09)
[2016-10-09] VITALS (10 sets, daily range): BP systolic 82–123; BP diastolic 48–68; PULSE 55–99; RESP 17–19; TEMP 96.5–98; O2SAT 94–98
[2016-10-09] MEDS ORDERED: SODIUM CHLORID 0.9% 500 ML INJ 500 ML IV ONE
[2016-10-09] MEDS: SODIUM CHLOR 0.9% 1000 ML INJ 1,000 ML IV SCH ×3 (00:24→19:38)
--- NOTE | 2016-10-09 01:01 | RADRPT ---
EXAM DATE/TIME: 10/09/2016 00:07 [facility] COMPARISON: CT BRAIN W/O CONTRAST, September 29, 2016, 23:36. INDICATIONS : Trauma, patient fell and hit right side of head. RADIATION DOSE: 29.31 CTDIvol (mGy) MEDICAL HISTORY : Cerebrovascular disease. Stroke SURGICAL HISTORY : Hysterectomy. ENCOUNTER: Initial ACUITY: 1 day PAIN SCALE: 6/10 LOCATION: Right cranial TECHNIQUE: Multiple contiguous axial images were obtained of the head. Using automated exposure control and adj ustment of the mA and/or kV according to patient size, radiation dose was kept as low as reasonably a chievable to obtain optimal diagnostic quality images. DICOM format image data is available electro nically for review and comparison. FINDINGS: Previously seen area of subacute infarction in the right basal ganglia is evolving to an area of encephalomalacia at this time. There is no hemorrhage or mass effect. The rest of the examination kemp s not significantly changed. CONCLUSION: Evolving right basal ganglia infarction into encephalomalacia. There is no evidence of any significan t hemorrhage or mass effect. Hannah Pradhan MD on October 09, 2016 at 0:57 Board Certified Radiologist. This report was verified electronically.
[2016-10-09] MEDS: CHLORHEXIDINE GLUCONATE 2 % 1 PACK (2 CLOTHS) TOP SCH (04:00)
[2016-10-09] MEDS: PANTOPRAZOLE SOD 40 MG DELAYED RELEASE TAB PO SCH (06:29)
[2016-10-09] MEDS: MORPHINE SULFATE 15 MG CONTROLLED RELEASE TAB PO PRN ×2 (06:30→19:37)
[2016-10-09] MEDS: carBAMazepine 200 MG TAB PO SCH ×2 (08:07→19:36)
[2016-10-09] MEDS: ASPIRIN 325 MG TAB PO SCH (08:07)
[2016-10-09] MEDS: DULoxetine HCl DR 60 MG CAP PO SCH (08:07)
[2016-10-09] MEDS: clonazePAM 1 MG TAB PO SCH ×3 (08:07→18:45)
[2016-10-09] MEDS: prednisoLONE ACETATE 1% OPHT SUSP 5 ML BTL LEFT EYE SCH (08:08)
[2016-10-09] MEDS: DOCUSATE SODIUM 50 MG/SENNA 8.6 MG TAB PO SCH ×2 (08:08→19:36)
[2016-10-09] MEDS: oxyCODONE/ACETAMINOPHEN 7.5 MG/325 MG TAB PO PRN ×3 (08:08→19:36)
[2016-10-09] MEDS: HEPARIN SODIUM - SQ 10,000 UNITS/ML VIAL SQ SCH ×2 (08:08→19:37)
[2016-10-09] MEDS: ACETAMIN 325 MG/BUTALBITAL 50 MG/CAFFEINE 40 MG TAB PO PRN (10:36)
--- NOTE | 2016-10-09 16:05 | HHI.PR ---
Subjective Remarks Follow-up left-sided chest pain. Continues to to have persistent left lower and left upper quadrant pain worse with activity and deep breathing. Pt noted having experienced two falls last evening: one from bed "I thought I was home and got up and fell" and the other was while she was reported to be seated on the bedside commode and fell and struck her head while an attendant was present. Pt is also reporting left shoulder pain as well as head pain and rib pain. Pt stated she underwent CT examination last evening. Pt has reported her daughter in law is a ASSISTANT HVAC MECHANIC and is moving to [place] to care for her. Pt is requesting discharge to her care and will attend outpt rehabilitation. Per RN (Tricia) no acute issues noted over night or since start of shift. Objective Vitals Vital Signs Date Time Temp Pulse Resp B/P Pulse Ox O2 Delivery O2 Flow Rate FiO2 10/09/16 12:00 68 17 112/63 96 10/09/16 08:00 58 19 123/63 98 10/09/16 07:41 60 10/09/16 05:13 96.9 66 18 95/52 96 10/09/16 01:20 59 18 99/55 94 10/09/16 00:20 98.0 55 18 98/68 94 10/08/16 23:20 96.2 61 18 86/56 94 10/08/16 20:05 65 10/08/16 20:00 97.8 55 20 90/56 94 10/08/16 16:16 97.4 71 18 93/51 94 I/O 10/08/16 10/08/16 10/08/16 10/09/16 10/09/16 10/09/16 07:00 15:00 23:00 07:00 15:00 23:00 Intake Total 876 ml 229 ml Balance 876 ml 229 ml IV Total 876 ml 229 ml # Voids 4 6 2 1 # Bowel Movements 0 0 Result Diagram: 10/05/16192410/05/161924 Imaging Last Impressions Head CT 10/08/16 0000 Signed Impressions: Service Date/Time: Sunday, October 09, 2016 00:07 - CONCLUSION: Evolving right basal ganglia infarction into encephalomalacia. There is no evidence of any significant hemorrhage or mass effect. Hannah Pradhan MD Lower Extremity Ultrasound 6/28/17 1946 Signed Impressions: Service Date/Time: Friday, October 07, 2016 20:33 - CONCLUSION: Negative exam with no evidence of deep venous thrombosis. Emmanuel Gracia MD Chest X-Ray 10/05/16 0000 Signed Impressions: Service Date/Time: Wednesday, October 05, 2016 13:38 - CONCLUSION: 1. No acute cardiopulmonary disease. 2. Likely old thoracic compression fractures, as above. Georges Moise MD Brain MRI 09/30/16 0800 Signed Impressions: Service Date/Time: Friday, September 30, 2016 12:13 - CONCLUSION: Evolving Stroke centered at the right basal ganglia. This involves the right caudate and has some small areas as periphery in the posterior lateral right frontal lobe including what appears to be a small focal area of hemorrhage only measuring 5 mm likely related to petechial hemorrhage given lack of findings on the recent CT examination. When compared to the prior exam the main portion of the infarct appears somewhat larger but the more peripheral areas appear less prominent suggesting some areas were reperfused. Sina William MD Objective Remarks GENERAL: Pt sitting up in chair at bedside a bed. SKIN: Warm and dry. HEAD: Normocephalic. EYES: No scleral icterus. No injection or drainage. NECK: Supple, trachea midline. No lymphadenopathy. CARDIOVASCULAR: Regular rate and rhythm without murmurs, gallops, or rubs. RESPIRATORY: Breath sounds equal bilaterally. No accessory muscle use. GASTROINTESTINAL: Abdomen soft, non-tender, nondistended. MUSCULOSKELETAL: No cyanosis, or edema. 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 PSYCHIATRIC: A&Ox3, pleasant and cooperative. Speech clear and fluent. Procedures none Medications and IVs Current Medications Medications (Trade) Dose Ordered Sig/Cassia Route Start Time Stop Time Status Last Admin (NS Flush) 2 ml UNSCH PRN IVF 09/29/16 23:00 10/08/16 22:08 (Aspirin) 325 mg DAILY PO 09/30/16 09:00 10/09/16 08:07 (TEGretol) 200 mg Q12HR PO 09/30/16 09:00 10/09/16 08:07 (KlonoPIN) 1 mg TID PO 09/30/16 09:00 10/09/16 13:40 (Cymbalta Dr) 60 mg DAILY PO 09/30/16 09:00 10/09/16 08:07 (Habitrol 14 Mg Patch.24 Hr) 1 patch DAILY@2100 T-DERMAL 09/30/16 21:00 10/08/16 22:09 (Protonix) 40 mg DAILY@06 PO 09/30/16 06:00 10/09/16 06:29 (Ita-Colace) 1 tab BID PO 09/30/16 09:00 10/09/16 08:08 Miscellaneous Information 1 HS T-DERMAL 10/01/16 21:00 10/08/16 21:00 (Zofran Inj) 4 mg Q6H PRN IV 09/30/16 02:00 10/08/16 07:36 Miscellaneous Information 1 Q361D XX 09/30/16 02:00 09/30/16 02:00 (Chlorhexidine 2% Cloth) Taper DAILY@04 TOP 09/30/16 04:00 09/26/17 03:59 09/30/16 03:39 (Chlorhexidine 2% Cloth) 3 pack UNSCH PRN TOP 09/30/16 02:00 (Milk Of Magnesia Liq) 30 ml Q12H PRN PO 09/30/16 02:00 (Senokot) 17.2 mg Q12H PRN PO 09/30/16 02:00 (Dulcolax Supp) 10 mg DAILY PRN RECTAL 09/30/16 02:00 (Lactulose Liq) 30 ml DAILY PRN PO 09/30/16 02:00 Morphine Sulfate 15 mg 15 mg Q12H PRN PO 09/30/16 09:00 10/09/16 06:30 (NS Inj) 100 ml @ 0 mls/hr BOLUS IV 09/30/16 11:45 (Lipitor) 20 mg HS PO 09/30/16 21:00 10/08/16 21:59 (Fioricet 325-50-40) 1 tab Q6H PRN PO 10/01/16 11:15 10/09/16 10:36 (Heparin Inj) 5,000 units Q12HR SQ 10/05/16 21:00 10/09/16 08:08 (Percocet 7.5-325 Mg) 1 tab Q4H PRN PO 10/06/16 14:00 10/09/16 13:40 Prednisolone Acetate 1 drop 1 drop DAILY LEFT EYE 10/09/16 09:00 10/09/16 08:08 (NS 1000 ml Inj) 1,000 ml @ 100 mls/hr Q10H IV 10/09/16 00:00 10/09/16 06:29 Urinary Catheter: No A/P Problem List: (1) Acute ischemic right MCA stroke ICD Code: I63.511 Status: Acute (2) Fall ICD Code: W19.XXXA Status: Acute Assessment and Plan 61-year-old [id number] female with past medical history of COPD, tobacco abuse, chronic back pain, osteoporosis, endometriosis, hyperlipidemia (not on therapy). NEURO: Acute ischemic stroke, right M1 occlusion 09/16/16 History of trigeminal neuralgia Anxiety Chronic back pain Status post left corneal implant History of TIA s/p TPA completed 09/15 s/p thrombectomy per Dr. Td Munson with persistent occlusion of R M1 Resume carbamazepine 200 by mouth twice a day, gabapentin 800 by mouth 3 times a day, Klonopin 1 mg by mouth twice a day if able to tolerate by mouth (for h/o anxiety and Trigeminal neuralgia, no h/o sz. MRI stable with petechial hemorrhage, aspirin to be continued per neurology. Holter monitor unremarkable. Has loop recorder. Hypercoagulable panel negative. Physical therapy. Fall precautions. Patient counseled Headache secondary to CVA. Requiring multiple doses of Fioricet, Percocet and morphine. Headache ongoing, Ophthalmology consulted and they felt headaches are not related to ophthalmologic issues. Pt had two falls within past [address] negative for acute changes. Shoulder xrays ordered. Per Nursing bed alarm is being used. Pt stated if she is restrained she will leave AMA. RESP: COPD Tobacco abuse Chest wall trauma status post fall. Increasing pain. Patient not hypoxic doubt PE Repeat CBC, BMP, ESR and chest x-ray unremarkable. Nasal cannula wean as tolerated. IV ofirmev x 2 days DuoNeb every 6 hours prn. Incentive spirometry. Pain management as above. IV morphine 1. CV: Hyperlipidemia Normal troponin. Previously had elevated troponin likely secondary to CVA status post cardiology evaluation Patient reports a history of hyperlipidemia and has been on Lipitor per patient. Continue 20 mg at bedtime Patient is in sinus rhythm. Continue to monitor on telemetry. GI: GERD Protonix 40 mg daily FEN/RENAL: Patient is voiding. No Moon ID: Monitor for signs and symptoms of infection. HEME: No acute hematologic issues. ENDO: Euglycemic outside hospital. Initiate low-dose insulin sliding scale if needed. GI Prophylaxis: Protonix DVT prophylaxis: Heparin Discussed with Pt, RN (Tricia), and Dr. Acevedo Discharge Planning Discharge patient to SNF pending acceptance previous SNF refused to take her back. As noted in subjective, pt states family member is moving to [place] to care for her. Awaiting that individual to come to hospital and CM is to discuss this possibility with her. Dipesh Guidry Jr. ISSA Oct 09, 2016 16:05
--- NOTE | 2016-10-09 17:19 | RADRPT ---
EXAM DATE/TIME: 10/09/2016 16:54 [facility] COMPARISON: No previous studies available for comparison. INDICATIONS : Left shoulder pain post fall last night MEDICAL HISTORY : None. SURGICAL HISTORY : None. ENCOUNTER: Initial ACUITY: 1 day PAIN SCORE: 7/10 LOCATION: Right entire shoulder FINDINGS: There is in nondisplaced fracture of the tip of the acromion. Clavicle glenoid and humerus are intac t. CONCLUSION: Nondisplaced fracture tip of the acromion. Benoit Smith MD FACR on October 09, 2016 at 17:08 Board Certified Radiologist. This report was verified electronically.
[2016-10-09] MEDS: ATORVASTATIN 20 MG TAB PO SCH (19:36)
[2016-10-09] MEDS: NICOTINE 14 MG/24 HR PATCH T-DERMAL SCH (19:37)
[2016-10-09] MEDS: REMOVE OLD PATCH T-DERMAL SCH (19:38)
[2016-10-10] VITALS (7 sets, daily range): BP systolic 84–119; BP diastolic 50–58; PULSE 60–74; RESP 16–18; TEMP 96.1–98.1; O2SAT 94–100
[2016-10-10] MEDS: CHLORHEXIDINE GLUCONATE 2 % 1 PACK (2 CLOTHS) TOP SCH (04:00)
[2016-10-10] MEDS: oxyCODONE/ACETAMINOPHEN 7.5 MG/325 MG TAB PO PRN ×5 (04:06→22:24)
[2016-10-10] MEDS: PANTOPRAZOLE SOD 40 MG DELAYED RELEASE TAB PO SCH (04:57)
[2016-10-10] MEDS: SODIUM CHLOR 0.9% 1000 ML INJ 1,000 ML IV SCH ×2 (06:00→22:21)
[2016-10-10] MEDS: ASPIRIN 325 MG TAB PO SCH (08:02)
[2016-10-10] MEDS: DULoxetine HCl DR 60 MG CAP PO SCH (08:02)
[2016-10-10] MEDS: DOCUSATE SODIUM 50 MG/SENNA 8.6 MG TAB PO SCH ×2 (08:02→21:00)
[2016-10-10] MEDS: clonazePAM 1 MG TAB PO SCH ×3 (08:02→17:37)
[2016-10-10] MEDS: HEPARIN SODIUM - SQ 10,000 UNITS/ML VIAL SQ SCH ×2 (08:03→22:22)
[2016-10-10] MEDS: carBAMazepine 200 MG TAB PO SCH ×2 (08:14→22:22)
[2016-10-10] MEDS: prednisoLONE ACETATE 1% OPHT SUSP 5 ML BTL LEFT EYE SCH (08:16)
--- NOTE | 2016-10-10 15:07 | PD.ORT.PN ---
Subjective Subjective Remarks c/o left anterior rib and left shoulder pain Objective Vitals Vital Signs Date Time Temp Pulse Resp B/P Pulse Ox O2 Delivery O2 Flow Rate FiO2 10/10/16 12:13 96.9 65 18 119/56 97 10/10/16 07:42 96.1 60 18 107/58 94 10/10/16 04:20 97.7 74 16 114/58 94 10/10/16 00:10 98.0 62 17 84/50 97 10/09/16 20:11 99 10/09/16 20:00 97.6 56 17 116/54 96 10/09/16 18:44 98/48 10/09/16 16:00 96.5 65 18 82/56 97 I/O 10/09/16 10/09/16 10/09/16 10/10/16 10/10/16 10/10/16 07:00 15:00 23:00 07:00 15:00 23:00 Intake Total 876 ml 829 ml 326 ml 614 ml 480 ml Balance 876 ml 829 ml 326 ml 614 ml 480 ml Intake Oral 600 ml 120 ml 480 ml IV Total 876 ml 229 ml 326 ml 494 ml # Voids 2 10 3 4 # Bowel Movements 0 1 2 Imaging Last 24 hours Impressions Shoulder X-Ray 10/09/16 1608 Signed Impressions: Service Date/Time: Sunday, October 09, 2016 16:54 - CONCLUSION: Nondisplaced fracture tip of the acromion. Benoit Smith MD FACR Objective Remarks Left shoulder tender along lateral margin of acromion process Skin intact Pulses intact sensory intact No active motor left upper extremity C/w CVA Assessment & Plan Problem List: (1) Fracture of acromial process of left scapula Assessment and Plan The left acromion process fracture is non-displaced. Recommend sling immobilization. Ok to remove sling for range of motion exercises of hand and elbow. Monitor Yvan Booth MD Oct 10, 2016 15:07
--- NOTE | 2016-10-10 15:50 | MB ---
cc: RACHEL ROMERO M.D. DATE OF CONSULTATION: 10/10/2016 REASON FOR CONSULTATION Requested to evaluate left shoulder acromion process fracture. HISTORY OF PRESENT ILLNESS Marcie Munson is a 61-year-old female who was admitted to the hospital on 09/30 with acute CVA. She had hemiparesis and no significant use of the left upper extremity and she has had a tendency to lean to the left side. In the hospital two days ago, she went to rise and fell to the left and struck her ribs against the rail of the bed and the lateral aspect of the shoulder had blunt trauma. Workup yesterday with a head CT and a shoulder x-ray revealed a nondisplaced fracture of her left acromion and consultation was requested with the undersigned. The head CT showed no new injury and evolving right basal ganglion infarction into encephalomalacia. PAST MEDICAL HISTORY Significant for - 1. TIA in the past. 2. Hepatitis C. 3. Trigeminal neuralgia. 4. Kidney stones. 5. Pneumonia. 6. Thoracic outlet syndrome. 7. History of depression. 8. Anxiety disorder. 9. Gastroesophageal disease. 10. Chronic obstructive pulmonary disease. 11. Osteoporosis. 12. Chronic low back pain. 13. Endometriosis. 14. Hyperlipidemia. PAST SURGICAL HISTORY Significant for - 1. Appendectomy. 2. Bilateral breast surgery. 3. Coccyx resection. 4. Hysterectomy. 5. Cataract eye surgery. 6. Corneal transplant. 7. Dental extraction. MEDICATIONS She is on a long list of medications which is reviewed and maintained in the chart. ALLERGIES SHE REPORTS ANTI-INFLAMMATORY MEDICATION AND NUBAIN ALLERGIES. SOCIAL HISTORY She denies alcohol, tobacco and drug use. She lives with her fiance and his parents. PHYSICAL EXAMINATION The patient is alert, oriented, appropriate. She has no active movement of her left upper extremity. She has some mild facial asymmetry. She has tenderness to palpation on the lateral border of her left shoulder. Posterior scapular region nontender. Clavicle nontender. Proximal humerus nontender. Elbow and wrist nontender. She has no active motor function in the left upper extremity. Sensation is intact. Pulses are intact. She does have some involuntary contraction of the muscles periodically. She has tenderness to palpation about the anterior axillary line of her rib cage inferior costochondral junction. IMAGING X-rays were reviewed. The left shoulder showed a nondisplaced acromion process fracture. ASSESSMENT 1. Nondisplaced left acromion process fracture. 2. Left ribs contusion, possible nondisplaced rib. MEDICAL DECISION-MAKING Her condition was discussed. The options of treatment were discussed. The recommendation is conservative care with a sling, a sling as ordered. She is okay to come out of the sling to work on elbow and wrist range of motion for therapy. It should go on to heal over the course of time. I will periodically check on her during her hospitalization. All of her questions were answered. MD ROHIT Post/GREY /3:14 PM /3:29 PM
--- NOTE | 2016-10-10 17:55 | HHI.PR ---
Subjective Remarks Follow-up left-sided chest pain. Continues to to have persistent left lower and left upper quadrant pain worse with activity and deep breathing. Pt noted having experienced two falls within the past 24 hours. Pt is also reporting left shoulder pain as well as rib pain. Per RN Awais) no acute issues noted (except the above referenced falls) over night or since start of shift. Objective Vitals Vital Signs Date Time Temp Pulse Resp B/P Pulse Ox O2 Delivery O2 Flow Rate FiO2 10/10/16 16:05 96.8 69 18 92/53 96 10/10/16 12:13 96.9 65 18 119/56 97 10/10/16 07:42 96.1 60 18 107/58 94 10/10/16 04:20 97.7 74 16 114/58 94 10/10/16 00:10 98.0 62 17 84/50 97 10/09/16 20:11 99 10/09/16 20:00 97.6 56 17 116/54 96 10/09/16 18:44 98/48 I/O 10/09/16 10/09/16 10/09/16 10/10/16 10/10/16 10/10/16 07:00 15:00 23:00 07:00 15:00 23:00 Intake Total 876 ml 829 ml 326 ml 614 ml 480 ml Balance 876 ml 829 ml 326 ml 614 ml 480 ml Intake Oral 600 ml 120 ml 480 ml IV Total 876 ml 229 ml 326 ml 494 ml # Voids 2 10 3 4 # Bowel Movements 0 1 2 Imaging Last Impressions Shoulder X-Ray 10/09/16 1608 Signed Impressions: Service Date/Time: Sunday, October 09, 2016 16:54 - CONCLUSION: Nondisplaced fracture tip of the acromion. Benoit Smith MD FACR Head CT 10/08/16 0000 Signed Impressions: Service Date/Time: Sunday, October 09, 2016 00:07 - CONCLUSION: Evolving right basal ganglia infarction into encephalomalacia. There is no evidence of any significant hemorrhage or mass effect. Hannah Pradhan MD Lower Extremity Ultrasound 10/07/16 1946 Signed Impressions: Service Date/Time: Friday, October 07, 2016 20:33 - CONCLUSION: Negative exam with no evidence of deep venous thrombosis. Emmanuel Gracia MD Chest X-Ray 10/05/16 0000 Signed Impressions: Service Date/Time: Wednesday, October 05, 2016 13:38 - CONCLUSION: 1. No acute cardiopulmonary disease. 2. Likely old thoracic compression fractures, as above. Georges Moise MD Brain MRI 09/30/16 0800 Signed Impressions: Service Date/Time: Friday, September 30, 2016 12:13 - CONCLUSION: Evolving Stroke centered at the right basal ganglia. This involves the right caudate and has some small areas as periphery in the posterior lateral right frontal lobe including what appears to be a small focal area of hemorrhage only measuring 5 mm likely related to petechial hemorrhage given lack of findings on the recent CT examination. When compared to the prior exam the main portion of the infarct appears somewhat larger but the more peripheral areas appear less prominent suggesting some areas were reperfused. Sina William MD Objective Remarks GENERAL: Pt sitting up in chair at bedside a bed. SKIN: Warm and dry. HEAD: Normocephalic. EYES: No scleral icterus. No injection or drainage. NECK: Supple, trachea midline. No lymphadenopathy. CARDIOVASCULAR: Regular rate and rhythm without murmurs, gallops, or rubs. RESPIRATORY: Breath sounds equal bilaterally. No accessory muscle use. GASTROINTESTINAL: Abdomen soft, non-tender, nondistended. MUSCULOSKELETAL: No cyanosis, or edema. 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 PSYCHIATRIC: A&Ox3, pleasant and cooperative. Speech clear and fluent. Procedures none Medications and IVs Current Medications Medications (Trade) Dose Ordered Sig/Cassia Route Start Time Stop Time Status Last Admin (NS Flush) 2 ml UNSCH PRN IVF 09/29/16 23:00 10/08/16 22:08 (Aspirin) 325 mg DAILY PO 09/30/16 09:00 10/10/16 08:02 (TEGretol) 200 mg Q12HR PO 09/30/16 09:00 10/10/16 08:14 (KlonoPIN) 1 mg TID PO 09/30/16 09:00 10/10/16 17:37 (Cymbalta Dr) 60 mg DAILY PO 09/30/16 09:00 10/10/16 08:02 (Habitrol 14 Mg Patch.24 Hr) 1 patch DAILY@2100 T-DERMAL 09/30/16 21:00 10/09/16 19:37 (Protonix) 40 mg DAILY@06 PO 09/30/16 06:00 10/10/16 04:57 (Ita-Colace) 1 tab BID PO 09/30/16 09:00 10/10/16 08:02 Miscellaneous Information 1 HS T-DERMAL 10/01/16 21:00 10/09/16 19:38 (Zofran Inj) 4 mg Q6H PRN IV 09/30/16 02:00 10/08/16 07:36 Miscellaneous Information 1 Q361D XX 09/30/16 02:00 09/30/16 02:00 (Chlorhexidine 2% Cloth) Taper DAILY@04 TOP 09/30/16 04:00 09/26/17 03:59 09/30/16 03:39 (Chlorhexidine 2% Cloth) 3 pack UNSCH PRN TOP 09/30/16 02:00 (Milk Of Magnesia Liq) 30 ml Q12H PRN PO 09/30/16 02:00 (Senokot) 17.2 mg Q12H PRN PO 09/30/16 02:00 (Dulcolax Supp) 10 mg DAILY PRN RECTAL 09/30/16 02:00 (Lactulose Liq) 30 ml DAILY PRN PO 09/30/16 02:00 Morphine Sulfate 15 mg 15 mg Q12H PRN PO 09/30/16 09:00 10/09/16 19:37 (NS Inj) 100 ml @ 0 mls/hr BOLUS IV 09/30/16 11:45 (Lipitor) 20 mg HS PO 09/30/16 21:00 10/09/16 19:36 (Fioricet 325-50-40) 1 tab Q6H PRN PO 10/01/16 11:15 10/09/16 10:36 (Heparin Inj) 5,000 units Q12HR SQ 10/05/16 21:00 10/10/16 08:03 (Percocet 7.5-325 Mg) 1 tab Q4H PRN PO 10/06/16 14:00 10/10/16 17:36 Prednisolone Acetate 1 drop 1 drop DAILY LEFT EYE 10/09/16 09:00 10/10/16 08:16 (NS 1000 ml Inj) 1,000 ml @ 100 mls/hr Q10H IV 10/09/16 00:00 10/10/16 06:00 A/P Problem List: (1) Acute ischemic right MCA stroke ICD Code: I63.511 Status: Acute (2) Fall ICD Code: W19.XXXA Status: Acute Assessment and Plan 61-year-old [id number] female with past medical history of COPD, tobacco abuse, chronic back pain, osteoporosis, endometriosis, hyperlipidemia (not on therapy). NEURO: Acute ischemic stroke, right M1 occlusion 09/16/16 History of trigeminal neuralgia Anxiety Chronic back pain Status post left corneal implant History of TIA s/p TPA completed 09/15 s/p thrombectomy per Dr. Td Munson with persistent occlusion of R M1 Resume carbamazepine 200 by mouth twice a day, gabapentin 800 by mouth 3 times a day, Klonopin 1 mg by mouth twice a day if able to tolerate by mouth (for h/o anxiety and Trigeminal neuralgia, no h/o sz. MRI stable with petechial hemorrhage, aspirin to be continued per neurology. Holter monitor unremarkable. Has loop recorder. Hypercoagulable panel negative. Physical therapy. Fall precautions. Patient counseled Headache secondary to CVA. Requiring multiple doses of Fioricet, Percocet and morphine. Headache ongoing, Ophthalmology consulted and they felt headaches are not related to ophthalmologic issues. Pt had two falls within past [address] negative for acute changes. Shoulder xrays ordered. Per Nursing bed alarm is being used. Pt stated if she is restrained she will leave AMA. Nondisplaced fracture of Right acromion -Orthopedics consulted. -Recommendations per orthopedics is conservative management. RESP: COPD Tobacco abuse Chest wall trauma status post fall. Increasing pain. Patient not hypoxic doubt PE Repeat CBC, BMP, ESR and chest x-ray unremarkable. Nasal cannula wean as tolerated. IV ofirmev x 2 days DuoNeb every 6 hours prn. Incentive spirometry. Pain management as above. IV morphine 1. CV: Hyperlipidemia Normal troponin. Previously had elevated troponin likely secondary to CVA status post cardiology evaluation Patient reports a history of hyperlipidemia and has been on Lipitor per patient. Continue 20 mg at bedtime Patient is in sinus rhythm. Continue to monitor on telemetry. GI: GERD Protonix 40 mg daily FEN/RENAL: Patient is voiding. No Moon ID: Monitor for signs and symptoms of infection. HEME: No acute hematologic issues. ENDO: Euglycemic outside hospital. Initiate low-dose insulin sliding scale if needed. GI Prophylaxis: Protonix DVT prophylaxis: Heparin Discussed with Pt, RN (Tricia), and Dr. Acevedo Discharge Planning Discharge patient to SNF pending acceptance previous SNF refused to take her back. As noted in subjective, pt states family member is moving to [place] to care for her. Awaiting that individual to come to hospital and CM is to discuss this possibility with her. Dipesh Guidry Jr. ISSA Oct 10, 2016 17:55
[2016-10-10] MEDS: ATORVASTATIN 20 MG TAB PO SCH (22:21)
[2016-10-10] MEDS: NICOTINE 14 MG/24 HR PATCH T-DERMAL SCH (22:24)
[2016-10-10] MEDS: REMOVE OLD PATCH T-DERMAL SCH (22:25)
[2016-10-11] VITALS (7 sets, daily range): BP systolic 107–133; BP diastolic 55–63; PULSE 56–73; RESP 16–20; TEMP 97.4–99; O2SAT 93–98
[2016-10-11] MEDS: oxyCODONE/ACETAMINOPHEN 7.5 MG/325 MG TAB PO PRN ×5 (03:13→21:43)
[2016-10-11] MEDS: SODIUM CHLOR 0.9% 1000 ML INJ 1,000 ML IV SCH ×2 (03:15→12:00)
[2016-10-11] MEDS: CHLORHEXIDINE GLUCONATE 2 % 1 PACK (2 CLOTHS) TOP SCH (04:00)
[2016-10-11] MEDS: PANTOPRAZOLE SOD 40 MG DELAYED RELEASE TAB PO SCH (05:32)
[2016-10-11] MEDS: carBAMazepine 200 MG TAB PO SCH ×2 (07:56→21:41)
[2016-10-11] MEDS: ASPIRIN 325 MG TAB PO SCH (07:57)
[2016-10-11] MEDS: clonazePAM 1 MG TAB PO SCH ×3 (07:57→18:49)
[2016-10-11] MEDS: DULoxetine HCl DR 60 MG CAP PO SCH (07:57)
[2016-10-11] MEDS: HEPARIN SODIUM - SQ 10,000 UNITS/ML VIAL SQ SCH ×2 (08:11→21:41)
[2016-10-11] MEDS: prednisoLONE ACETATE 1% OPHT SUSP 5 ML BTL LEFT EYE SCH (08:11)
--- NOTE | 2016-10-11 09:42 | PD.ORT.PN ---
Subjective Subjective Remarks Patient c/o left anterior shoulder pain and left sided rib pain. Objective Vitals Vital Signs Date Time Temp Pulse Resp B/P Pulse Ox O2 Delivery O2 Flow Rate FiO2 10/11/16 08:02 98.2 56 17 110/55 96 10/11/16 04:20 97.6 62 16 133/60 96 10/11/16 00:05 97.8 62 16 110/55 98 10/10/16 21:00 62 10/10/16 19:59 98.1 71 17 105/56 100 10/10/16 16:05 96.8 69 18 92/53 96 10/10/16 12:13 96.9 65 18 119/56 97 I/O 10/10/16 10/10/16 10/10/16 10/11/16 10/11/16 10/11/16 07:00 15:00 23:00 07:00 15:00 23:00 Intake Total 614 ml 480 ml 240 ml 120 ml Balance 614 ml 480 ml 240 ml 120 ml Intake Oral 120 ml 480 ml 240 ml 120 ml IV Total 494 ml # Voids 3 4 3 4 # Bowel Movements 2 1 Imaging Last 24 hours Impressions Shoulder X-Ray 10/09/16 1608 Signed Impressions: Service Date/Time: Sunday, October 09, 2016 16:54 - CONCLUSION: Nondisplaced fracture tip of the acromion. Benoit Smith MD FACR Objective Remarks Left shoulder tender along lateral margin of acromion process skin intact pulses intact sensory intact minimal active motor left upper extremity C/w CVA sling in place Assessment & Plan Problem List: (1) Fracture of acromial process of left scapula Assessment and Plan Left acromion process fracture is non-displaced. Sling in place. Ok to remove sling for range of motion exercises of hand and elbow. Continue with conservative management at this time. Monitor Sukhi Simons Oct 11, 2016 09:42
--- NOTE | 2016-10-11 16:21 | HHI.PR ---
Subjective Remarks Follow-up left-sided chest pain. Continues to to have persistent left lower and left upper quadrant pain worse with activity and deep breathing. Pt reported pain in ribs continuing. Stated "Orthopedics doctor said I might have cartilage problem from my fall." Pt said she can "feel my loop recorder." Pt also reported being able to move her left arm (while in sling). 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 Pt stated she has contacted her insurance company and has been told she can have in home therapy. Pt denied fever, cough, shortness of breath, malaise, NVD, or bloody stool/ urine. Per RN (Nahed) no acute issues noted over night or since start of shift. Objective Vitals Vital Signs Date Time Temp Pulse Resp B/P Pulse Ox O2 Delivery O2 Flow Rate FiO2 10/11/16 15:51 97.4 68 17 108/63 97 10/11/16 12:10 97.6 56 18 128/62 94 10/11/16 08:02 98.2 56 17 110/55 96 10/11/16 04:20 97.6 62 16 133/60 96 10/11/16 00:05 97.8 62 16 110/55 98 10/10/16 21:00 62 10/10/16 19:59 98.1 71 17 105/56 100 I/O 10/10/16 10/10/16 10/10/16 10/11/16 10/11/16 10/11/16 07:00 15:00 23:00 07:00 15:00 23:00 Intake Total 614 ml 480 ml 240 ml 120 ml 600 ml Balance 614 ml 480 ml 240 ml 120 ml 600 ml Intake Oral 120 ml 480 ml 240 ml 120 ml 600 ml IV Total 494 ml # Voids 3 4 3 4 3 # Bowel Movements 2 1 Imaging Last Impressions Shoulder X-Ray 10/09/16 1608 Signed Impressions: Service Date/Time: Sunday, October 09, 2016 16:54 - CONCLUSION: Nondisplaced fracture tip of the acromion. Benoit Smith MD FACR Head CT 10/08/16 0000 Signed Impressions: Service Date/Time: Sunday, October 09, 2016 00:07 - CONCLUSION: Evolving right basal ganglia infarction into encephalomalacia. There is no evidence of any significant hemorrhage or mass effect. Hannah Pradhan MD Lower Extremity Ultrasound 10/07/16 1946 Signed Impressions: Service Date/Time: Friday, October 07, 2016 20:33 - CONCLUSION: Negative exam with no evidence of deep venous thrombosis. Emmanuel Gracia MD Chest X-Ray 10/05/16 0000 Signed Impressions: Service Date/Time: Wednesday, October 05, 2016 13:38 - CONCLUSION: 1. No acute cardiopulmonary disease. 2. Likely old thoracic compression fractures, as above. Georges Moise MD Brain MRI 09/30/16 0800 Signed Impressions: Service Date/Time: Friday, September 30, 2016 12:13 - CONCLUSION: Evolving Stroke centered at the right basal ganglia. This involves the right caudate and has some small areas as periphery in the posterior lateral right frontal lobe including what appears to be a small focal area of hemorrhage only measuring 5 mm likely related to petechial hemorrhage given lack of findings on the recent CT examination. When compared to the prior exam the main portion of the infarct appears somewhat larger but the more peripheral areas appear less prominent suggesting some areas were reperfused. Sina William MD Objective Remarks GENERAL: Pt sitting up in chair at bedside a bed. in mild distress over her pain. SKIN: Warm and dry. HEAD: Normocephalic. EYES: No scleral icterus. No injection or drainage. NECK: Supple, trachea midline. No lymphadenopathy. CARDIOVASCULAR: Regular rate and rhythm without murmurs, gallops, or rubs. RESPIRATORY: Breath sounds equal bilaterally. No accessory muscle use. GASTROINTESTINAL: Abdomen soft, non-tender, nondistended. MUSCULOSKELETAL: No cyanosis, or edema. 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 Left arm noted to be in a sling. PSYCHIATRIC: A&Ox3, pleasant and cooperative. Speech clear and fluent. Procedures none Medications and IVs Current Medications Medications (Trade) Dose Ordered Sig/Cassia Route Start Time Stop Time Status Last Admin (NS Flush) 2 ml UNSCH PRN IVF 09/29/16 23:00 10/08/16 22:08 (Aspirin) 325 mg DAILY PO 09/30/16 09:00 10/11/16 07:57 (TEGretol) 200 mg Q12HR PO 09/30/16 09:00 10/11/16 07:56 (KlonoPIN) 1 mg TID PO 09/30/16 09:00 10/11/16 12:06 (Cymbalta Dr) 60 mg DAILY PO 09/30/16 09:00 10/11/16 07:57 (Habitrol 14 Mg Patch.24 Hr) 1 patch DAILY@2100 T-DERMAL 09/30/16 21:00 10/10/16 22:24 (Protonix) 40 mg DAILY@06 PO 09/30/16 06:00 10/11/16 05:32 (Ita-Colace) 1 tab BID PO 09/30/16 09:00 10/10/16 08:02 Miscellaneous Information 1 HS T-DERMAL 10/01/16 21:00 10/10/16 22:25 (Zofran Inj) 4 mg Q6H PRN IV 09/30/16 02:00 10/08/16 07:36 Miscellaneous Information 1 Q361D XX 09/30/16 02:00 09/30/16 02:00 (Chlorhexidine 2% Cloth) Taper DAILY@04 TOP 09/30/16 04:00 09/26/17 03:59 09/30/16 03:39 (Chlorhexidine 2% Cloth) 3 pack UNSCH PRN TOP 09/30/16 02:00 (Milk Of Magnesia Liq) 30 ml Q12H PRN PO 09/30/16 02:00 (Senokot) 17.2 mg Q12H PRN PO 09/30/16 02:00 (Dulcolax Supp) 10 mg DAILY PRN RECTAL 09/30/16 02:00 (Lactulose Liq) 30 ml DAILY PRN PO 09/30/16 02:00 Morphine Sulfate 15 mg 15 mg Q12H PRN PO 09/30/16 09:00 10/09/16 19:37 (NS Inj) 100 ml @ 0 mls/hr BOLUS IV 09/30/16 11:45 (Lipitor) 20 mg HS PO 09/30/16 21:00 10/10/16 22:21 (Fioricet 325-50-40) 1 tab Q6H PRN PO 10/01/16 11:15 10/09/16 10:36 (Heparin Inj) 5,000 units Q12HR SQ 10/05/16 21:00 10/11/16 08:11 (Percocet 7.5-325 Mg) 1 tab Q4H PRN PO 10/06/16 14:00 10/11/16 12:06 Prednisolone Acetate 1 drop 1 drop DAILY LEFT EYE 10/09/16 09:00 10/11/16 08:11 (NS 1000 ml Inj) 1,000 ml @ 100 mls/hr Q10H IV 10/09/16 00:00 10/11/16 12:00 Urinary Catheter: No A/P Problem List: (1) Acute ischemic right MCA stroke ICD Code: I63.511 Status: Acute (2) Fall ICD Code: W19.XXXA Status: Acute Assessment and Plan 61-year-old [id number] female with past medical history of COPD, tobacco abuse, chronic back pain, osteoporosis, endometriosis, hyperlipidemia (not on therapy). NEURO: Acute ischemic stroke, right M1 occlusion 09/16/16 History of trigeminal neuralgia Anxiety Chronic back pain Status post left corneal implant History of TIA s/p TPA completed 09/15 s/p thrombectomy per Dr. Td Munson with persistent occlusion of R M1 Resume carbamazepine 200 by mouth twice a day, gabapentin 800 by mouth 3 times a day, Klonopin 1 mg by mouth twice a day if able to tolerate by mouth (for h/o anxiety and Trigeminal neuralgia, no h/o sz. MRI stable with petechial hemorrhage, aspirin to be continued per neurology. Holter monitor unremarkable. Has loop recorder. Hypercoagulable panel negative. Physical therapy. Fall precautions. Patient counseled Headache secondary to CVA. Requiring multiple doses of Fioricet, Percocet and morphine. Headache ongoing, Ophthalmology consulted and they felt headaches are not related to ophthalmologic issues. Pt had two falls within past [address] negative for acute changes. Shoulder xrays ordered. Per Nursing bed alarm is being used. Pt stated if she is restrained she will leave AMA. Nondisplaced fracture of Right acromion -Orthopedics consulted. -Recommendations per orthopedics is conservative management. RESP: COPD Tobacco abuse Chest wall trauma status post fall. Increasing pain. Patient not hypoxic doubt PE Repeat CBC, BMP, ESR and chest x-ray unremarkable. Nasal cannula wean as tolerated. IV ofirmev x 2 days DuoNeb every 6 hours prn. Incentive spirometry. Pain management as above. IV morphine 1. Chest xray ordered 10/11/16, results pending. CV: Hyperlipidemia Normal troponin. Previously had elevated troponin likely secondary to CVA status post cardiology evaluation Patient reports a history of hyperlipidemia and has been on Lipitor per patient. Continue 20 mg at bedtime Patient is in sinus rhythm. Continue to monitor on telemetry. GI: GERD Protonix 40 mg daily FEN/RENAL: Patient is voiding. No Moon ID: Monitor for signs and symptoms of infection. HEME: No acute hematologic issues. ENDO: Euglycemic outside hospital. Initiate low-dose insulin sliding scale if needed. GI Prophylaxis: Protonix DVT prophylaxis: Heparin Discussed with Pt, RN (Nahed), and Dr. Acevedo Discharge Planning Discharge patient to SNF pending acceptance previous SNF refused to take her back. As noted in subjective, pt states family member is moving to [place] to care for her. Awaiting that individual to come to hospital and CM is to discuss this possibility with her. Dipesh Guidry Jr. ISSA Oct 11, 2016 16:21
[2016-10-11] MEDS: DOCUSATE SODIUM 50 MG/SENNA 8.6 MG TAB PO SCH ×2 (16:24→21:00)
--- NOTE | 2016-10-11 16:54 | RADRPT ---
EXAM DATE/TIME: 10/11/2016 14:45 [facility] COMPARISON: CHEST PA & LAT, October 05, 2016, 13:38. CHEST SINGLE AP, October 02, 2016, 12:26. INDICATIONS : Left rib pain due to fall MEDICAL HISTORY : Cerebrovascular disease. Stroke SURGICAL HISTORY : Hysterectomy. ENCOUNTER: Initial ACUITY: 1 day PAIN SCORE: 6/10 LOCATION: Left chest FINDINGS: A single view of the chest demonstrates the lungs to be symmetrically aerated without evidence of mas s, infiltrate or effusion. The cardiomediastinal contours are unremarkable. There is a loop recorder seen in the left chest. There are compression deformities of the upper thoracic spine better seen on the recent lateral chest x-ray. CONCLUSION: No acute disease. Sina William MD on October 11, 2016 at 16:50 Board Certified Radiologist. This report was verified electronically.
[2016-10-11] MEDS: ATORVASTATIN 20 MG TAB PO SCH (21:40)
[2016-10-11] MEDS: NICOTINE 14 MG/24 HR PATCH T-DERMAL SCH (21:41)
[2016-10-11] MEDS: REMOVE OLD PATCH T-DERMAL SCH (21:42)
[2016-10-12] MEDS: SODIUM CHLOR 0.9% 1000 ML INJ 1,000 ML IV SCH ×3 (01:04→18:00)
[2016-10-12] MEDS: CHLORHEXIDINE GLUCONATE 2 % 1 PACK (2 CLOTHS) TOP SCH (04:00)
[2016-10-12] MEDS: PANTOPRAZOLE SOD 40 MG DELAYED RELEASE TAB PO SCH (05:25)
[2016-10-12] MEDS: oxyCODONE/ACETAMINOPHEN 7.5 MG/325 MG TAB PO PRN ×4 (05:27→21:12)
[2016-10-12 05:40] VITALS: BP 130/59; PULSE 68; RESP 21; TEMP 98.1; O2SAT 94
[2016-10-12 08:03] VITALS: BP 118/56; PULSE 55; RESP 18; TEMP 97.1; O2SAT 95
--- NOTE | 2016-10-12 08:17 | HHI.PR ---
Subjective Remarks Follow-up left-sided chest pain. Patient seen and examined today, lying in bed comfortably. Denies any new acute complaints overnight. Continued complaint of pain to left shoulder and left rib cage area, worse with movement, denies radiation, states at its worse its a 7/10. Denies any recent fever, chills, cough, shortness of breath, abdominal pain, n/v, diarrhea or dysuria. Tolerating PO intake well. Afebrile. Objective Vitals Vital Signs Date Time Temp Pulse Resp B/P Pulse Ox O2 Delivery O2 Flow Rate FiO2 10/12/16 08:03 97.1 55 18 118/56 95 10/12/16 05:40 98.1 68 21 130/59 94 10/11/16 22:00 73 10/11/16 20:38 99.0 73 20 107/55 93 10/11/16 15:51 97.4 68 17 108/63 97 10/11/16 12:10 97.6 56 18 128/62 94 I/O 10/11/16 10/11/16 10/11/16 10/12/16 10/12/16 10/12/16 07:00 15:00 23:00 07:00 15:00 23:00 Intake Total 120 ml 600 ml 500 ml 400 ml Balance 120 ml 600 ml 500 ml 400 ml Intake Oral 120 ml 600 ml 500 ml 400 ml # Voids 4 3 2 3 # Bowel Movements 0 0 Imaging Last Impressions Chest X-Ray 10/11/16 0000 Signed Impressions: Service Date/Time: Tuesday, October 11, 2016 14:45 - CONCLUSION: No acute disease. Sina William MD Shoulder X-Ray 10/09/16 1608 Signed Impressions: Service Date/Time: Sunday, October 09, 2016 16:54 - CONCLUSION: Nondisplaced fracture tip of the acromion. Benoit Smith MD FACR Head CT 10/08/16 0000 Signed Impressions: Service Date/Time: Sunday, October 09, 2016 00:07 - CONCLUSION: Evolving right basal ganglia infarction into encephalomalacia. There is no evidence of any significant hemorrhage or mass effect. Hannah Pradhan MD Lower Extremity Ultrasound 10/07/16 1946 Signed Impressions: Service Date/Time: Friday, October 07, 2016 20:33 - CONCLUSION: Negative exam with no evidence of deep venous thrombosis. Emmanuel Gracia MD Brain MRI 09/30/16 0800 Signed Impressions: Service Date/Time: Friday, September 30, 2016 12:13 - CONCLUSION: Evolving Stroke centered at the right basal ganglia. This involves the right caudate and has some small areas as periphery in the posterior lateral right frontal lobe including what appears to be a small focal area of hemorrhage only measuring 5 mm likely related to petechial hemorrhage given lack of findings on the recent CT examination. When compared to the prior exam the main portion of the infarct appears somewhat larger but the more peripheral areas appear less prominent suggesting some areas were reperfused. Sina William MD Objective Remarks GENERAL: Well-nourished, well-developed female patient, lying in bed in no apparent distress. SKIN: Warm and dry. Left arm sling in place. HEAD: Normocephalic. EYES: PERRLA. No scleral icterus. No injection or drainage. NECK: Supple. CARDIOVASCULAR: Regular rate and rhythm. No murmur appreciated. RESPIRATORY: Breath sounds equal bilaterally. No accessory muscle use. GASTROINTESTINAL: Abdomen soft, non-tender, nondistended. MUSCULOSKELETAL: No cyanosis, or edema. No fine motor movement in left hand, minimal gross motor in left arm intact. PSYCHIATRIC: A&Ox3, pleasant and cooperative. Speech clear and fluent. Procedures none A/P Problem List: (1) Acute ischemic right MCA stroke ICD Code: I63.511 Status: Acute (2) Fall ICD Code: W19.XXXA Status: Acute Assessment and Plan 61-year-old [id number] female with past medical history of COPD, tobacco abuse, chronic back pain, osteoporosis, endometriosis and hyperlipidemia who presented to the ED with recurrent falls after recent discharge following ischemic CVA, treated with TPA and attempted emergency thrombectomy of M1 segment of right MCA. Acute ischemic stroke, s/p thrombectomy per Dr. Td Munsno with persistent occlusion of R M1; s/p TPA completed 09/15 History of trigeminal neuralgia History of TIA Headache secondary to CVA, resolved. Continue Carbamazepine 200 by mouth twice a day, gabapentin 800 by mouth 3 times a day, Klonopin 1 mg by mouth twice a day MRI stable with petechial hemorrhage, aspirin to be continued per neurology. Physical therapy. Fall precautions. Requiring multiple doses of Fioricet, Percocet and morphine. Headache resolved, Ophthalmology consulted and they felt headaches are not related to ophthalmologic issues. Patient has recent history of falls. Ct negative for acute changes. Shoulder xrays showing nondisplaced fracture tip of the acromion. Per Nursing bed alarm is being used. Nondisplaced fracture of Right acromion Chest wall trauma status post fall Recommendations per orthopedics is conservative management. Continue left arm sling. COPD Tobacco abuse DuoNeb every 6 hours prn. Supplemental O2 as needed. Incentive spirometry. Pain management as above. IV morphine 1. Anxiety, chronic: Continue Clonazepam 1 mg PO TID. Chronic back pain: Continue Percocet 7.5/325 mg PO q4h PRN and Morphine sulfate 15 mg PO q12h PRN per pain scale. Hyperlipidemia, chronic Continue Lipitor 20 mg at bedtime GI Prophylaxis: Protonix DVT prophylaxis: Heparin Discharge Planning Discharge patient to SNF pending acceptance. Last CM note: 10/08/16 2:34pm: CM received telephone call from Edward from [facility] who stated that [facility] will not be able to accept pt. MIKE informed Tricia that [facility] told mike that she has submitted for auth. Edward stated that [facility] did not have enough information and they are not able to meet her need. MIKE contacted Cadence at [facility] with referral and remote access. CM faxed Face Sheet and [employer]SR to [facility] so they will be able to submit for auth. Mariana Brown Oct 12, 2016 08:17
[2016-10-12] MEDS: prednisoLONE ACETATE 1% OPHT SUSP 5 ML BTL LEFT EYE SCH (08:40)
[2016-10-12] MEDS: ASPIRIN 325 MG TAB PO SCH (08:41)
[2016-10-12] MEDS: DULoxetine HCl DR 60 MG CAP PO SCH (08:41)
[2016-10-12] MEDS: clonazePAM 1 MG TAB PO SCH ×3 (08:42→18:00)
[2016-10-12] MEDS: DOCUSATE SODIUM 50 MG/SENNA 8.6 MG TAB PO SCH ×2 (08:42→21:15)
[2016-10-12] MEDS: carBAMazepine 200 MG TAB PO SCH ×2 (08:42→21:11)
[2016-10-12] MEDS: HEPARIN SODIUM - SQ 10,000 UNITS/ML VIAL SQ SCH ×2 (08:43→21:11)
[2016-10-12 10:23] VITALS: PULSE 57
[2016-10-12 12:24] VITALS: BP 113/58; PULSE 71; RESP 18; TEMP 97.5; O2SAT 96
[2016-10-12] MEDS: MORPHINE SULFATE 15 MG CONTROLLED RELEASE TAB PO PRN (12:35)
[2016-10-12 16:02] VITALS: BP 101/50; PULSE 72; RESP 20; TEMP 98.3; O2SAT 98
[2016-10-12 20:00] VITALS: BP 110/56; PULSE 63; RESP 18; TEMP 95.8; O2SAT 94
[2016-10-12] MEDS: REMOVE OLD PATCH T-DERMAL SCH (21:00)
[2016-10-12] MEDS: NICOTINE 14 MG/24 HR PATCH T-DERMAL SCH (21:10)
[2016-10-12] MEDS: ATORVASTATIN 20 MG TAB PO SCH (21:11)
[2016-10-12] MEDS: ACETAMIN 325 MG/BUTALBITAL 50 MG/CAFFEINE 40 MG TAB PO PRN (23:55)
[2016-10-13] MEDS: MORPHINE SULFATE 15 MG CONTROLLED RELEASE TAB PO PRN ×2 (00:20→14:58)
[2016-10-13 00:31] VITALS: BP 119/58; PULSE 66; RESP 20; TEMP 98; O2SAT 94
[2016-10-13] MEDS: SODIUM CHLOR 0.9% 1000 ML INJ 1,000 ML IV SCH ×3 (04:00→22:34)
[2016-10-13] MEDS: CHLORHEXIDINE GLUCONATE 2 % 1 PACK (2 CLOTHS) TOP SCH (04:00)
[2016-10-13 04:44] VITALS: BP 104/55; PULSE 56; RESP 18; TEMP 96.6; O2SAT 94
[2016-10-13] MEDS: PANTOPRAZOLE SOD 40 MG DELAYED RELEASE TAB PO SCH (05:30)
[2016-10-13] MEDS: oxyCODONE/ACETAMINOPHEN 7.5 MG/325 MG TAB PO PRN ×4 (05:31→22:06)
[2016-10-13] MEDS: ASPIRIN 325 MG TAB PO SCH (07:58)
[2016-10-13] MEDS: carBAMazepine 200 MG TAB PO SCH ×2 (07:58→22:06)
[2016-10-13] MEDS: clonazePAM 1 MG TAB PO SCH ×3 (07:58→18:13)
[2016-10-13] MEDS: DULoxetine HCl DR 60 MG CAP PO SCH (07:59)
[2016-10-13] MEDS: DOCUSATE SODIUM 50 MG/SENNA 8.6 MG TAB PO SCH ×2 (07:59→22:33)
[2016-10-13 08:00] VITALS: BP 104/45; PULSE 58; PULSE 66; RESP 20; TEMP 97.2; O2SAT 98
[2016-10-13] MEDS: prednisoLONE ACETATE 1% OPHT SUSP 5 ML BTL LEFT EYE SCH (08:00)
[2016-10-13] MEDS: HEPARIN SODIUM - SQ 10,000 UNITS/ML VIAL SQ SCH ×2 (08:01→22:05)
[2016-10-13 12:00] VITALS: BP 123/68; PULSE 68; RESP 20; TEMP 97.4; O2SAT 96
[2016-10-13 16:00] VITALS: BP 137/60; PULSE 79; RESP 20; TEMP 97.7; O2SAT 97
--- NOTE | 2016-10-13 16:57 | PD.ORT.PN ---
Subjective Subjective Remarks Patient c/o left anterior shoulder pain. Objective Vitals Vital Signs Date Time Temp Pulse Resp B/P Pulse Ox O2 Delivery O2 Flow Rate FiO2 10/13/16 16:00 97.7 79 20 137/60 97 10/13/16 12:00 97.4 68 20 123/68 96 10/13/16 08:00 97.2 58 20 104/45 98 10/13/16 06:41 18 10/13/16 04:44 96.6 56 18 104/55 94 10/13/16 00:55 18 10/13/16 00:55 18 10/13/16 00:31 98.0 66 20 119/58 94 10/12/16 20:00 95.8 63 18 110/56 94 I/O 10/12/16 10/12/16 10/12/16 10/13/16 10/13/16 10/13/16 07:00 15:00 23:00 07:00 15:00 23:00 Intake Total 400 ml Balance 400 ml Intake Oral 400 ml # Voids 3 3 # Bowel Movements 0 0 Imaging Last 24 hours Impressions Shoulder X-Ray 10/09/16 1608 Signed Impressions: Service Date/Time: Sunday, October 09, 2016 16:54 - CONCLUSION: Nondisplaced fracture tip of the acromion. Benoit Smith MD FACR Objective Remarks Left shoulder tender along lateral margin of acromion process skin intact pulses intact sensory intact minimal active motor left upper extremity C/w CVA sling in place Assessment & Plan Problem List: (1) Fracture of acromial process of left scapula Assessment and Plan Left acromion process fracture is non-displaced. Sling in place. Ok to remove sling for range of motion exercises of hand and elbow. Continue with conservative management at this time. Orthopedically stable for discharge. F/U in [address] Booth in office Sukhi Simons Oct 13, 2016 16:57
[2016-10-13] MEDS: ATORVASTATIN 20 MG TAB PO SCH (22:06)
[2016-10-13] MEDS: REMOVE OLD PATCH T-DERMAL SCH (22:09)
[2016-10-13] MEDS: NICOTINE 14 MG/24 HR PATCH T-DERMAL SCH (22:09)
[2016-10-13 22:12] VITALS: BP 98/56; PULSE 68; RESP 18; TEMP 97; O2SAT 95
[2016-10-14] VITALS: BP 131/67; PULSE 65; RESP 18; TEMP 97.8; O2SAT 97
[2016-10-14 01:00] VITALS: PULSE 53
[2016-10-14 04:00] VITALS: BP 98/50; PULSE 65; RESP 18; TEMP 97.6; O2SAT 98
[2016-10-14] MEDS: CHLORHEXIDINE GLUCONATE 2 % 1 PACK (2 CLOTHS) TOP SCH (04:00)
[2016-10-14] MEDS: MORPHINE SULFATE 15 MG CONTROLLED RELEASE TAB PO PRN ×2 (04:53→17:37)
[2016-10-14] MEDS: PANTOPRAZOLE SOD 40 MG DELAYED RELEASE TAB PO SCH (05:56)
[2016-10-14 08:03] VITALS: BP 115/59; PULSE 66; RESP 17; TEMP 97.3; O2SAT 98
[2016-10-14] MEDS: clonazePAM 1 MG TAB PO SCH ×3 (08:18→17:37)
[2016-10-14] MEDS: carBAMazepine 200 MG TAB PO SCH (08:18)
[2016-10-14] MEDS: DULoxetine HCl DR 60 MG CAP PO SCH (08:18)
[2016-10-14] MEDS: ASPIRIN 325 MG TAB PO SCH (08:18)
[2016-10-14] MEDS: HEPARIN SODIUM - SQ 10,000 UNITS/ML VIAL SQ SCH (08:19)
[2016-10-14] MEDS: oxyCODONE/ACETAMINOPHEN 7.5 MG/325 MG TAB PO PRN ×2 (08:19→13:18)
[2016-10-14] MEDS: DOCUSATE SODIUM 50 MG/SENNA 8.6 MG TAB PO SCH (09:00)
[2016-10-14] MEDS: prednisoLONE ACETATE 1% OPHT SUSP 5 ML BTL LEFT EYE SCH (09:00)
--- NOTE | 2016-10-14 09:33 | HHI.PR ---
Subjective Remarks Follow-up left-sided chest pain. Patient seen and examined today, at bedside. Awake, alert, oriented, lying in bed comfortably. Denies any new acute events overnight. Patient complaint of continued pain in left shoulder and left rib cage area. Denies any recent fever, chills, cough, shortness of breath, chest pain, ab pain, n/v, or diarrhea. Objective Vitals Vital Signs Date Time Temp Pulse Resp B/P Pulse Ox O2 Delivery O2 Flow Rate FiO2 10/14/16 08:03 97.3 66 17 115/59 98 10/14/16 04:00 97.6 65 18 98/50 98 10/14/16 01:00 53 10/14/16 00:00 97.8 65 18 131/67 97 10/13/16 22:12 97.0 68 18 98/56 95 10/13/16 16:00 97.7 79 20 137/60 97 10/13/16 15:58 17 10/13/16 12:00 97.4 68 20 123/68 96 10/13/16 11:22 18 I/O 10/13/16 10/13/16 10/13/16 10/14/16 10/14/16 10/14/16 07:00 15:00 23:00 07:00 15:00 23:00 Intake Total 1216 ml Balance 1216 ml Intake Oral 16 ml IV Total 1200 ml # Voids 3 6 # Bowel Movements 0 1 Imaging Last Impressions Chest X-Ray 10/11/16 0000 Signed Impressions: Service Date/Time: Tuesday, October 11, 2016 14:45 - CONCLUSION: No acute disease. Sina William MD Shoulder X-Ray 10/09/16 1608 Signed Impressions: Service Date/Time: Sunday, October 09, 2016 16:54 - CONCLUSION: Nondisplaced fracture tip of the acromion. Benoit Smith MD FACR Head CT 10/08/16 0000 Signed Impressions: Service Date/Time: Sunday, October 09, 2016 00:07 - CONCLUSION: Evolving right basal ganglia infarction into encephalomalacia. There is no evidence of any significant hemorrhage or mass effect. Hannah Pradhan MD Lower Extremity Ultrasound 10/07/16 1946 Signed Impressions: Service Date/Time: Friday, October 07, 2016 20:33 - CONCLUSION: Negative exam with no evidence of deep venous thrombosis. Emmanuel Gracia MD Brain MRI 09/30/16 0800 Signed Impressions: Service Date/Time: Friday, September 30, 2016 12:13 - CONCLUSION: Evolving Stroke centered at the right basal ganglia. This involves the right caudate and has some small areas as periphery in the posterior lateral right frontal lobe including what appears to be a small focal area of hemorrhage only measuring 5 mm likely related to petechial hemorrhage given lack of findings on the recent CT examination. When compared to the prior exam the main portion of the infarct appears somewhat larger but the more peripheral areas appear less prominent suggesting some areas were reperfused. Sina William MD Objective Remarks GENERAL: Well-nourished, well-developed female patient, lying in bed in no apparent distress. SKIN: Warm and dry. Left arm sling in place. HEAD: Normocephalic. EYES: PERRLA. No scleral icterus. No injection or drainage. NECK: Supple. CARDIOVASCULAR: Regular rate and rhythm. No murmur appreciated. RESPIRATORY: Breath sounds equal bilaterally. No accessory muscle use. GASTROINTESTINAL: Abdomen soft, non-tender, nondistended. MUSCULOSKELETAL: No cyanosis, or edema. No fine motor movement in left hand, minimal gross motor in left arm intact. PSYCHIATRIC: A&Ox3, pleasant and cooperative. Speech clear and fluent. Procedures none A/P Problem List: (1) Acute ischemic right MCA stroke ICD Code: I63.511 Status: Acute (2) Fall ICD Code: W19.XXXA Status: Acute Assessment and Plan 61-year-old vrepk-vorn-reqxlpep female with past medical history of COPD, tobacco abuse, chronic back pain, osteoporosis, endometriosis and hyperlipidemia who presented to the ED with recurrent falls after recent discharge following ischemic CVA, treated with TPA and attempted emergency thrombectomy of M1 segment of right MCA. Acute ischemic stroke, s/p thrombectomy per Dr. Td Munson with persistent occlusion of R M1; s/p TPA completed 09/15 History of trigeminal neuralgia History of TIA Headache secondary to CVA, resolved. Continue Carbamazepine 200 by mouth twice a day, gabapentin 800 by mouth 3 times a day, Klonopin 1 mg by mouth twice a day MRI stable with petechial hemorrhage, aspirin to be continued per neurology. Physical therapy. Fall precautions. Requiring multiple doses of Fioricet, Percocet and morphine. Headache resolved, Ophthalmology consulted and they felt headaches are not related to ophthalmologic issues. Patient has recent history of falls. Ct negative for acute changes. Shoulder xrays showing nondisplaced fracture tip of the acromion. Per Nursing bed alarm is being used. Nondisplaced fracture of Right acromion Chest wall trauma status post fall Recommendations per orthopedics is conservative management. Continue left arm sling. Control pain. Assurance. COPD Tobacco abuse DuoNeb every 6 hours prn. Supplemental O2 as needed. Incentive spirometry. Pain management as above. IV morphine 1. Anxiety, chronic: Continue Clonazepam 1 mg PO TID. Chronic back pain: Continue Percocet 7.5/325 mg PO q4h PRN and Morphine sulfate 15 mg PO q12h PRN per pain scale. Hyperlipidemia, chronic Continue Lipitor 20 mg at bedtime GI Prophylaxis: Protonix DVT prophylaxis: Heparin Discharge Planning Last note: 10/14/16 10:45am: CM received telephone call from Cadence at [facility] who stated that they did have someone leave and they can take pt once [facility] auth received. PASSR faxed and [facility] will be submitting for auth. Mariana Brown Oct 14, 2016 09:33
[2016-10-14 11:17] LABS: AUTOMATED NEUTROPHIL # 2.8 TH/MM3 (1.8-7.7); BASOPHIL # 0.1 TH/MM3 (0-0.2); BASOPHIL % 1.3 % (0.0-2.0); EOSINOPHIL # 0.4 TH/MM3 (0-0.4); HEMATOCRIT 36.2 % (35.0-46.0); HEMO FLAGS DIFF FINAL; LYMPH % 37.4 % (9.0-44.0); LYMPHOCYTE # 2.3 TH/MM3 (1.0-4.8); MEAN CELL VOLUME 88.3 FL (80.0-100.0); MEAN CORPUSCULAR HGB CONC 31.7 % (32.0-36.0); MONO % 8.2 % (0.0-8.0); NEUT % 46.1 % (16.0-70.0); PLATELET COUNT 326 TH/MM3 (150-450); RED CELL DISTRIBUTION WIDTH 15.9 % (11.6-17.2); WHITE BLOOD COUNT 6.1 TH/MM3 (4.0-11.0)
[2016-10-14 11:34] LABS: BICARBONATE 23.7 MEQ/L (21.0-32.0); POTASSIUM 3.8 MEQ/L (3.5-5.1)
[2016-10-14 12:03] VITALS: BP 112/57; PULSE 74; RESP 17; TEMP 97.3; O2SAT 96
--- NOTE | 2016-10-14 13:08 | HHI.PR ---
Subjective Remarks LATE ENTRY 10/13/16 09:30 am. Follow up Follow-up left-sided chest pain. Patient seen and examined today. Patient working with PT, walking in halls with gait belt on with PT, unsteady. Patient desiring to discharge home today, spoke with and he states he will not be home to care for her several times this week due to work. Patient upset but agreeable to stay and wait on bed availability at SNF. Denies any new acute events overnight. Tolerating PO intake. Still complaints of continued left shoulder and rib pain. Positive BM. Objective Vitals Vital Signs Date Time Temp Pulse Resp B/P Pulse Ox O2 Delivery O2 Flow Rate FiO2 10/14/16 12:03 97.3 74 17 112/57 96 10/14/16 09:19 17 10/14/16 08:03 97.3 66 17 115/59 98 10/14/16 04:00 97.6 65 18 98/50 98 10/14/16 01:00 53 10/14/16 00:00 97.8 65 18 131/67 97 10/13/16 22:12 97.0 68 18 98/56 95 10/13/16 16:00 97.7 79 20 137/60 97 10/13/16 15:58 17 I/O 10/13/16 10/13/16 10/13/16 10/14/16 10/14/16 10/14/16 07:00 15:00 23:00 07:00 15:00 23:00 Intake Total 1216 ml Balance 1216 ml Intake Oral 16 ml IV Total 1200 ml # Voids 3 6 # Bowel Movements 0 1 Result Diagram: 10/14/16 1034 10/14/16 1034 Imaging Last Impressions Chest X-Ray 10/11/16 0000 Signed Impressions: Service Date/Time: Tuesday, October 11, 2016 14:45 - CONCLUSION: No acute disease. Sina William MD Shoulder X-Ray 10/09/16 1608 Signed Impressions: Service Date/Time: Sunday, October 09, 2016 16:54 - CONCLUSION: Nondisplaced fracture tip of the acromion. Benoit Smith MD FACR Head CT 10/08/16 0000 Signed Impressions: Service Date/Time: Sunday, October 09, 2016 00:07 - CONCLUSION: Evolving right basal ganglia infarction into encephalomalacia. There is no evidence of any significant hemorrhage or mass effect. Hannah Pradhan MD Lower Extremity Ultrasound 10/07/16 1946 Signed Impressions: Service Date/Time: Friday, October 07, 2016 20:33 - CONCLUSION: Negative exam with no evidence of deep venous thrombosis. Emmanuel Gracia MD Brain MRI 09/30/16 0800 Signed Impressions: Service Date/Time: Friday, September 30, 2016 12:13 - CONCLUSION: Evolving Stroke centered at the right basal ganglia. This involves the right caudate and has some small areas as periphery in the posterior lateral right frontal lobe including what appears to be a small focal area of hemorrhage only measuring 5 mm likely related to petechial hemorrhage given lack of findings on the recent CT examination. When compared to the prior exam the main portion of the infarct appears somewhat larger but the more peripheral areas appear less prominent suggesting some areas were reperfused. Sina William MD Objective Remarks GENERAL: Well-nourished, well-developed female patient, lying in bed in no apparent distress. SKIN: Warm and dry. Left arm sling in place. HEAD: Normocephalic. EYES: PERRLA. No scleral icterus. No injection or drainage. NECK: Supple. CARDIOVASCULAR: Regular rate and rhythm. No murmur appreciated. RESPIRATORY: Breath sounds equal bilaterally. No accessory muscle use. GASTROINTESTINAL: Abdomen soft, non-tender, nondistended. MUSCULOSKELETAL: No cyanosis, or edema. No fine motor movement in left hand, minimal gross motor in left arm intact. PSYCHIATRIC: A&Ox3, pleasant and cooperative. Speech clear and fluent. Procedures none A/P Problem List: (1) Acute ischemic right MCA stroke ICD Code: I63.511 Status: Acute (2) Fall ICD Code: W19.XXXA Status: Acute Assessment and Plan 61-year-old [id number] female with past medical history of COPD, tobacco abuse, chronic back pain, osteoporosis, endometriosis and hyperlipidemia who presented to the ED with recurrent falls after recent discharge following ischemic CVA, treated with TPA and attempted emergency thrombectomy of M1 segment of right MCA. Acute ischemic stroke, s/p thrombectomy per Dr. Td Munson with persistent occlusion of R M1; s/p TPA completed 09/15 History of trigeminal neuralgia History of TIA Headache secondary to CVA, resolved. Continue Carbamazepine 200 by mouth twice a day, gabapentin 800 by mouth 3 times a day, Klonopin 1 mg by mouth twice a day MRI stable with petechial hemorrhage, aspirin to be continued per neurology. Physical therapy. Fall precautions. Requiring multiple doses of Fioricet, Percocet and morphine. Headache resolved, Ophthalmology consulted and they felt headaches are not related to ophthalmologic issues. Patient has recent history of falls. Ct negative for acute changes. Shoulder xrays showing nondisplaced fracture tip of the acromion. Per Nursing bed alarm is being used. Nondisplaced fracture of Right acromion Chest wall trauma status post fall Recommendations per orthopedics is conservative management. Continue left arm sling. Control pain. COPD Tobacco abuse DuoNeb every 6 hours prn. Supplemental O2 as needed. Incentive spirometry. Pain management as above. IV morphine 1. Anxiety, chronic: Continue Clonazepam 1 mg PO TID. Chronic back pain: Continue Percocet 7.5/325 mg PO q4h PRN and Morphine sulfate 15 mg PO q12h PRN per pain scale. Hyperlipidemia, chronic Continue Lipitor 20 mg at bedtime GI Prophylaxis: Protonix DVT prophylaxis: Heparin Discharge Planning Discharge patient to SNF pending acceptance. Last CM note: 10/08/16 2:34pm: MIKE received telephone call from Edward from [facility] who stated that [facility] will not be able to accept pt. MIKE informed Tricia that [facility] told mike that she has submitted for auth. Edward stated that [facility] did not have enough information and they are not able to meet her need. MIKE contacted Cadence at [facility] with referral and remote access. CM faxed Face Sheet and PASSR to [facility] so they will be able to submit for auth. Mariana Brown Oct 14, 2016 13:08
[2016-10-14] MEDS: SODIUM CHLOR 0.9% 1000 ML INJ 1,000 ML IV SCH (14:14)
[2016-10-14 16:10] VITALS: BP 119/62; PULSE 80; RESP 18; TEMP 98.5; O2SAT 95
== END 2016-10-14 17:58 | DRG 64 ==
LOC: NEPC 22:50 → NEDA 09-30 01:34 → N03A 09-30 04:20 → N05A 09-30 16:06 → N05B 10-02 18:16
PROVIDERS: ADMIT Internal Medicine; ATTEND Internal Medicine
DX: I63.511 Cerebral infarction due to unspecified occlusion or stenosis of right middle cerebral artery (principal); G93.6 Cerebral edema; I69.354 Hemiplegia and hemiparesis following cerebral infarction affecting left non-dominant side; G93.89 Other specified disorders of brain; R41.4 Neurologic neglect syndrome; J44.9 Chronic obstructive pulmonary disease, unspecified; E78.5 Hyperlipidemia, unspecified; K21.9 Gastro-esophageal reflux disease without esophagitis; E78.00 Pure hypercholesterolemia, unspecified; I69.398 Other sequelae of cerebral infarction; I69.392 Facial weakness following cerebral infarction; S20.212A Contusion of left front wall of thorax, initial encounter; S42.125A Nondisplaced fracture of acromial process, left shoulder, initial encounter for closed fracture; G50.0 Trigeminal neuralgia; G54.0 Brachial plexus disorders; G43.909 Migraine, unspecified, not intractable, without status migrainosus; M81.0 Age-related osteoporosis without current pathological fracture; H02.402 Unspecified ptosis of left eyelid; G89.29 Other chronic pain; M54.5 Low back pain; M19.90 Unspecified osteoarthritis, unspecified site; R29.6 Repeated falls; F17.210 Nicotine dependence, cigarettes, uncomplicated; F41.9 Anxiety disorder, unspecified; F32.9 Major depressive disorder, single episode, unspecified; W05.0XXA Fall from non-moving wheelchair, initial encounter; W06.XXXA Fall from bed, initial encounter; W22.09XA Striking against other stationary object, initial encounter; W19.XXXA Unspecified fall, initial encounter; Y92.230 Patient room in hospital as the place of occurrence of the external cause; Z80.1 Family history of malignant neoplasm of trachea, bronchus and lung; Z82.3 Family history of stroke; Z86.19 Personal history of other infectious and parasitic diseases; Z88.5 Allergy status to narcotic agent; Z91.81 History of falling; Z94.7 Corneal transplant status
CPT/HCPCS: 70450; 70551; 71010; 71020; 73030; 76937; 80048; 80053; 80156; 81001; 81240; 81241; 82607; 82746; 83735; 83921; 84165; 84425; 84439; 84443; 84484; 85025; 85240; 85300; 85303; 85306; 85610; 85613; 85652; 85730; 86038; 86140; 86147; 86592; 86850; 86900; 86901; 87641; 93225; 93226; 93971; 94150; 96374; 96375; J0131; J1644; J2060; J2270; J2405; J3010; J7030; J7040

== ENCOUNTER 2016-10-23 12:19 | Emergency (ER) | payer MEDICAID ==
[~2016-10-23] VITALS: Ht 149.9 cm; Wt 60.0 kg
[~2016-10-23 12:19] MED LIST changes: +ATOR20TA15 PO; +BUTATAB6 PO
[2016-10-23 12:28] VITALS: BP 102/64; PULSE 82; RESP 16; TEMP 98; O2SAT 94
== END 2016-10-23 12:28 | disposition left against medical advice (07) ==
LOC: NED 12:19
DX: M54.5 Low back pain (principal); W07.XXXA Fall from chair, initial encounter; Y92.531 Health care provider office as the place of occurrence of the external cause; Z53.21 Procedure and treatment not carried out due to patient leaving prior to being seen by health care provider
CPT/HCPCS: 99281

== ENCOUNTER 2016-10-26 16:01 | Emergency (ER) | payer MEDICAID ==
[~2016-10-26] VITALS: Ht 149.9 cm; Wt 57.0 kg
[2016-10-26 16:06] VITALS: BP 101/60; PULSE 70; RESP 15; TEMP 97.8; O2SAT 95
[2016-10-26] MEDS ORDERED: ONDANSETRON HCL 4 MG/2 ML VIAL IV PUSH ONE (17:30)
[2016-10-26] MEDS ORDERED: MORPHINE SULFATE 8 MG/ML INJ IV PUSH ONE (17:30)
--- NOTE | 2016-10-26 17:58 | RADRPT ---
EXAM DATE/TIME: 10/26/2016 17:22 [facility] COMPARISON: CHEST SINGLE AP, October 11, 2016, 14:45. INDICATIONS : Chest and rib pain post fall. MEDICAL HISTORY : Cerebrovascular disease. Stroke. SURGICAL HISTORY : Hysterectomy. ENCOUNTER: [facility] ACUITY: 2 weeks PAIN SCORE: LOCATION: Bilateral chest FINDINGS: A single view of the chest demonstrates the lungs to be symmetrically aerated without evidence of mas s, infiltrate or effusion. The cardiomediastinal contours are unremarkable. Osseous structures are intact. CONCLUSION: Normal examination. Ruben Suggs MD on October 26, 2016 at 17:57 Board Certified Radiologist. This report was verified electronically.
--- NOTE | 2016-10-26 18:05 | PD ---
HPI Chief Complaint: Fall Time Seen by Provider: 17:59 Travel History International Travel<30 days: No Contact w/Intl Traveler<30days: No Traveled to known affect area: No History of Present Illness HPI 61-year-old female that presents to the ED for evaluation of multiple falls. Patient states that she is following about 10 times in the past week. Patient has a chronic history of a CVA as well as issues with her balance and this is the reason she is in a rehabilitation facility. Patient was sent to rehabilitation facility after she was found to have a stroke here. Per patient she's had multiple falls and about a week ago she had another fall and she had an x-ray done at the facility that showed thoracic spine fractures. Per patient she did fell today about 2 hours before coming in she landed on her left head. Per patient he has been on her abdomen as well as on her back. Per patient the pain is severe. Patient is allergic to NSAIDs. Patient does take Percocet at the facility. She denies any blood thinner use. Per patient she does take aspirin. No numbness, tilling, weakness. No urinary or bowel movement issues. Patient pain is severe 10 out of 10. PFSH Past Medical History Hx Anticoagulant Therapy: Yes (HEPARIN) Arthritis: Yes Asthma: No Autoimmune Disease: No Anxiety: Yes Depression: Yes Heart Rhythm Problems: No Cancer: No Cardiovascular Problems: Yes (THORACIC OUTLET SYNDROME) High Cholesterol: Yes Chemotherapy: No Chest Pain: No Congestive Heart Failure: No COPD: Yes Cerebrovascular Accident: Yes Diabetes: No Diminished Hearing: No Endocrine: No GERD: Yes Glaucoma: No Genitourinary: Yes Hepatitis: Yes (HEP C) Hiatal Hernia: Yes Hypertension: No Immune Disorder: No Kidney Stones: Yes Musculoskeletal: Yes Neurologic: Yes Psychiatric: Yes Reproductive: No Respiratory: Yes (PNEUMONIA) Migraines: No Radiation Therapy: No Renal Failure: No Seizures: No Sickle Cell Disease: No Sleep Apnea: No Thyroid Disease: No Ulcer: No ?: Not Past Surgical History Abdominal Surgery: No AICD: No Appendectomy: Yes Arteriovenous Shunt: No Cardiac Surgery: Yes Ear Surgery: No Endocrine Surgery: No Eye Surgery: Yes (L CORNEA TRANSPLANT) Genitourinary Surgery: No Gynecologic Surgery: Yes (HYSTERECTOMY) Hysterectomy: Yes Insulin Pump: No Joint Replacement: No Neurologic Surgery: Yes (COCCYX REMOVED) Oral Surgery: Yes (TEETH ROMOVED 07/16/16) Pacemaker: No Thoracic Surgery: No Other Surgery: Yes (BENIGN TUMOR BILATERAL BREASTS) Social History Alcohol Use: No Tobacco Use: Yes Substance Use: No Allergies-Medications (Allergen,Severity, Reaction): Coded Allergies: Nubain (Verified Allergy, Severe, HIVES,HIVES, 10/26/16) Nonsteroidal Anti-Inflammatory Agts (Unverified Adverse Reaction, Severe, N/V, 10/26/16) Reported Meds & Prescriptions Reported Meds & Active Scripts Active Robaxin (Methocarbamol) 500 Mg Tab 500 Mg PO QID PRN Percocet (Oxycodone-Acetaminophen) 10-325 mg Tab 1 Tab PO Q6H PRN Rhksiiuong-Tdhcekpifmgdu-Lgcmphhd 50-325-40 Mg Tab 1 Tab PO Q6H PRN Atorvastatin (Atorvastatin Calcium) 20 Mg Tab 20 Mg PO HS Clonazepam 1 Mg Tab 1 Mg PO TID Oxycodone-Acetaminophen 5-325 mg Tab 1 Tab PO Q6HR PRN Cymbalta DR (Duloxetine HCl) 60 Mg Capdr 60 Mg PO DAILY Oxycodone-Acetaminophen 5-325 mg Tab 2 Tab PO Q4H PRN Morphine ER (Morphine Sulfate) 15 Mg Tab 15 Mg PO Q12HR Senna Plus 8.6-50 mg (Sennosides-Docusate Sodium) 1 Tab Tab 1 Tab PO BID Pantoprazole (Pantoprazole Sodium) 40 Mg Tab 40 Mg PO DAILY Eq Nicotine (Nicotine) 14 Mg/24 Hr Dis 1 Patch T-DERMAL DAILY@2100 Carbamazepine 200 Mg Tab 200 Mg PO Q12HR Aspirin 325 Mg Tab 325 Mg PO DAILY Reported Fosamax (Alendronate Sodium) Isamar 70 PO WEEKLY Caltrate 600/Vitamin D 400 (Calcium/Vitamin D) 1 Tab Tab 1 Tab PO DAILY Review of Systems Except as stated in HPI: all other systems reviewed are Neg Physical Exam Narrative GENERAL: SKIN: Warm and dry. HEAD: Atraumatic. Normocephalic. EYES: Pupils equal and round. No scleral icterus. No injection or drainage. ENT: No nasal bleeding or discharge. Mucous membranes pink and moist. Tongue is midline. No uvula deviation. NECK: Trachea midline. No JVD. CARDIOVASCULAR: Regular rate and rhythm. No murmurs, S3, S4. RESPIRATORY: No accessory muscle use. Clear to auscultation. Breath sounds equal bilaterally. GASTROINTESTINAL: Abdomen soft, non-tender, nondistended. Hepatic and splenic margins not palpable. MUSCULOSKELETAL: Extremities without clubbing, cyanosis, or edema. No obvious deformities. Full range of motion of the upper and lower extremities bilaterally. Patient has 2+ pulses bilaterally. Patient does appear to have bruising noted on the thoracic spine has bruising also noted on the Left rib cage. Patient does have a small bruise on the left side of the head. No cervical or lumbar spine tenderness to palpation. No pelvic pain. NEUROLOGICAL: Awake and alert. No obvious cranial nerve deficits. Motor grossly within normal limits. Five out of 5 muscle strength in the arms and legs. Normal speech. PSYCHIATRIC: Appropriate mood and affect; insight and judgment normal. Data Data Last Documented VS Vital Signs Date Time Temp Pulse Resp B/P Pulse Ox O2 Delivery O2 Flow Rate FiO2 10/26/16 19:13 Room Air 10/26/16 18:51 20 10/26/16 18:09 70 107/55 97 10/26/16 16:06 97.8 Orders Electrocardiogram (10/26/16 17:13) Complete Blood Count With Diff (10/26/16 17:13) Basic Metabolic Panel (Bmp) (10/26/16 17:13) Urinalysis - C+S If Indicated (10/26/16 17:13) Magnesium (Mg) (10/26/16 17:13) Ct Brain W/O Iv Contrast(Rout) (10/26/16 17:13) Ct Thor Spine W/O Contrast (10/26/16 ) Chest, Single Ap (10/26/16 ) Ct Abd/Pel W Iv Contrast(Rout) (10/26/16 ) Morphine Inj (Morphine Inj) (10/26/16 17:30) Ondansetron Inj (Zofran Inj) (10/26/16 17:30) Ct Thorax/ Chest W Iv Contrast (10/26/16 ) Iohexol 350 Inj (Omnipaque 350 Inj) (10/26/16 19:23) Hydromorphone Pf Inj (Dilaudid Pf Inj) (10/26/16 20:00) Labs Laboratory Tests Test 10/26/16 18:20 White Blood Count 8.3 TH/MM3 Red Blood Count 4.28 MIL/MM3 Hemoglobin 12.7 GM/DL Hematocrit 38.0 % Mean Corpuscular Volume 88.8 FL Mean Corpuscular Hemoglobin 29.6 PG Mean Corpuscular Hemoglobin 33.3 % Concent Red Cell Distribution Width 15.1 % Platelet Count 365 TH/MM3 Mean Platelet Volume 8.3 FL Neutrophils (%) (Auto) 48.8 % Lymphocytes (%) (Auto) 37.0 % Monocytes (%) (Auto) 8.4 % Eosinophils (%) (Auto) 5.1 % Basophils (%) (Auto) 0.7 % Neutrophils # (Auto) 4.1 TH/MM3 Lymphocytes # (Auto) 3.1 TH/MM3 Monocytes # (Auto) 0.7 TH/MM3 Eosinophils # (Auto) 0.4 TH/MM3 Basophils # (Auto) 0.1 TH/MM3 CBC Comment DIFF FINAL Differential Comment Sodium Level 139 MEQ/L Potassium Level 4.5 MEQ/L Chloride Level 107 MEQ/L Carbon Dioxide Level 25.1 MEQ/L Anion Gap 7 MEQ/L Blood Urea Nitrogen 19 MG/DL Creatinine 0.76 MG/DL Estimat Glomerular Filtration 78 ML/MIN Rate Random Glucose 85 MG/DL Calcium Level 8.3 MG/DL Magnesium Level 2.2 MG/DL MDM Medical Decision Making Medical Screen Exam Complete: Yes Emergency Medical Condition: Yes Medical Record Reviewed: Yes Interpretation(s) Last Impressions Head CT 10/26/16 1713 Signed Impressions: Service Date/Time: Wednesday, October 26, 2016 19:16 - CONCLUSION: No significant change has occurred. Yair Morales MD Thoracic Spine CT 10/26/16 0000 Signed Impressions: Service Date/Time: Wednesday, October 26, 2016 19:29 - CONCLUSION: 1. Multiple nonacute compression fractures. No acute findings. Yair Morales MD Chest X-Ray 10/26/16 0000 Signed Impressions: Service Date/Time: Wednesday, October 26, 2016 17:22 - CONCLUSION: Normal examination. Ruben Suggs MD Chest CT 10/26/16 0000 Signed Impressions: Service Date/Time: Wednesday, October 26, 2016 19:29 - CONCLUSION: 1. Left renal cysts. 2. Mild basilar atelectasis. 3. Compression deformities of the thoracic spine are noted and are nonacute. Yair Morales MD Abdomen/Pelvis CT 10/26/16 0000 Signed Impressions: Service Date/Time: Wednesday, October 26, 2016 19:29 - CONCLUSION: No acute disease. Yair Morales MD CBC & BMP Diagram 10/26/16 18:20 Differential Diagnosis Fracture versus multiple falls versus chronic pain versus head injury versus compression fracture Narrative Course 61-year-old female that presents to the ED for evaluation of multiple falls. Patient was properly examined and was found to have signs and symptoms consistent appears to be multiple injuries from recent falls. Patient already on nursing facility for this. Patient had an x-ray that showed T4 and T 5 compression fractures. (From a fall couple days ago. Per patient she complains mostly of pain. She states that she is unsteady with her gait and is what she is in the [place]. Recent fall was 2 hours before coming in she did hit her head. She is otherwise contact otherwise other than some chronic deformities from her previous stroke. Recommend labs and imaging. Patient is in agreement with this plan. Patient was given IV pain medications and antiemetics. Labs and imaging were essentially unremarkable for acute disease. Patient was reassured. Unfortunately patient does have multiple compression fractures to her back which appear to be nonacute. Patient tolerated resize a rehabilitation facility for gait disturbances and the CVA. Patient very takes pain medication. I will increase her pain medication to help her more with her pain. I also added a muscle relaxant to help with her pain. Case discussed with my attending Dr Tucker who is in agreement with treatment plan and discharge back to [facility]. Ice or warm compresses recommended. Close follow with PCP. See ED worsening symptoms. Diagnosis Primary Impression: Chronic back pain Qualified Code: M54.6 - Chronic bilateral thoracic back pain Additional Impression: Fall Qualified Code: W19.XXXA - Fall, initial encounter Referrals: Vlad Chirinos MD Patient Instructions: General Instructions, Narcotic given in the ED Additional Instructions: Take medications as prescribed. We increased one of your pain meds to hopefully better help with your pain and added a muscle relaxant as well to help. Continue your PT so you can improve your gait. Follow-up with PCP. See ED for any worsening symptoms. Do not drink or drive while taking pain medication. Apply ice or heat as needed for pain Med/Other Pt SpecificInfo: Prescription(s) given Scripts Methocarbamol (Robaxin)500 Mg [id number] Mg PO QID PRN (PAIN SCALE 1 TO 10) #15 TAB Ref 0 Prov:Alla Tucker MD 10/26/16 Oxycodone-Acetaminophen (Percocet)10-325 mg Tab1 Tab PO Q6H PRN (PAIN) #15 TAB Ref 0 Prov:Alla Tucker MD 10/26/16 Disposition: 03 DISCHARGE TO SNF Condition: Stable Jeffry Swann Oct 26, 2016 18:05
[2016-10-26 18:09] VITALS: BP 107/55; PULSE 70; RESP 16; O2SAT 97
[2016-10-26 18:35] LABS: AUTOMATED NEUTROPHIL # 4.1 TH/MM3 (1.8-7.7); BASOPHIL # 0.1 TH/MM3 (0-0.2); BASOPHIL % 0.7 % (0.0-2.0); EOSINOPHIL # 0.4 TH/MM3 (0-0.4); EOSINOPHIL % 5.1 % (0.0-4.0); HEMO FLAGS DIFF FINAL; LYMPHOCYTE # 3.1 TH/MM3 (1.0-4.8); MEAN CELL VOLUME 88.8 FL (80.0-100.0); MEAN CORPUSCULAR HEMOGLOBIN 29.6 PG (27.0-34.0); MEAN CORPUSCULAR HGB CONC 33.3 % (32.0-36.0); MONO % 8.4 % (0.0-8.0); NEUT % 48.8 % (16.0-70.0); PLATELET COUNT 365 TH/MM3 (150-450); RED BLOOD COUNT 4.28 MIL/MM3 (4.00-5.30); RED CELL DISTRIBUTION WIDTH 15.1 % (11.6-17.2); WHITE BLOOD COUNT 8.3 TH/MM3 (4.0-11.0)
[2016-10-26 18:44] LABS: BICARBONATE 25.1 MEQ/L (21.0-32.0); MAGNESIUM 2.2 MG/DL (1.5-2.5); POTASSIUM 4.5 MEQ/L (3.5-5.1)
[2016-10-26] MEDS ORDERED: IOHEXOL 350 MG/ML 10 ML VIAL (for RAD DIAG) IV ONE (19:23)
--- NOTE | 2016-10-26 19:31 | RADRPT ---
EXAM DATE/TIME: 10/26/2016 19:16 [facility] COMPARISON: CT BRAIN W/O CONTRAST, October 09, 2016, 0:07. INDICATIONS : Trauma, fall today. RADIATION DOSE: 56.35 CTDIvol (mGy) MEDICAL HISTORY : Cardiovascular disease. Hepatitis C. SURGICAL HISTORY : Hysterectomy. ENCOUNTER: Initial ACUITY: 1 day PAIN SCALE: 5/10 LOCATION: Bilateral head TECHNIQUE: Multiple contiguous axial images were obtained of the head. Using automated exposure control and adj ustment of the mA and/or kV according to patient size, radiation dose was kept as low as reasonably a chievable to obtain optimal diagnostic quality images. DICOM format image data is available electro nically for review and comparison. FINDINGS: Remote right basal ganglia infarct with encephalomalacia and adjacent chronic microvascular ischemic disease. No signs of acute infarct, hemorrhage or mass. There are no fractures. CONCLUSION: No significant change has occurred. Yiar Morales MD on October 26, 2016 at 19:29 Board Certified Radiologist. This report was verified electronically.
--- NOTE | 2016-10-26 19:51 | RADRPT ---
EXAM DATE/TIME: 10/26/2016 19:29 [facility] COMPARISON: CHEST SINGLE AP, October 26, 2016, 17:22. CT THORACIC SPINE W/O CONTRAST, October 26, 2016, 19:29. CT ABD OMEN & PELVIS W CONTRAST, October 26, 2016, 19:29. INDICATIONS : Trauma, fall today. IV CONTRAST: 95 cc Omnipaque 350 (iohexol) IV ; Cumulative dose for multiple exams. RADIATION DOSE: 9.96 CTDIvol (mGy) ; Combined studies MEDICAL HISTORY : Hepatitis C. thoracic outlet syndrome, hiatal hernia, benign tumor of bilateral breasts, cardiovascu lar disease SURGICAL HISTORY : Hysterectomy. ENCOUNTER: Initial ACUITY: 1 day PAIN SCALE: 5/10 LOCATION: Bilateral chest TECHNIQUE: Volumetric scanning of the chest was performed. Using automated exposure control and adjustment of t he mA and/or kV according to patient size, radiation dose was kept as low as reasonably achievable to obtain optimal diagnostic quality images. DICOM format image data is available electronically for review and comparison. Follow-up recommendations for incidentally detected pulmonary nodules are based at a minimum on nodul e size and patient risk factors according to Fleischner Society Guidelines. FINDINGS: There is respiratory motion artifact. There is atelectasis at the bases. No consolidation or effusion . Mediastinum unremarkable. There are multiple compression fractures involving the thoracic spine at T8, T7, T6-T4. These are nonacute in appearance. There are 2 small simple cyst at the midpole of the left kidney. Adrenal glands are normal. CONCLUSION: 1. Left renal cysts. 2. Mild basilar atelectasis. 3. Compression deformities of the thoracic spine are noted and are nonacute. Yair Morales MD on October 26, 2016 at 19:47 Board Certified Radiologist. This report was verified electronically.
--- NOTE | 2016-10-26 19:53 | RADRPT ---
EXAM DATE/TIME: 10/26/2016 19:29 [facility] COMPARISON: CT THORACIC SPINE W/O CONTRAST W 3D RECON, April 23, 2009, 9:49. CT THORACIC SPINE W/O CONTRAST, J edi 2016, 19:29. CT THORAX W CONTRAST, October 26, 2016, 19:29. INDICATIONS : Trauma, fall today. IV CONTRAST: 95 cc Omnipaque 350 (iohexol) IV ; Cumulative dose for multiple exams. ORAL CONTRAST: No oral contrast ingested. RADIATION DOSE: 9.96 CTDIvol (mGy) ; Combined studies MEDICAL HISTORY : Cardiovascular disease. Hepatitis C. thoracic outlet syndrome, hiatal hernia SURGICAL HISTORY : Hysterectomy. ENCOUNTER: Initial ACUITY: 1 day PAIN SCALE: 3/10 LOCATION: Bilateral abdomen TECHNIQUE: Volumetric scanning of the abdomen and pelvis was performed. Using automated exposure control and ad justment of the mA and/or kV according to patient size, radiation dose was kept as low as reasonably achievable to obtain optimal diagnostic quality images. DICOM format image data is available electro nically for review and comparison. FINDINGS: No pleural or pericardial effusions. Minimal prominence of the intrahepatic biliary tree and common b ile duct. There are 2 simple cysts of the midpole of the left kidney posteriorly measuring up to 1.5 cm. These are benign in appearance. Right kidney, spleen, pancreas, adrenals, gallbladder unremarkabl e. Urinary bladder is unremarkable. The patient is status post hysterectomy. No evidence of bowel obs truction. Atelectatic changes at the lung bases. No worrisome osseous lesions. Atherosclerotic calcif ications of the aorta and iliac vessels. CONCLUSION: No acute disease. Yair Morales MD on October 26, 2016 at 19:50 Board Certified Radiologist. This report was verified electronically.
[2016-10-26] MEDS ORDERED: HYDROmorphone HCL PF 1 MG/ML VIAL IV PUSH ONE (20:00)
--- NOTE | 2016-10-26 20:05 | RADRPT ---
EXAM DATE/TIME: 10/26/2016 19:29 [facility] COMPARISON: CT THORAX W CONTRAST, October 26, 2016, 19:29. INDICATIONS : Trauma, fall today. RADIATION DOSE: ; Reconstructed from previous dataset, no dose MEDICAL HISTORY : Hepatitis C. Cardiovascular disease thoracic outlet syndrome, hiatal hernia SURGICAL HISTORY : Hysterectomy. ENCOUNTER: Initial ACUITY: 1 day PAIN SCALE: 6/10 LOCATION: Bilateral upper back TECHNIQUE: Volumetric scanning of the thoracic spine was performed. Multiplanar reconstructions in the sagittal , coronal and oblique axial planes were performed. Using automated exposure control and adjustment o f the mA and/or kV according to patient size, radiation dose was kept as low as reasonably achievable to obtain optimal diagnostic quality images. DICOM format image data is available electronically f or review and comparison. FINDINGS: The nonacute moderate to severe wedge compression fractures at T4 and T5, mild compression deformity is at T6-T8 identified, nonacute. Mild exaggeration of the thoracic kyphosis centered at T5. No acute fractures are seen. Scattered Schmorl nodes are identified. The spinal canal is patent. CONCLUSION: 1. Multiple nonacute compression fractures. No acute findings. Yair Morales MD on October 26, 2016 at 20:01 Board Certified Radiologist. This report was verified electronically.
[2016-10-26] MEDS ORDERED: ROBA500T PO (20:10)
[2016-10-26] MEDS ORDERED: PERC10TA27 PO (20:10)
[2016-10-26 20:22] VITALS: BP 141/68; PULSE 68; RESP 20; O2SAT 97
[2016-10-26 20:51] LABS: BLOOD, URINE NEG (NEG); COMMENT (UR) CULT NOT INDICATED; CULTURE IF INDICATED CULT NOT INDICATED; GLUCOSE,URINE NEG (NEG); KETONE, URINE NEG (NEG); MUCUS URINE FEW /lpf (OCC); NITRITE,URINE NEG (NEG); SQUAMOUS EPITHELIAL CELL URINE 3 /hpf (0-5); URINE COLOR YELLOW (YELLW/STRAW)
[2016-10-26 22:36] VITALS: BP 102/59; PULSE 61; RESP 20; O2SAT 94
[2016-10-26] MEDS ORDERED: METHOCARBAMOL 500 MG TAB PO ONE (23:15)
[2016-10-27 02:53] VITALS: BP 106/55; PULSE 67; O2SAT 94
[2016-10-27] MEDS ORDERED: oxyCODONE/ACETAMINOPHEN 5 MG/325 MG TAB PO ONE (03:30)
[2016-10-27 06:22] VITALS: BP 93/50; PULSE 65; O2SAT 95
--- NOTE | 2016-10-27 18:54 | EKG ---
Date Performed: 10/26/2016 Time Performed: 18:06:34 PTAGE: 61 years EKG: Sinus rhythm NORMAL ECG PREVIOUS TRACING : 09/16/2016 07.47 Compared to prior tracing no significant change DOCTOR: Billy Meehan Interpretating Date/Time 10/27/2016 18:52:59
== END 2016-10-27 09:09 ==
LOC: NEPC 16:01
DX: M54.6 Pain in thoracic spine (principal); G89.29 Other chronic pain; W19.XXXA Unspecified fall, initial encounter; Z91.81 History of falling; Z79.899 Other long term (current) drug therapy
CPT/HCPCS: 70450; 71010; 71260; 72128; 74177; 80048; 81001; 83735; 85025; 93005; 96374; 96375; 99285; J1170; J2270; J2405; Q9967

== ENCOUNTER 2016-11-18 16:05 | Emergency (ER) | payer MEDICAID ==
[~2016-11-18] VITALS: Ht 154.9 cm; Wt 75.0 kg
[~2016-11-18 16:05] MED LIST changes: -CALTTAB2 PO; -MORP1TAB24 PO; -NICO14DI23 T-DERMAL; -OXYC1TAB63 PO; +REST0.05 EACH EYE; +ROBA500T PO; -[UNRECOGNIZED DRUG - CODE] PO
[2016-11-18 16:07] VITALS: BP 112/68; PULSE 88; RESP 20; TEMP 97.8; O2SAT 98
--- NOTE | 2016-11-18 16:14 | PD ---
Physical Exam Date Seen by Provider: Nov 18, 2016 Time Seen by Provider: 16:12 Narrative 61 yo female here for pain. Pain to the arm. Fell multiple times. PCP sent her here for possible new fracture. Pain is 8/10. Possible shingles per patient as well. Only takes NSAIDs for pain. No head injury. Vitals are stable in triage. Awaiting Bed placement. Data Data Last Documented VS Vital Signs Date Time Temp Pulse Resp B/P Pulse Ox O2 Delivery O2 Flow Rate FiO2 11/18/16 16:07 97.8 88 20 112/68 98 Room Air [facility] Medical Record Reviewed: Yes Supervised Visit with ANDREE: No Jeffry Swann Nov 18, 2016 16:14
--- NOTE | 2016-11-18 17:15 | PD ---
HPI Chief Complaint: Pain: Acute or Chronic Time Seen by Provider: 17:11 Travel History International Travel<30 days: No Contact w/Intl Traveler<30days: No Traveled to known affect area: No History of Present Illness HPI 61 YO F presents to the ED for evaluation of left shoulder pain and rash of right buttocks. Patient states that she has chronic falls, thinks that she injured the shoulder in one of these instances. She endorses chronic weakness on the left 2/2 stroke. Sensation is intact. She endorses pruritus of the rash but denies fever or chills, nausea or vomiting. She states "none of my doctors will give me pain medications." PFSH Past Medical History Hx Anticoagulant Therapy: Yes (HEPARIN) Arthritis: Yes Asthma: No Autoimmune Disease: No Anxiety: Yes Depression: Yes Heart Rhythm Problems: No Cancer: No Cardiovascular Problems: Yes (THORACIC OUTLET SYNDROME) High Cholesterol: Yes Chemotherapy: No Chest Pain: No Congestive Heart Failure: No COPD: Yes Cerebrovascular Accident: Yes Diabetes: No Diminished Hearing: No Endocrine: No Gastrointestinal Disorders: Yes GERD: Yes Glaucoma: No Genitourinary: Yes Hepatitis: Yes (HEP C) Hiatal Hernia: Yes Hypertension: No Immune Disorder: No Kidney Stones: Yes Musculoskeletal: Yes Neurologic: Yes Psychiatric: Yes Reproductive: No Migraines: No Radiation Therapy: No Renal Failure: No Seizures: No Sickle Cell Disease: No Sleep Apnea: No Thyroid Disease: No Ulcer: No ?: Not Past Surgical History Abdominal Surgery: No AICD: No Appendectomy: Yes Arteriovenous Shunt: No Cardiac Surgery: Yes Ear Surgery: No Endocrine Surgery: No Eye Surgery: Yes (L CORNEA TRANSPLANT) Genitourinary Surgery: No Gynecologic Surgery: Yes Hysterectomy: Yes Insulin Pump: No Joint Replacement: No Neurologic Surgery: Yes (COCCYX REMOVED) Oral Surgery: Yes (TEETH ROMOVED 07/16/16) Pacemaker: No Thoracic Surgery: No Other Surgery: Yes (BENIGN TUMOR BILATERAL BREASTS) Social History Alcohol Use: No Tobacco Use: Yes (3 cig/day) Substance Use: No Allergies-Medications (Allergen,Severity, Reaction): Coded Allergies: No Known Allergies (Unverified , 11/14/16) Reported Meds & Prescriptions Reported Meds & Active Scripts Active Bactroban Topical (Mupirocin) 22 Gm Cream 1 Applic TOPICAL TID 14 Days Restasis Opth 0.05% (Cyclosporine Opth 0.05%) 0.05% Emul 1 Drop EACH EYE BID Robaxin (Methocarbamol) 500 Mg Tab 500 Mg PO QID PRN Jxibuawyfa-Wialbrgnbwaae-Ahouqcpk 50-325-40 Mg Tab 1 Tab PO Q6H PRN Atorvastatin (Atorvastatin Calcium) 20 Mg Tab 20 Mg PO HS Clonazepam 1 Mg Tab 1 Mg PO TID Cymbalta DR (Duloxetine HCl) 60 Mg Capdr 60 Mg PO DAILY Senna Plus 8.6-50 mg (Sennosides-Docusate Sodium) 1 Tab Tab 1 Tab PO BID Pantoprazole (Pantoprazole Sodium) 40 Mg Tab 40 Mg PO DAILY Carbamazepine 200 Mg Tab 200 Mg PO Q12HR Aspirin 325 Mg Tab 325 Mg PO DAILY Review of Systems Except as stated in HPI: all other systems reviewed are Neg Physical Exam Narrative GENERAL: Well-nourished, well-developed white female in NAD SKIN: Focused skin assessment warm/dry. There are a few small superficial abrasions on the right buttocks. There is localized inflammation but no signs of cellulitis. HEAD: Normocephalic. EYES: No scleral icterus. No injection or drainage. NECK: Supple, trachea midline. No JVD or lymphadenopathy. CARDIOVASCULAR: Regular rate and rhythm without murmurs, gallops, or rubs. RESPIRATORY: Breath sounds equal bilaterally. No accessory muscle use. GASTROINTESTINAL: Abdomen soft, non-tender, nondistended. MUSCULOSKELETAL: No cyanosis, or edema. FOCUSED RIGHT UPPER EXTREMITY EXAM: 2+ radial pulse. There palpation on the medial aspect of the scapula. 2/5 strength with the patient states is normal. No tenderness to palpation of the shaft of the humerus. BACK: Nontender without obvious deformity. No CVA tenderness. Data Data Last Documented VS Vital Signs Date Time Temp Pulse Resp B/P Pulse Ox O2 Delivery O2 Flow Rate FiO2 11/18/16 18:50 18 11/18/16 18:24 80 114/64 96 Room Air 11/18/16 16:07 97.8 Orders Shoulder, Complete (>2vws) (11/18/16 17:27) Ice/Cold Pack (11/18/16 17:27) Acetamin-Hydrocod 325-5 Mg ([place] 5-325 (11/18/16 17:30) MDM Medical Decision Making Medical Screen Exam Complete: Yes Emergency Medical Condition: Yes Differential Diagnosis Musculoskeletal pain versus contusion versus folliculitis versus cellulitis versus drug-seeking behavior versus other Narrative Course 61 YO F presents to the ED for evaluation of left shoulder pain and rash of right buttocks. Patient states that she has chronic falls, thinks that she injured the shoulder in one of these instances. She endorses chronic weakness on the left 2/2 stroke. Sensation is intact. She endorses pruritus of the rash but denies fever or chills, nausea or vomiting. She states "none of my doctors will give me pain medications." Vitals reviewed. Patient seems quite agitated on exam and I suspect she may be altered. She denies this. There is a few superficial abrasions of the right hip with some localized inflammation but no evidence of cellulitis. She has tenderness to palpation of the left scapula, 2/ 5 weakness of the LUE which she states is normal, sensation intact. 2+ radial pulses. She continues to complain about pain. Ice pack was applied. She was administered 5 mg Lortab. X-ray of shoulder is unremarkable. A review of the force reveals the patient has received 168 tablets of combination of morphine, hydrocodone and oxycodone within the last month. On recheck she continues to complain of pain and requests pain medications. I discussed the results of the x-ray with the patient. We'll treat the localized inflammation with some Bactroban ointment. She is stable and discharged home. Diagnosis Primary Impression: Shoulder pain, right Qualified Code: M25.511 - Acute pain of right shoulder Additional Impression: Folliculitis and perifolliculitis Referrals: Primary Care Physician Patient Instructions: Folliculitis (ED), General Instructions, Shoulder Pain ( ED) Additional Instructions: Apply antibiotic ointment as prescribed. Keep the wound clean and dry. Follow-up with the orthopedist for further evaluation of shoulder pain. Return to the ED for any urgent or emergent medical condition. Med/Other Pt SpecificInfo: Prescription(s) given Scripts Mupirocin Topical (Bactroban Topical)22 Gm Cream1 Applic TOPICAL TID 14 Days Ref 0 Prov:Yonas Mcgowan MD 11/18/16 Disposition: 01 DISCHARGE HOME Condition: Stable Barbara Boland Nov 18, 2016 17:15
[2016-11-18] MEDS ORDERED: ACETAMINOPHEN/HYDROcodone 325 MG/5 MG TAB PO ONE (17:30)
[2016-11-18 18:24] VITALS: BP 114/64; PULSE 80; RESP 16; O2SAT 96
--- NOTE | 2016-11-18 18:32 | RADRPT ---
EXAM DATE/TIME: 11/18/2016 17:51 [facility] COMPARISON: SHOULDER LEFT COMPLETE (>2VWS), October 09, 2016, 16:54. INDICATIONS : Patient has had multiple falls over the last week. MEDICAL HISTORY : Cardiovascular disease. Hepatitis C. thoracic outlet syndrome, hiatal hernia SURGICAL HISTORY : Hysterectomy. ENCOUNTER: Initial ACUITY: 1 week PAIN SCORE: 10/10 LOCATION: Left Scapula area FINDINGS: Multiple view examination of the left shoulder demonstrates no evidence of fracture or dislocation. The glenohumeral and acromioclavicular joints are maintained. There is normal range of motion betwee n internal and external rotation. Bony mineralization is normal. CONCLUSION: 1. No acute findings. Syd Dumont MD on November 18, 2016 at 18:29 Board Certified Radiologist. This report was verified electronically.
[2016-11-18] MEDS ORDERED: MUPI2%T TOPICAL (18:40)
[2016-11-18 18:50] VITALS: RESP 18
== END 2016-11-18 19:09 | disposition home or self-care (01) ==
LOC: NEPD 16:05
DX: M25.512 Pain in left shoulder (principal); L73.9 Follicular disorder, unspecified; L01.02 Bockhart's impetigo; B19.20 Unspecified viral hepatitis C without hepatic coma; I25.10 Atherosclerotic heart disease of native coronary artery without angina pectoris; J44.9 Chronic obstructive pulmonary disease, unspecified; K21.9 Gastro-esophageal reflux disease without esophagitis; K44.9 Diaphragmatic hernia without obstruction or gangrene; R29.6 Repeated falls; Z86.73 Personal history of transient ischemic attack (TIA), and cerebral infarction without residual deficits; Z87.442 Personal history of urinary calculi; Z79.01 Long term (current) use of anticoagulants
CPT/HCPCS: 73030; 99283

== ENCOUNTER 2017-11-07 19:15 | Inpatient (IN) ==
[2017-11-07] MEDS ORDERED: Enoxaparin Inj 60 MG/0.6 ML Syringe SQ ONE (23:42)
[2017-11-08] MEDS ORDERED: Bisacodyl 10 MG Supp RECTAL PRN (00:20)
[2017-11-08] MEDS ORDERED: Dextrose 50% in Water 50 ML Vial IV.PUSH PRN (00:23)
--- NOTE | 2017-11-08 00:31 | ED ---
HPI General Chief Complaint: Stroke Alert Time Seen by Provider: 11/07/17 23:41 Source: RN notes reviewed and old records reviewed History of Present Illness HPI Narrative: 62-year-old woman, ED to ED transfer for Deltasone, stroke alert. Worsening left-sided weakness, history of the same, recent admission for the same. Related Data Home Medications Medication Instructions Recorded Confirmed hufrdwxwkw-hlqtydxgahrch-ofil 1 cap PO Q4H PRN 11/07/17 11/07/17 [Fioricet] carbamazepine 200 mg PO BID 11/07/17 11/07/17 clonazepam [Klonopin] 0.5 mg PO TID 11/07/17 11/07/17 clopidogrel [Plavix] 75 mg PO DAILY 11/07/17 11/07/17 duloxetine [Cymbalta] 20 mg PO DAILY 11/07/17 11/07/17 omeprazole 40 mg PO DAILY 11/07/17 11/07/17 oxycodone 10 mg PO TID 11/07/17 11/07/17 varenicline [Chantix] 0.5 mg PO BID 11/07/17 11/07/17 Allergies Allergy/AdvReac Type Severity Reaction Status Date / Time No Known Allergies Allergy Verified 11/07/17 20:13 Review of Systems ROS Unobtainable All other systems reviewed negative except as stated in HPI [facility] Medical History Medical History Depression (Acute) GERD (gastroesophageal reflux disease) (Acute) H/O: hysterectomy (Acute) Hypercholesterolemia (Acute) Stroke (Acute) Surgical History Surgical History History of corneal transplant (Acute) Hx of appendectomy (Acute) Social History Social History Substance History: No History of Abuse Second Hand Smoke Exposure: No Smoking Status: Smoker, status unknown Tobacco Type: Cigarettes How Often Do You Have a Drink Containing Alcohol: Never Recent Travel in [facility] within the Last 8 Weeks: No Recent Out of Country Travel within the Last 8 Weeks: No Immunization History Tetanus Immunization: Unsure Hx Influenza Vaccine This Season: No Exam Narrative Exam Narrative: GENERAL: 62-year-old woman, left-sided deficits, nontoxic appearing. SKIN: Focused skin assessment warm/dry. HEAD: Atraumatic. Normocephalic. EYES: Pupils equal and round. No scleral icterus. No injection or drainage. ENT: No nasal bleeding or discharge. Mucous membranes pink and moist. NECK: Trachea midline. No JVD. CARDIOVASCULAR: Regular rate and rhythm. No murmur appreciated. RESPIRATORY: No accessory muscle use. Clear to auscultation. Breath sounds equal bilaterally. GASTROINTESTINAL: Abdomen soft, non-tender, nondistended. Hepatic and splenic margins not palpable. MUSCULOSKELETAL: No obvious deformities. No clubbing. No cyanosis. No edema. NEUROLOGICAL: Awake and alert. Left-sided facial droop and left-sided weakness. Course Initial Documented Vital Signs Temperature 98.0 F 11/07/17 23:42 Pulse Rate 88 11/07/17 23:42 Respiratory Rate 17 11/07/17 23:42 Blood Pressure 160/88 H 11/07/17 23:42 Pulse Oximetry 98 11/07/17 23:42 Last Documented Vital Signs Temperature 98.0 F 11/07/17 23:42 Pulse Rate 88 11/07/17 23:42 Respiratory Rate 17 11/07/17 23:42 Blood Pressure 160/88 H 11/07/17 23:42 Pulse Oximetry 98 11/07/17 23:42 Medical Decision Making MDM Narrative Medical decision making narrative: Spoke with Dr. Abreu, from from [facility] on the [facility]. I also spoke with Dr. Smith, neurologist. Recommended MRI brain, MRA neck was. Recommended a shot of Lovenox. Neurology consult. Patient will be admitted for further evaluation. Patient seems more preoccupied with her pain on her right ribs. Do not see any evidence of injury. Discharge Plan Discharge Disposition Patient Disposition: 30 Still Patient Physicians Team ED Provider: Ruben Solo Primary Care Provider: Michael Land Attending Provider: Shannen Will Other Providers: Yvan Marshall Status ED Status: Admitted Patient
[2017-11-08] MEDS ORDERED: Morphine Inj 4 MG/ML Vial IV.PUSH PRN (00:45)
--- NOTE | 2017-11-08 00:56 | P.HPIM ---
History of Present Illness Primary Care Physician: Michael Land History of Present Illness: This is a 62-year-old female with a PMH of CVA, Chronic Back Pain, H/o Eye Surgery w/ Left Ptosis, PVD, Anxiety, Depression, COPD, Hepatitis C and h/o Tobacco Abuse who was transferred to the ER from [facility] for Stroke. Pt is very poor historian and difficult to obtain accurate details regarding her history, but she does tell me she has h/o CVA w/ residual left hand weakness- unable to grasp objects, but is able to ambulate. Was admitted to [facility] in [place] from 11/01-11/05/17 for acute left facial droop and weakness, states "everything was negative". Reports having episodes of "choking " after she eats ever since she was discharged few days ago. Today, reports recurrent left facial droop, slurred speech and LUE/LLE numbness w/ "tremors". States unable to walk. Was seen in [place] ER and transferred for further eval by Dr. Smith. CT Head w/ old infarct right basal ganglia. CXR w/ no acute findings. BP 160/88, HR 88, O2 sat 98% on RA, Afebrile. WBC 14.3. INR 0.9. Chemistry essentially unremarkable except for creatinine 1.10. Troponin negative. UA negative. On exam, pt w/ persistent facial droop and slurred speech. Her main concern is getting pain medication for right-sided rib cage pain which "I know is from a pneumonia". Also asking for her Clonazepam. - Diagnosis (1) CVA (cerebral vascular accident) (2) Chronic pain Inpatient Certification: I certify that the inpatient services were ordered in accordance with Medicare regulations governing the order. 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 - Medical History Medical History: Medical History (Last Updated 11/07/17 @ 19:32 by Kena Gonzáles RN) Depression GERD (gastroesophageal reflux disease) H/O: hysterectomy Hypercholesterolemia Stroke - Surgical History Surgical History: Surgical History (Last Updated 11/07/17 @ 19:32 by Kena Gonzáles RN) History of corneal transplant Hx of appendectomy - Tobacco History Second Hand Smoke Exposure: No Tobacco Use In Past 30 Days: No Smoking Status: Smoker, status unknown Tobacco Type: Cigarettes - Alcohol History How Often Do You Have a Drink Containing Alcohol: Never - Substance Use History Substance History: No History of Abuse - Travel History Recent Travel in the [place] Within the Last 8 Weeks: No Recent Travel Out of the Country Within the Last 8 Weeks: No - Immunization History Tetanus Immunization: Unsure Hx Influenza Vaccine This Season: No Medications and Allergies Active Medications: Active Medications Al Hydroxide/Mg Hydroxide (Milk Of Magnesia Liq) 30 ml PO Q12H PRN PRN Reason: Mild Constipation Bisacodyl (Dulcolax Supp) 10 mg RECTAL DAILY PRN PRN Reason: SEVERE CONSITIPATION Dextrose (D50w Vial) 50 ml IV.PUSH UNSCH PRN PRN Reason: PER HYPOGLYCEMIA PROTOCOL Enalaprilat (Vasotec Inj) 1.25 mg IV.PUSH Q4H PRN PRN Reason: For SBP > 220 or DBP > 120 Glucagon (Glucagon Inj) 1 mg OTHER UNSCH PRN PRN Reason: for Hypoglycemia Protocol Sodium Chloride (Ns Inj) 1,000 mls @ 70 mls/hr IV.CONT .[id number] MARÍA Insulin Aspart (Novolog Insulin Correctional Sugar Inj) 0 unit SQ ACHS MARÍA; Protocol Lactulose (Lactulose Liq) 30 ml PO DAILY PRN PRN Reason: SEVERE CONSITIPATION Lorazepam (Ativan Inj) 0.5 mg IV.PUSH Q4H PRN PRN Reason: AGITATION/ANXIETY Ondansetron HCl (Zofran Odt) 4 mg PO Q6H PRN PRN Reason: NAUSEA OR VOMITING Senna/Docusate Sodium (Ita-Colace) 1 tab PO BID MARÍA Sennosides (Senokot) 17.2 mg PO Q12H PRN PRN Reason: Moderate Constipation Allergies Allergy/AdvReac Type Severity Reaction Status Date / Time No Known Allergies Allergy Verified 11/07/17 20:13 Home Medications Medication Instructions Recorded Confirmed Type llhwfuganj-lujpoxautuoif-bnkp 1 cap PO Q4H PRN 11/07/17 11/07/17 History [Fioricet] carbamazepine 200 mg PO BID 11/07/17 11/07/17 History clonazepam [Klonopin] 0.5 mg PO TID 11/07/17 11/07/17 History clopidogrel [Plavix] 75 mg PO DAILY 11/07/17 11/07/17 History duloxetine [Cymbalta] 20 mg PO DAILY 11/07/17 11/07/17 History omeprazole 40 mg PO DAILY 11/07/17 11/07/17 History oxycodone 10 mg PO TID 11/07/17 11/07/17 History varenicline [Chantix] 0.5 mg PO BID 11/07/17 11/07/17 History Exam Vital signs: Vital Signs 11/07/17 23:42 Temperature 98.0 F Pulse Rate 88 Respiratory Rate 17 Blood Pressure 160/88 H Pulse Oximetry 98 Intake & Output 11/07/17 11/07/17 11/08/17 06:59 18:59 06:59 Weight 55 kg Narrative: PE: GENERAL: Middle-aged white female in no acute distress, but anxious/fidgety. HEENT: PERRLA, EOMI. No scleral icterus or conjunctival pallor. Left ptosis, reports more pronounced than baseline, left facial droop, +mild slurred speech CARDIOVASCULAR: Regular rate and rhythm. No obvious murmurs to auscultation. No chest tenderness to palpation. RESPIRATORY: No obvious rhonchi or wheezing. Clear to auscultation. Breath sounds equal bilaterally. GASTROINTESTINAL: Abdomen soft, non-tender, nondistended. BS normal. MUSCULOSKELETAL: Extremities without clubbing, cyanosis, or edema. No obvious deformities. NEUROLOGICAL: Awake, alert and oriented x4. Left hand weakness, stable, LUE/LLE numbness. Moving both upper and lower extremities spontaneously. Caprini VTE Risk Assessment Caprini VTE Risk Assessment: No/Low Risk (score <= 1) Caprini Risk Assessment Model: Point Value = 1 Point Value = 2 Point Value = 3 Point Value = 5 Age 41-60 Minor surgery BMI > 25 kg/m2 Swollen legs Varicose veins or History of unexplained or recurrent spontaneous Oral contraceptives or hormone replacement Sepsis (< 1 month) Serious lung disease, including pneumonia (< 1 month) Abnormal pulmonary function Acute myocardial infarction Congestive heart failure (< 1 month) History of inflammatory bowel disease Medical patient at bed rest Age 61-74 Arthroscopic surgery Major open surgery (> 45 min) Laparoscopic surgery (> 45 min) Malignancy Confined to bed (> 72 hours) Immobilizing plaster cast Central venous access Age >= 75 History of VTE Family history of VTE Factor V Leiden Prothrombin [id number] Lupus anticoagulant Anticardiolipin antibodies Elevated serum homocysteine Heparin-induced thrombocytopenia Other congenital or acquired thrombophilia Stroke (< 1 month) Elective arthroplasty Hip, pelvis, or leg fracture Acute spinal cord injury (< 1 month) Prophylaxis Regimen: Total Risk Factor Score Risk Level Prophylaxis Regimen 0-1 Low Early ambulation 2 Moderate Order ONE of the following: *Sequential Compression Device (SCD) *Heparin 5000 units SQ BID 3-4 Higher Order ONE of the following medications: *Heparin 5000 units SQ TID *Enoxaparin/Lovenox 40 mg SQ daily (WT < 150 kg, CrCl > 30 mL/min) *Enoxaparin/Lovenox 30 mg SQ daily (WT < 150 kg, CrCl > 10-29 mL/min) *Enoxaparin/Lovenox 30 mg SQ BID (WT < 150 kg, CrCl > 30 mL/min) AND/OR *Sequential Compression Device (SCD) 5 or more Highest Order ONE of the following medications: *Heparin 5000 units SQ TID (Preferred with Epidurals) *Enoxaparin/Lovenox 40 mg SQ daily (WT < 150 kg, CrCl > 30 mL/min) *Enoxaparin/Lovenox 30 mg SQ daily (WT < 150 kg, CrCl > 10-29 mL/min) *Enoxaparin/Lovenox 30 mg SQ BID (WT < 150 kg, CrCl > 30 mL/min) AND *Sequential Compression Device (SCD) Assessment and Plan - Assessment (1) CVA (cerebral vascular accident) Code(s): I63.9 - Cerebral infarction, unspecified Status: Acute (2) Chronic pain Code(s): G89.29 - Other chronic pain Status: Acute - Plan A/P: 1. CVA: h/o CVA w/ residual left-hand weakness, recent admit to [facility] 11/01-11/05/17 for slurred speech/facial droop and left-sided weakness, reports negative work up. Tx from [place] ER tonight for recurrent left facial droop, slurred speech and weakness. CT Head w/ old right basal ganglia infarct. Dr. Smith consulted, recommendation for MRI/MRA. S/p Lovenox in ER. Keep NPO. PT/OT/Speech therapy. 2. Chronic Pain: Pt requesting her home pain medications for right-rib pain which she believes is from a pneumonia. Informed patient we will have to be cautious w/ pain medication in light of her CVA and will be holding narcotics for now. S/p Tylenol IV in ER. CXR reviewed, no acute findings. 3. DVT Prophylaxis: Lovenox 4. Social work for d/c planning as needed 5. Case discussed w/ ER physician at length, labs/records/imaging reviewed by me.
[2017-11-08] MEDS: Sod Chloride 0.9% Inj 1,000 ML IV.CONT SCH ×2 (01:40→18:07)
[2017-11-08] MEDS: Senna/Docusate Sodium 8.6/50 MG Tablet PO SCH ×2 (08:55→21:14)
[2017-11-08] MEDS: Insulin NovoLOG Aspart Correctional Sugar Inj SQ SCH ×4 (08:56→23:35)
[2017-11-08] MEDS ORDERED: Acetaminophen 500 MG Tablet PO PRN (09:21)
--- NOTE | 2017-11-08 09:48 | P.PNADD ---
Addendum to Inpatient Note Reason for Addendum: Additional Documentation Additional information: 62 uyears old right handed female with hsitory of CVA left hemiparesis 2016 Frequent fall - baseline uses a quadcane but not using it a lot because she states she trips on it and fell at least 3x past week last fall wednesday night- and is requesting for a single cane instead. history of chronic back pain- states takes Oxycodone 10 mg po q 6 for this History of hep C, dnies alcohol use COPD 02 requiring and still cotninues to smokes and states she is trying to quit states she is on chantix bid,uses Proair 2 puffs qid PE: appears slightly anxious "stress" - on exam with few rhonchis, few inspiratory wheezes on exam - regular rhythnm - left sided weakness 4+/5- per patient near baseline - gait testing deferred A/P 62 years old female right handed Frequent fall- work up in progress- MRI requested History of previous CVA with residual left hemiparesis - get PT/OT consult eval and treat and-for recomm- DME- per patient trips on her quadcane - continue Plavix, Carbamazepine COPD-- in exacerbation + wheezes on exam, per patient 02 requiring Chronic smoker - start duonebs q 6 - start her Proaair 2 puffs qid. Start Spiriva MDI daily - restart her Chantix bid - start IV solumedrol 40 mg IV q 8 - 02 NC History of Hep C- OP ff up - she ff with a GI as OP Chronic back pain - restart her Oxycodone at 5 mg po q 6 - PT consult- evaluate- DME History of anxiety disorder - restart her Klonopin,Carbamazepine,cymbalta DOROTHY- received IV bolus - recheck BMP - maintenance fluid if needed - dietitian consult PCP- is in [place]- Dr. lutz CM consult for DC planning Lovenox for DVT prophylaxis -
[2017-11-08 09:52] LABS: Chol/HDL Ratio 2.74 Ratio; HDL Cholesterol 57.5 mg/dL (40.0-60.0)
--- NOTE | 2017-11-08 11:31 | MR ---
EXAM DATE: 11/08/2017 11:09 AM EDT AGE/SEX: 62 years / Female INDICATIONS: Stroke. Slurred speech with left sided weakness. CLINICAL DATA: This is the patient's initial encounter. Patient reports that signs and symptoms have been present for 1 day and indicates a pain score of 0/10. MEDICAL/SURGICAL HISTORY: Stroke. Appendectomy. Corneal transplant, loop recorder COMPARISON: No prior exams available for comparison. TECHNIQUE: Multiplanar, multisequence examination of the brain was performed without contrast. FINDINGS: MRI of the brain is performed in sagittal, axial and coronal planes. The craniocervical junction and midline structures are unremarkable. Diffusion weighted images demonstrate no abnormality. No acute c ortical infarction, acute hemorrhage, mass effect or midline shift is seen.There is old infarct in th e right basal ganglia and cox radiata measuring 2.5 x 1 cm. No cortical infarction is seen Posteri or fossa structures are unremarkable. CONCLUSION: No evidence of acute intracranial pathology. No masses are identified. Old right basal ganglia infar ct. Electronically signed by: Neftali Pineda MD 11/08/2017 11:30 AM EDT
--- NOTE | 2017-11-08 11:34 | MR ---
EXAM DATE: 11/08/2017 11:10 AM EDT AGE/SEX: 62 years / Female INDICATIONS: Stroke. Slurred speech with left sided weakness. CLINICAL DATA: This is the patient's initial encounter. Patient reports that signs and symptoms have been present for 2 days and indicates a pain score of 0/10. MEDICAL/SURGICAL HISTORY: Stroke. Appendectomy. Corneal transplant, loop recorder COMPARISON: No prior exams available for comparison. TECHNIQUE: 3D [id number] MRA was performed. Source images, multiplanar STS MIP, and 3D volum e MIP reconstructions were reviewed. FINDINGS: There is excellent visualization of the major intracranial arteries out to the second-order branch ve ssels. There is no evidence for aneurysm, vessel truncation or stenosis, and no evidence for vascula r malformation. The left vertebral artery is dominant. There is a patent posterior communicating artery on the right. The exam is limited secondary to motio n artifact which limits the interpretation. Limited examination secondary to motion. CONCLUSION: Limited examination secondary to motion. Unremarkable MR angiography of the brain. Electronically signed by: Neftali Pineda MD 11/08/2017 11:33 AM EDT
[2017-11-08] MEDS ORDERED: Gadobenate Dimeglumine PF Inj 10 ML VIAL (for RAD MRI) IVCONTRAST ONE (11:43)
[2017-11-08] MEDS: Tiotropium Bromide 18 MCG/ACT Inhaler INH SCH (11:55)
[2017-11-08] MEDS: Varenicline 0.5 MG Tablet PO SCH ×2 (11:55→21:14)
[2017-11-08] MEDS: carBAMazepine 200 MG Tablet PO SCH ×2 (11:55→21:14)
[2017-11-08] MEDS: clonazePAM 0.5 MG Tablet PO SCH ×2 (12:00→18:05)
[2017-11-08 12:02] LABS: Calcium 7.5 mg/dL (8.5-10.1); Potassium 3.6 meq/L (3.5-5.1)
--- NOTE | 2017-11-08 12:24 | MR ---
EXAM DATE: 11/08/2017 11:42 AM EDT AGE/SEX: 62 years / Female INDICATIONS: Stroke. Slurred speech with left sided weakness. CLINICAL DATA: This is the patient's initial encounter. Patient reports that signs and symptoms have been present for 1 day and indicates a pain score of 0/10. MEDICAL/SURGICAL HISTORY: Stroke. Appendectomy. Corneal transplant, loop recorder COMPARISON: No prior exams available for comparison. TECHNIQUE: 20 ml Multihance (gadobenate) contrast infused MRA (single exam dose) of the extracrania l circulation was performed using a neurovascular coil. Postprocessing was performed, including rota ting sub-volume maximum intensity projections of each carotid artery, rotating full-volume maximum in tensity projections of both carotid arteries, sagittal and coronal sliding thin-slab reformations of each carotid artery, and left oblique sliding thin-slab reformation through the aortic arch to includ e the origin of the arch branch vessels. FINDINGS: No abnormality is identified within the lung apices. There is normal origin of vessels from the arch without evidence of proximal stenosis. Vertebral arteries are codominant. Examination of the right common carotid artery demonstrates the vessel to be widely patent. There is 0-10% stenosis at the origin of the internal carotid artery. More distally the cervical internal noe tid artery is intact. Examination of the left common carotid artery demonstrates the vessel to be widely patent. Findings M ore distally the cervical internal carotid artery is intact. CONCLUSION: No evidence of hemodynamically significant lesion with less than 50% stenosis. Percent stenosis is calculated using the diameter of the stenotic region over the diameter of the nor mal distal internal carotid artery Electronically signed by: Neftali Pineda MD 11/08/2017 12:22 PM EDT
[2017-11-08] MEDS: MethylPREDNISolone Sod Succinate Inj 40 MG/ML Vial IV.PUSH SCH ×2 (14:12→21:14)
[2017-11-08 15:51] LABS: Hemoglobin A1c 5.3 % (4.3-6.0)
--- NOTE | 2017-11-08 16:33 | MB ---
cc: Yvan Marshall MD, PhD DATE: 11/08/2017 REASON FOR CONSULTATION: Stroke. HISTORY OF PRESENT ILLNESS: Ms. Munson is a very nice 62-year-old female who states she had 2 strokes a year ago resulting in left-sided weakness, admitted at [facility] in [place]. She states she did get tPA at that time and her symptoms improved with the exception of some residual weakness of the left hand. She states that yesterday she suddenly developed severe weakness of the left arm and leg and presented to the [facility] Emergency Room. The patient was out of the window for thrombolytic therapy. She was transferred to the [facility] for further evaluation. She does take Plavix as an outpatient 75 mg daily. PAST MEDICAL HISTORY: History of two strokes in the past about a year ago, history of GERD, depression, hysterectomy, hypercholesterolemia, stroke in the past, corneal transplant, appendectomy. She also has a history of trigeminal neuralgia for which she takes Tegretol. MEDICATIONS AT HOME: 1. Tegretol 200 mg b.i.d. 2. Clonazepam 0.5 mg t.i.d. 3. Plavix 75 mg daily. 4. Cymbalta 20 mg daily. 5. Omeprazole 40 mg daily. 6. Oxycodone 10 mg t.i.d. 7. Chantix. 8. Butalbital for pain. ALLERGIES: NONE KNOWN. NEUROLOGICAL EXAMINATION: VITAL SIGNS: Her blood pressure is 136/75, pulse 74, respiratory rate is 18, temperature 98.2 degrees. HIGHER CORTICAL FUNCTION: She is alert and oriented x3. Speech is dysarthric. CRANIAL NERVES: She has got a left upper motor neuron VII palsy. Pupils 2 mm, symmetric and reactive. Extraocular movements intact. MOTOR EXAM: She is weak in the left arm, 3/5 proximally, 2/5 distally. Weak in the left leg, 4/5 proximal and distal. Normal strength on the right. There is diminished fine motor skills in the left hand. SENSORY: Diminished left arm and left leg diffusely. REFLEXES: 2+ and symmetric, except for the ankle reflexes, which are 1+ and symmetric. There is no Babinski sign present. IMAGING STUDIES: CT of the brain: Old basal ganglia stroke. MRI of the brain: No acute changes identified. There is an old right basal ganglia stroke. There is no diffusion abnormality. MRA of the head: There is motion artifact, otherwise, overall normal. MRA neck: No evidence of any significant carotid stenosis. LABORATORY DATA: Sodium is 143, potassium 3.6, chloride 114, CO2 24. The BUN is 20, creatinine 0.86, GFR 67, glucose 68, calcium 7.5, cholesterol 158, LDL 71, HDL 57.5. IMPRESSION: There is no evidence of acute infarction on the MRI. There is an old right basal ganglia stroke. The left-sided symptoms may be from her previous stroke, however. RECOMMENDATIONS: Would recommend adding Aspirin 325 mg daily since she felt her symptoms did get worse yesterday. We will continue monitoring cardiac telemetry to rule out atrial fibrillation. Also obtain an echocardiogram. Continue Tegretol because of the trigeminal neuralgia. We will obtain a Tegretol level as well. Yvan Marshall MD, PhD XAVIER/SB , 04:13 PM , 04:23 PM
[2017-11-09] MEDS: MethylPREDNISolone Sod Succinate Inj 40 MG/ML Vial IV.PUSH SCH ×3 (05:00→20:49)
[2017-11-09] MEDS: Sod Chloride 0.9% Inj 1,000 ML IV.CONT SCH ×2 (05:01→20:49)
[2017-11-09] MEDS: Aspirin 325 MG Tablet PO SCH (08:19)
[2017-11-09] MEDS: clonazePAM 0.5 MG Tablet PO SCH ×3 (08:19→17:06)
[2017-11-09] MEDS: carBAMazepine 200 MG Tablet PO SCH ×2 (08:20→20:49)
[2017-11-09] MEDS: Senna/Docusate Sodium 8.6/50 MG Tablet PO SCH ×2 (08:20→22:06)
[2017-11-09] MEDS: Varenicline 0.5 MG Tablet PO SCH ×2 (08:20→20:48)
[2017-11-09] MEDS: Tiotropium Bromide 18 MCG/ACT Inhaler INH SCH (08:21)
[2017-11-09] MEDS: Insulin NovoLOG Aspart Correctional Sugar Inj SQ SCH ×4 (08:21→20:29)
[2017-11-09] MEDS: Enoxaparin Inj 30 MG/0.3 ML Syringe SQ SCH (08:21)
[2017-11-09 09:19] LABS: Baso % (Auto) 0.2 % (0.0-2.0); Eos % (Auto) 0.1 % (0.0-4.0); Hematocrit 34.9 % (35.0-46.0); Hemoglobin 11.3 gm/dL (11.6-15.3); Lymph # (Auto) 1.2 th/mm3 (1.0-4.8); Lymph % (Auto) 12.7 % (9.0-44.0); Mean Corpuscular HGB Conc 32.5 % (32.0-36.0); Mean Corpuscular Hemoglobin 28.7 pg (27.0-34.0); Mean Corpuscular Volume 88.5 fL (80.0-100.0); Mean Platelet Volume 7.9 fL (7.0-11.0); Mono # (Auto) 0.2 th/mm3 (0.0-0.9); Mono % (Auto) 1.9 % (0.0-8.0); Neut # (Auto) 7.7 th/mm3 (1.8-7.7); Neut % (Auto) 85.1 % (16.0-70.0); Platelet Count 356 th/mm3 (150-450); Red Blood Count 3.94 mil/mm3 (4.00-5.30); White Blood Count 9.1 th/mm3 (4.0-11.0)
[2017-11-09 09:29] LABS: Alanine Aminotransferase 17 U/L (10-53); Albumin 2.9 g/dL (3.4-5.0); Anion Gap 7 meq/L (5-15); Aspartate Aminotransferase 11 U/L (15-37); Blood Urea Nitrogen 17 mg/dL (7-18); Carbon Dioxide 23.8 meq/L (21.0-32.0); Chloride 112 meq/L (98-107); Glucose,Random 91 mg/dL (74-106); Potassium 4.2 meq/L (3.5-5.1); Sodium 143 meq/L (136-145)
[2017-11-09 09:30] LABS: Glomerular Filtration Rate 79 mL/min (>89)
[2017-11-09 09:31] LABS: Alkaline Phosphatase 81 U/L (45-117); Total Protein 6.5 g/dL (6.4-8.2)
--- NOTE | 2017-11-09 10:10 | P.PN ---
Physical Exam Vital signs: Vital Signs 11/08/17 12:00 11/08/17 16:00 11/08/17 18:23 Temperature 97.4 F L 98.2 F Pulse Rate 69 78 78 Respiratory Rate 18 18 16 Blood Pressure 129/87 113/74 Pulse Oximetry 96 95 11/08/17 20:00 11/09/17 00:00 11/09/17 04:00 Temperature 97.5 F L 98.4 F 97.6 F Pulse Rate 78 76 67 Respiratory Rate 16 16 16 Blood Pressure 110/63 123/65 106/72 Pulse Oximetry 98 96 95 11/09/17 08:00 Temperature 98.7 F Pulse Rate 68 Respiratory Rate 20 Blood Pressure 135/65 Pulse Oximetry 97 Intake & Output 11/08/17 11/09/17 11/09/17 18:59 06:59 18:59 Intake Total 1000 / 1000 1000 / 1000 Output Total 500 / 500 Balance 500 / 500 1000 / 1000 Weight 56.1 kg 97.6 kg Intake: IV 1000 / 1000 1000 / 1000 NS Inj 1,000 ML @ 70 mls/hr IV. 1000 / 1000 1000 / 1000 CONT .[id number] [facility] Rx#:[id number] Output: Urine Amount (Catheter) 500 / 500 Indwelling Urethral Catheter 500 / 500 Other: # Voids 2 1 Narrative: Subjective: In bed says she has pain in her right ribs . The juan ramon is similar when she had rib fractures Not associated with cough, n/v/d/c. Physical exam: GENERAL: Middle-aged female in no acute distress, anxious asking for pain meds. HEENT: PERRLA, EOMI. Left ptosis, reports more pronounced than baseline, left facial droop, +mild slurred speech CARDIOVASCULAR: Regular rate and rhythm. No obvious murmurs to auscultation. No chest tenderness to palpation. RESPIRATORY: Pain with palpation right lateral mid chest. No obvious rhonchi or wheezing. Clear to auscultation. Breath sounds equal bilaterally. GASTROINTESTINAL: Abdomen soft, non-tender, nondistended. BS normal. MUSCULOSKELETAL: Extremities without clubbing, cyanosis, or edema. No obvious deformities. NEUROLOGICAL: Awake, alert and oriented x4. Left hand weakness, stable, LUE/LLE numbness. Moving both upper and lower extremities spontaneously. Assessment and Plan 62 years old right handed female with A/P 62 years old female right handed Frequent fall- work up in progress- MRI History of previous CVA with residual left hemiparesis (2017) Patient with h/o CVA with residual left-hand weakness, recent admit to [facility] 11/01-11/05/17 for slurred speech/facial droop and left-sided weakness , reports negative work up. transferred from [place] ER for recurrent left facial droop, slurred speech and weakness. CT Head w/ old right basal ganglia infarct. - ST/ PT/OT consult eval and treat and-for recomm- DME- per patient trips on her [employer] - continue Plavix, Carbamazepine - neurology Dr. Smith consulted, recommendation for MRI/MRA COPD with in exacerbation Chronic respiratory failure requiring o2 continuous at home per patient 02 requiring Chronic smoker. Counselled. - duonebs q 6 - Proaair 2 puffs qid. Start Spiriva MDI daily - Chantix bid - IV solumedrol 40 mg IV q 8, taper as tolerated - Keep O2 sat > 92% , supplement O2 by NC. Monitor pulse ox History of Hep C- OP ff up - she ff with a GI as OP Chronic back pain - restart her Oxycodone at 5 mg po q 6 - PT consult- evaluate- DME History of anxiety disorder - restart her Klonopin,Carbamazepine,cymbalta DOROTHY- received IV bolus - recheck BMP - maintenance fluid if needed - dietitian consult PCP- is in [place]- Dr. lutz CM consult for DC planning Lovenox for DVT prophylaxis Case discussed with the patient, nurse - Urinary Catheter Management Indwelling Urethral Catheter Cath placed during this visit: yes Reason for continuing: Acute urinary retention Insertion date: 11/07/17 Results - Labs CBC & Chem 7: 11/09/17 08:38 11/09/17 08:38 Laboratory Results - last 24 hr 11/08/17 11/08/17 11/08/17 08:46 11:17 11:17 WBC RBC Hgb Hct MCV MCH MCHC RDW Plt Count MPV Neut % (Auto) Lymph % (Auto) Brule % (Auto) Eos % (Auto) Baso % (Auto) Neut # (Auto) Lymph # (Auto) Brule # (Auto) Eos # (Auto) Baso # (Auto) WBC Differential Differential Comment Sodium 143 Potassium 3.6 Chloride 114 H Carbon Dioxide 24.0 Anion Gap 5 BUN 20 H Creatinine 0.86 Estimated GFR 67 L POC Glucose Random Glucose 68 L Hemoglobin A1c 5.3 Calcium 7.5 L Total Bilirubin AST ALT Alkaline Phosphatase Total Protein Albumin Carbamazepine 5.2 11/08/17 11/09/17 11/09/17 11:54 07:56 08:38 WBC 9.1 RBC 3.94 L Hgb 11.3 L Hct 34.9 L MCV 88.5 MCH 28.7 MCHC 32.5 RDW 16.0 Plt Count 356 MPV 7.9 Neut % (Auto) 85.1 H Lymph % (Auto) 12.7 Brule % (Auto) 1.9 Eos % (Auto) 0.1 Baso % (Auto) 0.2 Neut # (Auto) 7.7 Lymph # (Auto) 1.2 Brule # (Auto) 0.2 Eos # (Auto) 0.0 Baso # (Auto) 0.0 WBC Differential . Differential Comment Auto diff final Sodium Potassium Chloride Carbon Dioxide Anion Gap BUN Creatinine Estimated GFR POC Glucose 88 109 Random Glucose Hemoglobin A1c Calcium Total Bilirubin AST ALT Alkaline Phosphatase Total Protein Albumin Carbamazepine 11/09/17 08:38 WBC RBC Hgb Hct MCV MCH MCHC RDW Plt Count MPV Neut % (Auto) Lymph % (Auto) Brule % (Auto) Eos % (Auto) Baso % (Auto) Neut # (Auto) Lymph # (Auto) Brule # (Auto) Eos # (Auto) Baso # (Auto) WBC Differential Differential Comment Sodium 143 Potassium 4.2 Chloride 112 H Carbon Dioxide 23.8 Anion Gap 7 BUN 17 Creatinine 0.75 Estimated GFR 79 L POC Glucose Random Glucose 91 Hemoglobin A1c Calcium 8.0 L Total Bilirubin 0.2 AST 11 L ALT 17 Alkaline Phosphatase 81 Total Protein 6.5 D Albumin 2.9 L Carbamazepine - Imaging Impressions Head MRI 11/08/17 23:42 CONCLUSION: No evidence of acute intracranial pathology. No masses are identified. Old right basal ganglia infarct. Head MRA 11/08/17 23:42 CONCLUSION: Limited examination secondary to motion. Unremarkable MR angiography of the brain. Neck MRA 11/08/17 23:42 CONCLUSION: No evidence of hemodynamically significant lesion with less than 50% stenosis. Percent stenosis is calculated using the diameter of the stenotic region over the diameter of the normal distal internal carotid artery Assessment and Plan - Assessment (1) CVA (cerebral vascular accident) Code(s): I63.9 - Cerebral infarction, unspecified Status: Acute (2) Chronic pain Code(s): G89.29 - Other chronic pain Status: Acute
--- NOTE | 2017-11-09 11:44 | MB ---
cc: Neftali Smith MD DATE: 11/07/2017 TELE/STROKE CONSULTATION 09:45 P.M. HISTORY OF PRESENT ILLNESS: The patient is a 62-year-old woman with a history of right MCA occlusion, normal ejection fraction in 2017, who has been left with some weakness on the left side, but usually can ambulate. One week ago, she was in [facility] with increased weakness on the left side. She thinks she had an MRI that may have been negative. It is unclear. Nevertheless, she seemed to improve and go back to her baseline and then about 2 p.m. today, she had the onset of weakness on the left side and did not come into the ER until about 6 hours after that. MEDICATIONS AT HOME: 1. Butalbital 2. Tegretol 200 b.i.d. 3. Klonopin. 4. Plavix. 5. Cymbalta. 6. Omeprazole. 7. Oxycodone. 8. Chantix. ALLERGIES: NO KNOWN DRUG ALLERGIES. PAST MEDICAL HISTORY: 1. Hysterectomy. 2. Hypercholesterolemia. 3. GERD. 4. Depression. 5. Corneal transplant. SOCIAL HISTORY: Former smoker. No drugs. Not a drinker. PHYSICAL EXAMINATION: VITAL SIGNS: On exam, initially was 110, afebrile, 111/64, 101-102/56. NEUROLOGIC: She is awake and alert. She appears to have a visual field cut on the left. She has a left facial droop. Her speech is fluent. She is not aphasic. She follows commands well. She has normal strength on the right. She can lift her left arm and leg off the bed, but not maintain it off the bed. Her NIH stroke scale is an 8. IMAGING DATA: CAT scan showed old right basal ganglionic infarct. LABORATORY DATA: White count 14, hematocrit 32, platelet count 363. Sedimentation rate was normal last year. Coags are normal. She had a hypercoagulable screen in the past, which was negative in September 2016. BMP today: Creatinine 1.1, BUN 30, GFR 51. Lactic acid normal. LFTs normal. CPK and troponin negative. CRP was essentially normal a year ago, as well as an SPEP. LDL cholesterol was 81 a year ago. B12, methylmalonic acid, thyroid normal at that time. Had a Tegretol level of 6.5 at that time. Antinuclear antibody has been negative in the past. RPR has been negative. ASSESSMENT AND PLAN: She is possibly a new stroke, especially with the field cut. What I have recommended is to get a CTA of the neck and [place] and transfer to [facility]. She is not a tPA candidate because she is outside the window for clot extraction and IV tPA. In addition, it is unclear if some of the symptoms she is having could possibly be related to an event that happened a week prior. For now, we will give her IV hydration, keep her head of bed flat, maintain her blood pressure, check the CTA of the neck and [place], transfer to [place] so we can do an MRI. MD BENNIE Downey/nlie/jaylan , 08:53 PM , 09:01 PM
--- NOTE | 2017-11-09 16:25 | P.DIET ---
Nutritional Evaluation Type of nutrition evaluation: initial Nutrition screening: MDC (Poor PO Intake) Subjective Subjective Comments: Pt reports she has a sweet tooth. She reports that she will try chocolate Ensure Enlive. Objective - Diagnosis Neurologic Deficit, Aleterd speech - Objective % IBW: 127 (IBW = 97#) Body Weight Used for Calculations: Actual (56.1 kg) Energy Needs - Lower Range (kCal/kg): 25 Energy Needs - Upper Range (kCal/kg): 30 Lower Limit kCal/kg (kCals): 1,403 Upper Limit kCal/kg (kCals): 1,683 Lower Limit Protein Factor (Grams per Kg): 1.0 Upper Limit Protein Factor (Grams per Kg): 1.5 Lower Protein Needs (Protein): 56 Upper Protein Needs (Protein): 84 Fluid Factor (ml/kg): 30 Estimated Fluid Needs (ml): 1,683 Dietitian Reviewed in Medical Record: Current diet, Curent medications, Intake & Output, Labs, Medical history Diet Order: Heart Healthy, mechanical soft, nectar thickened liquids Speech Therapy Recommendations: Yes Assessment Assessment: MDC for poor po intake acknowledged. Will send Ensure Enlive for additional nutrition; each 8 oz serving provides 350 kcals and 20 gms protien. Pt is agreeable to the chocolate flavor. Inaccurate wt of 97.6 kg noted, nursing informed. Recommendations: 1. Diet texture per ST 2. D/C Heart Healthy diet restriction to better meet pt's preferences. 3. Ensure Enlive tid Dietitian to Monitor: Lab values, Supplement acceptance, Intake & Output, Diet tolerance, Weight change, PO Intake, Diet advancement, Medical course
[2017-11-10 04:55] VITALS: PULSE 71
[2017-11-10 08:45] VITALS: BP 152/95; RESP 16; TEMP 97.3; O2SAT 99
[2017-11-10] MEDS: carBAMazepine 200 MG Tablet PO SCH (09:02)
[2017-11-10] MEDS: Senna/Docusate Sodium 8.6/50 MG Tablet PO SCH (09:02)
[2017-11-10] MEDS: Varenicline 0.5 MG Tablet PO SCH (09:02)
[2017-11-10] MEDS: clonazePAM 0.5 MG Tablet PO SCH (09:02)
[2017-11-10] MEDS: Aspirin 325 MG Tablet PO SCH (09:02)
[2017-11-10] MEDS: MethylPREDNISolone Sod Succinate Inj 40 MG/ML Vial IV.PUSH SCH (09:03)
[2017-11-10] MEDS: Enoxaparin Inj 30 MG/0.3 ML Syringe SQ SCH (09:03)
[2017-11-10] MEDS: Tiotropium Bromide 18 MCG/ACT Inhaler INH SCH (09:13)
[2017-11-10] MEDS: Insulin NovoLOG Aspart Correctional Sugar Inj SQ SCH (09:13)
--- NOTE | 2017-11-10 09:39 | P.DS ---
Date of admission: 11/07/17 23:28 Primary care physician: Michael Land Brief History from admission: This is a 62-year-old female with a PMH of CVA, Chronic Back Pain, H/o Eye Surgery w/ Left Ptosis, PVD, Anxiety, Depression, COPD, Hepatitis C and h/o Tobacco Abuse who was transferred to the ER from [facility] for Stroke. Pt is very poor historian and difficult to obtain accurate details regarding her history, but she does tell me she has h/o CVA w/ residual left hand weakness- unable to grasp objects, but is able to ambulate. Was admitted to [facility] in [place] from 11/01-11/05/17 for acute left facial droop and weakness, states "everything was negative". Reports having episodes of "choking " after she eats ever since she was discharged few days ago. Today, reports recurrent left facial droop, slurred speech and LUE/LLE numbness w/ "tremors". States unable to walk. Was seen in [place] ER and transferred for further eval by Dr. Smith. CT Head w/ old infarct right basal ganglia. CXR w/ no acute findings. BP 160/88, HR 88, O2 sat 98% on RA, Afebrile. WBC 14.3. INR 0.9. Chemistry essentially unremarkable except for creatinine 1.10. Troponin negative. UA negative. On exam, pt w/ persistent facial droop and slurred speech. Her main concern is getting pain medication for right-sided rib cage pain which "I know is from a pneumonia". Also asking for her Clonazepam. DS: Diagnosis - Discharge Diagnosis (1) CVA (cerebral vascular accident) Status: Acute (2) Chronic pain Status: Acute DS: Medications - Discharge Medications Prescriptions: albuterol sulfate [ProAir HFA] 2 puff INHALATION Q6H PRN #30 g PRN Reason: Shortness Of Breath Or Wheezing aspirin 325 mg PO DAILY #30 tab budesonide-formoterol 2 puff INHALATION Q12H #60 g inhalational spacing device [BreatheRite Valved MDI Spacer] #1 each ipratropium-albuterol 1 amp NEB Q6HR NEB PRN #30 ml PRN Reason: wheezing/distress nicotine 1 patch TRANSDERMAL DAILY #30 ea prednisone [Deltasone] 40 mg PO DAILY #4 tab tiotropium bromide [Spiriva with HandiHaler] 18 mcg INH DAILY #60 inh DS: Summary Hospital Course: Physical exam: GENERAL: Middle-aged female in no acute distress, anxious asking for pain meds. HEENT: PERRLA, EOMI. Left ptosis, reports more pronounced than baseline, left facial droop, +mild slurred speech CARDIOVASCULAR: Regular rate and rhythm. No obvious murmurs to auscultation. No chest tenderness to palpation. RESPIRATORY: Pain with palpation right lateral mid chest. No obvious rhonchi or wheezing. Clear to auscultation. Breath sounds equal bilaterally. GASTROINTESTINAL: Abdomen soft, non-tender, nondistended. BS normal. MUSCULOSKELETAL: Extremities without clubbing, cyanosis, or edema. No obvious deformities. NEUROLOGICAL: Awake, alert and oriented x4. Left hand weakness, stable, LUE/LLE numbness. Moving both upper and lower extremities spontaneously. Assessment and Plan 62 years old right handed female with Frequent fall- MRI no acute findings History of previous CVA with residual left hemiparesis (2017) Patient with h/o CVA with residual left-hand weakness, recent admit to [facility] 11/01-11/05/17 for slurred speech/facial droop and left-sided weakness , reports negative work up. transferred from [place] ER for recurrent left facial droop, slurred speech and weakness. CT Head w/ old right basal ganglia infarct. - ST/ PT/OT consult eval and treat and-for recomm- DME- per patient trips on her quadcane - continue Plavix, Carbamazepine - neurology Dr. Smith consulted, recommendation for MRI/MRA COPD with exacerbation Chronic respiratory failure requiring o2 continuous at home per patient 02 requiring Chronic smoker. Counselled. - duonebs q 6 - Proaair 2 puffs qid. Start Spiriva MDI daily - Chantix bid - IV solumedrol 40 mg IV q 8, taper as tolerated - Keep O2 sat > 92% , supplement O2 by NC. Monitor pulse ox History of Hep C- OP ff up - she ff with a GI as OP Chronic back pain - restart her Oxycodone at 5 mg po q 6 - PT consult- evaluate- DME History of anxiety disorder - restart her Klonopin,Carbamazepine,cymbalta DOROTHY- received IV bolus - recheck BMP - maintenance fluid if needed - dietitian consult PCP- is in [place]- Dr. lutz CM consult for DC planning Lovenox for DVT prophylaxis Case discussed with the patient, nurse - Time Spent with Patient Total time spent providing and/or coordinating discharge services: Greater than 30 minutes - Quality: VTE Deep Vein Thrombosis/Pulmonary Embolism Present on Admission: No Exam Vital signs: Vital Signs 11/09/17 12:00 11/09/17 16:00 11/09/17 20:00 Temperature 98.2 F 97.6 F 99.2 F Pulse Rate 83 74 89 Respiratory Rate 20 20 20 Blood Pressure 125/75 130/79 122/64 Pulse Oximetry 96 97 97 11/09/17 21:24 11/10/17 00:00 11/10/17 04:00 Temperature 97.9 F 98.1 F Pulse Rate 72 72 71 Respiratory Rate 20 20 Blood Pressure 135/70 131/72 Pulse Oximetry 97 97 11/10/17 08:00 Temperature 97.3 F L Pulse Rate 71 Respiratory Rate 16 Blood Pressure 152/95 H Pulse Oximetry 99 Intake & Output 11/09/17 11/10/17 11/10/17 18:59 06:59 18:59 Intake Total 1000 / 1000 Balance 1000 / 1000 Weight 59.8 kg Intake: IV 1000 / 1000 NS Inj 1,000 ML @ 70 mls/hr IV. 1000 / 1000 CONT .[id number] [facility] Rx#:[id number] Other: # Voids 4 1 Results Procedures completed during hospitalization: no procedures Labs on day of discharge: Labs from last 24 hours 11/10/17 11/09/17 11/09/17 09:07 20:26 16:50 POC Glucose 99 112 H 151 H 11/09/17 11/09/17 16:48 11:05 POC Glucose 174 H 121 H - Impressions ITS Impressions Head MRI 11/08/17 23:42 CONCLUSION: No evidence of acute intracranial pathology. No masses are identified. Old right basal ganglia infarct. Head MRA 11/08/17 23:42 CONCLUSION: Limited examination secondary to motion. Unremarkable MR angiography of the brain. Neck MRA 11/08/17 23:42 CONCLUSION: No evidence of hemodynamically significant lesion with less than 50% stenosis. Percent stenosis is calculated using the diameter of the stenotic region over the diameter of the normal distal internal carotid artery Discharge Plan - Discharge Disposition Patient Disposition: /Home Health Service - Discharge Condition Condition: Stable - Discharge Order Discharge Orders: Discharge Order (Routine); Ordered 11/10/17 Ordered By: Osiris Burt - Discharge Details Anticipated Discharge Date: 11/10/17 - Physicians Team Primary Care Provider: Michael Land Attending Provider: Osiris Burt Other Providers: Yvan Marshall MD, PhD ; Isabela Hayes MD
[2017-11-10] MEDS ORDERED: Naproxen 500 MG Tablet PO ONE (09:41)
[2017-11-10] MEDS ORDERED: Ketorolac Inj 30 MG/ML (IVP) Vial IV.PUSH ONE (09:42)
--- NOTE | 2017-11-10 10:02 | P.DCO ---
- Physical Therapy Order: Evaluate and treat - Home Health Nursing Order: Medical education, Signs/symptoms of disease process, Medication education-adverse effect, Nursing assessment with vital signs, Telehealth - Certification I have seen patient Marcie Munson on 11/10/17. My clinical findings support the need for the requested home health care services because: Limited mobility due to disease progression, Patient has SOB I certify that my clinical findings support that this patient is homebound because: Post-op weakness, Hx COPD - exertion dyspnea/weakness
--- NOTE | 2017-11-10 12:01 | XR ---
EXAM DATE: 11/10/2017 10:24 AM EDT AGE/SEX: 62 years / Female INDICATIONS: Chest pain. CLINICAL DATA: This is the patient's initial encounter. Patient reports that signs and symptoms have been present for 1 day and indicates a pain score of 6/10. MEDICAL/SURGICAL HISTORY: Stroke. . Loop recorder. COMPARISON: [facility], CHEST 1V SINGLE AP, 11/07/2017. . FINDINGS: A single AP view of the chest demonstrates the lungs to be symmetrically aerated without evidence of mass, infiltrate or effusion. The cardiomediastinal contours are unremarkable. Osseous structures a re intact. CONCLUSION: Negative examination. Electronically signed by: Yair Morales MD 11/10/2017 10:33 AM EDT
[2017-11-10] MEDS ORDERED: Naproxen 500 MG Tablet PO SCH (21:00)
--- NOTE | 2017-11-11 16:38 | P.CONREH ---
History of Present Illness Primary Care Provider: Michael Land [facility] - History History Provided By: Patient - Medical History Medical History: Medical History (Last Reviewed 11/10/17 @ 09:24 by Samantha Reinoso) Depression GERD (gastroesophageal reflux disease) H/O: hysterectomy Hypercholesterolemia Stroke - Surgical History Surgical History: Surgical History (Last Reviewed 11/10/17 @ 09:24 by Samantha Reinoso) History of corneal transplant Hx of appendectomy - Tobacco History Second Hand Smoke Exposure: No Tobacco Use In Past 30 Days: No Smoking Status: Smoker, status unknown Tobacco Type: Cigarettes - Alcohol History How Often Do You Have a Drink Containing Alcohol: Never - Substance Use History Substance History: No History of Abuse - Travel History Recent Travel in the [place] Within the Last 8 Weeks: No Recent Travel Out of the Country Within the Last 8 Weeks: No - Immunization History Tetanus Immunization: Unsure Hx Influenza Vaccine This Season: No Medications and Allergies Allergies Allergy/AdvReac Type Severity Reaction Status Date / Time No Known Allergies Allergy Verified 11/07/17 20:13 Home Medications Medication Instructions Recorded Confirmed Type [id number] 1 cap PO Q4H PRN 11/07/17 11/08/17 History [Fioricet] carbamazepine 200 mg PO BID 11/07/17 11/08/17 History clonazepam [Klonopin] 0.5 mg PO TID 11/07/17 11/08/17 History clopidogrel [Plavix] 75 mg PO DAILY 11/07/17 11/08/17 History duloxetine [Cymbalta] 20 mg PO DAILY 11/07/17 11/08/17 History omeprazole 40 mg PO DAILY 11/07/17 11/08/17 History varenicline [Chantix] 0.5 mg PO BID 11/07/17 11/08/17 History oxycodone 10 mg PO TID 11/08/17 11/08/17 History Exam - Physical Examination Vital Signs / I&O: Intake & Output 11/09/17 11/10/17 11/11/17 11/12/17 06:59 06:59 06:59 06:59 Intake Total 2000 / 2000 1000 / 1000 Output Total 500 / 500 Balance 1500 / 1500 1000 / 1000 Weight 97.6 kg 59.8 kg Results - Labs CBC & Chem 7: 11/09/17 08:38 11/09/17 08:38 Assessment and Plan - Plan Consult received per stroke order set. EMR reviewed. MRI negative for acute stroke. Neurology consult reviewed and indicates no new stroke. Consult deferred due to no acute stroke. Please reconsult as appropriate. Thank you.
== END 2017-11-10 10:42 | disposition home health service (06) ==
LOC: NEDDLT 19:15 → NEDA 23:28 → N05 11-08 04:45
PROVIDERS: ADMIT Hospitalist; ATTEND Hospitalist